=== PATIENT | female | born 1950 | race Caucasian/White ===

== ENCOUNTER → 2016-08-16 | Outpatient (CLI) | payer MEDICARE ==
--- NOTE | 2016-08-17 08:00 | MM ---
Reason for exam: screening (asymptomatic). Last mammogram was performed 1 year ago. History: Patient is postmenopausal and is nulliparous. Family history of breast cancer in grandmother. Physical Findings: A clinical breast exam by your physician is recommended on an annual basis and results should be correlated with mammographic findings. MG 3D Screening Mammo W/Cad Bilateral CC and MLO view(s) were taken. Prior study comparison: August 10, 2015, bilateral MG 3d screening mammo w/cad. August 04, 2014, bilateral MG screening mammo w CAD. The breast tissue is almost entirely fat. No significant changes when compared with prior studies. ASSESSMENT: Benign, BI-RAD 2 RECOMMENDATION: Routine screening mammogram of both breasts in 1 year.
== END | disposition home or self-care (01) ==
LOC: RADMAMWWP 09:47
PROVIDERS: ATTEND Family Medicine
DX: Z12.31 Encounter for screening mammogram for malignant neoplasm of breast (principal)
CPT/HCPCS: 77063; G0202

== ENCOUNTER 2016-10-04 16:15 | Emergency (ER) | payer MEDICARE ==
--- NOTE | 2016-10-04 17:45 | ED ---
General Adult HPI - General Chief complaint: Skin/Abscess/Foreign Body Stated complaint: Wound Recheck Time Seen by Provider: 10/04/16 17:23 Source: patient, RN notes reviewed Mode of arrival: EMS Limitations: physical limitation - History of Present Illness Initial comments: This is a 66 old female who presents with skin breakdown around the tape that she uses to secure her colostomy bag. Patient states she was diagnosed with colitis many years ago and this causes chronic diarrhea. Patient states her colostomy is constantly leaking and the frequent bag changes are causing increased skin breakdown around the tape of her colostomy bag. Patient states the stoma has been normal and without and skin breakdown or signs of infection. Patient denies any fever/chills. Patient denies any history of MRSA. Patient denies any recent shortness breath, chest pain, abdominal pain, nausea/vomiting , back pain, numbness, tingling, hematuria, headache, or visual changes, or any other complaints. - Related Data Home Medications Medication Instructions Recorded Confirmed Cyclobenzaprine [Flexeril] 5 mg PO HS 11/13/13 10/04/16 Diphenox-Atrop 2.5-0.025 mg 2 tab PO BID PRN 11/13/13 10/04/16 [Lomotil] Lisinopril [Zestril] 20 mg PO DAILY 11/13/13 10/04/16 Clotrimazole Cream [Lotrimin Cream] 1 applic TOPICAL BID 10/04/16 10/04/16 Cyclobenzaprine [Flexeril] 5 mg PO BID PRN 10/04/16 10/04/16 Melatonin 5 mg PO HS 10/04/16 10/04/16 Mirabegron [Myrbetriq] 50 mg PO DAILY 10/04/16 10/04/16 Sertraline [Zoloft] 50 mg PO DAILY 10/04/16 10/04/16 Vitamin B Complex 1 cap PO DAILY 10/04/16 10/04/16 guaiFENesin SYRUP 100MG/5ML 1 dose PO DIRECTED PRN 10/04/16 10/04/16 [Robitussin] Allergies Allergy/AdvReac Type Severity Reaction Status Date / Time Penicillins Allergy Anaphylaxis Verified 10/04/16 17:20 cephalexin monohydrate AdvReac Nausea & Verified 10/04/16 17:20 [From Keflex] Vomiting codeine AdvReac Nausea & Verified 10/04/16 17:20 Vomiting Review of Systems ROS Statement: Those systems with pertinent positive or pertinent negative responses have been documented in the HPI. ROS Other: All systems not noted in ROS Statement are negative. Past Medical History Past Medical History: Asthma, Hypertension Additional Past Medical History / Comment(s): DIVERTICULITIS History of Any Multi-Drug Resistant Organisms: None Reported Past Surgical History: Section, Hernia Repair, Hysterectomy Additional Past Surgical History / Comment(s): LEFT BELOW THE KNEE AMPUTATION, colostomy Past Psychological History: No Psychological Hx Reported Smoking Status: Never smoker Past Alcohol Use History: None Reported Past Drug Use History: None Reported General Exam - General Exam Comments Initial Comments: General: The patient is awake and alert, in no distress, and does not appear acutely ill. Eye: Pupils are equal, round and reactive to light, extra-ocular movements are intact. No nystagmus. There is normal conjunctiva bilaterally. No signs of icterus. Ears: TMs pink and pearly with intact cone of light bilaterally. Normal external ear canals Nose: Nasal turbinates pink and moist Mouth and throat: There are moist mucous membranes and no oral lesions. Neck: The neck is supple, there is no tenderness or JVD. Cardiovascular: There is a regular rate and rhythm. No murmur, rub or gallop is appreciated. Respiratory: Lungs are clear to auscultation, respirations are non-labored, breath sounds are equal. No wheezes, stridor, rales, or rhonchi. Gastrointestinal: Colostomy bag in place. There is no increased erythema, swelling or skin breakdown around the stoma. There is mild small abrasion in a couple of areas of skin around the tape that's securing the colostomy bag. There is no extensive erythema, swelling or bleeding to these areas. No sign of cellulitis. Soft, non-distended, non-tender abdomen without masses or organomegaly noted. There is no rebound or guarding present. No CVA tenderness. Bowel sounds are unremarkable. Musculoskeletal: Normal ROM, no tenderness. Strength 5/5. Sensation intact. Radial Pulses equal bilaterally 2+. Neurological: A&O x 3. CN II-XII intact, There are no obvious motor or sensory deficits. Coordination appears grossly intact. Speech is normal. Skin: There is mild small abrasions around the skin of the patient's colostomy bag where there is tape securing the colostomy bag. No sign of cellulitis. Skin is warm and dry and no rashes are noted. Psychiatric: Cooperative, appropriate mood & affect, normal judgment. Limitations: physical limitation Course Vital Signs 10/04/16 16:20 Temperature 97.8 F Pulse Rate 84 Respiratory 20 Rate Blood Pressure 133/67 O2 Sat by Pulse 98 Oximetry Medical Decision Making - Medical Decision Making This is a 62yo female who is complaining of skin breakdown in the areas that her colostomy bag is taped. On physical exam patient is well-appearing and afebrile in the EC. Colostomy bag in place. Colostomy bag in place. There is no increased erythema, swelling or skin breakdown around the stoma. There is mild small abrasion in a couple of areas of skin around the tape that's securing the colostomy bag. There is no extensive erythema, swelling or bleeding to these areas. No sign of cellulitis. Soft, non-distended, non- tender abdomen without masses or organomegaly noted. There is no rebound or guarding present. No CVA tenderness. Bowel sounds are unremarkable. I discussed that patient should keep Neosporin on the areas of irritation. I discussed wetting the tape with warm soapy water before taking it off as the tape seems to be irritating the patient's skin because the patient has to change her colostomy bag frequently. I discussed to keep the areas clean and dry. I discussed return parameters. Discussed that patient should follow up with PCP in one to 2 days or return to the EC for any worsening symptoms or for any further concerns. Patient was receptive to this plan and patient will be discharged home. Disposition Clinical Impression: Skin breakdown, Abrasion Disposition: HOME SELF-CARE Condition: Good Instructions: Abrasion (ED) Additional Instructions: Plan wet with warm water the tape around your colostomy bag before removal to prevent skin breakdown. Please apply Neosporin to the areas where skin is irritated. Please keep the areas clean and dry. Please follow-up with family doctor in the next 2 days of symptoms have not improved. Please return to emergency room if the symptoms increase or worsen or for any other concerns. Referrals: Aubrey Giles MD [Primary Care Provider] - 1-2 days Time of Disposition: 17:53
[2016-10-04 18:17] VITALS: BP 120/80; PULSE 78; RESP 16; TEMP 97.9
== END 2016-10-04 18:16 | disposition home or self-care (01) ==
LOC: EC 16:15
DX: S30.811A Abrasion of abdominal wall, initial encounter (principal); I10 Essential (primary) hypertension; Z79.899 Other long term (current) drug therapy; Z88.0 Allergy status to penicillin; Z88.2 Allergy status to sulfonamides; Z88.8 Allergy status to other drugs, medicaments and biological substances; X58.XXXA Exposure to other specified factors, initial encounter
CPT/HCPCS: 99283

== ENCOUNTER → 2017-09-06 | Outpatient (CLI) | payer MEDICARE, OTHER ==
--- NOTE | 2017-09-11 07:57 | MM ---
Reason for exam: screening (asymptomatic). Last mammogram was performed 1 year and 1 month ago. History: Patient is postmenopausal and is nulliparous. Family history of breast cancer in grandmother. Physical Findings: A clinical breast exam by your physician is recommended on an annual basis and results should be correlated with mammographic findings. MG 3D Screening Mammo W/Cad Bilateral CC and MLO view(s) were taken. CV view(s) were taken of the right breast. Prior study comparison: August 16, 2016, bilateral MG 3d screening mammo w/cad. August 10, 2015, bilateral MG 3d screening mammo w/cad. There are scattered fibroglandular densities. No significant changes when compared with prior studies. ASSESSMENT: Negative, BI-RAD 1 RECOMMENDATION: Routine screening mammogram of both breasts in 1 year.
== END | disposition home or self-care (01) ==
LOC: RADMAMWWP 11:03
PROVIDERS: ATTEND General Practice
DX: Z12.31 Encounter for screening mammogram for malignant neoplasm of breast (principal)
CPT/HCPCS: 77063; 77067

== ENCOUNTER 2018-06-24 12:51 | Observation (INO) | payer MEDICARE, OTHER ==
[2018-06-24] MEDS ORDERED: SODIUM CHLORIDE 0.9% 1,000 ML IV STA (13:02)
[2018-06-24] MEDS ORDERED: PANTOPRAZOLE 40 MG/10 ML VIAL IVP STA (13:02)
--- NOTE | 2018-06-24 13:12 | ED ---
General Adult HPI - General Chief complaint: GI Bleed Stated complaint: Blood in Stool Time Seen by Provider: 06/24/18 12:56 Source: patient, RN notes reviewed Mode of arrival: EMS Limitations: no limitations - History of Present Illness Initial comments: Patient is a pleasant 67-year-old female presenting to the emergency department with concern for blood in her colostomy bag. Patient has had mild symptoms over the past week, worse today. Patient has had some mild abdominal cramping. Patient does have colostomy bag secondary to history of colitis. No nausea vomiting. No fevers. - Related Data Home Medications Medication Instructions Recorded Confirmed Diphenox-Atrop 2.5-0.025 mg 2 tab PO BID PRN 11/13/13 06/24/18 [Lomotil] Lisinopril [Zestril] 20 mg PO DAILY 11/13/13 06/24/18 Melatonin 5 mg PO HS 10/04/16 06/24/18 Vitamin B Complex 1 cap PO DAILY 10/04/16 06/24/18 Allergies Allergy/AdvReac Type Severity Reaction Status Date / Time Penicillins Allergy Anaphylaxis Verified 06/24/18 14:17 cephalexin monohydrate AdvReac Nausea & Verified 06/24/18 14:17 [From Keflex] Vomiting codeine AdvReac Nausea & Verified 06/24/18 14:17 Vomiting Review of Systems ROS Statement: Those systems with pertinent positive or pertinent negative responses have been documented in the HPI. ROS Other: All systems not noted in ROS Statement are negative. Constitutional: Denies: fever Eyes: Denies: eye pain ENT: Denies: ear pain Respiratory: Denies: cough Cardiovascular: Denies: chest pain Endocrine: Denies: fatigue Gastrointestinal: Reports: as per HPI, abdominal pain. Denies: nausea, vomiting Genitourinary: Denies: dysuria Musculoskeletal: Denies: back pain Skin: Denies: rash Neurological: Denies: weakness Past Medical History Past Medical History: Asthma, Hypertension Additional Past Medical History / Comment(s): DIVERTICULITIS History of Any Multi-Drug Resistant Organisms: None Reported Past Surgical History: Section, Hernia Repair, Hysterectomy Additional Past Surgical History / Comment(s): LEFT BELOW THE KNEE AMPUTATION, colostomy Past Psychological History: No Psychological Hx Reported Smoking Status: Never smoker Past Alcohol Use History: None Reported Past Drug Use History: None Reported General Exam Limitations: no limitations General appearance: alert, in no apparent distress Head exam: Present: atraumatic Eye exam: Present: normal appearance, PERRL ENT exam: Present: normal oropharynx Neck exam: Present: normal inspection Respiratory exam: Present: normal lung sounds bilaterally Cardiovascular Exam: Present: regular rate, normal rhythm GI/Abdominal exam: Present: soft, normal bowel sounds. Absent: distended, tenderness, guarding, rebound, rigid, pulsatile mass Extremities exam: Present: other (Left lower leg amputation) Neurological exam: Present: alert Psychiatric exam: Present: normal affect, normal mood Skin exam: Present: normal color Course Vital Signs 06/24/18 12:53 Temperature 98.1 F Pulse Rate 77 Respiratory 18 Rate Blood Pressure 110/62 O2 Sat by Pulse 98 Oximetry Medical Decision Making - Medical Decision Making Patient reevaluated. Patient updated. Case discussed in detail Dr. Valdivia, covering for Dr. Nieto, who will admit. - Lab Data Result diagrams: 06/24/18 13:45 06/24/18 13:45 Lab Results 06/24/18 06/24/18 06/24/18 Range/Units 13:11 13:45 13:45 WBC 8.0 (3.8-10.6) k/uL RBC 4.07 (3.80-5.40) m/uL Hgb 11.2 L (11.4-16.0) gm/dL Hct 36.3 (34.0-46.0) % MCV 89.1 (80.0-100.0) fL MCH 27.5 (25.0-35.0) pg MCHC 30.9 L (31.0-37.0) g/dL RDW 14.1 (11.5-15.5) % Plt Count 325 (150-450) k/uL Neutrophils % 72 % Lymphocytes % 18 % Monocytes % 4 % Eosinophils % 2 % Basophils % 1 % Neutrophils # 5.8 (1.3-7.7) k/uL Lymphocytes # 1.5 (1.0-4.8) k/uL Monocytes # 0.3 (0-1.0) k/uL Eosinophils # 0.2 (0-0.7) k/uL Basophils # 0.1 (0-0.2) k/uL PT 10.0 (9.0-12.0) sec INR 0.9 (<1.2) APTT 22.9 (22.0-30.0) sec Sodium (137-145) mmol/L Potassium (3.5-5.1) mmol/L Chloride (98-107) mmol/L Carbon Dioxide (22-30) mmol/L Anion Gap mmol/L BUN (7-17) mg/dL Creatinine (0.52-1.04) mg/dL Est GFR (CKD-EPI)AfAm (>60 ml/min/1.73 sqM) Est GFR (CKD-EPI)NonAf (>60 ml/min/1.73 sqM) Glucose (74-99) mg/dL Calcium (8.4-10.2) mg/dL Total Bilirubin (0.2-1.3) mg/dL AST (14-36) U/L ALT (9-52) U/L Alkaline Phosphatase (38-126) U/L Total Protein (6.3-8.2) g/dL Albumin (3.5-5.0) g/dL Stool Occult Blood Positive H (Negative) 06/24/18 Range/Units 13:45 WBC (3.8-10.6) k/uL RBC (3.80-5.40) m/uL Hgb (11.4-16.0) gm/dL Hct (34.0-46.0) % MCV (80.0-100.0) fL MCH (25.0-35.0) pg MCHC (31.0-37.0) g/dL RDW (11.5-15.5) % Plt Count (150-450) k/uL Neutrophils % % Lymphocytes % % Monocytes % % Eosinophils % % Basophils % % Neutrophils # (1.3-7.7) k/uL Lymphocytes # (1.0-4.8) k/uL Monocytes # (0-1.0) k/uL Eosinophils # (0-0.7) k/uL Basophils # (0-0.2) k/uL PT (9.0-12.0) sec INR (<1.2) APTT (22.0-30.0) sec Sodium 141 (137-145) mmol/L Potassium 4.6 (3.5-5.1) mmol/L Chloride 107 (98-107) mmol/L Carbon Dioxide 28 (22-30) mmol/L Anion Gap 6 mmol/L BUN 17 (7-17) mg/dL Creatinine 0.91 (0.52-1.04) mg/dL Est GFR (CKD-EPI)AfAm 77 (>60 ml/min/1.73 sqM) Est GFR (CKD-EPI)NonAf 66 (>60 ml/min/1.73 sqM) Glucose 112 H (74-99) mg/dL Calcium 8.9 (8.4-10.2) mg/dL Total Bilirubin 0.4 (0.2-1.3) mg/dL AST 16 (14-36) U/L ALT 27 (9-52) U/L Alkaline Phosphatase 68 (38-126) U/L Total Protein 6.2 L (6.3-8.2) g/dL Albumin 3.2 L (3.5-5.0) g/dL Stool Occult Blood (Negative) - Radiology Data Radiology results: report reviewed (Computed tomography scan of the abdomen and pelvis shows ventral abdominal wall hernia. Peristomal hernia. Lymph nodes.) Disposition Clinical Impression: Gastrointestinal hemorrhage Disposition: ADMITTED IP TO THIS [facility] Referrals: Miguel Sapp MD [Primary Care Provider] - 1-2 days Decision Time: 16:20
[2018-06-24 14:06] LABS: Basophils # (A) 0.1 k/uL (0-0.2); Basophils % (A) 1 %; Eosinophils # (A) 0.2 k/uL (0-0.7); Eosinophils % (A) 2 %; HCT 36.3 % (34.0-46.0); HGB 11.2 gm/dL (11.4-16.0); Lymphocytes # (A) 1.5 k/uL (1.0-4.8); Lymphocytes % (A) 18 %; MCH 27.5 pg (25.0-35.0); MCHC 30.9 g/dL (31.0-37.0); MCV 89.1 fL (80.0-100.0); Mean Platelet Volume 7.2; Monocytes # (A) 0.3 k/uL (0-1.0); Monocytes % (A) 4 %; Neutrophils # (A) 5.8 k/uL (1.3-7.7); Neutrophils % (A) 72 %; Platelet Count 325 k/uL (150-450); RBC 4.07 m/uL (3.80-5.40); RDW 14.1 % (11.5-15.5)
[2018-06-24 14:14] LABS: INR 0.9 (<1.2); Partial Thromboplastin Time 22.9 sec (22.0-30.0)
[2018-06-24 14:22] LABS: Albumin 3.2 g/dL (3.5-5.0); Calcium 8.9 mg/dL (8.4-10.2); Potassium 4.6 mmol/L (3.5-5.1); Total Bilirubin 0.4 mg/dL (0.2-1.3); Total Protein 6.2 g/dL (6.3-8.2)
--- NOTE | 2018-06-24 14:29 | P.HPIM ---
History of Present Illness 62-year-old pleasant female came to emergency department with the blood in the colostomy bag [place] round amount of blood one-day duration her hemoglobin is 11 at this time I do not have her previous hemoglobin available patient is comparing of her significant abdominal cramping in that area patient recently completed antibiotics for has a left groin infection. 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 Patient had a colostomy years ago does take it Lomotil patient denied any significant diarrhea at this time just blood in the stools. Patient will undergo CAT scan of the abdomen to rule out any kind colitis. Review of Systems REVIEW OF SYSTEMS: CONSTITUTIONAL: No fever, no malaise, no fatigue. HEENT: No recent visual problems or hearing problems. Denied any sore throat. CARDIOVASCULAR: No chest pain, orthopnea, PND, no palpitations, no syncope. PULMONARY: No shortness of breath, no cough, no hemoptysis. GASTROINTESTINAL: No diarrhea, no nausea, no vomiting, . NEUROLOGICAL: No headaches, no weakness, no numbness. HEMATOLOGICAL: Denies any bleeding or petechiae. GENITOURINARY: Denies any burning micturition, frequency, or urgency. MUSCULOSKELETAL/RHEUMATOLOGICAL: Denies any joint pain, swelling, or any muscle pain. ENDOCRINE: Denies any polyuria or polydipsia. The rest of the 14-point review of systems is negative. Past Medical History Past Medical History: Asthma, Hypertension Additional Past Medical History / Comment(s): DIVERTICULITIS History of Any Multi-Drug Resistant Organisms: None Reported Past Surgical History: Section, Hernia Repair, Hysterectomy Additional Past Surgical History / Comment(s): LEFT BELOW THE KNEE AMPUTATION, colostomy Past Psychological History: No Psychological Hx Reported Smoking Status: Never smoker Past Alcohol Use History: None Reported Past Drug Use History: None Reported Medications and Allergies Home Medications Medication Instructions Recorded Confirmed Type Diphenox-Atrop 2.5-0.025 mg 2 tab PO BID PRN 11/13/13 06/24/18 History [Lomotil] Lisinopril [Zestril] 20 mg PO DAILY 11/13/13 06/24/18 History Melatonin 5 mg PO HS 10/04/16 06/24/18 History Vitamin B Complex 1 cap PO DAILY 10/04/16 06/24/18 History Allergies Allergy/AdvReac Type Severity Reaction Status Date / Time Penicillins Allergy Anaphylaxis Verified 06/24/18 14:17 cephalexin monohydrate AdvReac Nausea & Verified 06/24/18 14:17 [From Keflex] Vomiting codeine AdvReac Nausea & Verified 06/24/18 14:17 Vomiting Physical Exam Vitals: Vital Signs Temp Pulse Resp BP Pulse Ox 06/24/18 12:53 98.1 F 77 18 110/62 98 Intake and Output 06/23/18 06/24/18 06/24/18 22:59 06:59 14:59 Other: Weight 157.85 kg PHYSICAL EXAMINATION: GENERAL: The patient is alert and oriented x3, not in any acute distress. Obese HEENT: Pupils are round and equally reacting to light. EOMI. No scleral icterus. No conjunctival pallor. Normocephalic, atraumatic. No pharyngeal erythema. No thyromegaly. CARDIOVASCULAR: S1 and S2 present. No murmurs, rubs, or gallops. PULMONARY: Chest is clear to auscultation, no wheezing or crackles. ABDOMEN: Soft, nontender, nondistended, normoactive bowel sounds. No palpable organomegaly. Patient has a colostomy with significant amount of blood in stool in it MUSCULOSKELETAL: No joint swelling or deformity. EXTREMITIES: No cyanosis, clubbing, or pedal edema. Left leg prosthesis NEUROLOGICAL: Gross neurological examination did not reveal any focal deficits. SKIN: No rashes. Results CBC & Chem 7: 06/24/18 13:45 06/24/18 13:45 Labs: Abnormal Lab Results - Last 24 Hours (Table) 06/24/18 06/24/18 06/24/18 Range/Units 13:11 13:45 13:45 Hgb 11.2 L (11.4-16.0) gm/dL MCHC 30.9 L (31.0-37.0) g/dL Glucose 112 H (74-99) mg/dL Total Protein 6.2 L (6.3-8.2) g/dL Albumin 3.2 L (3.5-5.0) g/dL Stool Occult Blood Positive H (Negative) Assessment and Plan Plan: GI bleed probable lower GI bleed: Gastric nodule be consulted possibility of colitis without but a CAT scan of the abdomen if it shows colitis patient will be started on antibiotics. Patient doesn't have diarrhea because of which my suspicion of C. diff colitis is slow although patient takes Lomotil at home this will be held and if she has diarrhea will obtain 2 for C. diff. -Hypertension and patient will be continued on ALEKSEY inhibitor at a low dose because of her low normal blood pressure -Asthma without any acute exacerbation Patient cannot have for pathologic due to prophylaxis as patient has GI bleed and patient is already started on Protonix by ER
[2018-06-24] MEDS ORDERED: FAMOTIDINE 20 MG/2 ML VIAL IV STA (14:44)
[2018-06-24] MEDS ORDERED: diphenhydrAMINE 50 MG/ML 1 ML VIAL IVP STA (14:44)
[2018-06-24] MEDS ORDERED: methylPREDNISolone SOD SUCCI 125 MG/2 ML VIAL IV STA (14:44)
--- NOTE | 2018-06-24 15:55 | CT ---
EXAMINATION TYPE: CT abdomen pelvis w con DATE OF EXAM: 06/24/2018 COMPARISON: 11/13/2013 HISTORY: 67-year-old female with Blood in stool. TECHNIQUE: Contiguous axial scanning of the abdomen and pelvis following administration of 100 ml Iso thelma 300 IV contrast. Delayed images through the kidneys and coronal/sagittal reconstructions perform ed. CT DLP: 3124.4 mGycm Automated exposure control for dose reduction was used. FINDINGS: Motion artifact limits the exam. Heart upper limits of normal in size without pericardial effusion. Strandy atelectasis and scarring a t the left base. No pleural effusion. Liver mildly enlarged 18.5 cm. No focal lesion seen allowing for motion artifact. Portal venous syste m appears patent. No biliary duct dilatation. Cholecystectomy clips are present. Right adrenal nodule currently measures 1.7 cm, slightly larger from 1.3 cm in 2014. Indolent behavio r suggests a benign etiology with an adrenal adenoma being favored. Motion limited kidneys without gross abnormal body. Left adrenal gland, spleen, and pancreas show no gross abnormality. Large ventral abdominal wall hernia redemonstrated with a hernia neck measuring 8.0 cm wide and the h ernia sac measuring 17.4 cm wide containing transverse colon and small bowel loops. This is relativel y similar to 2014. There is a right lower quadrant ileostomy with a new parastomal hernia as compared to 2014 measuring 10.4 cm wide and 11.4 cm long containing the cecum and distal ileum. The patient's ileostomy has some new mildly enlarged mesenteric lymph nodes just adjacent measuring u p to 1 cm with some mild fat stranding in this region. No dilated small bowel, free fluid, or free air. Bladder nondistended. Pelvic phleboliths. Uterus surgically absent. Neither ovary clearly visualized. No abnormal fluid collection in the pelvis. Mildly enlarged right inguinal lymph node measures 1.9 c m and is nonspecific, possibly reactive. Bones: Degenerative changes at the hips. Degenerative changes throughout the mid and lower lumbar spi ne. IMPRESSION: 1. LARGE VENTRAL ABDOMINAL WALL HERNIA REDEMONSTRATED CONTAINING THE TRANSVERSE COLON AND SOME SMALL BOWEL LOOPS (HERNIA NECK 8 CM WIDE AND HERNIA SAC 17.4 CM WIDE). NO SIGNIFICANT CHANGE FROM 2013. 2. RIGHT LOWER QUADRANT ILEOSTOMY. THERE IS A NEW LARGE PARASTOMAL HERNIA ASSOCIATED WITH THIS OSTOMY MEASURING 11.4 X 10.4 CM CONTAINING THE DISTAL ILEUM AND CECUM. NO OBSTRUCTIVE CHANGES. 3. SOME MILDLY ENLARGED MESENTERIC LYMPH NODES CARRIED ALONG WITH THE SMALL BOWEL AT THE OSTOMY ARE N EW AND MAY BE REACTIVE TO LOCAL INFECTION OR INFLAMMATION AT OR NEAR THE OSTOMY SITE. 4. MILDLY ENLARGED RIGHT INGUINAL LYMPH NODE MEASURES 1.9 CM AND IS NONSPECIFIC. THIS CAN BE FOLLOWED CLINICALLY.
[2018-06-24] MEDS ORDERED: NALOXONE 0.4 MG/ML 1 ML VIAL IV PRN (16:20)
[2018-06-24 17:53] LABS: Glucose,Whole Blood 117 mg/dL (75-99)
[2018-06-24] MEDS: SODIUM CHLORIDE 0.9% 1,000 ML IV SCH (19:43)
[2018-06-24 21:22] LABS: Glucose,Whole Blood 153 mg/dL (75-99)
[2018-06-24] MEDS: MELATONIN 5 MG TABLET PO SCH (21:30)
--- NOTE | 2018-06-24 21:32 | P.GSCN ---
History of Present Illness Consult date: 06/24/18 Reason for Consult: Stomal bleeding History of present illness: 67-year-old female came to the ER today with the main complaints of blood from her ileostomy bag. The patient has had a end ileostomy in the right lower quadrant for the last 30 years or so. She had a colectomy for colitis she states. Denies any history of Crohn's disease. Patient describes a lot of irritation of the skin around the ostomy and states she believes the bleeding is coming from around the stoma itself. She states the stool within the bag typically is nonbloody. Patient states she has a difficult time retaining the cleanliness and appropriate management of her ostomy bag because of her morbid obesity and other limitations. Patient also complains of some drainage from the perineum. He states her rectum was previously removed and sewn shut. She has had drainage however from that area for the last several years. She also describes some mild abdominal cramps. Labs are fairly unimpressive. Patient had a CAT scan performed showing multiple hernias. The peristomal hernia is larger than previous. No signs of obstruction. Some vague adenopathy seen. 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 gallbladder Past Anesthesia/Blood Transfusion Reactions: Postoperative Nausea & Vomiting ( PONV) Additional Past Anesthesia/Blood Transfusion Reaction / Comm: "never received any blood transfusion" Smoking Status: Never smoker - Past Family History Mother Family Medical History: Dementia Father Family Medical History: Dementia Medications and Allergies Home Medications Medication Instructions Recorded Confirmed Type Diphenox-Atrop 2.5-0.025 mg 2 tab PO BID PRN 11/13/13 06/24/18 History [Lomotil] Lisinopril [Zestril] 20 mg PO DAILY 11/13/13 06/24/18 History Melatonin 5 mg PO HS 10/04/16 06/24/18 History Vitamin B Complex 1 cap PO DAILY 10/04/16 06/24/18 History Allergies Allergy/AdvReac Type Severity Reaction Status Date / Time Penicillins Allergy Anaphylaxis Verified 06/24/18 14:17 cephalexin monohydrate AdvReac Nausea & Verified 06/24/18 14:17 [From Keflex] Vomiting codeine AdvReac Nausea & Verified 06/24/18 14:17 Vomiting red food dye Allergy Rash/Hives Uncoded 06/24/18 18:29 Surgical - Exam Vital Signs Temp Pulse Resp BP Pulse Ox 98.1 F 77 18 110/62 98 06/24/18 12:53 06/24/18 12:53 06/24/18 12:53 06/24/18 12:53 06/24/18 12:53 Physical exam: General: Well-developed, well-nourished HEENT: Normocephalic, sclerae nonicteric Abdomen: Obese, large abdominal wall hernias, stoma with appliance intact, bilious fluid in the ostomy bag, Nontender, nondistended Extremities: No edema Neuro: Alert and oriented Perineal examination deferred until tomorrow morning. Results - Labs 06/24/18 13:45 06/24/18 13:45 Abnormal Lab Results - Last 24 Hours (Table) 06/24/18 06/24/18 06/24/18 Range/Units 13:11 13:45 13:45 Hgb 11.2 L (11.4-16.0) gm/dL MCHC 30.9 L (31.0-37.0) g/dL Glucose 112 H (74-99) mg/dL POC Glucose (mg/dL) (75-99) mg/dL Total Protein 6.2 L (6.3-8.2) g/dL Albumin 3.2 L (3.5-5.0) g/dL Stool Occult Blood Positive H (Negative) 06/24/18 06/24/18 Range/Units 17:51 20:54 Hgb (11.4-16.0) gm/dL MCHC (31.0-37.0) g/dL Glucose (74-99) mg/dL POC Glucose (mg/dL) 117 H 153 H (75-99) mg/dL Total Protein (6.3-8.2) g/dL Albumin (3.5-5.0) g/dL Stool Occult Blood (Negative) Diabetes panel 06/24/18 Range/Units 13:45 Sodium 141 (137-145) mmol/L Potassium 4.6 (3.5-5.1) mmol/L Chloride 107 (98-107) mmol/L Carbon Dioxide 28 (22-30) mmol/L BUN 17 (7-17) mg/dL Creatinine 0.91 (0.52-1.04) mg/dL Glucose 112 H (74-99) mg/dL Calcium 8.9 (8.4-10.2) mg/dL AST 16 (14-36) U/L ALT 27 (9-52) U/L Alkaline Phosphatase 68 (38-126) U/L Total Protein 6.2 L (6.3-8.2) g/dL Albumin 3.2 L (3.5-5.0) g/dL Calcium panel 06/24/18 Range/Units 13:45 Calcium 8.9 (8.4-10.2) mg/dL Albumin 3.2 L (3.5-5.0) g/dL Pituitary panel 06/24/18 Range/Units 13:45 Sodium 141 (137-145) mmol/L Potassium 4.6 (3.5-5.1) mmol/L Chloride 107 (98-107) mmol/L Carbon Dioxide 28 (22-30) mmol/L BUN 17 (7-17) mg/dL Creatinine 0.91 (0.52-1.04) mg/dL Glucose 112 H (74-99) mg/dL Calcium 8.9 (8.4-10.2) mg/dL Adrenal panel 06/24/18 Range/Units 13:45 Sodium 141 (137-145) mmol/L Potassium 4.6 (3.5-5.1) mmol/L Chloride 107 (98-107) mmol/L Carbon Dioxide 28 (22-30) mmol/L BUN 17 (7-17) mg/dL Creatinine 0.91 (0.52-1.04) mg/dL Glucose 112 H (74-99) mg/dL Calcium 8.9 (8.4-10.2) mg/dL Total Bilirubin 0.4 (0.2-1.3) mg/dL AST 16 (14-36) U/L ALT 27 (9-52) U/L Alkaline Phosphatase 68 (38-126) U/L Total Protein 6.2 L (6.3-8.2) g/dL Albumin 3.2 L (3.5-5.0) g/dL Assessment and Plan (1) Gastrointestinal hemorrhage Narrative/Plan: Bleeding appears to be on the basis of peristomal irritation. We'll consult ostomy nurse at this time. Will follow for active bleeding. Tomorrow will perform a more thorough examination of the perineum to see if there is any fistulous formation to the perineum or residual anal canal. Otherwise no plans for surgical intervention. The patient is not a surgical candidate as it pertains to her large hernias. Current Visit: Yes Status: Acute Code(s): K92.2 - GASTROINTESTINAL HEMORRHAGE, UNSPECIFIED SNOMED Code(s): 82397826
[2018-06-25] MEDS: ALBUTEROL NEBULIZED 2.5 MG/3 ML INHALATION PRN ×2 (01:17→07:16)
[2018-06-25] MEDS: ACETAMINOPHEN TAB 325 MG TAB PO PRN ×2 (03:17→14:54)
[2018-06-25] MEDS: SODIUM CHLORIDE 0.9% 1,000 ML IV SCH ×2 (03:18→14:53)
[2018-06-25 03:52] LABS: Hemoglobin A1C 5.7 % (4.0-6.0)
[2018-06-25 07:14] LABS: Glucose,Whole Blood 138 mg/dL (75-99)
[2018-06-25 07:50] LABS: Basophils % (A) 0 %; Eosinophils # (A) 0.1 k/uL (0-0.7); Eosinophils % (A) 1 %; HCT 33.8 % (34.0-46.0); HGB 10.9 gm/dL (11.4-16.0); Lymphocytes % (A) 11 %; MCH 28.3 pg (25.0-35.0); MCHC 32.1 g/dL (31.0-37.0); MCV 88.2 fL (80.0-100.0); Mean Platelet Volume 7.7; Monocytes # (A) 0.3 k/uL (0-1.0); Monocytes % (A) 3 %; Neutrophils # (A) 7.4 k/uL (1.3-7.7); Neutrophils % (A) 84 %; Platelet Count 313 k/uL (150-450); RBC 3.83 m/uL (3.80-5.40); RDW 14.2 % (11.5-15.5); WBC 8.8 k/uL (3.8-10.6)
[2018-06-25 08:02] LABS: ALT 19 U/L (9-52); AST 17 U/L (14-36); Albumin 3.2 g/dL (3.5-5.0); Alkaline Phosphatase 66 U/L (38-126); Anion Gap 6 mmol/L; Blood Urea Nitrogen 15 mg/dL (7-17); Calcium 8.9 mg/dL (8.4-10.2); Carbon Dioxide 24 mmol/L (22-30); Chloride 108 mmol/L (98-107); Glucose 125 mg/dL (74-99); Potassium 4.5 mmol/L (3.5-5.1); Sodium 138 mmol/L (137-145); Total Bilirubin 0.4 mg/dL (0.2-1.3); Total Protein 6.2 g/dL (6.3-8.2)
[2018-06-25] MEDS: LISINOPRIL 10 MG TAB PO SCH (08:26)
[2018-06-25] MEDS: PANTOPRAZOLE 40 MG/10 ML VIAL IV SCH (08:26)
[2018-06-25 12:08] LABS: Glucose,Whole Blood 105 mg/dL (75-99)
--- NOTE | 2018-06-25 14:20 | P.PN ---
Subjective Progress Note Date: 06/25/18 Principal diagnosis: GI bleed Patient has had no further bleeding from the ostomy. The patient changed her ostomy appliance earlier today. Nursing staff felt there was significant excoriation there. Objective - Vital Signs Vital signs: Vital Signs Temp 97.9 F 06/25/18 07:10 Pulse 62 06/25/18 07:26 Resp 18 06/25/18 07:10 BP 114/68 06/25/18 07:10 Pulse Ox 98 06/25/18 07:10 Intake & Output 06/24/18 06/25/18 06/25/18 18:59 06:59 18:59 Intake Total 1260 Balance 1260 Weight 157.85 kg Intake: Intake, IV Titration 900 Amount Sodium Chloride 0.9% 1, 900 000 ml @ 75 mls/hr IV . [id number] [facility] Rx#:[id number] Oral 360 Other: Voiding Method Diaper Bedside Commode Bedside Commode Incontinent Diaper Incontinent # Voids 2 - Exam Abdomen: Soft, obese, hernia is noted, mild tenderness, ostomy pink without bleeding Rectal: Anal opening present, no rectal masses, no rectal bleeding - Labs CBC & Chem 7: 06/25/18 07:02 06/25/18 07:02 Labs: Abnormal Lab Results - Last 24 Hours (Table) 06/24/18 06/24/18 06/24/18 Range/Units 13:45 17:51 20:54 Hgb (11.4-16.0) gm/dL Hct (34.0-46.0) % Chloride (98-107) mmol/L Glucose 112 H (74-99) mg/dL POC Glucose (mg/dL) 117 H 153 H (75-99) mg/dL Total Protein 6.2 L (6.3-8.2) g/dL Albumin 3.2 L (3.5-5.0) g/dL 06/25/18 06/25/18 06/25/18 Range/Units 07:02 07:02 07:12 Hgb 10.9 L (11.4-16.0) gm/dL Hct 33.8 L (34.0-46.0) % Chloride 108 H (98-107) mmol/L Glucose 125 H (74-99) mg/dL POC Glucose (mg/dL) 138 H (75-99) mg/dL Total Protein 6.2 L (6.3-8.2) g/dL Albumin 3.2 L (3.5-5.0) g/dL 06/25/ Range/Units 12:07 Hgb (11.4-16.0) gm/dL Hct (34.0-46.0) % Chloride (98-107) mmol/L Glucose (74-99) mg/dL POC Glucose (mg/dL) 105 H (75-99) mg/dL Total Protein (6.3-8.2) g/dL Albumin (3.5-5.0) g/dL Assessment and Plan (1) Gastrointestinal hemorrhage Narrative/Plan: Patient was convinced she had a proctectomy however CAT scan suggests a stapled sigmoid colon with residual rectum. Patient may have some residual colitis of the distal segment. CAT scan however shows no active inflammation. We'll consult ostomy nurse. Consider flexible proctoscopy sigmoid endoscopy. Current Visit: Yes Status: Acute Code(s): K92.2 - GASTROINTESTINAL HEMORRHAGE, UNSPECIFIED SNOMED Code(s): 85521461
--- NOTE | 2018-06-25 14:25 | P.PN ---
Subjective 67-year-old admitted for possibility of bleeding to the colostomy patient has minimal or no blood today his hemoglobin did not drop much. Although patient does have some redness around the colostomy site area. Patient has herniation of bowel into the colostomy. Surgical surgery evaluated the patient patient will receive counseling from wound care and wound care recommendations. We'll monitor her one more night possibility of discharge tomorrow. Constitutional: Denied any fatigue denied any fever. Cardio vascular: denied any chest pain, palpitations Gastrointestinal denied any nausea vomiting Pulmonary: Denied any shortness of breath cough Neurologic denied any new focal deficits All inpatient medications were reviewed and appropriate changes in these medications as dictated in the interval history and assessment and plan. Objective - Vital Signs Vital signs: Vital Signs Temp 97.9 F 06/25/18 07:10 Pulse 62 06/25/18 07:26 Resp 18 06/25/18 07:10 BP 114/68 06/25/18 07:10 Pulse Ox 98 06/25/18 07:10 Intake & Output 06/24/18 06/25/18 06/25/18 18:59 06:59 18:59 Intake Total 1260 Balance 1260 Weight 157.85 kg Intake: Intake, IV Titration 900 Amount Sodium Chloride 0.9% 1, 900 000 ml @ 75 mls/hr IV . [id number] [facility] Rx#:[id number] Oral 360 Other: Voiding Method Diaper Bedside Commode Bedside Commode Incontinent Diaper Incontinent # Voids 2 - Exam PHYSICAL EXAMINATION: GENERAL: The patient is alert and oriented x3, not in any acute distress. Obese HEENT: Pupils are round and equally reacting to light. EOMI. No scleral icterus. No conjunctival pallor. Normocephalic, atraumatic. No pharyngeal erythema. No thyromegaly. CARDIOVASCULAR: S1 and S2 present. No murmurs, rubs, or gallops. PULMONARY: Chest is clear to auscultation, no wheezing or crackles. ABDOMEN: Soft, nontender, nondistended, normoactive bowel sounds. No palpable organomegaly. Patient has a colostomy with significant amount of blood in stool in it MUSCULOSKELETAL: No joint swelling or deformity. EXTREMITIES: No cyanosis, clubbing, or pedal edema. Left leg prosthesis NEUROLOGICAL: Gross neurological examination did not reveal any focal deficits. SKIN: No rashes. - Labs CBC & Chem 7: 06/25/18 07:02 06/25/18 07:02 Labs: Abnormal Lab Results - Last 24 Hours (Table) 06/24/18 06/24/18 06/24/18 Range/Units 13:45 17:51 20:54 Hgb (11.4-16.0) gm/dL Hct (34.0-46.0) % Chloride (98-107) mmol/L Glucose 112 H (74-99) mg/dL POC Glucose (mg/dL) 117 H 153 H (75-99) mg/dL Total Protein 6.2 L (6.3-8.2) g/dL Albumin 3.2 L (3.5-5.0) g/dL 06/25/18 06/25/18 06/25/18 Range/Units 07:02 07:02 07:12 Hgb 10.9 L (11.4-16.0) gm/dL Hct 33.8 L (34.0-46.0) % Chloride 108 H (98-107) mmol/L Glucose 125 H (74-99) mg/dL POC Glucose (mg/dL) 138 H (75-99) mg/dL Total Protein 6.2 L (6.3-8.2) g/dL Albumin 3.2 L (3.5-5.0) g/dL 06/25/18 Range/Units 12:07 Hgb (11.4-16.0) gm/dL Hct (34.0-46.0) % Chloride (98-107) mmol/L Glucose (74-99) mg/dL POC Glucose (mg/dL) 105 H (75-99) mg/dL Total Protein (6.3-8.2) g/dL Albumin (3.5-5.0) g/dL Assessment and Plan Plan: GI bleed probable lower GI bleed: She has minimally minimal bleed today and that the bleed is believed to be secondary to the periosteal site area irritation may be mild residual colitis. General surgery evaluated the patient. Wound care counseling and care educational video provided to the patient will monitor 1 more night possibility of discharge tomorrow -Hypertension and patient is being continued on ALEKSEY inhibitor at a low dose because of her low normal blood pressure -Asthma without any acute exacerbation Patient cannot have for pathologic due to prophylaxis as patient has GI bleed and patient is already started on Protonix by ER
[2018-06-25 17:39] LABS: Glucose,Whole Blood 106 mg/dL (75-99)
[2018-06-25 20:39] LABS: Glucose,Whole Blood 105 mg/dL (75-99)
[2018-06-25] MEDS: MELATONIN 5 MG TABLET PO SCH (22:25)
[2018-06-26 07:07] LABS: Glucose,Whole Blood 95 mg/dL (75-99)
--- NOTE | 2018-06-26 08:36 | CONS ---
CONSULTATION DATE OF SERVICE: 06/25/2018. REASON FOR CONSULTATION: Bleeding from colostomy. HISTORY OF PRESENT ILLNESS: The patient is a 67-year-old pleasant white female with a longstanding history of Crohn's disease status post ileostomy done in the . She states that for the last 1 days she has been having blood in the colostomy bag and she thinks that the bleeding is happening around the stoma site. Recently, her colostomy bags were changed and she noticed that the mucosa on the colostomy has become more irritated and friable and every time she changes the bag she notices a significant amount of oozing around the site. She also complains of pain around the periostoma site. She has a history of inflammatory bowel disease, sounds like Crohn's disease with fistulas in the past, and underwent ileostomy many years ago. Normally has about 3 to 4 soft bowel movements through the ileostomy bag. He denies any nausea or vomiting. In the emergency room, she did have a CT of the abdomen and pelvis done that showed periostotomy hernia, large ventral abdominal hernia, and a small right inguinal lymph node. PAST MEDICAL HISTORY: Significant for morbid obesity, hypertension, asthma, history of diverticulosis. PAST SURGICAL HISTORY: Ileostomy in the , left below-knee amputation, , hernia repair, hysterectomy, carpal tunnel repair. MEDICATIONS: At home include Lomotil, Zestril, melatonin, vitamin B complex. ALLERGIES: KEFLEX, CODEINE, PENICILLIN. SOCIAL HISTORY: No smoking. No alcohol use. FAMILY HISTORY: Unremarkable. REVIEW OF SYSTEMS: CARDIOPULMONARY: No chest pain or shortness of breath. GENITOURINARY: No dysuria or hematuria. MUSCULOSKELETAL: Unremarkable. NEUROLOGY: Unremarkable. PSYCHIATRY: Psychiatric unremarkable. ENT: Vision unremarkable. CONSTITUTIONAL: No recent weight loss. No fevers, chills or night sweats. ENDOCRINE: Unremarkable. PSYCHIATRIC: Unremarkable. PHYSICAL EXAMINATION: She appears comfortable, in no apparent distress. Vital signs stable. Blood pressure is 114/68, pulse is 56, temperature 97.9. HEENT examination unremarkable. Conjunctive pink. Sclerae anicteric. Chest was clear to auscultation. Heart regular rate and rhythm. Abdomen is soft, obese. There was a ventral hernia noted. Colostomy bag in place. There was blood-tinged stool in the colostomy that was soft in consistency. Mild tenderness around the periostoma site. Extremities no edema. Skin no rashes. Neuro, she is alert and oriented x3. No focal deficits. LABS: From yesterday, hemoglobin 7.2, and today it is 10.9, normal WBC and platelet count. PT/INR is within normal limits and basic metabolic panel is within normal limits. Stool for occult blood was positive. IMPRESSION: This is a lady with a history of inflammatory bowel disease diagnosed in the , status post ileostomy done at that time, presented to the hospital with 1 week bleeding around the ileostomy site. Her hemoglobin is stable. There was small amount of blood- tinged stool in the ostomy bag. Currently, it appears that the bleeding is happening around the mucosa of the ileostomy. RECOMMENDATIONS: Agree with Dr. Ronquillo to consult colostomy nurse tomorrow to investigate this further. For now, we will monitor CBC on a daily basis and we will follow with her closely during the hospital stay. Thank you for this consultation. MMODL / IJN: [id number] /
[2018-06-26] MEDS: SODIUM CHLORIDE 0.9% 1,000 ML IV SCH (09:18)
[2018-06-26] MEDS: LISINOPRIL 10 MG TAB PO SCH (09:18)
[2018-06-26] MEDS: PANTOPRAZOLE 40 MG/10 ML VIAL IV SCH (09:18)
[2018-06-26] MEDS: ACETAMINOPHEN TAB 325 MG TAB PO PRN (10:58)
[2018-06-26 11:28] LABS: Glucose,Whole Blood 93 mg/dL (75-99)
[2018-06-26 12:30] VITALS: BP 128/58; PULSE 60; RESP 16; TEMP 98.4
--- NOTE | 2018-06-26 15:58 | P.DS ---
Providers Date of admission: 06/24/18 16:20 Attending physician: Adolfo Valdivia Consults: 06/24/18 16:20 Consult Physician Urgent Consulting Provider: Misbah Ronquillo Consult Reason/Comments: gi hemorrhage Do you want consulting provider notified?: Yes 06/24/18 16:21 Consult Physician Urgent Consulting Provider: Mavis Frank Consult Reason/Comments: gi hemorrhage Do you want consulting provider notified?: Yes Primary care physician: Miguel Sapp MD Hospital Course: 67-year-old admitted for possibility of bleeding to the colostomy patient has minimal or no blood today his hemoglobin did not drop much. Although patient does have some redness around the colostomy site area. Patient has herniation of bowel into the colostomy. Surgical surgery evaluated the patient patient will receive counseling from wound care and wound care recommendations. We'll monitor her one more night possibility of discharge tomorrow. 06/26/2018 Gen. surgery evaluated the patient and ostomy care nurses evaluated the patient .Patient had normal stool no GI bleed but the patient's bleeding is from the ileostomy site. Patient will go home with home care. PHYSICAL EXAMINATION: GENERAL: The patient is alert and oriented x3, not in any acute distress. Obese HEENT: Pupils are round and equally reacting to light. EOMI. No scleral icterus. No conjunctival pallor. Normocephalic, atraumatic. No pharyngeal erythema. No thyromegaly. CARDIOVASCULAR: S1 and S2 present. No murmurs, rubs, or gallops. PULMONARY: Chest is clear to auscultation, no wheezing or crackles. ABDOMEN: Soft, nontender, nondistended, normoactive bowel sounds. No palpable organomegaly. Patient had colostomy in place some redness around the ostomy site area MUSCULOSKELETAL: No joint swelling or deformity. EXTREMITIES: No cyanosis, clubbing, or pedal edema. Left leg prosthesis NEUROLOGICAL: Gross neurological examination did not reveal any focal deficits. SKIN: No rashes. Assessment and Plan Plan: GI bleed probable lower GI bleed: Patient appears to have periosteal site area of bleeding from irritation will lead good local wound care. Ostomy nurse evaluated the patient and the surgery evaluated the patient patient will be discharged home with home care -Hypertension -Asthma without any acute exacerbation Plan - Discharge Summary Discharge Rx Participant: No New Discharge Prescriptions: New Lisinopril [Zestril] 10 mg PO DAILY tab Continue Diphenox-Atrop 2.5-0.025 mg [Lomotil] 2 tab PO BID PRN PRN Reason: Diarrhea Vitamin B Complex 1 cap PO DAILY Melatonin 5 mg PO HS Discontinued Lisinopril [Zestril] 20 mg PO DAILY Discharge Medication List Diphenox-Atrop 2.5-0.025 mg [Lomotil] 2 tab PO BID PRN 11/13/13 [History] Melatonin 5 mg PO HS 10/04/16 [History] Vitamin B Complex 1 cap PO DAILY 10/04/16 [History] Lisinopril [Zestril] 10 mg PO DAILY tab 06/26/18 [Rx] Follow up Appointment(s)/Referral(s): Miguel Sapp MD [Primary Care Provider] - 3 Days [facility],Nurse [NON-STAFF] - 1 Week Discharge Disposition: HOME WITH HOME HEALTH SERVICES
== END 2018-06-26 16:55 | disposition home health service (06) ==
LOC: EC 12:51 → 3NMEDONC 16:20
PROVIDERS: ADMIT Internal Medicine; ATTEND Internal Medicine
DX: K92.2 Gastrointestinal hemorrhage, unspecified (principal); I10 Essential (primary) hypertension; J45.909 Unspecified asthma, uncomplicated; E11.9 Type 2 diabetes mellitus without complications; E66.01 Morbid (severe) obesity due to excess calories; K43.9 Ventral hernia without obstruction or gangrene; E78.5 Hyperlipidemia, unspecified; Z93.3 Colostomy status; Z90.710 Acquired absence of both cervix and uterus; Z90.49 Acquired absence of other specified parts of digestive tract; Z87.442 Personal history of urinary calculi; Z89.512 Acquired absence of left leg below knee; Z79.899 Other long term (current) drug therapy
CPT/HCPCS: 96376 ×2; 96361 ×3; 96374; 96375; 99285; 36415; 94640 ×2; 97162; 80053 ×2; 85025 ×2; 85610; 85730; 82272; 83036; 74177; G0378 ×3; J1200; J2930; C9113 ×3; Q9967

== ENCOUNTER 2018-08-12 16:03 | Emergency (ER) | payer MEDICARE ==
[2018-08-12 16:31] VITALS: RESP 18
--- NOTE | 2018-08-12 18:33 | ED ---
General Adult HPI <German Culp - Last Filed: 08/12/18 19:31> - General Source: patient, EMS, RN notes reviewed, old records reviewed Mode of arrival: EMS Limitations: no limitations <Abdon Merida - Last Filed: 08/13/18 01:17> - General Chief complaint: Skin/Abscess/Foreign Body Stated complaint: Boil on thigh Time Seen by Provider: 08/12/18 17:53 - History of Present Illness Initial comments: 69-year-old female patient past history of prediabetes, obesity presents ED with superficial abscess in right medial thigh. Patient states that she noticed it today. Patient states that is mildly tender. Patient denies any other complaints. Patient denies chest pain, shortness of breath, abdominal pain. Patient denies fevers or chills. Systemic: Pt denies fatigue, myalgia, fever/chills, rash. Pt denies weakness, night sweats, weight loss. Neuro: Pt denies headache, visual disturbances, syncope or pre-syncope. HEENT: Pt denies ocular discharge or irritation, otalgia, rhinorrhea, pharyngitis or notable lymphadenopathy. Cardiopulmonary: Pt denies chest pain, SOB, heart palpitations, dyspnea on exertion. Abdominal/GI: Pt denies abdominal pain, n/v/d. : Pt denies dysuria, burning w/ urination, frequency/urgency. Denies new onset urinary or bowel incontinence. MSK: Pt denies myalgia, loss of strength or function in extremities. Neuro: Pt denies new onset weakness, paresthesias. (Abdon Merida) - Related Data Home Medications Medication Instructions Recorded Confirmed Diphenox-Atrop 2.5-0.025 mg 2 tab PO BID PRN 11/13/13 06/24/18 [Lomotil] Melatonin 5 mg PO HS 10/04/16 06/24/18 Vitamin B Complex 1 cap PO DAILY 10/04/16 06/24/18 Previous Rx's Medication Instructions Recorded Lisinopril [Zestril] 10 mg PO DAILY tab 06/26/18 Sulfamethox-Tmp 800-160Mg [Bactrim 1 tab PO Q12HR #20 tab 08/12/18 DS 800-160 mg] Allergies Allergy/AdvReac Type Severity Reaction Status Date / Time Penicillins Allergy Anaphylaxis Verified 08/12/18 16:29 cephalexin monohydrate AdvReac Nausea & Verified 08/12/18 16:29 [From Keflex] Vomiting codeine AdvReac Nausea & Verified 08/12/18 16:29 Vomiting red food dye Allergy Rash/Hives Uncoded 06/24/18 18:29 Review of Systems ROS Other: All systems not noted in ROS Statement are negative. <Gemran Culp - Last Filed: 08/12/18 19:31> ROS Other: All systems not noted in ROS Statement are negative. <Abdon Merida - Last Filed: 08/13/18 01:17> ROS Statement: Those systems with pertinent positive or pertinent negative responses have been documented in the HPI. 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, "boarderline diabetic",gallstones, kidney stones, leakage of urine, abd hernia, wound rt butocks,carpal tunnel, "loose tooth lt upper front" History of Any Multi-Drug Resistant Organisms: None Reported Past Surgical History: Appendectomy, Section, Hernia Repair, Hysterectomy, Tonsillectomy Additional Past Surgical History / Comment(s): LEFT BELOW THE KNEE AMPUTATION, colostomy, lt thigh benign tumor removed, hemmorhoidectomy,carpal tunnel,? gallbladder Past Anesthesia/Blood Transfusion Reactions: Postoperative Nausea & Vomiting ( PONV) Additional Past Anesthesia/Blood Transfusion Reaction / Comment(s): "never received any blood transfusion" Past Psychological History: No Psychological Hx Reported Smoking Status: Never smoker Past Alcohol Use History: None Reported Past Drug Use History: None Reported - Past Family History Mother Family Medical History: Dementia Father Family Medical History: Dementia <Abdon Merida - Last Filed: 08/13/18 01:17> General Exam <German Culp - Last Filed: 08/12/18 19:31> Limitations: no limitations <Abdon Merida - Last Filed: 08/13/18 01:17> - General Exam Comments Initial Comments: Constitutional: NAD, AOX3, Pt has pleasant affect. HEENT: NC/AT, trachea midline, neck supple, no lymphadenopathy. Posterior pharynx non erythematous, without exudates. External ears appear normal, without discharge. Mucous membranes moist. Eyes PERRLA, EOM intact. There is no scleral icterus. No pallor noted. Cardiopulmonary: RRR, no murmurs, rubs or gallops, no JVD noted. Lungs CTAB in anterior and posterior saul. No peripheral edema. Abdominal exam: Abdomen soft and non-distended. Abdomen non-tender to palpation in all 4 quadrants. Bowel sounds active in LLQ. No hepatosplenomegaly. No ecchymosis Neuro: CN II-XII grossly intact. No nuchal rigidity. MSK: No posterior calf tenderness bilaterally, homans sign negative bilaterally. Posterior tibialis and radial pulse +2 bilaterally. Sensation intact in upper and lower extremities. Full active ROM in upper and lower extremities, 5/5 stregnth. Derm: Approximately 3cm superficial abscess noted on medial R thigh. (Abdon Merida) Course <German Culp - Last Filed: 08/12/18 19:31> <Abdno Merida - Last Filed: 08/13/18 01:17> Vital Signs 08/12/18 08/12/18 16:29 20:49 Temperature 98 F 98.4 F Pulse Rate 68 78 Respiratory 18 18 Rate Blood Pressure 137/72 135/87 O2 Sat by Pulse 96 99 Oximetry - Reevaluation(s) Reevaluation #1: 08/12/18 19:31 PA supervision: I proceeded [id number] evaluation the patient did discuss the findings with her. Patient does demonstrate evidence of a small abscess on the medial posterior aspect of her right thigh. She does demonstrate morgue obesity. Does have evidence of abscess approximate 3 cm diameter. It is superficial. I do agree with the assessment and plan. (German Culp) Procedures - Incision & Drainage Consent Obtained: verbal consent Site: lower extremity (R medial thigh) Size (cm): 3 Anesthetic Used: lidocaine 1% Amount (mLs): 3 I&D Cleaning Method: Alcohol Wipe, Betadine Sterile Field Used?: No Scalpel Used: #11 Needle Aspiration Performed?: No I&D Drainage Obtained: Pus, Blood Culture Obtained?: Yes Patient Tolerated Procedure: well <Abdon Merida - Last Filed: 08/13/18 01:17> Medical Decision Making <German Culp - Last Filed: 08/12/18 19:31> <Abdon Merida - Last Filed: 08/13/18 01:17> - Medical Decision Making 69-year-old female patient past history of prediabetes, obesity presents ED with superficial abscess in right medial thigh. Patient states that she noticed it today. Patient states that is mildly tender. Patient denies any other complaints. Patient denies chest pain, shortness of breath, abdominal pain. Patient denies fevers or chills. Pt VSS, afebrile. Physical exam displayed: Approximately 3cm superficial abscess noted on medial R thigh. Abscess was drained in ED. Culture was obtained. Pt was administered a dose of bactrim in ED. Pt to be rx outpt bactrim. Pt to f/u with PCP tomorrow. PT to have strict return precautions. Pt to return to ED if condition worsens in anyway or if new s/sx develop. Case discussed and pt seen by Dr. Culp. (Abdon Merida) Disposition <German Culp - Last Filed: 08/12/18 19:31> Is patient prescribed a controlled substance at d/c from ED?: No <Abdon Merida - Last Filed: 08/13/18 01:17> Clinical Impression: Abscess Disposition: HOME SELF-CARE Condition: Stable Instructions (If sedation given, give patient instructions): Abscess Incision and Drainage (ED) Additional Instructions: Patient to adhere to previously discussed treatment plan and will take medication(s) as directed. Patient to follow up with PCP in 1-2 days. Patient to return to ED if symptoms do not improve. Please call PCP tomorrow for continued evaluation Please take antibiotics as prescribed Return to ED if new signs or symptoms devellop or if condition worsens in anyway Prescriptions: Sulfamethox-Tmp 800-160Mg [Bactrim DS 800-160 mg] 1 tab PO Q12HR #20 tab Referrals: Miguel Sapp MD [Primary Care Provider] - 1-2 days
[2018-08-12] MEDS ORDERED: LIDOCAINE 1% INJ 10MG/ML (20 ML MDV) SQ ONE (19:16)
[2018-08-12] MEDS ORDERED: SULFAMETHOX-TMP 800-160MG 1 EACH TAB PO STA (20:17)
[2018-08-12 20:50] VITALS: BP 135/87; PULSE 78; TEMP 98.4
== END 2018-08-12 20:50 | disposition home or self-care (01) ==
LOC: EC 16:03
DX: L02.416 Cutaneous abscess of left lower limb (principal); E66.9 Obesity, unspecified; Z68.42 Body mass index [BMI] 45.0-49.9, adult; Z79.890 Hormone replacement therapy; Z88.0 Allergy status to penicillin; Z88.1 Allergy status to other antibiotic agents; Z88.5 Allergy status to narcotic agent; Z91.018 Allergy to other foods
CPT/HCPCS: 99283; 10060; J2001; 87070; 87205

== ENCOUNTER 2018-10-25 12:11 | Emergency (ER) | payer MEDICARE, OTHER ==
[2018-10-25 12:26] VITALS: TEMP 98
[2018-10-25] MEDS ORDERED: SODIUM CHLORIDE 0.9% 500 ML 500 ML IV STA (14:29)
[2018-10-25 14:52] LABS: Basophils # (A) 0.1 k/uL (0-0.2); Basophils % (A) 1 %; Eosinophils # (A) 0.2 k/uL (0-0.7); Eosinophils % (A) 2 %; HCT 37.2 % (34.0-46.0); HGB 11.9 gm/dL (11.4-16.0); Lymphocytes # (A) 2.2 k/uL (1.0-4.8); Lymphocytes % (A) 28 %; MCH 27.9 pg (25.0-35.0); MCHC 32.1 g/dL (31.0-37.0); MCV 86.9 fL (80.0-100.0); Mean Platelet Volume 7.4; Monocytes # (A) 0.4 k/uL (0-1.0); Monocytes % (A) 5 %; Neutrophils # (A) 4.8 k/uL (1.3-7.7); Neutrophils % (A) 61 %; Platelet Count 387 k/uL (150-450); RBC 4.28 m/uL (3.80-5.40); RDW 14.2 % (11.5-15.5); WBC 7.9 k/uL (3.8-10.6)
[2018-10-25 14:55] LABS: ALT 19 U/L (9-52); AST 20 U/L (14-36); Albumin 3.9 g/dL (3.5-5.0); Alkaline Phosphatase 64 U/L (38-126); Anion Gap 9 mmol/L; Blood Urea Nitrogen 19 mg/dL (7-17); Carbon Dioxide 26 mmol/L (22-30); Chloride 104 mmol/L (98-107); Glucose 103 mg/dL (74-99); Sodium 139 mmol/L (137-145); Total Bilirubin 0.4 mg/dL (0.2-1.3); Total Protein 6.9 g/dL (6.3-8.2)
[2018-10-25 14:57] LABS: INR 0.9 (<1.2); Partial Thromboplastin Time 23.7 sec (22.0-30.0); Prothrombin Time 10.1 sec (9.0-12.0)
--- NOTE | 2018-10-25 15:42 | ED ---
General Adult HPI - General Chief complaint: GI Bleed Stated complaint: Blood in Stool Time Seen by Provider: 10/25/18 13:57 Source: patient, RN notes reviewed, old records reviewed Mode of arrival: wheelchair Limitations: no limitations - History of Present Illness Initial comments: 68-year-old female patient past history of hypertension, hyperlipidemia, colostomy for reportedly 18 years secondary to repeated bowel obstructions presents ED when she noticed a small amount of bright red blood in her colostomy bag this morning. Patient otherwise asymptomatic. Pt denies any weakness, tachycardia. Patient denies any chest pain, shortness of breath, abdominal pain, nausea vomiting diarrhea, fevers or chills. Systemic: Pt denies fatigue, myalgia, fever/chills, rash. Pt denies weakness, night sweats, weight loss. Neuro: Pt denies headache, visual disturbances, syncope or pre-syncope. HEENT: Pt denies ocular discharge or irritation, otalgia, rhinorrhea, pharyngitis or notable lymphadenopathy. Cardiopulmonary: Pt denies chest pain, SOB, heart palpitations, dyspnea on exertion. Abdominal/GI: Pt denies abdominal pain, n/v/d. : Pt denies dysuria, burning w/ urination, frequency/urgency. Denies new onset urinary or bowel incontinence. MSK: Pt denies myalgia, loss of strength or function in extremities. Neuro: Pt denies new onset weakness, paresthesias. - Related Data Home Medications Medication Instructions Recorded Confirmed Diphenox-Atrop 2.5-0.025 mg 2 tab PO BID PRN 11/13/13 06/24/18 [Lomotil] Melatonin 5 mg PO HS 10/04/16 06/24/18 Vitamin B Complex 1 cap PO DAILY 10/04/16 06/24/18 Previous Rx's Medication Instructions Recorded Lisinopril [Zestril] 10 mg PO DAILY tab 06/26/18 Sulfamethox-Tmp 800-160Mg [Bactrim 1 tab PO Q12HR #20 tab 08/12/18 DS 800-160 mg] Pantoprazole Sodium [Protonix] 40 mg PO Q24HR 14 Days #14 10/25/18 tablet. Allergies Allergy/AdvReac Type Severity Reaction Status Date / Time Penicillins Allergy Anaphylaxis Verified 10/25/18 12:26 cephalexin monohydrate AdvReac Nausea & Verified 10/25/18 12:26 [From Keflex] Vomiting codeine AdvReac Nausea & Verified 10/25/18 12:26 Vomiting red food dye Allergy Rash/Hives Uncoded 10/25/18 12:26 Review of Systems ROS Statement: Those systems with pertinent positive or pertinent negative responses have been documented in the HPI. ROS Other: All systems not noted in ROS Statement are negative. 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, "boarderline diabetic",gallstones, kidney stones, leakage of urine, abd hernia, wound rt butocks,carpal tunnel, "loose tooth lt upper front" History of Any Multi-Drug Resistant Organisms: None Reported Past Surgical History: Appendectomy, Section, Hernia Repair, Hysterectomy, Tonsillectomy Additional Past Surgical History / Comment(s): LEFT BELOW THE KNEE AMPUTATION, colostomy, lt thigh benign tumor removed, hemmorhoidectomy,carpal tunnel,?gallbladder Past Anesthesia/Blood Transfusion Reactions: Postoperative Nausea & Vomiting (PONV) Additional Past Anesthesia/Blood Transfusion Reaction / Comment(s): "never received any blood transfusion" Past Psychological History: No Psychological Hx Reported Smoking Status: Never smoker Past Alcohol Use History: None Reported Past Drug Use History: None Reported - Past Family History Mother Family Medical History: Dementia Father Family Medical History: Dementia General Exam - General Exam Comments Initial Comments: Constitutional: NAD, AOX3, Pt has pleasant affect. HEENT: NC/AT, trachea midline, neck supple, no lymphadenopathy. Posterior pharynx non erythematous, without exudates. External ears appear normal, without discharge. Mucous membranes moist. Eyes PERRLA, EOM intact. There is no scleral icterus. No pallor noted. Cardiopulmonary: RRR, no murmurs, rubs or gallops, no JVD noted. Lungs CTAB in anterior and posterior saul. No peripheral edema. Abdominal exam: Abdomen soft and non-distended. Abdomen non-tender to palpation in all 4 quadrants. Bowel sounds active in LLQ. No hepatosplenomegaly. No e cchymosis. No blood noted in the ostomy bag. Neuro: CN II-XII grossly intact. No nuchal rigidity. MSK: No posterior calf tenderness bilaterally, homans sign negative bilaterally. Posterior tibialis and radial pulse +2 bilaterally. Sensation intact in upper and lower extremities. Full active ROM in upper and lower extremities, 5/5 stregnth. 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 Patient otherwise asymptomatic. Pt denies any weakness, tachycardia. Patient denies any chest pain, shortness of breath, abdominal pain, nausea vomiting diarrhea, fevers or chills. Pt VSS, afebrile. Laboratory investigations revealed stable hemoglobin, noncompressive CBC, CMP, coagulation studies. KUB did not display acute process. Patient will be discharged. Patient will follow up with primary care provider as well as surgical consult. Patient strict return precautions, will return to ER if pain develops, or any other new signs or symptoms. Pt will be rx protonix. Case discussed with Dr. Godfrey. - Lab Data Result diagrams: 10/25/18 14:05 10/25/18 14:05 Lab Results 10/25/18 10/25/18 10/25/18 Range/Units 14:05 14:05 14:05 WBC 7.9 (3.8-10.6) k/uL RBC 4.28 (3.80-5.40) m/uL Hgb 11.9 (11.4-16.0) gm/dL Hct 37.2 (34.0-46.0) % MCV 86.9 (80.0-100.0) fL MCH 27.9 (25.0-35.0) pg MCHC 32.1 (31.0-37.0) g/dL RDW 14.2 (11.5-15.5) % Plt Count 387 (150-450) k/uL Neutrophils % 61 % Lymphocytes % 28 % Monocytes % 5 % Eosinophils % 2 % Basophils % 1 % Neutrophils # 4.8 (1.3-7.7) k/uL Lymphocytes # 2.2 (1.0-4.8) k/uL Monocytes # 0.4 (0-1.0) k/uL Eosinophils # 0.2 (0-0.7) k/uL Basophils # 0.1 (0-0.2) k/uL PT 10.1 (9.0-12.0) sec INR 0.9 (<1.2) APTT 23.7 (22.0-30.0) sec Sodium 139 (137-145) mmol/L Potassium 5.0 (3.5-5.1) mmol/L Chloride 104 (98-107) mmol/L Carbon Dioxide 26 (22-30) mmol/L Anion Gap 9 mmol/L BUN 19 H (7-17) mg/dL Creatinine 0.71 (0.52-1.04) mg/dL Est GFR (CKD-EPI)AfAm >90 (>60 ml/min/1.73 sqM) Est GFR (CKD-EPI)NonAf 89 (>60 ml/min/1.73 sqM) Glucose 103 H (74-99) mg/dL Calcium 9.0 (8.4-10.2) mg/dL Total Bilirubin 0.4 (0.2-1.3) mg/dL AST 20 (14-36) U/L ALT 19 (9-52) U/L Alkaline Phosphatase 64 (38-126) U/L Total Protein 6.9 (6.3-8.2) g/dL Albumin 3.9 (3.5-5.0) g/dL Disposition Clinical Impression: GI bleed Disposition: HOME SELF-CARE Condition: Stable Instructions (If sedation given, give patient instructions): Gastrointestinal Bleeding (ED) Additional Instructions: Patient to adhere to previously discussed treatment plan and will take medica tion(s) as directed. Patient to follow up with PCP in 1-2 days. Patient to return to ED if symptoms do not improve. Present medications as directed. Please follow-up with PCP as surgical consult. Please return to ER if condition worsens in anyway. Prescriptions: Pantoprazole Sodium [Protonix] 40 mg PO Q24HR 14 Days #14 tablet.dr Is patient prescribed a controlled substance at d/c from ED?: No Referrals: Miguel Sapp MD [Primary Care Provider] - 1-2 days Tiffany Stauffer DO [Doctor of Osteopathic Medicine] - 1-2 days
--- NOTE | 2018-10-25 15:49 | XR ---
EXAMINATION TYPE: XR KUB DATE OF EXAM: 10/25/2018 COMPARISON: NONE HISTORY: Pain TECHNIQUE: Single supine KUB image of the abdomen is obtained FINDINGS: Small bowel demonstrates no evidence for dilatation or air fluid levels. Gas and fecal material is seen in non-distended colon. No convincing evidence for pneumoperitoneum. No unusual calcifications. The lung bases are clear. The osseous structures are intact. IMPRESSION: 1. Overall nonobstructive bowel gas pattern.
[2018-10-25 16:53] VITALS: BP 128/57; PULSE 66; RESP 20
== END 2018-10-25 16:45 | disposition home or self-care (01) ==
LOC: EC 12:11
DX: K92.1 Melena (principal); Z79.899 Other long term (current) drug therapy; Z88.1 Allergy status to other antibiotic agents; Z88.0 Allergy status to penicillin; Z91.048 Other nonmedicinal substance allergy status; Z90.49 Acquired absence of other specified parts of digestive tract; Z93.3 Colostomy status
CPT/HCPCS: 36415; 74018; 80053; 85025; 85610; 85730; 96360; 99285

== ENCOUNTER 2020-08-09 01:27 | Emergency (ER) | payer MEDICARE, OTHER ==
[2020-08-09 03:05] VITALS: BP 129/79; PULSE 58; RESP 18; TEMP 97.8
--- NOTE | 2020-08-09 03:32 | ED ---
General Adult HPI - General Chief complaint: Urogenital Stated complaint: catheter issue Time Seen by Provider: 08/09/20 01:39 Source: patient, EMS Mode of arrival: EMS Limitations: no limitations - History of Present Illness Initial comments: This patient is a 69-year-old woman who presents with complaint of a number of areas of itching rash. She states this has come on over the past few days much worse over the past night area she indicates the upper part of the gluteal cleft and then also a skin fold the right lower leg. Patient denies fever or chills. She denies pain. The patient also stated that when she last changed her ostomy bag there was an area of skin breakdown and a trace of bleeding from that. She is not having symptoms or signs of anemia. No lightheadedness, palpitations, chest pain, dyspnea or diaphoresis. -: days(s) Location: buttocks, right, lower extremity Radiation: non-radiation Quality: burning, other (Itching) Consistency: constant Improves with: none Worsens with: none Treatments Prior to Arrival: none - Related Data Home Medications Medication Instructions Recorded Confirmed Diphenox-Atrop 2.5-0.025 mg 2 tab PO BID PRN 11/13/13 10/25/18 [Lomotil] Melatonin 5 mg PO HS 10/04/16 10/25/18 Vitamin B Complex 1 cap PO DAILY 10/04/16 10/25/18 Albuterol Inhaler (Mhu) [Ventolin 1 - 2 puff INHALATION RT-Q6H PRN 10/25/18 10/25/18 Hfa Inhaler] Ergocalciferol (Vitamin D2) 50,000 unit PO Q7D 10/25/18 10/25/18 [Vitamin D2] Oxybutynin ER [Ditropan Xl] 15 mg PO DAILY 10/25/18 10/25/18 Sertraline [Zoloft] 100 mg PO DAILY 10/25/18 10/25/18 lisinopriL [Zestril] 20 mg PO DAILY 10/25/18 10/25/18 Previous Rx's Medication Instructions Recorded Pantoprazole Sodium [Protonix] 40 mg PO Q24HR 14 Days #14 10/25/18 tablet. Clotrimazole [Lotrimin AF] 1 applic TOPICAL BID #30 gm 08/09/20 Tolnaftate [LamISIL AF] 133 gm TP BID #1 aero.powd 08/09/20 Allergies Allergy/AdvReac Type Severity Reaction Status Date / Time Penicillins Allergy Anaphylaxis Verified 08/09/20 01:40 cephalexin monohydrate AdvReac Nausea & Verified 08/09/20 01:40 [From Keflex] Vomiting codeine AdvReac Nausea & Verified 08/09/20 01:40 Vomiting red food dye Allergy Rash/Hives Uncoded 08/09/20 01:40 Review of Systems ROS Statement: Those systems with pertinent positive or pertinent negative responses have been documented in the HPI. ROS Other: All systems not noted in ROS Statement are negative. 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, "boarderline diabetic",gallstones, kidney stones, leakage of urine, abd hernia, wound rt butocks,carpal tunnel, "loose tooth lt upper front" History of Any Multi-Drug Resistant Organisms: None Reported Past Surgical History: Appendectomy, Section, Hernia Repair, Hysterectomy, Tonsillectomy Additional Past Surgical History / Comment(s): LEFT BELOW THE KNEE AMPUTATION, colostomy, lt thigh benign tumor removed, hemmorhoidectomy,carpal tunnel,?gallbladder Past Anesthesia/Blood Transfusion Reactions: Postoperative Nausea & Vomiting (PONV) Additional Past Anesthesia/Blood Transfusion Reaction / Comment(s): "never received any blood transfusion" Past Psychological History: No Psychological Hx Reported Smoking Status: Never smoker Past Alcohol Use History: None Reported Past Drug Use History: None Reported - Past Family History Mother Family Medical History: Dementia Father Family Medical History: Dementia General Exam Limitations: no limitations General appearance: alert, in no apparent distress Head exam: Present: atraumatic, normocephalic Eye exam: Present: normal appearance. Absent: scleral icterus, conjunctival injection ENT exam: Present: normal oropharynx Neck exam: Present: normal inspection Respiratory exam: Present: normal lung sounds bilaterally. Absent: respiratory distress, wheezes, rales, rhonchi, stridor Cardiovascular Exam: Present: regular rate, normal rhythm, normal heart sounds. Absent: systolic murmur, diastolic murmur, rubs, gallop GI/Abdominal exam: Present: soft. Absent: distended, tenderness, guarding, rebound, rigid Extremities exam: Present: normal inspection Neurological exam: Present: alert Skin exam: Present: warm, dry, intact, rash Course Vital Signs 08/09/20 08/09/20 01:29 03:03 Temperature 97.5 F L 97.8 F Pulse Rate 67 58 L Respiratory 20 18 Rate Blood Pressure 138/77 129/79 O2 Sat by Pulse 98 96 Oximetry Medical Decision Making - Medical Decision Making Patient is 69-year-old woman complaining of itching rash. Inspection does reveal areas of tinia. Discussed appropriate further care. Prescribed antifungal powder for the areas which are continually moist, and then an ointment for the areas with drying. In relation to the patient's ostomy breakdown, discussed further care for that, she did not want to remove the ostomy bag as she did not have replacement, though we did offer to attempt to find those from the central stores, the patient did not want to remove the bag at this point. She will definitely return if there is any further breakdown or further bleeding. Disposition Clinical Impression: Tinea cruris Disposition: HOME SELF-CARE Condition: Good Instructions (If sedation given, give patient instructions): Jacques Hong (ED) Prescriptions: Tolnaftate [LamISIL AF] 133 gm TP BID #1 aero.powd Clotrimazole [Lotrimin AF] 1 applic TOPICAL BID #30 gm Is patient prescribed a controlled substance at d/c from ED?: No Referrals: Miguel Sapp MD [Primary Care Provider] - 1-2 days
== END 2020-08-09 03:40 | disposition home or self-care (01) ==
LOC: EC 01:27
DX: B35.6 Tinea cruris (principal); J45.909 Unspecified asthma, uncomplicated; I10 Essential (primary) hypertension; E78.5 Hyperlipidemia, unspecified; Z79.899 Other long term (current) drug therapy; Z88.0 Allergy status to penicillin; Z88.1 Allergy status to other antibiotic agents; Z88.5 Allergy status to narcotic agent; Z91.02 Food additives allergy status; Z89.512 Acquired absence of left leg below knee
CPT/HCPCS: 99283

== ENCOUNTER 2020-08-30 16:57 | Inpatient (IN) | payer MEDICARE ==
[2020-08-30] MEDS ORDERED: MORPHINE SULFATE 4 MG/ML SYRINGE IV STA (17:22)
[2020-08-30 18:10] LABS: Basophils # (A) 0.1 k/uL (0-0.2); Basophils % (A) 1 %; Eosinophils # (A) 0.5 k/uL (0-0.7); Eosinophils % (A) 6 %; HCT 37.9 % (34.0-46.0); HGB 12.3 gm/dL (11.4-16.0); Lymphocytes # (A) 0.8 k/uL (1.0-4.8); Lymphocytes % (A) 10 %; MCH 28.2 pg (25.0-35.0); MCHC 32.6 g/dL (31.0-37.0); MCV 86.5 fL (80.0-100.0); Mean Platelet Volume 7.6; Monocytes # (A) 0.3 k/uL (0-1.0); Monocytes % (A) 3 %; Neutrophils # (A) 5.9 k/uL (1.3-7.7); Neutrophils % (A) 78 %; Platelet Count 314 k/uL (150-450); RBC 4.38 m/uL (3.80-5.40); RDW 13.9 % (11.5-15.5); WBC 7.6 k/uL (3.8-10.6)
[2020-08-30] MEDS ORDERED: ACETAMINOPHEN TAB 325 MG TAB PO STA (18:11)
[2020-08-30 18:16] LABS: Calcium 9.5 mg/dL (8.4-10.2); Potassium 4.3 mmol/L (3.5-5.1); Total Bilirubin 0.4 mg/dL (0.2-1.3); Total Protein 6.9 g/dL (6.3-8.2)
[2020-08-30 18:17] LABS: Amorphous Sediment,Urine Rare /hpf; Appearance,Urine Turbid (Clear); Bacteria,Urine Moderate /hpf; Bilirubin,Urine 1+ (Negative); Blood,Urine Large (Negative); Color,Urine Light Brown; Glucose,Urine (UA) Negative (Negative); Ketones,Urine Negative (Negative); Leukocyte Esterase,Urine Large (Negative); Mucus,Urine Moderate /hpf; Nitrite,Urine Negative (Negative); Protein,Urine 3+ (Negative); RBC,Urine >182 /hpf (0-5); Specific Gravity,Urine 1.026 (1.001-1.035); Urobilinogen,Urine <2.0 mg/dL (<2.0); WBC,Urine >182 /hpf (0-5)
[2020-08-30] MEDS ORDERED: LEVOFLOXACIN 500MG-D5W PMX 500 MG in DEXTROSE/WATER 1 100ML.BAG IVPB STA (19:13)
[2020-08-30] MEDS ORDERED: SODIUM CHLORIDE 0.9% 1,000 ML IV STA (19:13)
[2020-08-30] MEDS ORDERED: SODIUM CHLORIDE 0.9% 500 ML IV STA (19:13)
--- NOTE | 2020-08-30 19:24 | ED ---
General Adult HPI - General Chief complaint: Urogenital Stated complaint: UTI Time Seen by Provider: 08/30/20 17:08 Source: patient, EMS Mode of arrival: EMS Limitations: altered mental status - History of Present Illness Initial comments: This 69-year-old female presents complaining of some pain in her vaginal region. She does have a chronic indwelling Ladd catheter in place as well. She complains of some mild lower abdominal pain. She also relates that she has been hallucinating at times. She denies any known fever at home but has had chills at times. She has multiple comorbidities including a left leg amputation and colostomy. No other complaints or modifying factors. She does relate that her Ladd catheter was last changed one week ago but also his not a great historian so it is difficult to say if this is true. - Related Data Home Medications Medication Instructions Recorded Confirmed Diphenox-Atrop 2.5-0.025 mg 2 tab PO BID PRN 11/13/13 10/25/18 [Lomotil] Melatonin 5 mg PO HS 10/04/16 10/25/18 Vitamin B Complex 1 cap PO DAILY 10/04/16 10/25/18 Albuterol Inhaler (Mhu) [Ventolin 1 - 2 puff INHALATION RT-Q6H PRN 10/25/18 10/25/18 Hfa Inhaler] Ergocalciferol (Vitamin D2) 50,000 unit PO Q7D 10/25/18 10/25/18 [Vitamin D2] Oxybutynin ER [Ditropan Xl] 15 mg PO DAILY 10/25/18 10/25/18 Sertraline [Zoloft] 100 mg PO DAILY 10/25/18 10/25/18 lisinopriL [Zestril] 20 mg PO DAILY 10/25/18 10/25/18 Previous Rx's Medication Instructions Recorded Pantoprazole Sodium [Protonix] 40 mg PO Q24HR 14 Days #14 10/25/18 tablet. Clotrimazole [Lotrimin AF] 1 applic TOPICAL BID #30 gm 08/09/20 Tolnaftate [LamISIL AF] 133 gm TP BID #1 aero.powd 08/09/20 Allergies Allergy/AdvReac Type Severity Reaction Status Date / Time Penicillins Allergy Anaphylaxis Verified 08/30/20 17:08 cephalexin monohydrate AdvReac Nausea & Verified 08/30/20 17:08 [From Keflex] Vomiting codeine AdvReac Nausea & Verified 08/30/20 17:08 Vomiting red food dye Allergy Rash/Hives Uncoded 08/30/20 17:08 Review of Systems ROS Statement: Those systems with pertinent positive or pertinent negative responses have been documented in the HPI. ROS Other: All systems not noted in ROS Statement are negative. 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, "boarderline diabetic",gallstones, kidney stones, leakage of urine, abd hernia, wound rt butocks,carpal tunnel, "loose tooth lt upper front" History of Any Multi-Drug Resistant Organisms: None Reported Past Surgical History: Appendectomy, Section, Hernia Repair, Hysterectomy, Tonsillectomy Additional Past Surgical History / Comment(s): LEFT BELOW THE KNEE AMPUTATION, colostomy, lt thigh benign tumor removed, hemmorhoidectomy,carpal tunnel,?gallbladder Past Anesthesia/Blood Transfusion Reactions: Postoperative Nausea & Vomiting (PONV) Additional Past Anesthesia/Blood Transfusion Reaction / Comment(s): "never received any blood transfusion" Past Psychological History: No Psychological Hx Reported Smoking Status: Never smoker Past Alcohol Use History: None Reported Past Drug Use History: None Reported - Past Family History Mother Family Medical History: Dementia Father Family Medical History: Dementia General Exam - General Exam Comments Initial Comments: GENERAL: The patient is well nourished and well hydrated. VITAL SIGNS: Heart rate, blood pressure, respiratory rate reviewed as recorded in nurse's notes. EYES: Pupils are round and reactive. Extraocular movements are intact. No conjunctival / lid redness or swelling. ENT: No external evidence of injury, swelling, or ecchymosis. Airway is patent. Throat is clear. NECK: Nontender. No swelling or evidence of injury. No subcutaneous emphysema. Trachea is midline. No thyroid mass. HEART: Regular rate and rhythm. Good peripheral pulses. LUNGS/CHEST: Breath sounds clear and equal bilaterally. No rales, rhonchi, or wheezes. No ecchymosis, subcutaneous emphysema, or tenderness. ABDOMEN: Abdomen soft without tenderness. No palpable masses or organomegaly. No peritoneal signs. No abdominal wall swelling or ecchymosis. Colostomy the present time EXTREMITIES: No extremity tenderness. Normal muscle tone and function. No thoracolumbar tenderness. Left lower extremity amputations noted. NEUROLOGIC: Sensation is grossly intact. Cranial nerve exam reveals face is symmetrical, tongue is midline, speech is clear. SKIN: No abrasions or ecchymosis is noted. No induration or masses noted. PSYCHIATRIC: Alert and oriented. Appropriate behavior and judgment. Limitations: altered mental status Course Vital Signs 08/30/20 17:03 Temperature 97.8 F Pulse Rate 77 Respiratory 22 Rate Blood Pressure 115/59 O2 Sat by Pulse 98 Oximetry Medical Decision Making - Medical Decision Making The patient was seen and examined. All diagnostics are reviewed. The Ladd catheter was changed. The nurse relates that there is a significant amount of abnormal material in the perivaginal region which appeared quite abnormal. The patient relates that all of her perivaginal pain is resolved on Ladd catheter replacement. She does receive Tylenol orally. Her urinalysis shows significant evidence of infection and Levaquin is initiated. She also had a decreased CO2 on her labs and fluid therapy is initiated. In addition, Versed appears that she has some acute kidney injury which is worse as compared to previous labs. It is felt as though she would benefit from admission to the hospital. Case will be discussed with internal medicine in the near future and patient is noted to the general medical floor. - Lab Data Result diagrams: 08/30/20 17:47 08/30/20 17:47 Lab Results 08/30/20 08/30/20 08/30/20 Range/Units 17:47 17:47 17:47 WBC 7.6 (3.8-10.6) k/uL RBC 4.38 (3.80-5.40) m/uL Hgb 12.3 (11.4-16.0) gm/dL Hct 37.9 (34.0-46.0) % MCV 86.5 (80.0-100.0) fL MCH 28.2 (25.0-35.0) pg MCHC 32.6 (31.0-37.0) g/dL RDW 13.9 (11.5-15.5) % Plt Count 314 (150-450) k/uL MPV 7.6 Neutrophils % 78 % Lymphocytes % 10 % Monocytes % 3 % Eosinophils % 6 % Basophils % 1 % Neutrophils # 5.9 (1.3-7.7) k/uL Lymphocytes # 0.8 L (1.0-4.8) k/uL Monocytes # 0.3 (0-1.0) k/uL Eosinophils # 0.5 (0-0.7) k/uL Basophils # 0.1 (0-0.2) k/uL Sodium 137 (137-145) mmol/L Potassium 4.3 (3.5-5.1) mmol/L Chloride 105 (98-107) mmol/L Carbon Dioxide 20 L (22-30) mmol/L Anion Gap 12 mmol/L BUN 20 H (7-17) mg/dL Creatinine 1.74 H (0.52-1.04) mg/dL Est GFR (CKD-EPI)AfAm 35 (>60 ml/min/1.73 sqM) Est GFR (CKD-EPI)NonAf 30 (>60 ml/min/1.73 sqM) Glucose 106 H (74-99) mg/dL Calcium 9.5 (8.4-10.2) mg/dL Total Bilirubin 0.4 (0.2-1.3) mg/dL AST 26 (14-36) U/L ALT 17 (4-34) U/L Alkaline Phosphatase 75 (38-126) U/L Total Protein 6.9 (6.3-8.2) g/dL Albumin 4.0 (3.5-5.0) g/dL Urine Color Light Brown Urine Appearance Turbid H (Clear) Urine pH 6.0 (5.0-8.0) Ur Specific Mart 1.026 (1.001-1.035) Urine Protein 3+ H (Negative) Urine Glucose (UA) Negative (Negative) Urine Ketones Negative (Negative) Urine Blood Large H (Negative) Urine Nitrite Negative (Negative) Urine Bilirubin 1+ H (Negative) Urine Urobilinogen <2.0 (<2.0) mg/dL Ur Leukocyte Esterase Large H (Negative) Urine RBC >182 H (0-5) /hpf Urine WBC >182 H (0-5) /hpf Urine WBC Clumps Few H (None) /hpf Amorphous Sediment Rare H (None) /hpf Urine Bacteria Moderate H (None) /hpf Urine Mucus Moderate H (None) /hpf Disposition Clinical Impression: Urinary tract infection, Dehydration, Chronic indwelling Ladd catheter, Acute kidney injury, Diabetes, Morbid obesity Disposition: ADMITTED IP TO THIS HOSP Condition: Fair Is patient prescribed a controlled substance at d/c from ED?: No Referrals: Miguel Sapp MD [Primary Care Provider] - 1-2 days Time of Disposition: 19:23 Decision Date: 08/30/20 Decision Time: 19:23
[2020-08-30] MEDS ORDERED: NALOXONE 0.4 MG/ML 1 ML VIAL IV PRN (19:33)
[2020-08-30] MEDS ORDERED: ONDANSETRON 4 MG/2 ML VIAL IVP PRN (19:33)
--- NOTE | 2020-08-30 20:10 | P.HPIM ---
History of Present Illness H&P Date: 08/30/20 Patient is a female with a 69 yo F with PMH of hypertension, hyperlipidemia, asthma, severe obesity, hypothyroidism, history of colitis status post colostomy, left BKA, and chronic indwelling Ladd who presented to the emergency room with complaints of abdominal pain and and hallucinations. The patient notes that she feels her Ladd tube was kinked and that it was not able to drain appropriately which was causing her to hallucinate for the past 2 days. She reports seeing spiders on the wall, which she last a few hours prior to interview. As per the medical record, the patient was started on Bactrim and Cipro by her PMD on 08/25 for a 7 day course which she last took this morning. She reports having 4 out of 10 diffuse lower abdominal pain nausea and 2 episodes of vomiting yesterday, nonbloody and nonbilious. Patient fever, chills, chest pain, shortness of breath, diarrhea. In the emergency room, the patient's UA was noted to be consistent with UTI and she was found to have JESSICA with a BUN 20 and creatinine 1.7 for up from a baseline of 0.7. The patient was started on Levaquin IV due to her penicillin and cephalosporin ALLERGIES and is being admitted to the medicine service for further management. Review of Systems Pertinent positives and negatives as discussed in HPI, a complete review of systems was performed and all other systems are negative. 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, "boarderline diabetic",gallstones, kidney stones, leakage of urine, abd hernia, wound rt butocks,carpal tunnel, "loose tooth lt upper front" History of Any Multi-Drug Resistant Organisms: None Reported Past Surgical History: Appendectomy, Section, Hernia Repair, Hyst erectomy, Tonsillectomy Additional Past Surgical History / Comment(s): LEFT BELOW THE KNEE AMPUTATION, colostomy, lt thigh benign tumor removed, hemmorhoidectomy,carpal tunnel ,?gallbladder Past Anesthesia/Blood Transfusion Reactions: Postoperative Nausea & Vomiting (PONV) Additional Past Anesthesia/Blood Transfusion Reaction / Comment(s): "never received any blood transfusion" Past Psychological History: No Psychological Hx Reported Smoking Status: Never smoker Past Alcohol Use History: None Reported Past Drug Use History: None Reported - Past Family History Mother Family Medical History: Dementia Father Family Medical History: Dementia Medications and Allergies Home Medications Medication Instructions Recorded Confirmed Type Melatonin 5 mg PO HS 10/04/16 08/30/20 History Ergocalciferol (Vitamin D2) 50,000 unit PO Q7D 10/25/18 08/30/20 History [Vitamin D2] Oxybutynin ER [Ditropan Xl] 15 mg PO DAILY 10/25/18 08/30/20 History Sertraline [Zoloft] 100 mg PO DAILY 10/25/18 08/30/20 History lisinopriL [Zestril] 20 mg PO DAILY 10/25/18 08/30/20 History Ciprofloxacin HCl [Cipro] 500 mg PO Q12HR 08/30/20 08/30/20 History Fluconazole [Diflucan] 200 mg PO DIRECTED 08/30/20 08/30/20 History Loperamide [Imodium] 2 mg PO QID PRN 08/30/20 08/30/20 History Nystatin 100,000 Unit/gm Powd 1 applic TOPICAL BID PRN 08/30/20 08/30/20 History [Mycostatin Powder] Ondansetron [Zofran] 4 mg PO Q12H PRN 08/30/20 08/30/20 History Pantoprazole Sodium [Protonix] 40 mg PO DAILY 08/30/20 08/30/20 History Sulfamethox-Tmp 800-160Mg [Bactrim 1 tab PO Q12H 08/30/20 08/30/20 History DS 800-160 mg] Allergies Allergy/AdvReac Type Severity Reaction Status Date / Time Penicillins Allergy Anaphylaxis Verified 08/30/20 17:08 cephalexin monohydrate AdvReac Nausea & Verified 08/30/20 17:08 [From Keflex] Vomiting codeine AdvReac Nausea & Verified 08/30/20 17:08 Vomiting red food dye Allergy Rash/Hives Uncoded 08/30/20 17:08 Physical Exam Vitals: Vital Signs Temp Pulse Resp BP Pulse Ox 08/30/20 17:03 97.8 F 77 22 115/59 98 Intake and Output 08/30/20 08/30/20 08/30/20 06:59 14:59 22:59 Output Total 30 Balance -30 Output: Urine 30 Uretheral (Ladd) 30 Other: Voiding Method Indwelling Catheter Weight 158.757 kg General: non toxic, no distress, appears older than stated age, severely obese Derm: no unusual rashes/lesions, skin folds with white powder, no unusual ecchymoses, warm, dry Head: atraumatic, normocephalic, symmetric Eyes: EOMI, no lid lag, anicteric sclera, pupils equal round reactive to light ENT: Nose and ears atraumatic, no thrush, no pharyngeal erythema Neck: No thyromegaly, no cervical lymphadenopathy, trachea midline, supple Mouth: no lip lesion, mucus membranes dry Cardiovascular: S1S2 reg, no murmur, positive posterior tibial pulse on the right, no edema, capillary refill less than 2 seconds Lungs: CTA bilateral, no rhonchi, no rales , no accessory muscle use Abdominal: soft, colostomy noted without surrounding erythema or induration, mild suprapubic tenderness, no guarding, no appreciable organomegaly, normal bowel sounds Ext: no gross muscle atrophy, muscle strength 5 out of 5 in all 4 extremities grossly, left BKA, no contractures, Neuro: CN II-XI grossly intact, light touch intact all 4 extremities, finger to nose within normal limits, Psych: Alert, oriented, appropriate affect Results CBC & Chem 7: 08/30/20 17:47 08/30/20 17:47 Labs: Abnormal Lab Results - Last 24 Hours (Table) 08/30/20 08/30/20 08/30/20 Range/Units 17:47 17:47 17:47 Lymphocytes # 0.8 L (1.0-4.8) k/uL Carbon Dioxide 20 L (22-30) mmol/L BUN 20 H (7-17) mg/dL Creatinine 1.74 H (0.52-1.04) mg/dL Glucose 106 H (74-99) mg/dL Urine Appearance Turbid H (Clear) Urine Protein 3+ H (Negative) Urine Blood Large H (Negative) Urine Bilirubin 1+ H (Negative) Ur Leukocyte Esterase Large H (Negative) Urine RBC >182 H (0-5) /hpf Urine WBC >182 H (0-5) /hpf Urine WBC Clumps Few H (None) /hpf Amorphous Sediment Rare H (None) /hpf Urine Bacteria Moderate H (None) /hpf Urine Mucus Moderate H (None) /hpf Assessment and Plan Plan: UTI in setting of chronic indwelling Ladd -Continue with Levaquin -Obtain EKG -Continue with normal saline IV fluids -Out of urine culture Acute kidney injury -Possibly secondary to poor oral intake in setting of episodes of vomiting -Continue IV fluids and monitor BMP for now Metabolic acidosis -Likely due to ongoing infection -Monitor for now -Check lactate level Chronic conditions: Hypertension -Continue home meds DVT prophylaxis -Heparin subq The patient is admitted with an anticipated greater than 2 midnight stay for evaluation of UTI CODE STATUS: Full Code Discussed with: Patient Anticipated discharge date: 2-[address]: Home A total of 35 minutes was spent on the care of this complex patient more than 50% of the time was spent in counseling and care coordination.
[2020-08-31] MEDS: ACETAMINOPHEN TAB 325 MG TAB PO PRN ×4 (00:21→20:08)
[2020-08-31] MEDS ORDERED: NYSTATIN 100,000UNIT/GM CREAM 30 GM TUBE TOPICAL PRN (04:48)
[2020-08-31] MEDS ORDERED: traMADol 50 MG TAB PO STA (04:57)
[2020-08-31] MEDS: PANTOPRAZOLE 40 MG TABLET PO SCH (07:31)
[2020-08-31] MEDS: OXYBUTYNIN 15 MG TAB.ER.24 PO SCH (07:31)
[2020-08-31] MEDS: ENOXAPARIN 40 MG/0.4 ML SYRINGE SQ SCH (07:31)
[2020-08-31] MEDS: SERTRALINE 100 MG TAB PO SCH (07:31)
[2020-08-31] MEDS ORDERED: NYSTATIN 100,000 UNIT/GM POWD 15 GM TOPICAL PRN (09:00)
--- NOTE | 2020-08-31 10:26 | P.PN ---
Subjective Progress Note Date: 08/31/20 Patient is awake and alert today. She does not have any complaints this morning. She said that she did not sleep well last night secondary to back pain. Objective - Vital Signs Vital signs: Vital Signs Temp 98.4 F 08/31/20 07:46 Pulse 66 08/31/20 07:46 Resp 21 08/31/20 07:46 BP 121/75 08/31/20 07:46 Pulse Ox 94 L 08/31/20 07:46 Intake & Output 08/30/20 08/31/20 08/31/20 18:59 06:59 18:59 Intake Total 200 Output Total 30 1601 Balance -30 -1401 Weight 158.757 kg 158.757 kg Intake: Oral 200 Output: Urine 30 1600 Uretheral (Ladd) 30 800 Stool 1 Other: Voiding Method Indwelling Catheter Indwelling Catheter Indwelling Catheter - Exam General: The patient is awake and alert, in no distress Eye: there is normal conjunctiva bilaterally. Neck: The neck is supple, there is no JVD. Cardiovascular: Normal S1-S2, no S3-S4, no murmurs. Respiratory: Lungs clear to auscultation bilaterally Gastrointestinal: Abdomen is soft, nontender Musculoskeletal: There is left BKA. Neurological:. Speech is normal. Skin: Skin is warm and dry - Labs CBC & Chem 7: 08/30/20 17:47 08/30/20 17:47 Labs: Abnormal Lab Results - Last 24 Hours (Table) 08/30/20 08/30/20 08/30/20 Range/Units 17:47 17:47 17:47 Lymphocytes # 0.8 L (1.0-4.8) k/uL Carbon Dioxide 20 L (22-30) mmol/L BUN 20 H (7-17) mg/dL Creatinine 1.74 H (0.52-1.04) mg/dL Glucose 106 H (74-99) mg/dL Urine Appearance Turbid H (Clear) Urine Protein 3+ H (Negative) Urine Blood Large H (Negative) Urine Bilirubin 1+ H (Negative) Ur Leukocyte Esterase Large H (Negative) Urine RBC >182 H (0-5) /hpf Urine WBC >182 H (0-5) /hpf Urine WBC Clumps Few H (None) /hpf Amorphous Sediment Rare H (None) /hpf Urine Bacteria Moderate H (None) /hpf Urine Mucus Moderate H (None) /hpf Microbiology - Last 24 Hours (Table) 08/30/20 17:47 Urine Culture - Preliminary Urine,Voided Assessment and Plan Assessment: This is a 69-year-old female with past medical history noted below significant for obstructive uropathy with chronic indwelling Ladd catheter who presented to the emergency room from a local alf with altered mental status and confusion. Patient was evaluated in the ER and admitted to the hospital for further management of her medical problems noted below. 1. Catheter associated UTI, recently finished antibiotic course with Bactrim and Cipro. Previous urine culture not available for me to review. Started on IV Levaquin secondary to multiple drug ALLERGIES. Awaiting urine culture to assure there is no resistant bacteria. Ladd catheter was exchanged according to patient reported in the emergency room 2. Acute toxic metabolic encephalopathy secondary to underlying UTI. Patient mentation is clearing this morning. 3. Acute kidney injury, secondary to obstructive uropathy as per report the Ladd catheter was kinked. Patient received IV fluid hydration. Awaiting repeat lab work from today. 4. Chronic medical problems: Essential hypertension, hyperlipidemia, underlying asthma, morbid obesity, hypothyroidism, history of colitis status post colostomy, left BKA, and chronic indwelling Ladd catheter 5. DVT prophylaxis with subcu Lovenox
[2020-08-31] MEDS ORDERED: LEVOFLOXACIN 500MG-D5W PMX 500 MG in DEXTROSE/WATER 1 100ML.BAG IVPB SCH (10:30)
[2020-08-31] MEDS: LEVOFLOXACIN 250MG-D5W PMX 250 MG in DEXTROSE/WATER 1 50ML.BAG IVPB SCH (17:12)
[2020-08-31] MEDS: MELATONIN 5 MG TABLET PO SCH (20:08)
[2020-08-31 23:43] LABS: African American GFR (CKD) 49.2 (60.0-200.0); Anion Gap 8.5 mmol/L (4.00-12.00); BUN/Creat Ratio 12.31 Ratio (12.00-20.00); Calcium 8.7 mg/dL (8.7-10.3); Carbon Dioxide 20.5 mmol/L (21.6-31.8); Non-African American GFR(CKD) 42.4 (60.0-200.0); Potassium 5.1 mmol/L (3.5-5.5)
[2020-09-01] MEDS: ALBUTEROL NEBULIZED 2.5 MG/3 ML INHALATION PRN ×3 (08:00→20:57)
[2020-09-01] MEDS: OXYBUTYNIN 15 MG TAB.ER.24 PO SCH (08:48)
[2020-09-01] MEDS: PANTOPRAZOLE 40 MG TABLET PO SCH (08:48)
[2020-09-01] MEDS: SERTRALINE 100 MG TAB PO SCH (08:48)
[2020-09-01] MEDS: ENOXAPARIN 40 MG/0.4 ML SYRINGE SQ SCH (08:48)
[2020-09-01 10:36] LABS: Basophils # (A) 0.08 X 10*3/uL (0.00-0.10); Basophils % (A) 1.4 %; Eosinophils # (A) 0.56 X 10*3/uL (0.04-0.35); Eosinophils % (A) 9.8 %; HCT 36.9 % (37.2-46.3); HGB 11.4 g/dL (12.0-15.0); Lymphocytes # (A) 2.04 X 10*3/uL (0.90-5.00); Lymphocytes % (A) 35.7 %; MCH 27.4 pg (27.0-32.0); MCHC 30.9 g/dL (32.0-37.0); MCV 88.7 fL (80.0-97.0); Mean Platelet Volume 10.7 fL (9.5-12.2); Monocytes # (A) 0.37 X 10*3/uL (0.20-1.00); Monocytes % (A) 6.5 %; Neutrophils # (A) 2.65 X 10*3/uL (1.80-7.70); Neutrophils % (A) 46.4 %; Platelet Count 303 X 10*3/uL (140-440); RBC 4.16 X 10*6/uL (4.10-5.20); RDW 14.3 % (11.5-14.5); WBC 5.71 X 10*3/uL (4.50-10.00)
[2020-09-01 10:50] LABS: African American GFR (CKD) 67.5 (60.0-200.0); Anion Gap 8.5 mmol/L (4.00-12.00); Calcium 8.7 mg/dL (8.7-10.3); Carbon Dioxide 24.5 mmol/L (21.6-31.8); Non-African American GFR(CKD) 58.2 (60.0-200.0); Potassium 4.3 mmol/L (3.5-5.5)
[2020-09-01] MEDS: LEVOFLOXACIN 250MG-D5W PMX 250 MG in DEXTROSE/WATER 1 50ML.BAG IVPB SCH (16:52)
--- NOTE | 2020-09-01 18:02 | P.PN ---
Subjective Progress Note Date: 09/01/20 Principal diagnosis: Acute kidney injury, UTI Hospital course: Patient is a 69-year-old female with a past medical history including hype rtension, depression, anxiety, left BKA, 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 Patient presented to the hospital with a chief complaint of abdominal pain and hallucinations.She was admitted under our services for acute kidney injury, UTI, and metabolic acidosis. Physical exam: Patient was seen and fully evaluated at the bedside this morning. She reports continued mild abdominal pain/discomfort along with noted bleeding from stoma. Stoma beefy red in color appearing irritated, no signs of active bleeding or surrounding erythema noted. Patient with a stable hemoglobin of 11.4. Patient denies having any decrease and/or changes and output in colostomy bag. Patient denies having any other complaints including headache, lightheadedness, dizziness, changes in vision or hearing, chest pain or palpitations, or shortn ess of breath. General: non toxic, no distress, appears at stated age Derm: warm, dry Head: atraumatic, normocephalic, symmetric Eyes: EOMI, no lid lag, anicteric sclera Mouth: no lip lesion, mucus membranes moist Cardiovascular: S1S2 reg, no murmur, positive posterior tibial pulses bilaterally, cap refill less than 2 seconds. Lungs: CTA bilateral, no rhonchi, no rales , no accessory muscle use GI//Abdominal: Obese abdomen. soft, nontender to palpation, no guarding, no appreciable organomegaly. Large vital hernia. Colostomy in place, stoma beefy red in color, brown fecal matter in colostomy bag. Ladd catheter in place with drainage of clear straw-colored urine. Ext: no gross muscle atrophy, no edema, no contractures. Left BKA. Neuro: Speech clear. GCS 15. CN II-XI grossly intact, no focal neuro deficits. Psych: Alert, oriented, appropriate affect. Patient denies having visual or auditory hallucinations. Plan of care: Acute kidney injury, resolved UTI with chronic indwelling Ladd catheter, failed outpatient treatment with Bactrim and Cipro -Urine culture positive for group D enterococcus with gram-negative bacilli. -Continue IV antibiotics: Levaquin. Bleeding from colostomy site -Hemoglobin 11.4. -Gen. surgery consulted for evaluation. -No active bleeding noted at this time. Acute toxic metabolic encephalopathy secondary to underlying UTI, improved. Hypertension -Hold lisinopril secondary to JESSICA. -Monitor vital signs. CODE STATUS: Full code DVT prophylaxis: Lovenox Discussed with: Patient and RN Anticipated discharge date: Clinical course to determine Anticipated discharge place: Home with home care A total of 45 minutes was spent on the care of this complex patient more than 50% of the time was spent in counseling and care coordination. Objective - Vital Signs Vital signs: Vital Signs Temp 97.6 F 09/01/20 08:00 Pulse 89 09/01/20 08:26 Resp 16 09/01/20 08:00 BP 123/55 09/01/20 08:00 Pulse Ox 96 09/01/20 08:00 Intake & Output 08/31/20 09/01/20 09/01/20 18:59 06:59 18:59 Intake Total 100 Output Total 775 3400 Balance -775 -3300 Intake: Oral 100 Output: Urine 775 3400 Uretheral (Ladd) 1700 Other: Voiding Method Indwelling Catheter Indwelling Catheter Indwelling Catheter - Labs CBC & Chem 7: 09/01/20 07:48 09/01/20 07:48 Labs: Abnormal Lab Results - Last 24 Hours (Table) 08/31/20 09/01/20 09/01/20 Range/Units 10:45 07:48 07:48 Hgb 11.4 L (12.0-15.0) g/dL Hct 36.9 L (37.2-46.3) % MCHC 30.9 L (32.0-37.0) g/dL Eosinophils # 0.56 H (0.04-0.35) X 10*3/uL Carbon Dioxide 20.5 L (21.6-31.8) mmol/L Est GFR (CKD-EPI)AfAm 49.2 L (60.0-200.0) Est GFR (CKD-EPI)NonAf 42.4 L 58.2 L (60.0-200.0) Microbiology - Last 24 Hours (Table) 08/30/20 17:47 Urine Culture - Preliminary Urine,Voided Group D Enterococcus Gram Neg Bacilli 08/30/20 17:54 Blood Culture - Preliminary Blood No Growth after 24 hours
--- NOTE | 2020-09-01 18:23 | P.GSCN ---
History of Present Illness Consult date: 09/01/20 History of present illness: Seen and evaluated. Has ileostomy. No active bleeding. Ostomy pink, patent and functioning. Will monitor Hgb. 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, "boarderline diabetic",gallstones, kidney stones, leakage of urine, abd hernia, wound rt butocks,carpal tunnel, "loose tooth lt upper front" History of Any Multi-Drug Resistant Organisms: None Reported Past Surgical History: Appendectomy, Section, Hernia Repair, Hysterectomy, Tonsillectomy Additional Past Surgical History / Comment(s): LEFT BELOW THE KNEE AMPUTATION, colostomy, lt thigh benign tumor removed, hemmorhoidectomy,carpal tunnel,?gallbladder Past Anesthesia/Blood Transfusion Reactions: Postoperative Nausea & Vomiting (PONV) Additional Past Anesthesia/Blood Transfusion Reaction / Comm: "never received any blood transfusion" Past Psychological History: No Psychological Hx Reported Additional Psychological History / Comment(s): pt stated went thru special educ ation classes stated has about a 4th grade level. able to read some and write. needs things explained to her. pt lives in apt able to drive but has no car,takes the bus. uses a scooter.recieveds meals on wheels, home care and colostomy supplies. Smoking Status: Never smoker Past Alcohol Use History: None Reported Past Drug Use History: None Reported - Past Family History Mother Family Medical History: Dementia Father Family Medical History: Dementia Medications and Allergies Home Medications Medication Instructions Recorded Confirmed Type Melatonin 5 mg PO HS 10/04/16 08/30/20 History Ergocalciferol (Vitamin D2) 50,000 unit PO Q7D 10/25/18 08/30/20 History [Vitamin D2] Oxybutynin ER [Ditropan Xl] 15 mg PO DAILY 10/25/18 08/30/20 History Sertraline [Zoloft] 100 mg PO DAILY 10/25/18 08/30/20 History lisinopriL [Zestril] 20 mg PO DAILY 10/25/18 08/30/20 History Ciprofloxacin HCl [Cipro] 500 mg PO Q12HR 08/30/20 08/30/20 History Fluconazole [Diflucan] 200 mg PO DIRECTED 08/30/20 08/30/20 History Loperamide [Imodium] 2 mg PO QID PRN 08/30/20 08/30/20 History Nystatin 100,000 Unit/gm Powd 1 applic TOPICAL BID PRN 08/30/20 08/30/20 History [Mycostatin Powder] Ondansetron [Zofran] 4 mg PO Q12H PRN 08/30/20 08/30/20 History Pantoprazole Sodium [Protonix] 40 mg PO DAILY 08/30/20 08/30/20 History Sulfamethox-Tmp 800-160Mg [Bactrim 1 tab PO Q12H 08/30/20 08/30/20 History DS 800-160 mg] Allergies Allergy/AdvReac Type Severity Reaction Status Date / Time Penicillins Allergy Anaphylaxis Verified 08/30/20 17:08 cephalexin monohydrate AdvReac Nausea & Verified 08/30/20 17:08 [From Keflex] Vomiting codeine AdvReac Nausea & Verified 08/30/20 17:08 Vomiting red food dye Allergy Rash/Hives Uncoded 08/30/20 17:08 Surgical - Exam Vital Signs Temp Pulse Resp BP Pulse Ox 97.8 F 77 22 115/59 98 08/30/20 17:03 08/30/20 17:03 08/30/20 17:03 08/30/20 17:03 08/30/20 17:03 Results - Labs 09/01/20 07:48 09/01/20 07:48 Abnormal Lab Results - Last 24 Hours (Table) 08/31/20 09/01/20 09/01/20 Range/Units 10:45 07:48 07:48 Hgb 11.4 L (12.0-15.0) g/dL Hct 36.9 L (37.2-46.3) % MCHC 30.9 L (32.0-37.0) g/dL Eosinophils # 0.56 H (0.04-0.35) X 10*3/uL Carbon Dioxide 20.5 L (21.6-31.8) mmol/L Est GFR (CKD-EPI)AfAm 49.2 L (60.0-200.0) Est GFR (CKD-EPI)NonAf 42.4 L 58.2 L (60.0-200.0) Microbiology - Last 24 Hours (Table) 08/30/20 17:47 Urine Culture - Preliminary Urine,Voided Group D Enterococcus Gram Neg Bacilli 08/30/20 17:54 Blood Culture - Preliminary Blood No Growth after 24 hours Diabetes panel 08/31/20 09/01/20 Range/Units 10:45 07:48 Sodium 137 138 (135-145) mmol/L Potassium 5.1 4.3 (3.5-5.5) mmol/L Chloride 108 105 (96-109) mmol/L Carbon Dioxide 20.5 L 24.5 (21.6-31.8) mmol/L BUN 16.0 14.0 (9.0-27.0) mg/dL Creatinine 1.3 1.0 (0.6-1.5) mg/dL Glucose 104 107 (70-110) mg/dL Calcium 8.7 8.7 (8.7-10.3) mg/dL Calcium panel 08/31/20 09/01/20 Range/Units 10:45 07:48 Calcium 8.7 8.7 (8.7-10.3) mg/dL Pituitary panel 08/31/20 09/01/20 Range/Units 10:45 07:48 Sodium 137 138 (135-145) mmol/L Potassium 5.1 4.3 (3.5-5.5) mmol/L Chloride 108 105 (96-109) mmol/L Carbon Dioxide 20.5 L 24.5 (21.6-31.8) mmol/L BUN 16.0 14.0 (9.0-27.0) mg/dL Creatinine 1.3 1.0 (0.6-1.5) mg/dL Glucose 104 107 (70-110) mg/dL Calcium 8.7 8.7 (8.7-10.3) mg/dL Adrenal panel 08/31/20 09/01/20 Range/Units 10:45 07:48 Sodium 137 138 (135-145) mmol/L Potassium 5.1 4.3 (3.5-5.5) mmol/L Chloride 108 105 (96-109) mmol/L Carbon Dioxide 20.5 L 24.5 (21.6-31.8) mmol/L BUN 16.0 14.0 (9.0-27.0) mg/dL Creatinine 1.3 1.0 (0.6-1.5) mg/dL Glucose 104 107 (70-110) mg/dL Calcium 8.7 8.7 (8.7-10.3) mg/dL
[2020-09-01] MEDS: MELATONIN 5 MG TABLET PO SCH (21:45)
[2020-09-01] MEDS: ACETAMINOPHEN TAB 325 MG TAB PO PRN (23:43)
[2020-09-02] MEDS: OXYBUTYNIN 15 MG TAB.ER.24 PO SCH (07:19)
[2020-09-02] MEDS: ALBUTEROL NEBULIZED 2.5 MG/3 ML INHALATION PRN ×2 (07:19→21:52)
[2020-09-02] MEDS: ENOXAPARIN 40 MG/0.4 ML SYRINGE SQ SCH (07:19)
[2020-09-02] MEDS: PANTOPRAZOLE 40 MG TABLET PO SCH (07:19)
[2020-09-02] MEDS: SERTRALINE 100 MG TAB PO SCH (07:19)
[2020-09-02 10:20] LABS: African American GFR (CKD) 76.7 (60.0-200.0); Anion Gap 4.8 mmol/L (4.00-12.00); BUN/Creat Ratio 14.44 Ratio (12.00-20.00); Carbon Dioxide 26.2 mmol/L (21.6-31.8); Non-African American GFR(CKD) 66.2 (60.0-200.0); Potassium 4.2 mmol/L (3.5-5.5)
[2020-09-02 10:58] LABS: Basophils # (A) 0.08 X 10*3/uL (0.00-0.10); Basophils % (A) 1.4 %; Eosinophils # (A) 0.43 X 10*3/uL (0.04-0.35); Eosinophils % (A) 7.5 %; HCT 36.4 % (37.2-46.3); HGB 11.2 g/dL (12.0-15.0); Lymphocytes # (A) 2.11 X 10*3/uL (0.90-5.00); MCH 27.7 pg (27.0-32.0); MCHC 30.8 g/dL (32.0-37.0); MCV 90.1 fL (80.0-97.0); Mean Platelet Volume 11.1 fL (9.5-12.2); Monocytes # (A) 0.44 X 10*3/uL (0.20-1.00); Monocytes % (A) 7.7 %; Neutrophils # (A) 2.63 X 10*3/uL (1.80-7.70); Neutrophils % (A) 46.2 %; Platelet Count 335 X 10*3/uL (140-440); RBC 4.04 X 10*6/uL (4.10-5.20); RDW 14.6 % (11.5-14.5)
--- NOTE | 2020-09-02 14:57 | P.PN ---
<Robyn Bob - Last Filed: 09/02/20 14:50> Subjective Progress Note Date: 09/02/20 CHIEF COMPLAINT: Bleeding from ileostomy site HISTORY OF PRESENT ILLNESS: Surgical service is following regards to patient's bleeding from ileostomy site. At this time there is no evidence of bleeding. Patient denies any pain. There is stool present from ostomy. Ostomy is pink. Afebrile WBC 5.7 Hgb 11.2 and stable PHYSICAL EXAM: VITAL SIGNS: Reviewed GENERAL: Well-developed in no acute distress. HEENT: No sclera icterus. Extraocular movements grossly intact. Moist buccal mucosa. Head is atraumatic, normocephalic. Hears conversational speech. No nasal drainage. NECK: Supple without lymphadenopathy. CHEST: Non-labored respirations and equal bilateral excursions. CARDIOVASCULAR: Palpable 2+ radial pulses. ABDOMEN: Soft. Obese. Nondistended. Nontender. Ostomy is pink minimal amount of brown stool present in the bag. No evidence of bleeding. MUSCULOSKELETAL: No clubbing or cyanosis. NEUROLOGIC: No focal or lateralizing signs. Cranial nerves II through XII grossly intact. PSYCH: Appropriate affect. Alert and oriented to person, place and time. SKIN: Well perfused. Good skin turgor. ASSESSMENT: 1. Bleeding at ileostomy site now resolved. Possibly due to skin irritation. 2. Catheter associated UTI 3. Hypertension 4. Acute kidney injury 5. Hypothyroidism 6. Hyperlipidemia PLAN: -No surgical intervention planned -Continue antibiotics per medicine for UTI -Continue supportive care Physician [employer] note has been reviewed by physician. Signing provider agrees with the documented findings, assessment, and plan of care. H Objective - Vital Signs Vital signs: Vital Signs Temp 98.1 F 09/02/20 08:00 Pulse 70 09/02/20 08:00 Resp 18 09/02/20 08:00 BP 134/61 09/02/20 08:00 Pulse Ox 95 09/02/20 08:00 Intake & Output 09/01/20 09/02/20 09/02/20 18:59 06:59 18:59 Output Total 1000 1700 Balance -1000 -1700 Output: Urine 1000 1700 Other: Voiding Method Indwelling Catheter Indwelling Catheter Indwelling Catheter - Labs CBC & Chem 7: 09/02/20 06:57 09/02/20 06:57 Labs: Abnormal Lab Results - Last 24 Hours (Table) 09/02/20 Range/Units 06:57 RBC 4.04 L (4.10-5.20) X 10*6/uL Hgb 11.2 L (12.0-15.0) g/dL Hct 36.4 L (37.2-46.3) % MCHC 30.8 L (32.0-37.0) g/dL RDW 14.6 H (11.5-14.5) % Eosinophils # 0.43 H (0.04-0.35) X 10*3/uL Microbiology - Last 24 Hours (Table) 08/30/20 17:47 Urine Culture - Preliminary Urine,Voided Group D Enterococcus Proteus mirabilis 08/30/20 17:54 Blood Culture - Preliminary Blood No Growth after 48 hours <Any Mary N - Last Filed: 09/02/20 16:08> Subjective Patient has soft brown stool through ostomy right lower quadrant. Flatus in bag. No further bleeding. Referral to a tertiary care center for multiple abdominal wall hernias. Objective - Vital Signs Vital signs: Vital Signs Temp 97.8 F 09/02/20 14:00 Pulse 66 09/02/20 14:00 Resp 16 09/02/20 14:00 BP 138/77 09/02/20 14:00 Pulse Ox 95 09/02/20 14:00 Intake & Output 09/01/20 09/02/20 09/02/20 18:59 06:59 18:59 Output Total 1000 1700 Balance -1000 -1700 Output: Urine 1000 1700 Other: Voiding Method Indwelling Catheter Indwelling Catheter Indwelling Catheter - Labs CBC & Chem 7: 09/02/20 06:57 09/02/20 06:57 Labs: Abnormal Lab Results - Last 24 Hours (Table) 09/02/20 Range/Units 06:57 RBC 4.04 L (4.10-5.20) X 10*6/uL Hgb 11.2 L (12.0-15.0) g/dL Hct 36.4 L (37.2-46.3) % MCHC 30.8 L (32.0-37.0) g/dL RDW 14.6 H (11.5-14.5) % Eosinophils # 0.43 H (0.04-0.35) X 10*3/uL Microbiology - Last 24 Hours (Table) 08/30/20 17:47 Urine Culture - Final Urine,Voided Enterococcus faecalis Proteus mirabilis 08/30/20 17:54 Blood Culture - Preliminary Blood No Growth after 48 hours
--- NOTE | 2020-09-02 18:01 | P.PN ---
<Ezekiel Garcia - Last Filed: 09/02/20 17:50> Subjective Progress Note Date: 09/02/20 Principal diagnosis: Acute kidney injury, UTI Hospital course: Patient is a 69-year-old female with a past medical history including hypertension, depression, anxiety, left BKA, 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 Patient presented to the hospital with a chief complaint of abdominal pain and hallucinations.She was admitted under our services for acute kidney injury, UTI, and metabolic acidosis. Physical exam: Patient was seen and fully evaluated at the bedside this morning. She reports she continues to feel weak, but improved from yesterday. She denies any further episodes of bleeding from her colostomy site. Urine cultures resulting positive for Enterococcus faecalis proteus mirabilis. Changes made to IV antibiotics and Levaquin was stopped and pt was placed on Ertapenem pt based on culture sensitivity report. Infectious disease was consulted in order placed for midline. Patient denies having any other complaints including headache, lightheadedness, dizziness, changes in vision or hearing, chest pain or palpitations, or shortness of breath. General: non toxic, no distress, appears at stated age Derm: warm, dry Head: atraumatic, normocephalic, symmetric Eyes: EOMI, no lid lag, anicteric sclera Mouth: no lip lesion, mucus membranes moist Cardiovascular: S1S2 reg, no murmur, positive posterior tibial pulses bilaterally, cap refill less than 2 seconds. Lungs: Respirations even, regular, and unlabored on room air. Lungs clear to auscultation bilaterally with no adventitious lung sounds noted. GI//Abdominal: Obese abdomen. soft, nontender to palpation, no guarding, no appreciable organomegaly. Large vital hernia. Colostomy in place, stoma pink, brown fecal matter in colostomy bag. Ladd catheter in place with drainage of clear straw-colored urine. Ext: no gross muscle atrophy, no edema, no contractures. Left BKA. Neuro: Speech clear. GCS 15. CN II-XI grossly intact, no focal neuro deficits. Psych: Alert, oriented, appropriate affect. Patient denies having visual or auditory hallucinations. Plan of care: Acute kidney injury, resolved UTI with chronic indwelling Ladd catheter, failed outpatient treatment with Bactrim and Cipro -Urine cultures resulting positive for Enterococcus faecalis proteus mirabilis. -Changes made to IV antibiotics and Levaquin was stopped and pt was placed on Ertapenem pt based on culture sensitivity report. -Infectious disease was consulted. -Order placed for midline, as pt will need IV antibiotics upon discharge. Bleeding from colostomy site, resolved Acute toxic metabolic encephalopathy secondary to underlying UTI, improved. Hypertension -Hold lisinopril secondary to JESSICA. -Monitor vital signs. CODE STATUS: Full code DVT prophylaxis: Lovenox Discussed with: Patient and RN Anticipated discharge date: Clinical course to determine, possibly tomorrow. Case management working on arrangements for [employer]. Anticipated discharge place: [facility] A total of 45 minutes was spent on the care of this complex patient more than 50% of the time was spent in counseling and care coordination. Objective - Vital Signs Vital signs: Vital Signs Temp 97.8 F 09/02/20 14:00 Pulse 66 09/02/20 14:00 Resp 16 09/02/20 14:00 BP 138/77 09/02/20 14:00 Pulse Ox 95 09/02/20 14:00 Intake & Output 09/01/20 09/02/20 09/02/20 18:59 06:59 18:59 Output Total 1000 1700 Balance -1000 -1700 Output: Urine 1000 1700 Other: Voiding Method Indwelling Catheter Indwelling Catheter Indwelling Catheter - Labs CBC & Chem 7: 09/02/20 06:57 09/02/20 06:57 Labs: Abnormal Lab Results - Last 24 Hours (Table) 09/02/20 Range/Units 06:57 RBC 4.04 L (4.10-5.20) X 10*6/uL Hgb 11.2 L (12.0-15.0) g/dL Hct 36.4 L (37.2-46.3) % MCHC 30.8 L (32.0-37.0) g/dL RDW 14.6 H (11.5-14.5) % Eosinophils # 0.43 H (0.04-0.35) X 10*3/uL Microbiology - Last 24 Hours (Table) 08/30/20 17:47 Urine Culture - Final Urine,Voided Enterococcus faecalis Proteus mirabilis 08/30/20 17:54 Blood Culture - Preliminary Blood No Growth after 48 hours <Melissa De Souza - Last Filed: 09/02/20 19:32> Objective - Vital Signs Vital signs: Vital Signs Temp 97.8 F 09/02/20 14:00 Pulse 66 09/02/20 14:00 Resp 16 09/02/20 14:00 BP 138/77 09/02/20 14:00 Pulse Ox 95 09/02/20 14:00 Intake & Output 09/02/20 09/02/20 09/03/20 06:59 18:59 06:59 Output Total 1700 1100 Balance -1700 -1100 Output: Urine 1700 1100 Other: Voiding Method Indwelling Catheter Indwelling Catheter - Labs CBC & Chem 7: 09/02/20 06:57 09/02/20 06:57 Labs: Abnormal Lab Results - Last 24 Hours (Table) 09/02/20 Range/Units 06:57 RBC 4.04 L (4.10-5.20) X 10*6/uL Hgb 11.2 L (12.0-15.0) g/dL Hct 36.4 L (37.2-46.3) % MCHC 30.8 L (32.0-37.0) g/dL RDW 14.6 H (11.5-14.5) % Eosinophils # 0.43 H (0.04-0.35) X 10*3/uL Microbiology - Last 24 Hours (Table) 08/30/20 17:47 Urine Culture - Final Urine,Voided Enterococcus faecalis Proteus mirabilis 08/30/20 17:54 Blood Culture - Preliminary Blood No Growth after 48 hours Assessment and Plan Assessment: Patient seen and examined independently. Patient was also seen by Ezekiel Garcia NP and case was discussed. I am in agreement with subjective, physical exam, assessment and plan as written above and amended below. No chest pain, SOB, nuasea. Still not feeling well. Has had PICC line and IV abx in the past. Plans on rehab., Oostomy General: non toxic, no distress, appears at stated age Derm: warm, dry Head: atraumatic, normocephalic, symmetric Eyes: EOMI, no lid lag, anicteric sclera Mouth: no lip lesion, mucus membranes moist Cardiovascular: S1S2 reg, no murmur, positive posterior tibial pulse bilateral, Lungs: CTA bilateral, no rhonchi, no rales , no accessory muscle use Abdominal: soft, nontender to palpation, no guarding, no appreciable organomegaly Proteus and enterococcus urinary tract infection related to chronic indwelling Ladd catheter -Consult ID -PICC line -Ertapenem -Vancomycin -Repeat CBC in a.m.
[2020-09-02] MEDS ORDERED: VANCOMYCIN IV PER PHARMACY 1 EACH MISC MISCELLANE PRN (19:32)
[2020-09-02] MEDS: MELATONIN 5 MG TABLET PO SCH (20:55)
[2020-09-02] MEDS: ACETAMINOPHEN TAB 325 MG TAB PO PRN (20:55)
[2020-09-02] MEDS ORDERED: VANCOMYCIN 2,250 MG in SODIUM CHLORIDE 0.9% 500 ML 500 ML IVPB SCH (22:00)
--- NOTE | 2020-09-03 00:31 | CONS ---
CONSULTATION DATE OF SERVICE: 09/02/2020 REASON FOR CONSULTATION: Urinary tract infection. HISTORY OF PRESENT ILLNESS: The patient is a 69-year-old female with past medical history significant for urinary tract infection, chronic indwelling Ladd catheter in this patient who presented to the hospital on August 30 for evaluation of pelvic pain and hallucinations at times. The patient did have an indwelling Ladd catheter but not sure when the last time this Ladd catheter was changed, however, has been changed in the ER now and the UA was obtained. It is not clear if the UA was obtained from previous or the new Ladd. That UA was positive and cultures did grow enterococcus faecalis and Proteus mirabilis in this patient who does have PENICILLIN and CEPHALEXIN ALLERGY. Patient is currently being treated with Invanz. I was asked to see the patient today for discharge antibiotic examination. Prior to that, she was on vancomycin and Levaquin. Levaquin has been discontinued. However vancomycin was continued. The patient currently denies having any headache or URI symptoms. Denies having any chest pain. No shortness of breath, cough, abdominal pain, no diarrhea. REVIEW OF SYSTEMS: Positive points have been mentioned in HPI. Rest of systems are negative. MEDICAL HISTORY: Significant for asthma, hyperlipidemia, hypertension, hypothyroidism, diverticulitis, carpal tunnel syndrome, diabetes mellitus. PAST SURGICAL HISTORY: Appendectomy, , hernia repair, hysterectomy, tonsillectomy, left below-the- knee amputation. SOCIAL HISTORY: No history of smoking, drinking or drug use. FAMILY HISTORY: Both parents with history of dementia. ALLERGIES: TO PENICILLIN, CEPHALEXIN AND CODEINE. MEDICATIONS: The patient is currently on vancomycin, Pharmacy to dose, Zoloft and Protonix, Ditropan, Zofran, Mycostatin powder, Narcan, Melatonin, Ertapenem, Lovenox and Tylenol. PHYSICAL EXAMINATION: Blood pressure is 133/79 with a pulse of 54, temperature 97.8. She is 96% on room air. General description is an elderly female lying in bed in no distress. HEENT examination shows pallor. No scleral icterus. Oral mucous membranes dry. No pharyngeal erythema or thrush. NECK: Trachea central. No thyromegaly. LUNGS: Unlabored breathing. Clear to auscultation anteriorly. HEART S1, S2. Regular rate and rhythm. ABDOMEN: Soft, no tenderness. No guarding or rigidity. EXTREMITIES: No edema of the feet. SKIN examination: No rash or mass palpable NEUROLOGICAL: Patient is awake, alert, oriented times three. Mood and affect normal. LABS: Hemoglobin 11.1, white count 5.70, BUN of 13, creatinine 0.9. Urine was positive. Danielle PCR was negative. Urine showing Klebsiella and Enterococcus faecalis. DIAGNOSTIC IMPRESSION AND PLAN: 1. Patient admitted to the hospital with pelvic pain and hallucinations in this patient who did have a significantly positive UA with concern for possible cath versus urinary tract infection. However, it is not very clear if this urine was collected from previous or new Ladd catheter. The patient currently with no fever or elevated white count concern likely for possible cystitis rather than deep infection. 2. Patient with PENICILLIN AND CEPHALOSPORIN ALLERGY that will limit the number of antibiotics safe to use. PLAN: 1. Patient to continue with Ertapenem 1 gm daily that should cover for multiple pathogen. Discontinue vancomycin. 2. We will obtain a repeat UA and culture. If the repeat UA is positive, she may benefit from a short course of IV Invanz on discharge. However if the repeat UA is negative, will recommend only 3 day course for possible cystitis and discontinuation of antibiotic therapy. Thank you for this consultation. Will follow this patient along with you. MMODL / IJN: [id number] /
[2020-09-03 04:04] LABS: Appearance,Urine Clear (Clear); Bilirubin,Urine Negative (Negative); Blood,Urine Negative (Negative); Color,Urine Light Yellow; Glucose,Urine (UA) Negative (Negative); Ketones,Urine Negative (Negative); Leukocyte Esterase,Urine Small (Negative); Nitrite,Urine Negative (Negative); PH, Urine 6.5 (5.0-8.0); Protein,Urine Negative (Negative); RBC,Urine 1 /hpf (0-5); Specific Gravity,Urine 1.008 (1.001-1.035); Squamous Epithelial Cell,Urine <1 /hpf (0-4); Urobilinogen,Urine <2.0 mg/dL (<2.0); WBC,Urine 3 /hpf (0-5)
[2020-09-03 07:03] LABS: African American GFR (CKD) 73 (>60 ml/min/1.73 sqM); Anion Gap 7 mmol/L; Blood Urea Nitrogen 17 mg/dL (7-17); Calcium 9.2 mg/dL (8.4-10.2); Carbon Dioxide 28 mmol/L (22-30); Chloride 102 mmol/L (98-107); Glucose 104 mg/dL (74-99); Non-African American GFR(CKD) 63 (>60 ml/min/1.73 sqM); Potassium 4.1 mmol/L (3.5-5.1); Sodium 137 mmol/L (137-145)
[2020-09-03] MEDS: ALBUTEROL NEBULIZED 2.5 MG/3 ML INHALATION PRN ×2 (07:13→10:48)
[2020-09-03] MEDS: OXYBUTYNIN 15 MG TAB.ER.24 PO SCH (08:05)
[2020-09-03] MEDS: PANTOPRAZOLE 40 MG TABLET PO SCH (08:05)
[2020-09-03] MEDS: SERTRALINE 100 MG TAB PO SCH (08:06)
[2020-09-03] MEDS: ENOXAPARIN 40 MG/0.4 ML SYRINGE SQ SCH (08:06)
[2020-09-03 08:15] VITALS: RESP 17
[2020-09-03 08:59] LABS: Basophils # (A) 0.07 X 10*3/uL (0.00-0.10); Basophils % (A) 1.1 %; Eosinophils # (A) 0.49 X 10*3/uL (0.04-0.35); Eosinophils % (A) 7.9 %; HCT 36.5 % (37.2-46.3); HGB 11.4 g/dL (12.0-15.0); Lymphocytes # (A) 2.16 X 10*3/uL (0.90-5.00); MCH 27.7 pg (27.0-32.0); MCHC 31.2 g/dL (32.0-37.0); MCV 88.6 fL (80.0-97.0); Mean Platelet Volume 10.8 fL (9.5-12.2); Monocytes # (A) 0.43 X 10*3/uL (0.20-1.00); Neutrophils % (A) 48.7 %; Platelet Count 323 X 10*3/uL (140-440); RBC 4.12 X 10*6/uL (4.10-5.20); RDW 14.4 % (11.5-14.5); WBC 6.17 X 10*3/uL (4.50-10.00)
[2020-09-03] MEDS ORDERED: ERTAPENEM 1 GM in SODIUM CHLORIDE 0.9% 50 ML IVPB SCH (09:00)
[2020-09-03 13:43] VITALS: BP 133/70; PULSE 65; TEMP 98.1
--- NOTE | 2020-09-03 13:52 | P.PN ---
Subjective Progress Note Date: 09/03/20 Patient has no further bleeding. Stool from ostomy Brown. No abdominal complaints. Diet as tolerated. Patient stable for discharge from a surgical standpoint. Objective - Vital Signs Vital signs: Vital Signs Temp 98.1 F 09/03/20 13:42 Pulse 65 09/03/20 13:42 Resp 17 09/03/20 13:42 BP 133/70 09/03/20 13:42 Pulse Ox 94 L 09/03/20 13:42 Intake & Output 09/02/20 09/03/20 09/03/20 18:59 06:59 18:59 Output Total 1100 1800 Balance -1100 -1800 Output: Urine 1100 1800 Other: Voiding Method Indwelling Catheter Indwelling Catheter Indwelling Catheter - Labs CBC & Chem 7: 09/03/20 06:08 09/03/20 06:08 Labs: Abnormal Lab Results - Last 24 Hours (Table) 09/03/20 09/03/20 09/03/20 Range/Units 03:05 06:08 06:08 Hgb 11.4 L (12.0-15.0) g/dL Hct 36.5 L (37.2-46.3) % MCHC 31.2 L (32.0-37.0) g/dL Eosinophils # 0.49 H (0.04-0.35) X 10*3/uL Glucose 104 H (74-99) mg/dL Ur Leukocyte Esterase Small H (Negative) Microbiology - Last 24 Hours (Table) 08/30/20 17:54 Blood Culture - Preliminary Blood No Growth after 72 hours 08/30/20 17:47 Urine Culture - Final Urine,Voided Enterococcus faecalis Proteus mirabilis
--- NOTE | 2020-09-03 14:27 | PN ---
PROGRESS NOTE DATE OF SERVICE: 09/03/2020 REASON FOR FOLLOWUP: Urinary tract infection. INTERVAL HISTORY: The patient is currently afebrile. Patient is breathing comfortably. Denies having any chest pain. No shortness of breath or cough. No nausea, no vomiting. No abdominal pain, no diarrhea. PHYSICAL EXAMINATION: Blood pressure 161/87 with pulse of 67, temperature 98. She is 97% on room air. General description is an elderly female up in the bed in no distress. RESPIRATORY SYSTEM: Unlabored breathing, clear to auscultation anteriorly. HEART: S1, S2. Regular rate and rhythm. ABDOMEN: Soft, no tenderness. LABS: Hemoglobin 11.4, white count 6.17, creatinine 0.94. Repeat urine is negative. DIAGNOSTIC IMPRESSION AND PLAN: Patient with urinary tract infection, possible cystitis with urine culture showing Enterococcus faecalis, Proteus mirabilis. Patient did have multiple antibiotic allergies. Completed treatment with Invanz with no need for antibiotic on discharge. This was discussed with the admitting physician working on discharge. MMODL / IJN: [id number] /
--- NOTE | 2020-09-04 10:18 | P.DS ---
Providers Date of admission: 09/02/20 07:51 Expected date of discharge: 09/03/20 Attending physician: Andrew Gandhi Consults: 09/01/20 14:30 Consult Physician Routine Consulting Provider: Any Mary Consult Reason/Comments: bleeding from ostomy site Do you want consulting provider notified?: Yes 09/02/20 13:14 Consult Physician Routine Consulting Provider: Bubba Abarca Consult Reason/Comments: need for Ertapenem secondary to catheter associated UTI w/ pos cultures Do you want consulting provider notified?: Yes Primary care physician: Miguel Sapp MD Hospital Course: History of presenting complaint Patient is a 69-year-old female with a past medical history including hypertension, depression, anxiety, left BKA, 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 Patient presented to the hospital with a chief complaint of abdominal pain and hallucinations.She was admitted for acute kidney injury, UTI, and metabolic acidosis. Urine cultures- positive for Enterococcus faecalis proteus mirabilis. Levaquin was stopped and placed on Ertapenemt. Infectious disease was consulted i. Patient denies having any other complaints including headache, lightheadedness, dizziness, changes in vision or hearing, chest pain or palpitations, or shortness of breath. Today-sitting up at the edge of the bed. Comfortable. No nausea vomiting. Oral intake well. Repeat US come back negative. I discussed with Dr. emery from [place]. No need for any further antibiotics. Discussed with the patient. Keen to go home. senior program planner was involved. Discussion and discharge planning more than 35 minutes Consultation: Dr. Shelly Benavides from general surgery Dr. abarca from [place] On exam: Vitals-98.1, 65, 17, 133.70, 94% room air Gen. appearance-sitting at the edge bed, comfortable Cardiovascular-4 seconds on normal, no edema Lungs-rate normal, lungs are clear Abdomen-ventral hernia, colostomy bag Psych-AO 3, mood affect normal INVESTIGATIONS, reviewed in the clinical context: White count 6.1 hemoglobin 11.4 platelets 323 potassium 4.1 creatinine 0.94 Urine culture-Enterococcus faecalis, Proteus mirabilis Repeat UA-negative Assessment and plan Acute kidney injury, possibly prerenal from decreased oral intake -Improved with fluids UTI with cystitis secondary to chronic indwelling Ladd catheter, failed outpatient treatment with Bactrim and Cipro -Urine cultures resulting positive for Enterococcus faecalis proteus mirabilis. -Changes made to IV antibiotics and Levaquin was stopped and pt was placed on Ertapenem -completed antibiotic in the hospital. Bleeding from colostomy site, resolved Acute toxic metabolic encephalopathy with delirium secondary to underlying UTI, improved. Essential Hypertension Continue antihypertensive Morbid obesity BMI 56.5. Follow-up with PCP. Weight loss measures. Chronic urinary stress incontinence. Continue with Ditropan Chronic insomnia due to medical reasons, Continue melatonin Disposition: Home Patient Condition at Discharge: Fair Plan - Discharge Summary Discharge Rx Participant: Yes New Discharge Prescriptions: Continue Melatonin 5 mg PO HS Sertraline [Zoloft] 100 mg PO DAILY Oxybutynin ER [Ditropan Xl] 15 mg PO DAILY Ergocalciferol (Vitamin D2) [Vitamin D2] 50,000 unit PO Q7D Loperamide [Imodium] 2 mg PO QID PRN PRN Reason: Diarrhea Pantoprazole Sodium [Protonix] 40 mg PO DAILY Ondansetron [Zofran] 4 mg PO Q12H PRN PRN Reason: Nausea And Vomiting Nystatin 100,000 Unit/gm Powd [Mycostatin Powder] 1 applic TOPICAL BID PRN PRN Reason: fungal infection Discontinued lisinopriL [Zestril] 20 mg PO DAILY Fluconazole [Diflucan] 200 mg PO DIRECTED Sulfamethox-Tmp 800-160Mg [Bactrim DS 800-160 mg] 1 tab PO Q12H Ciprofloxacin HCl [Cipro] 500 mg PO Q12HR Discharge Medication List Melatonin 5 mg PO HS 10/04/16 [History] Ergocalciferol (Vitamin D2) [Vitamin D2] 50,000 unit PO Q7D 10/25/18 [History] Oxybutynin ER [Ditropan Xl] 15 mg PO DAILY 10/25/18 [History] Sertraline [Zoloft] 100 mg PO DAILY 10/25/18 [History] Loperamide [Imodium] 2 mg PO QID PRN 08/30/20 [History] Nystatin 100,000 Unit/gm Powd [Mycostatin Powder] 1 applic TOPICAL BID PRN 08/30/20 [History] Ondansetron [Zofran] 4 mg PO Q12H PRN 08/30/20 [History] Pantoprazole Sodium [Protonix] 40 mg PO DAILY 08/30/20 [History] Follow up Appointment(s)/Referral(s): [facility], [NON-STAFF] - As Needed Miguel Sapp MD [Primary Care Provider] - 1-2 days (please call and make an appointment) Patient Instructions/Handouts: Urinary Tract Infection in Women (DC) Discharge Disposition: HOME WITH HOME HEALTH SERVICES
== END 2020-09-03 16:50 | disposition home health service (06) | DRG 698 ==
LOC: EC 16:57 → 4SSUR 19:33 → OBSVTOIN 09-02 07:51
PROVIDERS: ADMIT Hospitalist; ATTEND Hospitalist
PROC: 05HF33Z Insertion of Infusion Device into Left Cephalic Vein, Percutaneous Approach (ICD-10-PCS; principal; 2020-09-03 11:15)
DX: T83.511A Infection and inflammatory reaction due to indwelling urethral catheter, initial encounter (principal); G92 Toxic encephalopathy; N17.9 Acute kidney failure, unspecified; E87.2 Acidosis; Z68.43 Body mass index [BMI] 50.0-59.9, adult; Z43.3 Encounter for attention to colostomy; N30.90 Cystitis, unspecified without hematuria; E11.9 Type 2 diabetes mellitus without complications; E66.01 Morbid (severe) obesity due to excess calories; Z89.512 Acquired absence of left leg below knee; Z20.822 Contact with and (suspected) exposure to COVID-19; E86.0 Dehydration; B95.2 Enterococcus as the cause of diseases classified elsewhere; B96.4 Proteus (mirabilis) (morganii) as the cause of diseases classified elsewhere; N13.9 Obstructive and reflux uropathy, unspecified; K43.9 Ventral hernia without obstruction or gangrene; N39.3 Stress incontinence (female) (male); I10 Essential (primary) hypertension; E78.5 Hyperlipidemia, unspecified; J45.909 Unspecified asthma, uncomplicated; E03.9 Hypothyroidism, unspecified; G56.00 Carpal tunnel syndrome, unspecified upper limb; M19.042 Primary osteoarthritis, left hand; M19.041 Primary osteoarthritis, right hand; F32.9 Major depressive disorder, single episode, unspecified; F41.9 Anxiety disorder, unspecified; K80.20 Calculus of gallbladder without cholecystitis without obstruction; M54.9 Dorsalgia, unspecified; F51.04 Psychophysiologic insomnia; Z79.899 Other long term (current) drug therapy; Z87.440 Personal history of urinary (tract) infections; Z87.442 Personal history of urinary calculi; Z90.710 Acquired absence of both cervix and uterus; Z90.49 Acquired absence of other specified parts of digestive tract; Z87.19 Personal history of other diseases of the digestive system; Z87.42 Personal history of other diseases of the female genital tract; Z90.89 Acquired absence of other organs; Z98.891 History of uterine scar from previous surgery; Z98.890 Other specified postprocedural states; Y84.6 Urinary catheterization as the cause of abnormal reaction of the patient, or of later complication, without mention of misadventure at the time of the procedure; Z88.1 Allergy status to other antibiotic agents; Z88.0 Allergy status to penicillin; Z88.5 Allergy status to narcotic agent; Z91.02 Food additives allergy status; Z81.8 Family history of other mental and behavioral disorders
CPT/HCPCS: 36410; 36415; 51702; 76937; 80048; 80053; 81001; 83605; 85025; 87040; 87077; 87086; 87186; 87635; 93005; 94640; 94760; 96365; 99284; 99285

== ENCOUNTER 2020-09-07 16:12 | Emergency (ER) | payer MEDICARE ==
[2020-09-07 16:26] VITALS: BP 136/84; PULSE 79; RESP 16; TEMP 97.5
[2020-09-07] MEDS ORDERED: LORazepam 1 MG TAB PO STA (16:33)
[2020-09-07] MEDS ORDERED: ACETAMINOPHEN TAB 500 MG TAB PO STA (16:33)
--- NOTE | 2020-09-07 16:39 | ED ---
General Adult HPI - General Chief complaint: Fall Stated complaint: Fall Time Seen by Provider: 09/07/20 16:20 Source: patient, EMS, RN notes reviewed, old records reviewed Mode of arrival: EMS Limitations: no limitations - History of Present Illness Initial comments: This is a 70-year-old female who presents emergency department stating that while she was trying to transfer to the toilet she slipped off the edge of the toilet and landed on her left hip and states she did not hit her head or neck. Patient states she has no injury. Patient states she has full range of motion of her hips she has no pain in her neighbor extremities patient denies any injury at all. Patient states she states she's just a little anxious and she believes she might eventually develop a bruise on her left hip but other than that she states she is fine. Patient states she lives in an assisted living facility but states she does not get much help when I suggest custodial she does not want to be sent to any custodial. Patient denies any recent fever chills. Patient states she just got discharged from the hospital yesterday and was treated for urinary tract infection. Patient states she does not have any symptoms of urinary tract infection today. - Related Data Home Medications Medication Instructions Recorded Confirmed Melatonin 5 mg PO HS 10/04/16 08/30/20 Ergocalciferol (Vitamin D2) 50,000 unit PO Q7D 10/25/18 08/30/20 [Vitamin D2] Oxybutynin ER [Ditropan Xl] 15 mg PO DAILY 10/25/18 08/30/20 Sertraline [Zoloft] 100 mg PO DAILY 10/25/18 08/30/20 Loperamide [Imodium] 2 mg PO QID PRN 08/30/20 08/30/20 Nystatin 100,000 Unit/gm Powd 1 applic TOPICAL BID PRN 08/30/20 08/30/20 [Mycostatin Powder] Ondansetron [Zofran] 4 mg PO Q12H PRN 08/30/20 08/30/20 Pantoprazole Sodium [Protonix] 40 mg PO DAILY 08/30/20 08/30/20 Allergies Allergy/AdvReac Type Severity Reaction Status Date / Time Penicillins Allergy Anaphylaxis Verified 08/30/20 17:08 cephalexin monohydrate AdvReac Nausea & Verified 08/30/20 17:08 [From Keflex] Vomiting codeine AdvReac Nausea & Verified 08/30/20 17:08 Vomiting red food dye Allergy Rash/Hives Uncoded 08/30/20 17:08 Review of Systems ROS Statement: Those systems with pertinent positive or pertinent negative responses have been documented in the HPI. ROS Other: All systems not noted in ROS Statement are negative. 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, "boarderline diabetic",gallstones, kidney stones, leakage of urine, abd hernia, wound rt butocks,carpal tunnel, "loose tooth lt upper front" History of Any Multi-Drug Resistant Organisms: None Reported Past Surgical History: Appendectomy, Section, Hernia Repair, Hysterectomy, Tonsillectomy Additional Past Surgical History / Comment(s): LEFT BELOW THE KNEE AMPUTATION, colostomy, lt thigh benign tumor removed, hemmorhoidectomy,carpal tunnel,?gallbladder Past Anesthesia/Blood Transfusion Reactions: Postoperative Nausea & Vomiting (PONV) Additional Past Anesthesia/Blood Transfusion Reaction / Comment(s): "never rec eived any blood transfusion" Past Psychological History: No Psychological Hx Reported Smoking Status: Never smoker Past Alcohol Use History: None Reported Past Drug Use History: None Reported - Past Family History Mother Family Medical History: Dementia Father Family Medical History: Dementia General Exam - General Exam Comments Initial Comments: GENERAL: Patient is well-developed and well-nourished. Patient is nontoxic and well- hydrated and is in no acute distress ENT: Neck is soft and supple. No significant lymphadenopathy is noted. Oropharynx is clear. Moist mucous membranes. Neck has full range of motion without eliciting any pain. EYES: The sclera were anicteric and conjunctiva were pink and moist. Extraocular movements were intact and pupils were equal round and reactive to light. Eyelids were unremarkable. PULMONARY: Unlabored respirations. Good breath sounds bilaterally. No audible rales rhonchi or wheezing was noted. CARDIOVASCULAR: There is a regular rate and rhythm without any murmurs gallops or rubs. ABDOMEN: Soft and nontender with normal bowel sounds. SKIN: Skin is clear with no lesions or rashes and otherwise unremarkable. NEUROLOGIC: Patient is alert and oriented x3. Cranial nerves II through XII are grossly intact. Motor and sensory are also intact. Normal speech, volume and content. Symmetrical smile. MUSCULOSKELETAL: Left leg has an AKA. Patient has full range motion at the hip without leg patient has full range motion of all other extremity. Patient has no signs of any trauma. Patient's full range of motion of her neck.. LYMPHATICS: No significant lymphadenopathy is noted PSYCHIATRIC: Patient is mildly anxious Limitations: no limitations Course Vital Signs 09/07/20 16:22 Temperature 97.5 F L Pulse Rate 79 Respiratory 16 Rate Blood Pressure 136/84 O2 Sat by Pulse 96 Oximetry Disposition Clinical Impression: Fall, Anxiety Disposition: HOME SELF-CARE Condition: Good Instructions (If sedation given, give patient instructions): Fall Prevention for Older Adults (ED) Is patient prescribed a controlled substance at d/c from ED?: No Referrals: Miguel Sapp MD [Primary Care Provider] - 1-2 days Time of Disposition: 16:39
== END 2020-09-07 19:02 | disposition home or self-care (01) ==
LOC: EC 16:12
DX: F41.9 Anxiety disorder, unspecified (principal); J45.909 Unspecified asthma, uncomplicated; I10 Essential (primary) hypertension; E11.9 Type 2 diabetes mellitus without complications; E78.5 Hyperlipidemia, unspecified; Z87.442 Personal history of urinary calculi; Z89.512 Acquired absence of left leg below knee; W01.0XXA Fall on same level from slipping, tripping and stumbling without subsequent striking against object, initial encounter; Z90.49 Acquired absence of other specified parts of digestive tract; Z90.710 Acquired absence of both cervix and uterus; Z90.09 Acquired absence of other part of head and neck
CPT/HCPCS: 99283

== ENCOUNTER 2020-09-11 16:03 | Observation (INO) | payer MEDICARE ==
[2020-09-11 17:36] LABS: Amorphous Sediment,Urine Occasional /hpf; Appearance,Urine Turbid (Clear); Bacteria,Urine Occasional /hpf; Bilirubin,Urine Negative (Negative); Blood,Urine Small (Negative); Color,Urine Yellow; Glucose,Urine (UA) Negative (Negative); Ketones,Urine Negative (Negative); Leukocyte Esterase,Urine Large (Negative); Mucus,Urine Many /hpf; Nitrite,Urine Negative (Negative); Protein,Urine 2+ (Negative); RBC,Urine 44 /hpf (0-5); Specific Gravity,Urine 1.021 (1.001-1.035); Triple Phosphate Crystal,Urine Occasional /hpf; Urobilinogen,Urine <2.0 mg/dL (<2.0); WBC,Urine 148 /hpf (0-5)
[2020-09-11 18:08] LABS: Basophils % (A) 1 %; Eosinophils # (A) 0.3 k/uL (0-0.7); Eosinophils % (A) 7 %; HGB 12.2 gm/dL (11.4-16.0); Lymphocytes # (A) 1.5 k/uL (1.0-4.8); Lymphocytes % (A) 29 %; MCH 29.4 pg (25.0-35.0); MCHC 33.9 g/dL (31.0-37.0); MCV 86.6 fL (80.0-100.0); Monocytes # (A) 0.3 k/uL (0-1.0); Monocytes % (A) 5 %; Neutrophils # (A) 2.9 k/uL (1.3-7.7); Neutrophils % (A) 58 %; Platelet Count 306 k/uL (150-450); RBC 4.16 m/uL (3.80-5.40); RDW 13.7 % (11.5-15.5); WBC 5.1 k/uL (3.8-10.6)
[2020-09-11 18:23] LABS: ALT 14 U/L (4-34); AST 31 U/L (14-36); African American GFR (CKD) >90 (>60 ml/min/1.73 sqM); Albumin 3.5 g/dL (3.5-5.0); Alkaline Phosphatase 60 U/L (38-126); Anion Gap 5 mmol/L; Blood Urea Nitrogen 16 mg/dL (7-17); Calcium 8.7 mg/dL (8.4-10.2); Carbon Dioxide 28 mmol/L (22-30); Chloride 105 mmol/L (98-107); Glucose 92 mg/dL (74-99); Magnesium 1.9 mg/dL (1.6-2.3); Non-African American GFR(CKD) >90 (>60 ml/min/1.73 sqM); Sodium 138 mmol/L (137-145); Total Bilirubin 0.7 mg/dL (0.2-1.3); Total Protein 6.7 g/dL (6.3-8.2)
[2020-09-11 18:30] LABS: Potassium 5.6 mmol/L (3.5-5.1)
[2020-09-11] MEDS: SODIUM CHLORIDE 0.9% 1,000 ML IV SCH (19:38)
[2020-09-11] MEDS ORDERED: NALOXONE 0.4 MG/ML 1 ML VIAL IV PRN (19:43)
--- NOTE | 2020-09-11 20:16 | ED ---
General Adult HPI - General Chief complaint: Urogenital Stated complaint: Female Time Seen by Provider: 09/11/20 16:48 Source: patient, EMS Mode of arrival: EMS Limitations: no limitations - History of Present Illness Initial comments: Patient is a 70-year-old female with extensive past medical history, patient was sent to the ER today by her home health care nurse with concern that the patient cannot care for herself and needs placement in a skilled nursing. In addition patient reports she is feeling more weak and believes she has a urinary tract i nfection she's noticed some sediment in her Ladd catheter and some bladder discomfort. Patient states that ever since her colectomy years ago she has persistent diarrhea, she states that yesterday she was having diarrhea and her ostomy bag came off, she states that she made a mess of herself and had trouble cleaning up. She states she very fatigued and feeling generally weak. Patient agrees she's not safe to care for herself at this time. - Related Data Home Medications Medication Instructions Recorded Confirmed Melatonin 5 mg PO HS 10/04/16 09/11/20 Ergocalciferol (Vitamin D2) 50,000 unit PO Q7D 10/25/18 09/11/20 [Vitamin D2] Oxybutynin ER [Ditropan Xl] 15 mg PO DAILY 10/25/18 09/11/20 Sertraline [Zoloft] 100 mg PO DAILY 10/25/18 09/11/20 Nystatin 100,000 Unit/gm Powd 1 applic TOPICAL BID PRN 08/30/20 09/11/20 [Mycostatin Powder] Ondansetron [Zofran] 4 mg PO Q12H PRN 08/30/20 09/11/20 Pantoprazole Sodium [Protonix] 40 mg PO DAILY 08/30/20 09/11/20 Diphenox-Atrop 2.5-0.025 mg 1 tab PO BID PRN 09/11/20 09/11/20 [Lomotil] Allergies Allergy/AdvReac Type Severity Reaction Status Date / Time Penicillins Allergy Anaphylaxis Verified 09/11/20 20:43 cephalexin monohydrate AdvReac Nausea & Verified 09/11/20 20:43 [From Keflex] Vomiting codeine AdvReac Nausea & Verified 09/11/20 20:43 Vomiting red food dye Allergy Rash/Hives Uncoded 09/11/20 16:18 Review of Systems ROS Statement: Those systems with pertinent positive or pertinent negative responses have been documented in the HPI. ROS Other: All systems not noted in ROS Statement are negative. 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, "boarderline diabetic",gallstones, kidney stones, leakage of urine, abd hernia, wound rt butocks,carpal tunnel, "loose tooth lt upper front" History of Any Multi-Drug Resistant Organisms: None Reported Past Surgical History: Appendectomy, Section, Hernia Repair, Hysterectomy, Tonsillectomy Additional Past Surgical History / Comment(s): LEFT BELOW THE KNEE AMPUTATION, colostomy, lt thigh benign tumor removed, hemmorhoidectomy,carpal tunnel,?gallbladder Past Anesthesia/Blood Transfusion Reactions: Postoperative Nausea & Vomiting (PONV) Additional Past Anesthesia/Blood Transfusion Reaction / Comment(s): "never received any blood transfusion" Past Psychological History: No Psychological Hx Reported Smoking Status: Never smoker Past Alcohol Use History: None Reported Past Drug Use History: None Reported - Past Family History Mother Family Medical History: Dementia Father Family Medical History: Dementia General Exam - General Exam Comments Initial Comments: Physical Exam GENERAL: Tonically ill-appearing and debilitated HENT: Normocephalic, Atraumatic. EYES: PERRL, EOMI PULMONARY: Unlabored respirations. No audible rales rhonchi or wheezing was noted. CARDIOVASCULAR: There is a regular rate and rhythm without any murmurs gallops or rubs. ABDOMEN: Right lower quadrant ostomy in place, pink patent and productive of liquidy stool SKIN: Skin is clear with no lesions or rashes and otherwise unremarkable. : catheter in place ringing dark urine with significant sediment NEUROLOGIC: Patient is alert and oriented x3. Moving all extremities spontaneously MUSCULOSKELETAL: Left BKA PSYCHIATRIC: Normal psychiatric evaluation. Limitations: no limitations Course Vital Signs 09/11/20 09/11/20 09/11/20 16:15 19:21 20:17 Temperature 98.1 F 98.1 F Pulse Rate 63 66 66 Respiratory 16 18 18 Rate Blood Pressure 120/68 123/56 123/56 O2 Sat by Pulse 99 100 100 Oximetry Medical Decision Making - Medical Decision Making The patient was seen and evaluated history is obtained from the patient and home health care nurse Labs are obtained patient does have a urinary tract infection, review of previous microbiology reveals susceptibility to the gentamicin which patient does not have a reported ALLERGY to therefore gentamicin was ordered Patient care was discussed with Dr. Gandhi accepts the admission - Lab Data Result diagrams: 09/11/20 17:52 09/11/20 17:52 Lab Results 09/11/20 09/11/20 09/11/20 Range/Units 10:31 16:48 17:52 WBC 5.1 (3.8-10.6) k/uL RBC 4.16 (3.80-5.40) m/uL Hgb 12.2 (11.4-16.0) gm/dL Hct 36.0 (34.0-46.0) % MCV 86.6 (80.0-100.0) fL MCH 29.4 (25.0-35.0) pg MCHC 33.9 (31.0-37.0) g/dL RDW 13.7 (11.5-15.5) % Plt Count 306 (150-450) k/uL MPV 7.0 Neutrophils % 58 % Lymphocytes % 29 % Monocytes % 5 % Eosinophils % 7 % Basophils % 1 % Neutrophils # 2.9 (1.3-7.7) k/uL Lymphocytes # 1.5 (1.0-4.8) k/uL Monocytes # 0.3 (0-1.0) k/uL Eosinophils # 0.3 (0-0.7) k/uL Basophils # 0.0 (0-0.2) k/uL Sodium (137-145) mmol/L Potassium (3.5-5.1) mmol/L Chloride (98-107) mmol/L Carbon Dioxide (22-30) mmol/L Anion Gap mmol/L BUN (7-17) mg/dL Creatinine (0.52-1.04) mg/dL Est GFR (CKD-EPI)AfAm (>60 ml/min/1.73 sqM) Est GFR (CKD-EPI)NonAf (>60 ml/min/1.73 sqM) Glucose (74-99) mg/dL Calcium (8.4-10.2) mg/dL Magnesium (1.6-2.3) mg/dL Total Bilirubin (0.2-1.3) mg/dL AST (14-36) U/L ALT (4-34) U/L Alkaline Phosphatase (38-126) U/L Total Protein (6.3-8.2) g/dL Albumin (3.5-5.0) g/dL Urine Color Yellow Urine Appearance Turbid H (Clear) Urine pH 8.0 (5.0-8.0) Ur Specific Mead 1.021 (1.001-1.035) Urine Protein 2+ H (Negative) Urine Glucose (UA) Negative (Negative) Urine Ketones Negative (Negative) Urine Blood Small H (Negative) Urine Nitrite Negative (Negative) Urine Bilirubin Negative (Negative) Urine Urobilinogen <2.0 (<2.0) mg/dL Ur Leukocyte Esterase Large H (Negative) Urine RBC 44 H (0-5) /hpf Urine WBC 148 H (0-5) /hpf Triple Phos Crystals Occasional H (None) /hpf Amorphous Sediment Occasional H (None) /hpf Urine Bacteria Occasional H (None) /hpf Urine Mucus Many H (None) /hpf Coronavirus (PCR) Not Detected (Not Detectd) 09/11/20 Range/Units 17:52 WBC (3.8-10.6) k/uL RBC (3.80-5.40) m/uL Hgb (11.4-16.0) gm/dL Hct (34.0-46.0) % MCV (80.0-100.0) fL MCH (25.0-35.0) pg MCHC (31.0-37.0) g/dL RDW (11.5-15.5) % Plt Count (150-450) k/uL MPV Neutrophils % % Lymphocytes % % Monocytes % % Eosinophils % % Basophils % % Neutrophils # (1.3-7.7) k/uL Lymphocytes # (1.0-4.8) k/uL Monocytes # (0-1.0) k/uL Eosinophils # (0-0.7) k/uL Basophils # (0-0.2) k/uL Sodium 138 (137-145) mmol/L Potassium 5.6 H (3.5-5.1) mmol/L Chloride 105 (98-107) mmol/L Carbon Dioxide 28 (22-30) mmol/L Anion Gap 5 mmol/L BUN 16 (7-17) mg/dL Creatinine 0.65 (0.52-1.04) mg/dL Est GFR (CKD-EPI)AfAm >90 (>60 ml/min/1.73 sqM) Est GFR (CKD-EPI)NonAf >90 (>60 ml/min/1.73 sqM) Glucose 92 (74-99) mg/dL Calcium 8.7 (8.4-10.2) mg/dL Magnesium 1.9 (1.6-2.3) mg/dL Total Bilirubin 0.7 (0.2-1.3) mg/dL AST 31 (14-36) U/L ALT 14 (4-34) U/L Alkaline Phosphatase 60 (38-126) U/L Total Protein 6.7 (6.3-8.2) g/dL Albumin 3.5 (3.5-5.0) g/dL Urine Color Urine Appearance (Clear) Urine pH (5.0-8.0) Ur Specific Mead (1.001-1.035) Urine Protein (Negative) Urine Glucose (UA) (Negative) Urine Ketones (Negative) Urine Blood (Negative) Urine Nitrite (Negative) Urine Bilirubin (Negative) Urine Urobilinogen (<2.0) mg/dL Ur Leukocyte Esterase (Negative) Urine RBC (0-5) /hpf Urine WBC (0-5) /hpf Triple Phos Crystals (None) /hpf Amorphous Sediment (None) /hpf Urine Bacteria (None) /hpf Urine Mucus (None) /hpf Coronavirus (PCR) (Not Detectd) Disposition Clinical Impression: UTI (urinary tract infection), History of left below knee amputation, Chronic indwelling Ladd catheter, Morbid obesity, Acute kidney injury Disposition: ADMITTED IP TO THIS HOSP
[2020-09-11] MEDS ORDERED: ONDANSETRON 4 MG TAB PO PRN (22:57)
[2020-09-11] MEDS ORDERED: DIPHENOX-ATROP 2.5-0.025 MG 1 EACH TAB PO PRN (22:57)
[2020-09-11] MEDS ORDERED: NYSTATIN 100,000 UNIT/GM POWD 15 GM TOPICAL PRN (22:57)
[2020-09-12] MEDS: MELATONIN 5 MG TABLET PO SCH ×2 (00:09→20:31)
[2020-09-12] MEDS: IBUPROFEN 200 MG TAB PO PRN ×4 (00:09→20:31)
[2020-09-12] MEDS: SODIUM CHLORIDE 0.45% 1,000 ML IV SCH ×3 (00:11→20:31)
[2020-09-12] MEDS: SODIUM CHLORIDE 0.9% 1,000 ML IV SCH ×2 (03:31→08:36)
[2020-09-12] MEDS: OXYBUTYNIN 15 MG TAB.ER.24 PO SCH (08:36)
[2020-09-12] MEDS: SERTRALINE 100 MG TAB PO SCH (08:36)
[2020-09-12] MEDS: PANTOPRAZOLE 40 MG TABLET PO SCH (08:36)
[2020-09-12] MEDS: ENOXAPARIN 40 MG/0.4 ML SYRINGE SQ SCH (13:59)
[2020-09-12] MEDS: ALBUTEROL NEBULIZED 2.5 MG/3 ML INHALATION PRN ×2 (16:48→19:56)
--- NOTE | 2020-09-12 19:24 | P.HPIM ---
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 Patient had a Ladd catheter placed on this admission. She was here earlier in the month for acute kidney injury, UTI metabolic acidosis. Urine culture done was positive for Enterococcus faecalis and Proteus mirabilis. Seen by infectious disease. Patient normally lives alone does have a wheelchair. She has a visiting nurse that comes in 3 times a week. Does shopping. Patient presents with nausea abdominal pain. No obvious fever and chills. Also the nostrils the ER that patient is not able to manage by herself. 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 Doesn't recheck. Nurse comes in 3 times a week to help the grocery. Physical examination: VITAL SIGNS: 98.1, 63, 16, 120/68, 99% on room air GENERAL: BMI 64.6, reclining in bed, awake affordable]. EYES: Pupils equal. Conjunctiva normal. HEENT: External appearance of nose and ears normal, oral cavity grossly normal. NECK: JVD unable to assess; masses not palpable. HEART: Distal heart sounds; no edema. LUNGS: Respiratory rate normal; distant breath sounds. ABDOMEN: Soft, nontender, liver spleen not palpable, no masses palpable. PSYCH: Alert and oriented x3; mood and affect normal. NEUROLOGICAL: Cranial nerves grossly intact; no facial asymmetry, power and sensation grossly intact. LYMPHATICS: No lymph nodes palpable in the axilla and neck INVESTIGATIONS, reviewed in the clinical context: WBC 5.1 hemoglobin 12.2 platelets 306 potassium 5.6 creatinine 0.65 UA positive for protein, leukoesterase, WBC, Coronavirus [PCR]-not detected Assessment and plan: -Acute UTI with cystitis, patient started on ceftriaxone -Chronic colostomy -Essential hypertension -Morbid obesity BMI 64.6. For weight loss measures -Chronic urinary stress incontinence continue with Ditropan-Chronic insomnia, continue melatonin -GERD continue with Protonix -Depression not otherwise specified, continue with Zoloft -Chronic medical debility. Patient does use a wheelchair at baseline. -Consult social insurance administrator. Patient looking into placement. Care was discussed with the patient. Questions answered. Consult social insurance administrator 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, "boarderline diabetic",gallstones, kidney stones, leakage of urine, abd hernia, wound rt butocks,carpal tunnel, "loose tooth lt upper front" History of Any Multi-Drug Resistant Organisms: None Reported Past Surgical History: Appendectomy, Section, Hernia Repair, Hysterectomy, Tonsillectomy Additional Past Surgical History / Comment(s): LEFT BELOW THE KNEE AMPUTATION, colostomy, lt thigh benign tumor removed, hemmorhoidectomy,carpal tunnel,?gallbladder Past Anesthesia/Blood Transfusion Reactions: Postoperative Nausea & Vomiting (PONV) Additional Past Anesthesia/Blood Transfusion Reaction / Comment(s): "never received any blood transfusion" Past Psychological History: No Psychological Hx Reported Additional Psychological History / Comment(s): pt stated went thru special education classes stated has about a 4th grade level. able to read some and write. needs things explained to her. pt lives in apt able to drive but has no car,takes the bus. uses a scooter.recieves meals on wheels, home care and colostomy supplies. Pt states she is here to go to a [facility]. Smoking Status: Never smoker Past Alcohol Use History: None Reported Past Drug Use History: None Reported - Past Family History Mother Family Medical History: Dementia Father Family Medical History: Dementia Medications and Allergies Home Medications Medication Instructions Recorded Confirmed Type Melatonin 5 mg PO HS 10/04/16 09/11/20 History Ergocalciferol (Vitamin D2) 50,000 unit PO Q7D 10/25/18 09/11/20 History [Vitamin D2] Oxybutynin ER [Ditropan Xl] 15 mg PO DAILY 10/25/18 09/11/20 History Sertraline [Zoloft] 100 mg PO DAILY 10/25/18 09/11/20 History Nystatin 100,000 Unit/gm Powd 1 applic TOPICAL BID PRN 08/30/20 09/11/20 History [Mycostatin Powder] Ondansetron [Zofran] 4 mg PO Q12H PRN 08/30/20 09/11/20 History Pantoprazole Sodium [Protonix] 40 mg PO DAILY 08/30/20 09/11/20 History Diphenox-Atrop 2.5-0.025 mg 1 tab PO BID PRN 09/11/20 09/11/20 History [Lomotil] Allergies Allergy/AdvReac Type Severity Reaction Status Date / Time Penicillins Allergy Anaphylaxis Verified 09/11/20 20:43 cephalexin monohydrate AdvReac Nausea & Verified 09/11/20 20:43 [From Keflex] Vomiting codeine AdvReac Nausea & Verified 09/11/20 20:43 Vomiting red food dye Allergy Rash/Hives Uncoded 09/11/20 16:18 Physical Exam Vitals: Vital Signs Temp Pulse Pulse Resp BP BP Pulse Ox 09/12/20 07:46 98.1 F 56 L 16 121/64 96 09/12/20 00:23 98.8 F 62 16 116/64 97 09/11/20 22:07 16 09/11/20 21:46 98.1 F 72 16 181/70 96 09/11/20 20:17 98.1 F 66 18 123/56 100 09/11/20 19:21 66 18 123/56 100 09/11/20 16:15 98.1 F 63 16 120/68 99 Intake and Output 09/11/20 09/12/20 09/12/20 21:59 06:59 14:59 Intake Total 200 Output Total Balance 200 Intake: Oral 200 Output: Urine Other: Voiding Method Indwelling Catheter Weight Results CBC & Chem 7: 09/11/20 17:52 09/11/20 17:52 Labs: Abnormal Lab Results - Last 24 Hours (Table) 09/11/20 09/11/20 Range/Units 16:48 17:52 Potassium 5.6 H (3.5-5.1) mmol/L Urine Appearance Turbid H (Clear) Urine Protein 2+ H (Negative) Urine Blood Small H (Negative) Ur Leukocyte Esterase Large H (Negative) Urine RBC 44 H (0-5) /hpf Urine WBC 148 H (0-5) /hpf Triple Phos Crystals Occasional H (None) /hpf Amorphous Sediment Occasional H (None) /hpf Urine Bacteria Occasional H (None) /hpf Urine Mucus Many H (None) /hpf Thrombosis Risk Factor Assmnt - Choose All That Apply Each Factor Represents 1 point: Obesity (BMI >25) Each Risk Factor Represents 2 Points: Age 61-74 years Thrombosis Risk Factor Assessment Total Risk Factor Score: 3 Thrombosis Risk Factor Assessment Level: Moderate Risk
[2020-09-13] MEDS: IBUPROFEN 200 MG TAB PO PRN ×4 (05:16→21:44)
[2020-09-13] MEDS: ALBUTEROL NEBULIZED 2.5 MG/3 ML INHALATION PRN ×3 (07:20→15:11)
[2020-09-13] MEDS: SERTRALINE 100 MG TAB PO SCH (07:23)
[2020-09-13] MEDS: PANTOPRAZOLE 40 MG TABLET PO SCH (07:23)
[2020-09-13] MEDS: OXYBUTYNIN 15 MG TAB.ER.24 PO SCH (07:23)
[2020-09-13] MEDS: ENOXAPARIN 40 MG/0.4 ML SYRINGE SQ SCH (07:24)
[2020-09-13] MEDS: SODIUM CHLORIDE 0.45% 1,000 ML IV SCH (10:53)
--- NOTE | 2020-09-13 13:09 | XR ---
EXAMINATION TYPE: XR shoulder complete LT, 3 views DATE OF EXAM: 09/13/2020 Comparison: None Clinical History: 70-year-old female left shoulder pain Findings: On the AP view, there is loss of the subacromial space. Moderate degenerative change of the joint. On the Grashey view, there is prominent degenerative spurring and mild joint space narrowing. No acute fracture or dislocation. Impression: Moderate glenohumeral joint OA may be secondary to underlying chronic full-thickness rotator cuff tea r. Additional moderate AC joint OA.
[2020-09-13 13:39] LABS: African American GFR (CKD) >90 (>60 ml/min/1.73 sqM); Anion Gap 8 mmol/L; Blood Urea Nitrogen 15 mg/dL (7-17); Carbon Dioxide 26 mmol/L (22-30); Chloride 104 mmol/L (98-107); Glucose 109 mg/dL (74-99); Non-African American GFR(CKD) 80 (>60 ml/min/1.73 sqM); Potassium 3.8 mmol/L (3.5-5.1); Sodium 138 mmol/L (137-145)
[2020-09-13 20:02] VITALS: RESP 18
[2020-09-13] MEDS: MELATONIN 5 MG TABLET PO SCH (21:42)
--- NOTE | 2020-09-13 23:46 | P.PN ---
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 Patient had a Ladd catheter placed on this admission. She was here earlier in the month for acute kidney injury, UTI metabolic acidosis. Urine culture done was positive for Enterococcus faecalis and Proteus mirabilis. Seen by infectious disease. Patient normally lives alone does have a wheelchair. She has a visiting nurse that comes in 3 times a week. Does shopping. Patient presents with nausea abdominal pain. No obvious fever and chills. Also told the ER that patient is not able to manage by herself. admitted with acute UTI with cystitis. Started on IV ceftriaxone. Today-laying in bed. Feeling better. Oral intake fair. Ladd catheter discontinued Review of systems: Was done for constitutional, cardiovascular, GI, pulmonary. relevant finding as above Active Medications Albuterol Sulfate (Albuterol Nebulized 2.5 Mg/3 Ml) 2.5 mg INHALATION Q4HR PRN PRN Reason: Shortness Of Breath Or Wheezing Last Admin: 09/13/20 15:11 Dose: 2.5 mg Documented by: Diphenoxylate HCl/Atropine (Diphenox-Atrop 2.5-0.025 Mg 1 Each Tab) 1 each PO BID PRN PRN Reason: Diarrhea Last Admin: 09/13/20 10:51 Dose: 1 each Documented by: Enoxaparin Sodium (Enoxaparin 40 Mg/0.4 Ml Syringe) 40 mg SQ DAILY [facility] Last Admin: 09/13/20 07:24 Dose: 40 mg Documented by: Sodium Chloride (Saline 0.45%) 1,000 mls @ 75 mls/hr IV .[id number] [facility] Last Admin: 09/13/20 10:53 Dose: 75 mls/hr Documented by: Ceftriaxone Sodium 1 gm/ (Sodium Chloride) 50 mls @ 100 mls/hr IVPB Q24H [facility] Last Admin: 09/13/20 14:42 Dose: 100 mls/hr Documented by: Ibuprofen (Ibuprofen 200 Mg Tab) 200 mg PO Q4HR PRN PRN Reason: Pain Last Admin: 09/13/20 21:44 Dose: 200 mg Documented by: Melatonin (Melatonin 5 Mg Tablet) 5 mg PO HS [facility] Last Admin: 09/13/20 21:42 Dose: 5 mg Documented by: Naloxone HCl (Naloxone 0.4 Mg/Ml 1 Ml Vial) 0.2 mg IV Q2M PRN PRN Reason: Opioid Reversal Nystatin (Nystatin 100,000 Unit/Gm Powd 15 Gm) 1 applic TOPICAL BID PRN PRN Reason: fungal infection Ondansetron HCl (Ondansetron 4 Mg Tab) 4 mg PO Q12H PRN PRN Reason: Nausea And Vomiting Oxybutynin Chloride (Oxybutynin 15 Mg Tab.Er.24) 15 mg PO DAILY [facility] Last Admin: 09/13/20 07:23 Dose: 15 mg Documented by: Pantoprazole Sodium (Pantoprazole 40 Mg Tablet) 40 mg PO DAILY [facility] Last Admin: 09/13/20 07:23 Dose: 40 mg Documented by: Sertraline HCl (Sertraline 100 Mg Tab) 100 mg PO DAILY [facility] Last Admin: 09/13/20 07:23 Dose: 100 mg Documented by: Past medical history to include: Hypertension, depression, anxiety, left below-knee amputation, 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 Doesn't recheck. Nurse comes in 3 times a week to help the grocery. Physical examination: VITAL SIGNS: 98, 59, 16, 119/74, 95% room air GENERAL: BMI 64.6, reclining in bed, awake affordable]. EYES: Pupils equal. Conjunctiva normal. HEENT: External appearance of nose and ears normal, oral cavity grossly normal. NECK: JVD unable to assess; masses not palpable. HEART: Distal heart sounds; no edema. LUNGS: Respiratory rate normal; distant breath sounds. ABDOMEN: Soft, nontender, liver spleen not palpable, no masses palpable. PSYCH: Alert and oriented x3; mood and affect normal. INVESTIGATIONS, reviewed in the clinical context: Potassium 3.8 WBC 5.1 hemoglobin 12.2 platelets 306 potassium 5.6 creatinine 0.65 UA positive for protein, leukoesterase, WBC, Coronavirus [PCR]-not detected Assessment and plan: -Acute UTI with cystitis, patient started on ceftriaxone. Changed to oral antibiotic -Chronic colostomy -Essential hypertension -Morbid obesity BMI 64.6. For weight loss measures -Chronic urinary stress incontinence continue with Ditropan-Chronic insomnia, continue melatonin -GERD continue with Protonix -Depression not otherwise specified, continue with Zoloft -Chronic medical debility. Patient does use a wheelchair at baseline. -Consult social services specialist. Patient looking into placement. Care was discussed with the patient. JOYCE Ladd. Changed to Keflex
[2020-09-14] MEDS: SODIUM CHLORIDE 0.45% 1,000 ML IV SCH (01:32)
[2020-09-14] MEDS: PANTOPRAZOLE 40 MG TABLET PO SCH (07:19)
[2020-09-14] MEDS: ENOXAPARIN 40 MG/0.4 ML SYRINGE SQ SCH (07:20)
[2020-09-14] MEDS: SERTRALINE 100 MG TAB PO SCH (07:20)
[2020-09-14] MEDS: IBUPROFEN 200 MG TAB PO PRN ×2 (07:20→14:42)
[2020-09-14] MEDS: CEPHALEXIN 500 MG CAP PO SCH ×2 (07:20→14:43)
[2020-09-14] MEDS: OXYBUTYNIN 15 MG TAB.ER.24 PO SCH (07:20)
[2020-09-14] MEDS: ALBUTEROL NEBULIZED 2.5 MG/3 ML INHALATION PRN ×2 (07:58→11:42)
[2020-09-14 08:21] VITALS: BP 142/58; TEMP 97.7
[2020-09-14 12:03] VITALS: PULSE 72
--- NOTE | 2020-09-14 13:09 | P.DS ---
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 Patient had a Ladd catheter placed on this admission. She was here earlier in the month for acute kidney injury, UTI metabolic acidosis. Urine culture done was positive for Enterococcus faecalis and Proteus mirabilis. Seen by infectious disease. Patient normally lives alone does have a wheelchair. She has a visiting nurse that comes in 3 times a week. Does shopping. Patient presents with nausea abdominal pain. No obvious fever and chills. Also told the ER that patient is not able to manage by herself. admitted with acute UTI with cystitis. Started on IV ceftriaxone. Today-feeling well. Oral intake between 7500%. Dr. Olvera from orthopedics consulted. Left shoulder x-ray showing moderate DJD of the joint. Possible rotator cuff tear. We'll have the patient follow with Dr. Olvera. Care was discussed with the patient. Complete a short course of oral antibiotic for the UTI. Discussed with the patient. Discussed with rn social work. Discussion and discharge planning more than 35 minutes Consultation: Dr. 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 Doesn't recheck. Nurse comes in 3 times a week to help the grocery. Physical examination: VITAL SIGNS: 97.7, 51, 20, 1 42 x 58, 94% on room air GENERAL: BMI 64.6, reclining in bed, awake comfortable EYES: Pupils equal. Conjunctiva normal. HEENT: External appearance of nose and ears normal, oral cavity grossly normal. NECK: JVD unable to assess; masses not palpable. HEART: Distal heart sounds; no edema. LUNGS: Respiratory rate normal; distant breath sounds. ABDOMEN: Soft, nontender, liver spleen not palpable, no masses palpable. Chronic colostomy. PSYCH: Alert and oriented x3; mood and affect normal. INVESTIGATIONS, reviewed in the clinical context: Left shoulder x-ray: Evidence of DJD. Could be underlying rotator cuff tear Potassium 3.8 WBC 5.1 hemoglobin 12.2 platelets 306 potassium 5.6 creatinine 0.65 UA positive for protein, leukoesterase, WBC, Coronavirus [PCR]-not detected Assessment and plan: -Acute UTI with cystitis, patient started on ceftriaxone. Complete course of Keflex -Chronic colostomy -Essential hypertension -Morbid obesity BMI 64.6. For weight loss measures -Chronic urinary stress incontinence continue with Ditropan-Chronic insomnia, continue melatonin -GERD continue with Protonix -Depression not otherwise specified, continue with Zoloft -Chronic medical debility. Patient does use a wheelchair at baseline. -Left shoulder DJD with possible underlying rotator cuff tear. Follow-up with Dr. Olvera [facility] - Discharge Summary Discharge Rx Participant: No New Discharge Prescriptions: New Cephalexin [Keflex] 500 mg PO TID #6 cap Naproxen [Naprosyn] 250 mg PO TID PRN #1 tab PRN Reason: Pain Acetaminophen Tab [Tylenol] 650 mg PO Q6H PRN #1 tab PRN Reason: Pain Albuterol Nebulized [Ventolin Nebulized] 2.5 mg INHALATION Q6H PRN ml PRN Reason: Shortness Of Breath Or Wheezing Continue Melatonin 5 mg PO HS Sertraline [Zoloft] 100 mg PO DAILY Oxybutynin ER [Ditropan Xl] 15 mg PO DAILY Ergocalciferol (Vitamin D2) [Vitamin D2] 50,000 unit PO Q7D Pantoprazole Sodium [Protonix] 40 mg PO DAILY Ondansetron [Zofran] 4 mg PO Q12H PRN PRN Reason: Nausea And Vomiting Nystatin 100,000 Unit/gm Powd [Mycostatin Powder] 1 applic TOPICAL BID PRN PRN Reason: fungal infection Diphenox-Atrop 2.5-0.025 mg [Lomotil] 1 tab PO BID PRN #6 tab PRN Reason: Diarrhea Discharge Medication List Melatonin 5 mg PO HS 10/04/16 [History] Ergocalciferol (Vitamin D2) [Vitamin D2] 50,000 unit PO Q7D 10/25/18 [History] Oxybutynin ER [Ditropan Xl] 15 mg PO DAILY 10/25/18 [History] Sertraline [Zoloft] 100 mg PO DAILY 10/25/18 [History] Nystatin 100,000 Unit/gm Powd [Mycostatin Powder] 1 applic TOPICAL BID PRN 08/30/20 [History] Ondansetron [Zofran] 4 mg PO Q12H PRN 08/30/20 [History] Pantoprazole Sodium [Protonix] 40 mg PO DAILY 08/30/20 [History] Acetaminophen Tab [Tylenol] 650 mg PO Q6H PRN #1 tab 09/14/20 [Rx] Albuterol Nebulized [Ventolin Nebulized] 2.5 mg INHALATION Q6H PRN ml 09/14/20 [Rx] Cephalexin [Keflex] 500 mg PO TID #6 cap 09/14/20 [Rx] Diphenox-Atrop 2.5-0.025 mg [Lomotil] 1 tab PO BID PRN #6 tab 09/14/20 [Rx] Naproxen [Naprosyn] 250 mg PO TID PRN #1 tab 09/14/20 [Rx] Follow up Appointment(s)/Referral(s): Miguel Sapp MD [Primary Care Provider] - As Needed Po Correa MD [STAFF PHYSICIAN] - 1-2 Days Jarrell Olvera DO [Doctor of Osteopathic Medicine] - 1 Week
--- NOTE | 2020-09-14 13:14 | P.CNOR ---
History of Present Illness - HPI Consult date: 09/14/20 History of present illness: This is a 70-year-old female who is admitted for UTI. Orthopedics is consulted due to left shoulder pain. Patient states that this pain is chronic for her and she denies any new injury or acute changes. Patient reports pain with motion of the left shoulder. Patient admits to numbness and tingling in the left hand, but attributes this to history of carpal tunnel. Patient denies any fever /chills, weakness, abdominal pain, shortness of breath or chest pain. Review of Systems See HPI. 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, "boarderline diabetic",gallstones, kidney stones, leakage of urine, abd hernia, wound rt butocks,carpal tunnel, "loose tooth lt upper front" History of Any Multi-Drug Resistant Organisms: None Reported Past Surgical History: Appendectomy, Section, Hernia Repair, Hysterectomy, Tonsillectomy Additional Past Surgical History / Comment(s): LEFT BELOW THE KNEE AMPUTATION, colostomy, lt thigh benign tumor removed, hemmorhoidectomy,carpal tunnel,?gallbladder Past Anesthesia/Blood Transfusion Reactions: Postoperative Nausea & Vomiting (PONV) Additional Past Anesthesia/Blood Transfusion Reaction / Comm: "never received any blood transfusion" Past Psychological History: No Psychological Hx Reported Additional Psychological History / Comment(s): pt stated went thru special education classes stated has about a 4th grade level. able to read some and write. needs things explained to her. pt lives in apt able to drive but has no car,takes the bus. uses a scooter.recieves meals on wheels, home care and [employer] supplies. Pt states she is here to go to a longterm. Smoking Status: Never smoker Past Alcohol Use History: None Reported Past Drug Use History: None Reported - Past Family History Mother Family Medical History: Dementia Father Family Medical History: Dementia Medications and Allergies Home Medications Medication Instructions Recorded Confirmed Type Melatonin 5 mg PO HS 10/04/16 09/11/20 History Ergocalciferol (Vitamin D2) 50,000 unit PO Q7D 10/25/18 09/11/20 History [Vitamin D2] Oxybutynin ER [Ditropan Xl] 15 mg PO DAILY 10/25/18 09/11/20 History Sertraline [Zoloft] 100 mg PO DAILY 10/25/18 09/11/20 History Nystatin 100,000 Unit/gm Powd 1 applic TOPICAL BID PRN 08/30/20 09/11/20 History [Mycostatin Powder] Ondansetron [Zofran] 4 mg PO Q12H PRN 08/30/20 09/11/20 History Pantoprazole Sodium [Protonix] 40 mg PO DAILY 08/30/20 09/11/20 History Acetaminophen Tab [Tylenol] 650 mg PO Q6H PRN #1 tab 09/14/20 Rx Albuterol Nebulized [Ventolin 2.5 mg INHALATION Q6H PRN ml 09/14/20 Rx Nebulized] Cephalexin [Keflex] 500 mg PO TID #6 cap 09/14/20 Rx Diphenox-Atrop 2.5-0.025 mg 1 tab PO BID PRN #6 tab 09/14/20 Rx [Lomotil] Naproxen [Naprosyn] 250 mg PO TID PRN #1 tab 09/14/20 Rx Allergies Allergy/AdvReac Type Severity Reaction Status Date / Time Penicillins Allergy Anaphylaxis Verified 09/11/20 20:43 cephalexin monohydrate AdvReac Nausea & Verified 09/11/20 20:43 [From Keflex] Vomiting codeine AdvReac Nausea & Verified 09/11/20 20:43 Vomiting red food dye Allergy Rash/Hives Uncoded 09/11/20 16:18 Physical Examination On exam patient is resting comfortably in bed in no acute distress. Patient is alert and oriented 3. Patient has full active range of motion of the left upper extremity with some discomfort. Patient has full range of motion of the left wrist and hand without pain or difficulty. There is no tenderness to palpation. There is no swelling, erythema or ecchymosis. Sensation intact. Neurovascular status and circulatory status are intact. Results X-rays of the left shoulder reveal moderate arthritic changes. No fracture or dislocation. - Labs Labs: Abnormal Lab Results - Last 24 Hours (Table) 09/13/20 Range/Units 13:00 Glucose 109 H (74-99) mg/dL Microbiology - Last 24 Hours (Table) 09/11/20 17:52 Blood Culture - Preliminary Blood No Growth after 48 hours H & H 09/11/20 Range/Units 17:52 Hgb 12.2 (11.4-16.0) gm/dL Hct 36.0 (34.0-46.0) % Result Diagrams: 09/11/20 17:52 09/13/20 13:00 Assessment and Plan (1) Osteoarthritis of left shoulder Current Visit: Yes Status: Acute Code(s): M19.012 - PRIMARY OSTEOARTHRITIS, LEFT SHOULDER SNOMED Code(s): 288427153983566 (2) Pain in left shoulder Current Visit: Yes Status: Acute Code(s): M25.512 - PAIN IN LEFT SHOULDER SNOMED Code(s): 08581406 Plan: 1. X-rays are reviewed revealing arthritic changes of the left shoulder. It is discussed with the patient that her pain is secondary to osteoarthritis in the shoulder. 2. No surgical intervention planned. Patient may follow up as an outpatient on an as-needed basis.
== END 2020-09-14 15:01 ==
LOC: EC 16:03 → 4SSUR 19:44
PROVIDERS: ADMIT Hospitalist; ATTEND Hospitalist
DX: N30.90 Cystitis, unspecified without hematuria (principal); B95.2 Enterococcus as the cause of diseases classified elsewhere; B96.4 Proteus (mirabilis) (morganii) as the cause of diseases classified elsewhere; I10 Essential (primary) hypertension; N39.3 Stress incontinence (female) (male); N17.9 Acute kidney failure, unspecified; K21.9 Gastro-esophageal reflux disease without esophagitis; J45.909 Unspecified asthma, uncomplicated; M19.012 Primary osteoarthritis, left shoulder; E11.9 Type 2 diabetes mellitus without complications; K46.9 Unspecified abdominal hernia without obstruction or gangrene; F41.9 Anxiety disorder, unspecified; F32.9 Major depressive disorder, single episode, unspecified; E78.5 Hyperlipidemia, unspecified; E66.01 Morbid (severe) obesity due to excess calories; F51.04 Psychophysiologic insomnia; E87.2 Acidosis; Z93.3 Colostomy status; Z87.442 Personal history of urinary calculi; Z89.512 Acquired absence of left leg below knee; Z90.710 Acquired absence of both cervix and uterus; Z79.899 Other long term (current) drug therapy; Z20.822 Contact with and (suspected) exposure to COVID-19; Z68.44 Body mass index [BMI] 60.0-69.9, adult; Z79.4 Long term (current) use of insulin
CPT/HCPCS: 96361 ×5; 96365; 96366; 96372 ×3; 99285; 36415; 94640 ×6; 97162; 97166; 80053; 80048; 83735; 85025; 81001; 87040; 87635; 73030; G0378 ×4; J1650 ×3; J0696 ×2

== ENCOUNTER 2020-10-06 11:41 | Emergency (ER) | payer MEDICARE, OTHER ==
[2020-10-06 12:05] VITALS: TEMP 98.8
[2020-10-06] MEDS ORDERED: MAGNESIUM SULFATE-D5W PMX 1 GM in DEXTROSE/WATER 1 100ML.BAG IVPB STA (12:34)
[2020-10-06] MEDS ORDERED: methylPREDNISolone SOD SUCCI 125 MG/2 ML VIAL IV STA (12:34)
[2020-10-06] MEDS ORDERED: IPRATROPIUM-ALBUTEROL 3 ML NEB INHALATION STA (12:34)
--- NOTE | 2020-10-06 12:56 | ED ---
SOB HPI - General Chief Complaint: Shortness of Breath Stated Complaint: Possible Covid Source: patient, EMS Mode of arrival: EMS Limitations: physical limitation - History of Present Illness Initial Comments: 62-year-old female past medical history of asthma who presents to emergency room with reported shortness of breath and nonproductive cough. Reports that her symptoms have been present for the past week. States that she has been attempting to use her nebulizer however has been too short of breath. Denies any fevers or chills. No nausea, vomiting or diarrhea. Patient did receive her second Covid vaccination last week. Admits that she has been previously hospitalized for her asthma. 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 Patient not on home oxygen. She was recently hospitalized last month for debility and was sent to rehab. Patient is currently coming in today from home. No other alleviating, precipitating or modifying factors - Related Data Home Medications Medication Instructions Recorded Confirmed Melatonin 5 mg PO HS 10/04/16 09/11/20 Ergocalciferol (Vitamin D2) 50,000 unit PO Q7D 10/25/18 09/11/20 [Vitamin D2] Oxybutynin ER [Ditropan Xl] 15 mg PO DAILY 10/25/18 09/11/20 Sertraline [Zoloft] 100 mg PO DAILY 10/25/18 09/11/20 Nystatin 100,000 Unit/gm Powd 1 applic TOPICAL BID PRN 08/30/20 09/11/20 [Mycostatin Powder] Ondansetron [Zofran] 4 mg PO Q12H PRN 08/30/20 09/11/20 Pantoprazole Sodium [Protonix] 40 mg PO DAILY 08/30/20 09/11/20 Previous Rx's Medication Instructions Recorded Acetaminophen Tab [Tylenol] 650 mg PO Q6H PRN #1 tab 09/14/20 Albuterol Nebulized [Ventolin 2.5 mg INHALATION Q6H PRN ml 09/14/20 Nebulized] Cephalexin [Keflex] 500 mg PO TID #6 cap 09/14/20 Diphenox-Atrop 2.5-0.025 mg 1 tab PO BID PRN #6 tab 09/14/20 [Lomotil] Naproxen [Naprosyn] 250 mg PO TID PRN #1 tab 09/14/20 Allergies Allergy/AdvReac Type Severity Reaction Status Date / Time Penicillins Allergy Anaphylaxis Verified 09/11/20 20:43 cephalexin monohydrate AdvReac Nausea & Verified 09/11/20 20:43 [From Keflex] Vomiting codeine AdvReac Nausea & Verified 09/11/20 20:43 Vomiting red food dye Allergy Rash/Hives Uncoded 09/11/20 16:18 Review of Systems ROS Statement: Those systems with pertinent positive or pertinent negative responses have been documented in the HPI. ROS Other: All systems not noted in ROS Statement are negative. 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, "boarderline diabetic",gallstones, kidney stones, leakage of urine, abd hernia, wound rt butocks,carpal tunnel, "loose tooth lt upper front" History of Any Multi-Drug Resistant Organisms: None Reported Past Surgical History: Appendectomy, Section, Hernia Repair, Hy sterectomy, Tonsillectomy Additional Past Surgical History / Comment(s): LEFT BELOW THE KNEE AMPUTATION, colostomy, lt thigh benign tumor removed, hemmorhoidectomy,carpal tunnel Past Anesthesia/Blood Transfusion Reactions: Postoperative Nausea & Vomiting (PONV) Additional Past Anesthesia/Blood Transfusion Reaction / Comment(s): "never received any blood transfusion" Past Psychological History: No Psychological Hx Reported Smoking Status: Never smoker Past Alcohol Use History: None Reported Past Drug Use History: None Reported - Past Family History Mother Family Medical History: Dementia Father Family Medical History: Dementia General Exam Limitations: physical limitation Course Vital Signs 10/06/20 10/06/20 10/06/20 12:00 13:04 15:11 Temperature 98.8 F Pulse Rate 68 63 66 Respiratory 20 18 18 Rate Blood Pressure 129/67 127/56 117/52 O2 Sat by Pulse 96 99 95 Oximetry Medical Decision Making - Medical Decision Making Upon arrival patient is placed in room 4. Thorough history and physical exam was performed. Laboratory studies and a chest x-ray performed. Laboratory studies returned and Covid is detected. Chest x-ray demonstrates nonspecific increased markings at the lung bases. Results are discussed the patient. I did recommend treatment with BAM for which the patient refused. Also recommended treatment with steroids as the patient does have a history of asthma however she refuses steroid treatment as well. Patient is aware of the risks. She does maintain saturations of 95-99 without supplemental oxygen. At this time the patient will be discharged home. Instructed to quarantine the symptoms improve. Follow up with her doctor. Return to the emergency room for any new or worsening symptoms. patient discharged home stable condition - Lab Data Result diagrams: 10/06/20 12:46 10/06/20 12:46 Lab Results 10/06/20 10/06/20 10/06/20 Range/Units 12:46 12:46 12:46 WBC 3.8 (3.8-10.6) k/uL RBC 4.17 (3.80-5.40) m/uL Hgb 12.0 (11.4-16.0) gm/dL Hct 35.5 (34.0-46.0) % MCV 85.2 (80.0-100.0) fL MCH 28.9 (25.0-35.0) pg MCHC 34.0 (31.0-37.0) g/dL RDW 13.9 (11.5-15.5) % Plt Count 283 (150-450) k/uL MPV 7.3 Neutrophils % 60 % Lymphocytes % 22 % Monocytes % 5 % Eosinophils % 13 % Basophils % 1 % Neutrophils # 2.3 (1.3-7.7) k/uL Lymphocytes # 0.8 L (1.0-4.8) k/uL Monocytes # 0.2 (0-1.0) k/uL Eosinophils # 0.5 (0-0.7) k/uL Basophils # 0.0 (0-0.2) k/uL PT (9.0-12.0) sec INR (<1.2) APTT (22.0-30.0) sec Sodium 133 L (137-145) mmol/L Potassium 4.6 (3.5-5.1) mmol/L Chloride 102 (98-107) mmol/L Carbon Dioxide 25 (22-30) mmol/L Anion Gap 6 mmol/L BUN 13 (7-17) mg/dL Creatinine 0.83 (0.52-1.04) mg/dL Est GFR (CKD-EPI)AfAm 84 (>60 ml/min/1.73 sqM) Est GFR (CKD-EPI)NonAf 73 (>60 ml/min/1.73 sqM) Glucose 95 (74-99) mg/dL Plasma Lactic Acid Florencio (0.7-2.0) mmol/L Calcium 8.3 L (8.4-10.2) mg/dL Total Bilirubin 0.3 (0.2-1.3) mg/dL AST 22 (14-36) U/L ALT 11 (4-34) U/L Alkaline Phosphatase 70 (38-126) U/L Troponin I (0.000-0.034) ng/mL Total Protein 6.1 L (6.3-8.2) g/dL Albumin 3.2 L (3.5-5.0) g/dL Coronavirus (PCR) Detected A (Not Detectd) 10/06/20 10/06/20 10/06/20 Range/Units 12:46 12:55 13:00 WBC (3.8-10.6) k/uL RBC (3.80-5.40) m/uL Hgb (11.4-16.0) gm/dL Hct (34.0-46.0) % MCV (80.0-100.0) fL MCH (25.0-35.0) pg MCHC (31.0-37.0) g/dL RDW (11.5-15.5) % Plt Count (150-450) k/uL MPV Neutrophils % % Lymphocytes % % Monocytes % % Eosinophils % % Basophils % % Neutrophils # (1.3-7.7) k/uL Lymphocytes # (1.0-4.8) k/uL Monocytes # (0-1.0) k/uL Eosinophils # (0-0.7) k/uL Basophils # (0-0.2) k/uL PT 10.1 (9.0-12.0) sec INR 0.9 (<1.2) APTT 19.6 L (22.0-30.0) sec Sodium (137-145) mmol/L Potassium (3.5-5.1) mmol/L Chloride (98-107) mmol/L Carbon Dioxide (22-30) mmol/L Anion Gap mmol/L BUN (7-17) mg/dL Creatinine (0.52-1.04) mg/dL Est GFR (CKD-EPI)AfAm (>60 ml/min/1.73 sqM) Est GFR (CKD-EPI)NonAf (>60 ml/min/1.73 sqM) Glucose (74-99) mg/dL Plasma Lactic Acid Florencio 0.7 (0.7-2.0) mmol/L Calcium (8.4-10.2) mg/dL Total Bilirubin (0.2-1.3) mg/dL AST (14-36) U/L ALT (4-34) U/L Alkaline Phosphatase (38-126) U/L Troponin I <0.012 (0.000-0.034) ng/mL Total Protein (6.3-8.2) g/dL Albumin (3.5-5.0) g/dL Coronavirus (PCR) (Not Detectd) - EKG Data EKG Comments: EKG demonstrates sinus rhythm with first-degree block. Rate of 69. MO interval 210. QRS 80. QTC of 409. Some baseline artifact. No acute ST segment elevations or depressions Disposition Clinical Impression: COVID-19 Disposition: HOME SELF-CARE Condition: Stable Instructions (If sedation given, give patient instructions): Coronavirus Dis ease 2019 (COVID-19) Additional Instructions: Please follow up with your PCP in 2-4 days. Return to the ED if your pulse ox reads lower than 90%. Is patient prescribed a controlled substance at d/c from ED?: No Referrals: Miguel Sapp MD [Primary Care Provider] - 1-2 days Time of Disposition: 14:49
[2020-10-06 13:06] LABS: Basophils % (A) 1 %; Eosinophils # (A) 0.5 k/uL (0-0.7); Eosinophils % (A) 13 %; HCT 35.5 % (34.0-46.0); Lymphocytes # (A) 0.8 k/uL (1.0-4.8); Lymphocytes % (A) 22 %; MCH 28.9 pg (25.0-35.0); MCV 85.2 fL (80.0-100.0); Mean Platelet Volume 7.3; Monocytes # (A) 0.2 k/uL (0-1.0); Monocytes % (A) 5 %; Neutrophils # (A) 2.3 k/uL (1.3-7.7); Neutrophils % (A) 60 %; Platelet Count 283 k/uL (150-450); RBC 4.17 m/uL (3.80-5.40); RDW 13.9 % (11.5-15.5); WBC 3.8 k/uL (3.8-10.6)
[2020-10-06 13:08] VITALS: RESP 18
[2020-10-06 13:27] LABS: Albumin 3.2 g/dL (3.5-5.0); Calcium 8.3 mg/dL (8.4-10.2); Potassium 4.6 mmol/L (3.5-5.1); Total Bilirubin 0.3 mg/dL (0.2-1.3); Total Protein 6.1 g/dL (6.3-8.2)
[2020-10-06] MEDS ORDERED: ALBUTEROL HFA INHALER INHALATION STA (13:33)
--- NOTE | 2020-10-06 13:45 | XR ---
EXAMINATION TYPE: XR chest 2V DATE OF EXAM: 10/06/2020 COMPARISON: 11/13/2013 HISTORY: Shortness of breath TECHNIQUE: Frontal and lateral views of the chest are obtained. FINDINGS: Scattered senescent parenchymal changes noted. Hyperinflation compatible with COPD. Nonspecific increased markings at the lung bases. Heart size is stable. Mediastinal structures are stable and grossly unremarkable. No evidence for hilar prominence. Degenerative changes dorsal spine. IMPRESSION: 1. Nonspecific increased markings at the lung bases.
[2020-10-06 13:54] LABS: INR 0.9 (<1.2); Prothrombin Time 10.1 sec (9.0-12.0)
[2020-10-06 14:19] LABS: Partial Thromboplastin Time 19.6 sec (22.0-30.0)
[2020-10-06 15:13] VITALS: BP 117/52; PULSE 66
== END 2020-10-06 15:30 | disposition home or self-care (01) ==
LOC: EC 11:41
DX: U07.1 COVID-19 (principal); J45.909 Unspecified asthma, uncomplicated; I10 Essential (primary) hypertension
CPT/HCPCS: 36415; 94640; 93005; 80053; 83605; 84484; 85025; 85610; 85730; 87635; 71046; 99285; 96365; 96375; J2930; J3475

== ENCOUNTER 2020-10-07 16:37 | Emergency (ER) | payer MEDICARE ==
[2020-10-07 16:53] VITALS: TEMP 99.1
[2020-10-07] MEDS ORDERED: ACETAMINOPHEN TAB 500 MG TAB PO STA (17:54)
--- NOTE | 2020-10-07 17:56 | ED ---
Recheck HPI - General Chief Complaint: Recheck/Abnormal Lab/Rx Stated Complaint: DHRUV Source: patient, EMS Mode of arrival: EMS Limitations: no limitations - History of Present Illness Initial Comments: Patient is a 70-year-old female with past medical history of asthma, chronic debility who presents to the emergency department with Covid symptoms. She was seen yesterday in the emergency room for similar complaint. She was diagnosed with Covid. She was offered antibody treatment and steroids. Patient refused any treatment. She returns today stating that she is not getting any better. Patient is informed that symptoms may last up to 2 weeks however she may feel better she receives treatment. His any chest pain or shortness of breath. States that she's had body aches and chills. She has not taken any medications at home for her symptoms. No other alleviating, Perceptin or modifying factors - Related Data Home Medications Medication Instructions Recorded Confirmed Melatonin 5 mg PO HS 10/04/16 09/11/20 Ergocalciferol (Vitamin D2) 50,000 unit PO Q7D 10/25/18 09/11/20 [Vitamin D2] Oxybutynin ER [Ditropan Xl] 15 mg PO DAILY 10/25/18 09/11/20 Sertraline [Zoloft] 100 mg PO DAILY 10/25/18 09/11/20 Nystatin 100,000 Unit/gm Powd 1 applic TOPICAL BID PRN 08/30/20 09/11/20 [Mycostatin Powder] Ondansetron [Zofran] 4 mg PO Q12H PRN 08/30/20 09/11/20 Pantoprazole Sodium [Protonix] 40 mg PO DAILY 08/30/20 09/11/20 Previous Rx's Medication Instructions Recorded Acetaminophen Tab [Tylenol] 650 mg PO Q6H PRN #1 tab 09/14/20 Albuterol Nebulized [Ventolin 2.5 mg INHALATION Q6H PRN ml 09/14/20 Nebulized] Cephalexin [Keflex] 500 mg PO TID #6 cap 09/14/20 Diphenox-Atrop 2.5-0.025 mg 1 tab PO BID PRN #6 tab 09/14/20 [Lomotil] Naproxen [Naprosyn] 250 mg PO TID PRN #1 tab 09/14/20 Allergies Allergy/AdvReac Type Severity Reaction Status Date / Time Penicillins Allergy Anaphylaxis Verified 10/07/20 16:53 cephalexin monohydrate AdvReac Nausea & Verified 10/07/20 16:53 [From Keflex] Vomiting codeine AdvReac Nausea & Verified 10/07/20 16:53 Vomiting red food dye Allergy Rash/Hives Uncoded 10/07/20 16:53 Review of Systems ROS Statement: Those systems with pertinent positive or pertinent negative responses have been documented in the HPI. ROS Other: All systems not noted in ROS Statement are negative. 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, "boarderline diabetic",gallstones, kidney stones, leakage of urine, abd hernia, wound rt butocks,carpal tunnel, "loose tooth lt upper front" History of Any Multi-Drug Resistant Organisms: None Reported Past Surgical History: Appendectomy, Section, Hernia Repair, Hysterectomy, Tonsillectomy Additional Past Surgical History / Comment(s): LEFT BELOW THE KNEE AMPUTATION, colostomy, lt thigh benign tumor removed, hemmorhoidectomy,carpal tunnel Past Anesthesia/Blood Transfusion Reactions: Postoperative Nausea & Vomiting (PONV) Additional Past Anesthesia/Blood Transfusion Reaction / Comment(s): "never received any blood transfusion" Past Psychological History: No Psychological Hx Reported Smoking Status: Never smoker Past Alcohol Use History: None Reported Past Drug Use History: None Reported - Past Family History Mother Family Medical History: Dementia Father Family Medical History: Dementia General Exam Limitations: no limitations General appearance: alert, in no apparent distress Head exam: Present: atraumatic, normocephalic, normal inspection Eye exam: Present: normal appearance, PERRL, EOMI. Absent: scleral icterus, conjunctival injection, periorbital swelling ENT exam: Present: normal exam, mucous membranes moist Neck exam: Present: normal inspection. Absent: tenderness, meningismus, lymphadenopathy Respiratory exam: Present: normal lung sounds bilaterally. Absent: respiratory distress, wheezes, rales, rhonchi, stridor Cardiovascular Exam: Present: regular rate, normal rhythm, normal heart sounds. Absent: systolic murmur, diastolic murmur, rubs, gallop, clicks GI/Abdominal exam: Present: soft, normal bowel sounds. Absent: distended, tenderness, guarding, rebound, rigid Extremities exam: Present: normal inspection, full ROM, normal capillary refill. Absent: tenderness, pedal edema, joint swelling, calf tenderness Back exam: Present: normal inspection Neurological exam: Present: alert, oriented X3, CN II-XII intact Psychiatric exam: Present: normal affect, normal mood Skin exam: Present: warm, dry, intact, normal color. Absent: rash Course Vital Signs 10/07/20 10/07/20 10/07/20 16:40 16:47 18:25 Temperature 99.1 F 99.1 F Pulse Rate 72 74 Respiratory 20 20 16 Rate Blood Pressure 118/57 120/77 O2 Sat by Pulse 96 98 Oximetry Medical Decision Making - Medical Decision Making Upon arrival patient is placed in room 29. Thorough history and physical was performed. Patient does maintain saturations of 96% without any supplemental oxygen. She does have low-grade fever. I once again offered antibody treatment and steroids. Patient does refuse treatment. I offered her Zofran for nausea for which the patient additionally refuses. Patient does agree to take 2 Tylenol. States she would not like any further treatment. Patient be discharged home at this time and needs to see her primary care doctor in 2-4 days. Return if her symptoms worsen. Patient is discharged home in stable condition Disposition Clinical Impression: COVID-19 Disposition: HOME SELF-CARE Condition: Stable Instructions (If sedation given, give patient instructions): Coronavirus Disease 2019 (COVID-19) Additional Instructions: You were diagnosed with Covid and were offered antibody treatment which you refused. you will have symptoms for 14 days. Follow up with your PCP in 2-4 days. Return to the Ed for any new or worsening symptoms. Is patient prescribed a controlled substance at d/c from ED?: No Referrals: Miguel Sapp MD [Primary Care Provider] - 1-2 days Time of Disposition: 17:56
[2020-10-07 18:25] VITALS: BP 120/77; PULSE 74; RESP 16
== END 2020-10-07 19:29 | disposition home or self-care (01) ==
LOC: EC 16:37
DX: U07.1 COVID-19 (principal); Z79.890 Hormone replacement therapy; Z79.899 Other long term (current) drug therapy; Z88.0 Allergy status to penicillin; Z88.5 Allergy status to narcotic agent; Z91.02 Food additives allergy status; Z88.1 Allergy status to other antibiotic agents
CPT/HCPCS: 99284

== ENCOUNTER 2020-10-28 18:29 | Emergency (ER) | payer MEDICARE, OTHER ==
[2020-10-28 18:40] VITALS: BP 119/69; PULSE 71; RESP 18; TEMP 98.1
[2020-10-28] MEDS ORDERED: NYSTATIN 100,000 UNIT/GM POWD 15 GM TOPICAL STA (19:13)
--- NOTE | 2020-10-28 19:15 | ED ---
General Adult HPI - General Chief complaint: Vaginal Bleeding Stated complaint: Female Time Seen by Provider: 10/28/20 19:00 Source: patient, EMS Mode of arrival: EMS - History of Present Illness Initial comments: 70 year-old female patient presents to the emergency department for evaluation of bleeding wounds in her groin and lower abdomen. States that she has rash and itching. States that the wounds are bleeding. Denies bleeding from her vagina. She does have complete hysterectomy including cervix. Denies any abdominal pain, nausea, or vomiting. Denies fever or chills. Denies any bloody stools. Patient denies any recent rash, cough, shortness of breath, chest pain, diarrhea, constipation, back pain, numbness, tingling, dizziness, weakness, hematuria, dysuria, urinary urgency, urinary frequency, headache, visual changes, or any other complaints. - Related Data Home Medications Medication Instructions Recorded Confirmed Melatonin 5 mg PO HS 10/04/16 09/11/20 Ergocalciferol (Vitamin D2) 50,000 unit PO Q7D 10/25/18 09/11/20 [Vitamin D2] Oxybutynin ER [Ditropan Xl] 15 mg PO DAILY 10/25/18 09/11/20 Sertraline [Zoloft] 100 mg PO DAILY 10/25/18 09/11/20 Nystatin 100,000 Unit/gm Powd 1 applic TOPICAL BID PRN 08/30/20 09/11/20 [Mycostatin Powder] Ondansetron [Zofran] 4 mg PO Q12H PRN 08/30/20 09/11/20 Pantoprazole Sodium [Protonix] 40 mg PO DAILY 08/30/20 09/11/20 Previous Rx's Medication Instructions Recorded Acetaminophen Tab [Tylenol] 650 mg PO Q6H PRN #1 tab 09/14/20 Albuterol Nebulized [Ventolin 2.5 mg INHALATION Q6H PRN ml 09/14/20 Nebulized] Cephalexin [Keflex] 500 mg PO TID #6 cap 09/14/20 Diphenox-Atrop 2.5-0.025 mg 1 tab PO BID PRN #6 tab 09/14/20 [Lomotil] Naproxen [Naprosyn] 250 mg PO TID PRN #1 tab 09/14/20 Nystatin 100,000 Unit/gm Powd 1 applic TOPICAL BID #1 bottle 10/28/20 [Mycostatin Powder] Allergies Allergy/AdvReac Type Severity Reaction Status Date / Time Penicillins Allergy Anaphylaxis Verified 10/07/20 16:53 cephalexin monohydrate AdvReac Nausea & Verified 10/07/20 16:53 [From Keflex] Vomiting codeine AdvReac Nausea & Verified 10/07/20 16:53 Vomiting red food dye Allergy Rash/Hives Uncoded 10/07/20 16:53 Review of Systems ROS Statement: Those systems with pertinent positive or pertinent negative responses have been documented in the HPI. ROS Other: All systems not noted in ROS Statement are negative. 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, "boarderline diabetic",gallstones, kidney stones, leakage of urine, abd hernia, wound rt butocks,carpal tunnel, "loose tooth lt upper front" History of Any Multi-Drug Resistant Organisms: None Reported Past Surgical History: Appendectomy, Section, Hernia Repair, Hysterectomy, Tonsillectomy Additional Past Surgical History / Comment(s): LEFT BELOW THE KNEE AMPUTATION, colostomy, lt thigh benign tumor removed, hemmorhoidectomy,carpal tunnel Past Anesthesia/Blood Transfusion Reactions: Postoperative Nausea & Vomiting (PONV) Additional Past Anesthesia/Blood Transfusion Reaction / Comment(s): "never received any blood transfusion" Past Psychological History: No Psychological Hx Reported Smoking Status: Never smoker Past Alcohol Use History: None Reported Past Drug Use History: None Reported - Past Family History Mother Family Medical History: Dementia Father Family Medical History: Dementia General Exam General appearance: alert, in no apparent distress, other (This is a well- developed, well-nourished adult female patient in no acute distress. Vital signs upon presentation temperature 98.1F, pulse 71, respirations 18, blood pressure 119/69, pulse ox 92% on room air.) Eye exam: Present: normal appearance, PERRL, EOMI. Absent: scleral icterus, conjunctival injection, periorbital swelling ENT exam: Present: normal exam, normal oropharynx, mucous membranes moist Respiratory exam: Present: normal lung sounds bilaterally. Absent: respiratory distress, wheezes, rales, rhonchi, stridor Cardiovascular Exam: Present: regular rate, normal rhythm, normal heart sounds. Absent: systolic murmur, diastolic murmur, rubs, gallop, clicks GI/Abdominal exam: Present: soft, normal bowel sounds. Absent: distended, tenderness, guarding, rebound, rigid External exam: Present: other (There is erythema, raw wounds with mild bleeding noted to the bilateral groin and lower abdominal skin fold. Skin is moist. ) Neurological exam: Present: alert, oriented X3, CN II-XII intact Psychiatric exam: Present: normal affect, normal mood Skin exam: Present: warm, dry, intact, normal color. Absent: rash Course Vital Signs 10/28/20 18:35 Temperature 98.1 F Pulse Rate 71 Respiratory 18 Rate Blood Pressure 119/69 O2 Sat by Pulse 92 L Oximetry Medical Decision Making - Medical Decision Making 70-year-old female patient presents to the emergency department today for evaluation of bleeding wounds to her groin and lower abdominal skin fold. Physical examination did reveal erythema with moist scan with some raw areas that are exhibiting mild bleeding. She is afebrile. She'll be given nystatin powder for yeast infection. States the bleeding is not coming from her vagina. She does not have to wear a pad. No rectal bleeding. She will need discharge to follow-up with her primary care physician for recheck in 1-2 days. Return parameters were discussed in detail. She verbalizes understanding and agrees with this plan. Case discussed my attending Dr. Galvez Disposition Clinical Impression: Yeast infection of the skin Disposition: HOME SELF-CARE Condition: Good Instructions (If sedation given, give patient instructions): Skin Yeast Infection (ED) Additional Instructions: Cleanse area twice daily, dry completely, apply nystatin powder. Follow up with the primary care physician for recheck in 1-2 days. Return for any new, worsening, or concerning symptoms. Prescriptions: Nystatin 100,000 Unit/gm Powd [Mycostatin Powder] 1 applic TOPICAL BID #1 bottle Is patient prescribed a controlled substance at d/c from ED?: No Referrals: Miguel Sapp MD [Primary Care Provider] - 1-2 days Time of Disposition: 19:15
== END 2020-10-28 19:23 | disposition home or self-care (01) ==
LOC: EC 18:29
DX: B37.2 Candidiasis of skin and nail (principal); J45.909 Unspecified asthma, uncomplicated; E78.5 Hyperlipidemia, unspecified; I10 Essential (primary) hypertension; E07.9 Disorder of thyroid, unspecified; Z90.49 Acquired absence of other specified parts of digestive tract; Z90.710 Acquired absence of both cervix and uterus; Z90.09 Acquired absence of other part of head and neck
CPT/HCPCS: 99283

== ENCOUNTER 2022-04-23 18:11 | Emergency (ER) | payer MEDICARE, OTHER ==
[2022-04-23 18:27] VITALS: TEMP 97.9
--- NOTE | 2022-04-23 18:42 | ED ---
General Adult HPI - General Chief complaint: Abdominal Pain Stated complaint: headache Time Seen by Provider: 04/23/22 18:28 Source: patient Mode of arrival: EMS Limitations: no limitations - History of Present Illness Initial comments: Dictation was produced using [employer] dictation software. please excuse any grammatical, word or spelling errors. Chief Complaint: 71-year-old feel past nuchal history of asthma, dyslipidemia and thyroid disease presents to emergency department for nausea History of Present Illness: 71-year-old female presents to the emergency department from home. Patient brought to the emergency department by EMS. Patient states that since waking this morning she felt a little nauseated. Patient denies any fever. No chills or night sweats. No abdominal pain. She does not know why she felt nauseated. Patient was given some ODT Zofran. Since the ODT Zofran she is feeling back to normal. Patient has no complaints at the bedside at this time. The ROS documented in this emergency department record has been reviewed and confirmed by me. Those systems with pertinent positive or negative responses have been documented in the HPI. All other systems are other negative and/or noncontributory. PHYSICAL EXAM: General Impression: Alert and oriented x3, not in acute distress HEENT: Normocephalic atraumatic, extra-ocular movements intact, pupils equal and reactive to light bilaterally, mucous membranes moist. Cardiovascular: Heart regular rate and rhythm Chest: Able to complete full sentences, no retractions, no tachypnea Abdomen: abdomen soft, non-tender, non-distended, no organomegaly Musculoskeletal: Pulses present and equal in all extremities, no peripheral edema Motor: no focal deficits noted Neurological: CN II-XII grossly intact, no focal motor or sensory deficits noted Skin: Intact with no visualized rashes Psych: Normal affect and mood ED course: 71-year-old female presents emergency department for episode of nausea. She was given Zofran ODT by EMS and now feels back to normal. Vital signs upon arrival are within acceptable limits. Respiratory rate in triage vitals was placed in air. She has a normal respiratory rate at the bedside upon my physical examination. ABC and metabolic panel is unremarkable. Patient observed in emergency department for one hour and 40 minutes. Reevaluate at bedside at 7:50 PM found to be stable medical condition. Still continues to feel asymptomatic. Patient will be discharged. - Related Data Home Medications Medication Instructions Recorded Confirmed Melatonin 5 mg PO HS 10/04/16 09/11/20 Ergocalciferol (Vitamin D2) 50,000 unit PO Q7D 10/25/18 09/11/20 [Vitamin D2] Oxybutynin ER [Ditropan Xl] 15 mg PO DAILY 10/25/18 09/11/20 Sertraline [Zoloft] 100 mg PO DAILY 10/25/18 09/11/20 Nystatin 100,000 Unit/gm Powd 1 applic TOPICAL BID PRN 08/30/20 09/11/20 [Mycostatin Powder] Ondansetron [Zofran] 4 mg PO Q12H PRN 08/30/20 09/11/20 Pantoprazole Sodium [Protonix] 40 mg PO DAILY 08/30/20 09/11/20 Previous Rx's Medication Instructions Recorded Acetaminophen Tab [Tylenol] 650 mg PO Q6H PRN #1 tab 09/14/20 Albuterol Nebulized [Ventolin 2.5 mg INHALATION Q6H PRN ml 09/14/20 Nebulized] Cephalexin [Keflex] 500 mg PO TID #6 cap 09/14/20 Diphenox-Atrop 2.5-0.025 mg 1 tab PO BID PRN #6 tab 09/14/20 [Lomotil] Naproxen [Naprosyn] 250 mg PO TID PRN #1 tab 09/14/20 Nystatin 100,000 Unit/gm Powd 1 applic TOPICAL BID #1 bottle 10/28/20 [Mycostatin Powder] Allergies Allergy/AdvReac Type Severity Reaction Status Date / Time Penicillins Allergy Anaphylaxis Verified 04/23/22 18:23 cephalexin monohydrate AdvReac Nausea & Verified 04/23/22 18:23 [From Keflex] Vomiting codeine AdvReac Nausea & Verified 04/23/22 18:23 Vomiting red food dye Allergy Rash/Hives Uncoded 04/23/22 18:23 Review of Systems ROS Statement: Those systems with pertinent positive or pertinent negative responses have been documented in the HPI. ROS Other: All systems not noted in ROS Statement are negative. 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, "boarderline diabetic",gallstones, kidney stones, leakage of urine, abd hernia, wound rt butocks,carpal tunnel, "loose tooth lt upper front" History of Any Multi-Drug Resistant Organisms: None Reported Past Surgical History: Appendectomy, Section, Hernia Repair, Hysterectomy, Tonsillectomy Additional Past Surgical History / Comment(s): LEFT BELOW THE KNEE AMPUTATION, colostomy, lt thigh benign tumor removed, hemmorhoidectomy,carpal tunnel Past Anesthesia/Blood Transfusion Reactions: Postoperative Nausea & Vomiting (PONV) Additional Past Anesthesia/Blood Transfusion Reaction / Comment(s): "never received any blood transfusion" Past Psychological History: No Psychological Hx Reported Smoking Status: Never smoker Past Alcohol Use History: None Reported Past Drug Use History: None Reported - Past Family History Mother Family Medical History: Dementia Father Family Medical History: Dementia General Exam Limitations: no limitations Course Vital Signs 04/23/22 18:23 Temperature 97.9 F Pulse Rate 71 Respiratory 6 L Rate Blood Pressure 129/63 O2 Sat by Pulse 96 Oximetry Medical Decision Making - Lab Data Result diagrams: 04/23/22 19:12 04/23/22 19:12 Lab Results 04/23/22 04/23/22 Range/Units 19:12 19:12 WBC 6.6 (3.8-10.6) k/uL RBC 4.08 (3.80-5.40) m/uL Hgb 11.3 L (11.4-16.0) gm/dL Hct 35.0 (34.0-46.0) % MCV 85.7 (80.0-100.0) fL MCH 27.8 (25.0-35.0) pg MCHC 32.4 (31.0-37.0) g/dL RDW 15.1 (11.5-15.5) % Plt Count 356 (150-450) k/uL MPV 7.6 Neutrophils % 74 % Lymphocytes % 16 % Monocytes % 3 % Eosinophils % 6 % Basophils % 1 % Neutrophils # 4.9 (1.3-7.7) k/uL Lymphocytes # 1.0 (1.0-4.8) k/uL Monocytes # 0.2 (0-1.0) k/uL Eosinophils # 0.4 (0-0.7) k/uL Basophils # 0.1 (0-0.2) k/uL Sodium 137 (137-145) mmol/L Potassium 4.6 (3.5-5.1) mmol/L Chloride 105 (98-107) mmol/L Carbon Dioxide 22 (22-30) mmol/L Anion Gap 10 mmol/L BUN 22 H (7-17) mg/dL Creatinine 0.90 (0.52-1.04) mg/dL Est GFR (CKD-EPI)AfAm 76 (>60 ml/min/1.73 sqM) Est GFR (CKD-EPI)NonAf 66 (>60 ml/min/1.73 sqM) Glucose 97 (74-99) mg/dL Calcium 8.5 (8.4-10.2) mg/dL Disposition Clinical Impression: Nausea Disposition: HOME SELF-CARE Condition: Good Instructions (If sedation given, give patient instructions): Acute Nausea and Vomiting (ED) Is patient prescribed a controlled substance at d/c from ED?: No Referrals: Miguel Sapp MD [Primary Care Provider] - 1-2 days Time of Disposition: 19:51
[2022-04-23 19:22] LABS: Basophils # (A) 0.1 k/uL (0-0.2); Basophils % (A) 1 %; Eosinophils # (A) 0.4 k/uL (0-0.7); Eosinophils % (A) 6 %; HGB 11.3 gm/dL (11.4-16.0); Lymphocytes % (A) 16 %; MCH 27.8 pg (25.0-35.0); MCHC 32.4 g/dL (31.0-37.0); MCV 85.7 fL (80.0-100.0); Mean Platelet Volume 7.6; Monocytes # (A) 0.2 k/uL (0-1.0); Monocytes % (A) 3 %; Neutrophils # (A) 4.9 k/uL (1.3-7.7); Neutrophils % (A) 74 %; Platelet Count 356 k/uL (150-450); RBC 4.08 m/uL (3.80-5.40); RDW 15.1 % (11.5-15.5); WBC 6.6 k/uL (3.8-10.6)
[2022-04-23 19:36] LABS: Calcium 8.5 mg/dL (8.4-10.2); Potassium 4.6 mmol/L (3.5-5.1)
[2022-04-23] MEDS ORDERED: ONDANSETRON 4 MG ODT STARTER PACK 2 TAB BTL PO STA (19:51)
[2022-04-23 20:50] VITALS: RESP 16
[2022-04-23 21:24] VITALS: BP 130/68; PULSE 68
== END 2022-04-23 23:01 | disposition home or self-care (01) ==
LOC: EC 18:11
DX: R11.0 Nausea (principal); I10 Essential (primary) hypertension; J45.909 Unspecified asthma, uncomplicated; E78.5 Hyperlipidemia, unspecified; E03.9 Hypothyroidism, unspecified; Z79.899 Other long term (current) drug therapy; Z79.51 Long term (current) use of inhaled steroids; Z88.0 Allergy status to penicillin; Z88.1 Allergy status to other antibiotic agents; Z91.02 Food additives allergy status
CPT/HCPCS: 36415; 80048; 85025; 99284; S0119

== ENCOUNTER 2022-08-01 16:06 | Emergency (ER) | payer MEDICARE, OTHER ==
[2022-08-01] MEDS ORDERED: SODIUM CHLORIDE 0.9% 500 ML 500 ML IV STA (17:04)
[2022-08-01 17:38] LABS: Basophils % (A) 1 %; Eosinophils # (A) 0.3 k/uL (0-0.7); Eosinophils % (A) 6 %; HGB 11.1 gm/dL (11.4-16.0); Lymphocytes # (A) 1.5 k/uL (1.0-4.8); Lymphocytes % (A) 28 %; MCHC 32.8 g/dL (31.0-37.0); MCV 82.4 fL (80.0-100.0); Mean Platelet Volume 7.2; Monocytes # (A) 0.4 k/uL (0-1.0); Monocytes % (A) 7 %; Neutrophils # (A) 2.9 k/uL (1.3-7.7); Neutrophils % (A) 56 %; Platelet Count 348 k/uL (150-450); RBC 4.12 m/uL (3.80-5.40); RDW 13.5 % (11.5-15.5); WBC 5.2 k/uL (3.8-10.6)
[2022-08-01 17:51] LABS: Albumin 3.6 g/dL (3.5-5.0); Calcium 8.7 mg/dL (8.4-10.2); Potassium 4.9 mmol/L (3.5-5.1); Total Bilirubin 0.3 mg/dL (0.2-1.3); Total Protein 6.7 g/dL (6.3-8.2)
[2022-08-01 18:29] LABS: Prothrombin Time 10.2 sec (9.0-12.0)
--- NOTE | 2022-08-01 18:43 | CT ---
EXAMINATION TYPE: CT abdomen pelvis w con DATE OF EXAM: 08/01/2022 COMPARISON: 2023 2 HISTORY: blood in colostomy CT DLP: 3229 mGycm CONTRAST: CT scan of the abdomen and pelvis is performed without Oral Contrast and with IV Contrast, patient in jected with 100 mL of Isovue 300. FINDINGS: LUNG BASES-: No visible nodule. No infiltrate. LIVER/GB: The gallbladder is surgically absent. No space occupying hepatic lesion. Biliary tree is of normal caliber. PANCREAS: No inflammation. No distinct mass. SPLEEN: No splenic enlargement. No lesion seen. ADRENALS: No nodule. No thickening. KIDNEYS/BLADDER: No hydronephrosis. No nephrolithiasis. No distinct renal mass. Urinary bladder g rossly unremarkable. BOWEL: Normal appendix. Normal bowel caliber. No inflammation. GENITAL ORGANS: No gross abnormality. LYMPH NODES: No greater than 1cm abdominal or pelvic lymph nodes are appreciated. AORTA: No significant abnormality. OSSEOUS STRUCTURES: No significant abnormality is seen. OTHER: [place] anterior abdominal wall hernia to the left of midline unchanged from prior study whi ch contains numerous loops of small and large bowel. There is an additional parastomal hernia right l ower quadrant containing several segments of large and small bowel. This is also unchanged. IMPRESSION: 1. Essentially stable left-sided anterior abdominal wall hernia. 2. Stable parastomal hernia right lower quadrant.
[2022-08-01 18:51] VITALS: RESP 16; TEMP 97.8
--- NOTE | 2022-08-01 19:27 | ED ---
Skin/Abscess/FB HPI - General Chief complaint: Skin/Abscess/Foreign Body Stated complaint: Abscess Time Seen by Provider: 08/01/22 16:42 Source: patient Mode of arrival: EMS Limitations: no limitations - History of Present Illness Initial comments: Patient is a 71-year-old female presenting with chief complaint of sore to the labia. Patient states that she has noted a painful spot on the right labia that at times bleeds and leaks. She has noticed it for the last 4 days. Patient wears a brief and states that she leaks urine. Patient also notes that this morning she noticed a small amount of blood in her ostomy bag. She denies any nausea, vomiting, abdominal pain, fever, chills, recent injury or trauma, chest pain, difficulty breathing, dysuria, hematuria, urgency, frequency, flank pain, dark stool. - Related Data Home Medications Medication Instructions Recorded Confirmed Melatonin 5 mg PO HS 10/04/16 09/11/20 Ergocalciferol (Vitamin D2) 50,000 unit PO Q7D 10/25/18 09/11/20 [Vitamin D2] Oxybutynin ER [Ditropan Xl] 15 mg PO DAILY 10/25/18 09/11/20 Sertraline [Zoloft] 100 mg PO DAILY 10/25/18 09/11/20 Nystatin 100,000 Unit/gm Powd 1 applic TOPICAL BID PRN 08/30/20 09/11/20 [Mycostatin Powder] Ondansetron [Zofran] 4 mg PO Q12H PRN 08/30/20 09/11/20 Pantoprazole Sodium [Protonix] 40 mg PO DAILY 08/30/20 09/11/20 Previous Rx's Medication Instructions Recorded Acetaminophen Tab [Tylenol] 650 mg PO Q6H PRN #1 tab 09/14/20 Albuterol Nebulized [Ventolin 2.5 mg INHALATION Q6H PRN ml 09/14/20 Nebulized] Cephalexin [Keflex] 500 mg PO TID #6 cap 09/14/20 Diphenox-Atrop 2.5-0.025 mg 1 tab PO BID PRN #6 tab 09/14/20 [Lomotil] Naproxen [Naprosyn] 250 mg PO TID PRN #1 tab 09/14/20 Nystatin 100,000 Unit/gm Powd 1 applic TOPICAL BID #1 bottle 10/28/20 [Mycostatin Powder] Cephalexin [Keflex] 500 mg PO Q6HR 10 Days #40 cap 08/01/22 Allergies Allergy/AdvReac Type Severity Reaction Status Date / Time Penicillins Allergy Anaphylaxis Verified 04/23/22 18:23 cephalexin monohydrate AdvReac Nausea & Verified 04/23/22 18:23 [From Keflex] Vomiting codeine AdvReac Nausea & Verified 04/23/22 18:23 Vomiting red food dye Allergy Rash/Hives Uncoded 04/23/22 18:23 Review of Systems ROS Statement: Those systems with pertinent positive or pertinent negative responses have been documented in the HPI. ROS Other: All systems not noted in ROS Statement are negative. 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, "boarderline diabetic",gallstones, kidney stones, leakage of urine, abd hernia, wound rt butocks,carpal tunnel, "loose tooth lt upper front" History of Any Multi-Drug Resistant Organisms: None Reported Past Surgical History: Appendectomy, Section, Hernia Repair, Hysterectomy, Tonsillectomy Additional Past Surgical History / Comment(s): LEFT BELOW THE KNEE AMPUTATION, colostomy, lt thigh benign tumor removed, hemmorhoidectomy,carpal tunnel Past Anesthesia/Blood Transfusion Reactions: Postoperative Nausea & Vomiting (PONV) Additional Past Anesthesia/Blood Transfusion Reaction / Comment(s): "never received any blood transfusion" Past Psychological History: No Psychological Hx Reported Smoking Status: Never smoker Past Alcohol Use History: None Reported Past Drug Use History: None Reported - Past Family History Mother Family Medical History: Dementia Father Family Medical History: Dementia General Exam Limitations: no limitations General appearance: alert, in no apparent distress Head exam: Present: atraumatic, normocephalic, normal inspection Eye exam: Present: normal appearance Neck exam: Present: normal inspection, full ROM Respiratory exam: Present: normal lung sounds bilaterally. Absent: respiratory distress, wheezes, rales, rhonchi, stridor Cardiovascular Exam: Present: regular rate, normal rhythm, normal heart sounds. Absent: systolic murmur, diastolic murmur, rubs, gallop, clicks GI/Abdominal exam: Present: soft. Absent: distended, tenderness, guarding, rebound, rigid External exam: Present: erythema, other (small abrasion, no abscess) Neurological exam: Present: alert, oriented X3, CN II-XII intact Psychiatric exam: Present: normal affect, normal mood Course Vital Signs 08/01/22 08/01/22 08/01/22 16:10 18:49 21:00 Temperature 97.7 F 97.8 F Pulse Rate 68 62 68 Respiratory 18 16 16 Rate Blood Pressure 121/59 129/56 114/68 O2 Sat by Pulse 95 98 97 Oximetry Medical Decision Making - Medical Decision Making Was pt. sent in by a medical professional or institution (, PA, TRANSPORTATION MAINTENANCE SPECIALIST, urgent care, hospital, or [facility]...) When possible be specific @ -No Did you speak to anyone other than the patient for history (EMS, parent, family, police, friend...)? What history was obtained from this source @ -No Did you review nursing and triage notes (agree or disagree)? Why? @ -I reviewed and agree with nursing and triage notes Were old charts reviewed (outside hosp., previous admission, EMS record, old EKG, old radiological studies, urgent care reports/EKG's, [facility] records)? Report findings @ -No old charts were reviewed Differential Diagnosis (chest pain, altered mental status, abdominal pain women, abdominal pain men, vaginal bleeding, weakness, fever, dyspnea, syncope, headache, dizziness, GI bleed, back pain, seizure, CVA, palpatations, mental health)? @ -Differential includes Bartholin's cyst, abscess, cellulitis Differential for bleeding includes colitis, inflammatory bowel disease, diverticulitis, diverticulosis, abrasion to stoma EKG interpreted by me (3pts min.). @ -As above X-rays interpreted by me (1pt min.). @ -None done CT interpreted by me (1pt min.). @ -No, radiologist report is reviewed. Essentially stable left-sided anterior abdominal wall hernia and stable parastomal hernia right lower quadrant U/S interpreted by me (1pt. min.). @ -None done What testing was considered but not performed or refused? (CT, X-rays, U/S, labs)? Why? @ -None What meds were considered but not given or refused? Why? @ -None Did you discuss the management of the patient with other professionals (professionals i.e. , PA, TRANSPORTATION MAINTENANCE SPECIALIST, lab, RT, psych nurse, socially responsible investment adviser, lacrosse player, teacher, naval gunfire liaison officer, rn case management)? Give summary @ -No Was smoking cessation discussed for >3mins.? @ -No Was critical care preformed (if so, how long)? @ -No Were there social determinants of health that impacted care today? How? (Homelessness, low income, unemployed, alcoholism, drug addiction, transportation, low edu. Level, literacy, decrease access to med. care, retirement, rehab)? @ -No Was there de-escalation of care discussed even if they declined (Discuss DNR or withdrawal of care, Hospice)? DNR status @ -No What co-morbidities impacted this encounter? (DM, HTN, Smoking, COPD, CAD, Cancer, CVA, ARF, Chemo, Hep., AIDS, mental health diagnosis, sleep apnea, morb id obesity)? @ -Hyperlipidemia, hypertension, colostomy Was patient admitted / discharged? Hospital course, mention meds given and route, prescriptions, significant lab abnormalities, going to OR and other pertinent info. @ -Patient is a 71-year-old female presenting with chief complaint of painful lesion to the labia as well as bleeding from her colostomy bag. Blood was seen in the bag at 7am when she emptied it, no blood since. On physical examination there is a sore to the R labia, no abscess or fluid collection noted, appears consistent with skin breakdown due to incontinence. No abdominal tenderness. Hgb 11.1 consistent with baseline. Lab work is essentially unremarkable. CT shows no acute findings. Patient continues to have no bleeding throughout her course.She is given a prescription for keflex for her sore and educated on supprtove tmt. Educated on need for close follow up for stomal bleeding. Follow-up with PCP. Report back to ER with any new or worsening symptoms. Discussed return parameters and answered all questions. Patient conveyed verbal understanding and agreed to the plan. I discussed this case in detail with my attending Dr. Culp Undiagnosed new problem with uncertain prognosis? @ -No Drug Therapy requiring intensive monitoring for toxicity (Heparin, Nitro, Insulin, Cardizem)? @ -No Were any procedures done? @ -No Diagnosis/symptom? @ -labial sore due to skin breakdown Acute, or Chronic, or Acute on Chronic? @ -acute Uncomplicated (without systemic symptoms) or Complicated (systemic symptoms)? @ -uncomplicated Side effects of treatment? @ -No Exacerbation, Progression, or Severe Exacerbation? @ -No - Lab Data Result diagrams: 08/01/22 17:15 08/01/22 17:15 Lab Results 08/01/22 08/01/22 08/01/22 Range/Units 17:15 17:15 17:15 WBC 5.2 (3.8-10.6) k/uL RBC 4.12 (3.80-5.40) m/uL Hgb 11.1 L (11.4-16.0) gm/dL Hct 34.0 (34.0-46.0) % MCV 82.4 (80.0-100.0) fL MCH 27.0 (25.0-35.0) pg MCHC 32.8 (31.0-37.0) g/dL RDW 13.5 (11.5-15.5) % Plt Count 348 (150-450) k/uL MPV 7.2 Neutrophils % 56 % Lymphocytes % 28 % Monocytes % 7 % Eosinophils % 6 % Basophils % 1 % Neutrophils # 2.9 (1.3-7.7) k/uL Lymphocytes # 1.5 (1.0-4.8) k/uL Monocytes # 0.4 (0-1.0) k/uL Eosinophils # 0.3 (0-0.7) k/uL Basophils # 0.0 (0-0.2) k/uL PT 10.2 (9.0-12.0) sec INR 1.0 (<1.2) APTT 23.0 (22.0-30.0) sec Sodium 140 (137-145) mmol/L Potassium 4.9 (3.5-5.1) mmol/L Chloride 104 (98-107) mmol/L Carbon Dioxide 28 (22-30) mmol/L Anion Gap 8 mmol/L BUN 23 H (7-17) mg/dL Creatinine 0.94 (0.52-1.04) mg/dL Est GFR (CKD-EPI)AfAm 72 (>60 ml/min/1.73 sqM) Est GFR (CKD-EPI)NonAf 62 (>60 ml/min/1.73 sqM) Glucose 100 H (74-99) mg/dL Plasma Lactic Acid Florencio (0.7-2.0) mmol/L Calcium 8.7 (8.4-10.2) mg/dL Total Bilirubin 0.3 (0.2-1.3) mg/dL AST 20 (14-36) U/L ALT 14 (4-34) U/L Alkaline Phosphatase 80 (38-126) U/L Total Protein 6.7 (6.3-8.2) g/dL Albumin 3.6 (3.5-5.0) g/dL 08/01/22 Range/Units 17:15 WBC (3.8-10.6) k/uL RBC (3.80-5.40) m/uL Hgb (11.4-16.0) gm/dL Hct (34.0-46.0) % MCV (80.0-100.0) fL MCH (25.0-35.0) pg MCHC (31.0-37.0) g/dL RDW (11.5-15.5) % Plt Count (150-450) k/uL MPV Neutrophils % % Lymphocytes % % Monocytes % % Eosinophils % % Basophils % % Neutrophils # (1.3-7.7) k/uL Lymphocytes # (1.0-4.8) k/uL Monocytes # (0-1.0) k/uL Eosinophils # (0-0.7) k/uL Basophils # (0-0.2) k/uL PT (9.0-12.0) sec INR (<1.2) APTT (22.0-30.0) sec Sodium (137-145) mmol/L Potassium (3.5-5.1) mmol/L Chloride (98-107) mmol/L Carbon Dioxide (22-30) mmol/L Anion Gap mmol/L BUN (7-17) mg/dL Creatinine (0.52-1.04) mg/dL Est GFR (CKD-EPI)AfAm (>60 ml/min/1.73 sqM) Est GFR (CKD-EPI)NonAf (>60 ml/min/1.73 sqM) Glucose (74-99) mg/dL Plasma Lactic Acid Florencio 0.9 (0.7-2.0) mmol/L Calcium (8.4-10.2) mg/dL Total Bilirubin (0.2-1.3) mg/dL AST (14-36) U/L ALT (4-34) U/L Alkaline Phosphatase (38-126) U/L Total Protein (6.3-8.2) g/dL Albumin (3.5-5.0) g/dL Disposition Clinical Impression: Skin breakdown Disposition: HOME SELF-CARE Condition: Good Instructions (If sedation given, give patient instructions): Gastrointestinal Bleeding (ED), Cellulitis (ED) Additional Instructions: Follow-up with PCP in one to 2 days. Report back to ER with any new or worsening symptoms. Take medication as prescribed. Prescriptions: Cephalexin [Keflex] 500 mg PO Q6HR 10 Days #40 cap Is patient prescribed a controlled substance at d/c from ED?: No Referrals: Miguel Sapp MD [Primary Care Provider] - 1-2 days Time of Disposition: 19:26
[2022-08-01 21:16] VITALS: BP 114/68; PULSE 68
== END 2022-08-01 21:17 | disposition home or self-care (01) ==
LOC: EC 16:06
DX: L98.491 Non-pressure chronic ulcer of skin of other sites limited to breakdown of skin (principal); I10 Essential (primary) hypertension; J45.909 Unspecified asthma, uncomplicated; Z79.899 Other long term (current) drug therapy; Z88.0 Allergy status to penicillin; Z91.018 Allergy to other foods; Z88.1 Allergy status to other antibiotic agents
CPT/HCPCS: 36415; 80053; 83605; 85025; 85610; 85730; 74177; 99284; 96360; Q9967

== ENCOUNTER 2023-05-06 09:37 | Emergency (ER) | payer MEDICARE ==
--- NOTE | 2023-05-06 09:49 | ED ---
General Adult HPI - General Stated complaint: leg pain Time Seen by Provider: 05/06/23 09:38 Source: patient, EMS, RN notes reviewed Mode of arrival: EMS Limitations: no limitations - History of Present Illness Initial comments: 72-year-old female presents emergency Department with chief complaint of right leg pain. She states that she had her scooter fall on her 3 weeks ago. She states she is having worsening pain. She is concerned about possible clot. 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 - Related Data Home Medications Medication Instructions Recorded Confirmed Melatonin 5 mg PO HS 10/04/16 09/11/20 Ergocalciferol (Vitamin D2) 50,000 unit PO Q7D 10/25/18 09/11/20 [Vitamin D2] Oxybutynin ER [Ditropan XL] 15 mg PO DAILY 10/25/18 09/11/20 Sertraline [Zoloft] 100 mg PO DAILY 10/25/18 09/11/20 Nystatin 100,000 Unit/gm Powd 1 applic TOPICAL BID PRN 08/30/20 09/11/20 [Mycostatin Powder] Ondansetron [Zofran] 4 mg PO Q12H PRN 08/30/20 09/11/20 Pantoprazole Sodium [Protonix] 40 mg PO DAILY 08/30/20 09/11/20 Previous Rx's Medication Instructions Recorded Acetaminophen Tab [Tylenol] 650 mg PO Q6H PRN #1 tab 09/14/20 Albuterol Nebulized [Ventolin 2.5 mg INHALATION Q6H PRN ml 09/14/20 Nebulized] Cephalexin [Keflex] 500 mg PO TID #6 cap 09/14/20 Diphenox-Atrop 2.5-0.025 mg 1 tab PO BID PRN #6 tab 09/14/20 [Lomotil] Naproxen [Naprosyn] 250 mg PO TID PRN #1 tab 09/14/20 Nystatin 100,000 Unit/gm Powd 1 applic TOPICAL BID #1 bottle 10/28/20 [Mycostatin Powder] Cephalexin [Keflex] 500 mg PO Q6HR 10 Days #40 cap 08/01/22 Mupirocin 2% Oint [Bactroban 2% 1 applic TOPICAL TID #22 gm 05/06/23 Oint] Allergies Allergy/AdvReac Type Severity Reaction Status Date / Time Penicillins Allergy Anaphylaxis Verified 05/06/23 09:45 cephalexin monohydrate AdvReac Nausea & Verified 05/06/23 09:45 [From Keflex] Vomiting codeine AdvReac Nausea & Verified 05/06/23 09:45 Vomiting red food dye Allergy Rash/Hives Uncoded 05/06/23 09:45 Review of Systems ROS Statement: Those systems with pertinent positive or pertinent negative responses have been documented in the HPI. ROS Other: All systems not noted in ROS Statement are negative. 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, "boarderline diabetic",gallstones, kidney stones, leakage of urine, abd hernia, wound rt butocks,carpal tunnel, "loose tooth lt upper front" History of Any Multi-Drug Resistant Organisms: None Reported Past Surgical History: Appendectomy, Section, Hernia Repair, Hysterectomy, Tonsillectomy Additional Past Surgical History / Comment(s): LEFT BELOW THE KNEE AMPUTATION, colostomy, lt thigh benign tumor removed, hemmorhoidectomy,carpal tunnel Past Anesthesia/Blood Transfusion Reactions: Postoperative Nausea & Vomiting (PONV) Additional Past Anesthesia/Blood Transfusion Reaction / Comment(s): "never received any blood transfusion" Past Psychological History: No Psychological Hx Reported Smoking Status: Never smoker Past Alcohol Use History: None Reported Past Drug Use History: None Reported - Past Family History Mother Family Medical History: Dementia Father Family Medical History: Dementia General Exam Limitations: no limitations General appearance: alert, in no apparent distress Head exam: Present: atraumatic, normocephalic, normal inspection Respiratory exam: Present: normal lung sounds bilaterally. Absent: respiratory distress, wheezes, rales, rhonchi, stridor Cardiovascular Exam: Present: regular rate, normal rhythm, normal heart sounds. Absent: systolic murmur, diastolic murmur, rubs, gallop, clicks Extremities exam: Present: other (Mild right calf tenderness, no swelling or erythema neurovascular intact) Course Vital Signs 05/06/23 05/06/23 05/06/23 09:40 09:45 11:10 Temperature 97.9 F Pulse Rate 58 L 58 L Respiratory 18 18 Rate Blood Pressure 110/54 110/51 O2 Sat by Pulse 97 98 Oximetry Medical Decision Making - Medical Decision Making Was pt. sent in by a medical professional or institution (MONI Saldaña, HYDRO STATION OPERATOR, urgent care, hospital, or shelter...) When possible be specific @ -No Did you speak to anyone other than the patient for history (EMS, parent, family, police, friend...)? What history was obtained from this source @ -No Did you review nursing and triage notes (agree or disagree)? Why? @ -I reviewed and agree with nursing and triage notes Were old charts reviewed (outside hosp., previous admission, EMS record, old EKG, old radiological studies, urgent care reports/EKG's, shelter records)? Report findings @ -No old charts were reviewed Differential Diagnosis (chest pain, altered mental status, abdominal pain women, abdominal pain men, vaginal bleeding, weakness, fever, dyspnea, syncope, headache, dizziness, GI bleed, back pain, seizure, CVA, palpatations, mental health, musculoskeletal)? @ -Leg fracture, DVT EKG interpreted by me (3pts min.). @ -Non- X-rays interpreted by me (1pt min.). @ -X-ray shows no acute fracture CT interpreted by me (1pt min.). @ -None done U/S interpreted by me (1pt. min.). @ -WAS NEGATIVE FOR ACUTE DVT What testing was considered but not performed or refused? (CT, X-rays, U/S, labs)? Why? @ -None What meds were considered but not given or refused? Why? @ -None Did you discuss the management of the patient with other professionals (professionals i.e. MONI Saldaña, HYDRO STATION OPERATOR, lab, RT, psych nurse, social work administrator, poultice machine operator, teacher, chief talent officer, rn case management)? Give summary @ -No Was smoking cessation discussed for >3mins.? @ -No Was critical care preformed (if so, how long)? @ -No Were there social determinants of health that impacted care today? How? (Homelessness, low income, unemployed, alcoholism, drug addiction, transportation, low edu. Level, literacy, decrease access to med. care, [facility], rehab)? @ -No Was there de-escalation of care discussed even if they declined (Discuss DNR or withdrawal of care, Hospice)? DNR status @ -No What co-morbidities impacted this encounter? (DM, HTN, Smoking, COPD, CAD, Cancer, CVA, ARF, Chemo, Hep., AIDS, mental health diagnosis, sleep apnea, morbid obesity)? @ -None Was patient admitted / discharged? Hospital course, mention meds given and route, prescriptions, significant lab abnormalities, going to OR and other pertinent info. @ -Discharge patient is leg contusion there are no evidence of DVT or acute fracture Undiagnosed new problem with uncertain prognosis? @ -No Drug Therapy requiring intensive monitoring for toxicity (Heparin, Nitro, Insulin, Cardizem)? @ -No Were any procedures done? @ -No Diagnosis/symptom? @ -[Leg pain, contusion Acute, or Chronic, or Acute on Chronic? @ -Acute Uncomplicated (without systemic symptoms) or Complicated (systemic symptoms)? @ -Uncomplicated Side effects of treatment? @ -No Exacerbation, Progression, or Severe Exacerbation? @ -No Poses a threat to life or bodily function? How? (Chest pain, [place], [place], pneumonia, PE, COPD, DKA, ARF, appy, cholecystitis, CVA, Diverticulitis, Homicidal, Suicidal, threat to staff... and all critical care pts) @ -No Disposition Clinical Impression: Fall, Right leg pain, Leg sore Disposition: HOME SELF-CARE Condition: Stable Additional Instructions: Please return to the Emergency Department if symptoms worsen or any other concerns. Prescriptions: Mupirocin 2% Oint [Bactroban 2% Oint] 1 applic TOPICAL TID #22 gm Is patient prescribed a controlled substance at d/c from ED?: No Referrals: Miguel Sapp MD [Primary Care Provider] - 1-2 days Time of Disposition: 11:17
[2023-05-06 09:57] VITALS: PULSE 58; RESP 18; TEMP 97.9
--- NOTE | 2023-05-06 10:14 | XR ---
EXAMINATION TYPE: XR tibia fibula RT DATE OF EXAM: 05/06/2023 9:59 AM CLINICAL INDICATION:Female, 72 years old with history of pain; COMPARISON: None TECHNIQUE: XR tibia fibula RT; tibia/fibula was examined in AP and lateral projections. FINDINGS: Severe degeneration changes of the knee with [id number] articulation and osteophyte forma tion. No evidence of fracture. Calcaneal plantar spurring. Degeneration changes at the ankle also pre sent. Few scattered calcified saphenous granulomas/phleboliths. IMPRESSION: 1. No evidence of acute fracture. 2. End-stage right knee osteoarthrosis.
--- NOTE | 2023-05-06 11:02 | US ---
EXAMINATION TYPE: US venous doppler duplex LE RT DATE OF EXAM: 05/06/2023 9:45 AM COMPARISON: NONE CLINICAL INDICATION: Female, 72 years old with history of pain; Rt. Lateral calf pain x 1 month. Pt s ays chair fell on her leg SIDE PERFORMED: Right TECHNIQUE: The lower extremity deep venous system is examined utilizing real time linear array sonog chanda with graded compression, doppler sonography and color-flow sonography. VESSELS IMAGED: Common Femoral Vein Deep Femoral Vein Greater Saphenous Vein * Femoral Vein Popliteal Vein Small Saphenous Vein * Proximal Calf Veins (* superficial vessels) Right Leg: Negative for DVT exam slightly limited by body habitus IMPRESSION: Grayscale, color doppler, spectral doppler imaging performed of the deep veins of the lo wer extremities. There is normal flow, compressibility, vascular waveforms.
[2023-05-06] MEDS ORDERED: traMADol 50 MG STARTER PACK 3 TAB BTL PO STA (11:16)
[2023-05-06 11:49] VITALS: BP 110/51
== END 2023-05-06 11:39 | disposition home or self-care (01) ==
LOC: EC 09:37
DX: S80.12XA Contusion of left lower leg, initial encounter (principal); J45.909 Unspecified asthma, uncomplicated; I10 Essential (primary) hypertension; E78.5 Hyperlipidemia, unspecified; E11.9 Type 2 diabetes mellitus without complications; M17.11 Unilateral primary osteoarthritis, right knee; Z88.0 Allergy status to penicillin; Z88.5 Allergy status to narcotic agent; Z88.1 Allergy status to other antibiotic agents; Z88.8 Allergy status to other drugs, medicaments and biological substances; Z79.899 Other long term (current) drug therapy; W20.8XXA Other cause of strike by thrown, projected or falling object, initial encounter
CPT/HCPCS: 99284

== ENCOUNTER 2023-07-14 22:54 | Emergency (ER) | payer MEDICARE, OTHER ==
[2023-07-14 23:20] VITALS: TEMP 98.5
--- NOTE | 2023-07-15 01:17 | ED ---
Abdominal Pain HPI - General Chief Complaint: Abdominal Pain Stated Complaint: Abd pain Time Seen by Provider: 07/15/23 00:45 Source: EMS Mode of arrival: EMS Limitations: no limitations - History of Present Illness Initial Comments: 72-year-old female with past medical history significant for s/p colostomy into the ED with chief complaint of ostomy problem. Patient states that her ostomy bag is leaking. States that she normally does not change this herself and notes that she has a home visiting nurse that helps her. States she tried to apply one herself but was unable to get it to seal. States that she tried to call her home visiting nurse however states that she is currently at her other job and was unable to help her probably presentation to the ED for further evaluation. Denies abdominal pain. No other symptoms at this time. No fever or chills. - Related Data Home Medications Medication Instructions Recorded Confirmed Melatonin 5 mg PO HS 10/04/16 09/11/20 Ergocalciferol (Vitamin D2) 50,000 unit PO Q7D 10/25/18 09/11/20 [Vitamin D2] Oxybutynin ER [Ditropan XL] 15 mg PO DAILY 10/25/18 09/11/20 Sertraline [Zoloft] 100 mg PO DAILY 10/25/18 09/11/20 Nystatin 100,000 Unit/gm Powd 1 applic TOPICAL BID PRN 08/30/20 09/11/20 [Mycostatin Powder] Ondansetron [Zofran] 4 mg PO Q12H PRN 08/30/20 09/11/20 Pantoprazole Sodium [Protonix] 40 mg PO DAILY 08/30/20 09/11/20 Previous Rx's Medication Instructions Recorded Acetaminophen Tab [Tylenol] 650 mg PO Q6H PRN #1 tab 09/14/20 Albuterol Nebulized [Ventolin 2.5 mg INHALATION Q6H PRN ml 09/14/20 Nebulized] Cephalexin [Keflex] 500 mg PO TID #6 cap 09/14/20 Diphenox-Atrop 2.5-0.025 mg 1 tab PO BID PRN #6 tab 09/14/20 [Lomotil] Naproxen [Naprosyn] 250 mg PO TID PRN #1 tab 09/14/20 Nystatin 100,000 Unit/gm Powd 1 applic TOPICAL BID #1 bottle 10/28/20 [Mycostatin Powder] Cephalexin [Keflex] 500 mg PO Q6HR 10 Days #40 cap 08/01/22 Mupirocin 2% Oint [Bactroban 2% 1 applic TOPICAL TID #22 gm 05/06/23 Oint] Allergies Allergy/AdvReac Type Severity Reaction Status Date / Time Penicillins Allergy Anaphylaxis Verified 07/14/23 23:00 cephalexin monohydrate AdvReac Nausea & Verified 07/14/23 23:00 [From Keflex] Vomiting codeine AdvReac Nausea & Verified 07/14/23 23:00 Vomiting red food dye Allergy Rash/Hives Uncoded 07/14/23 23:00 Review of Systems ROS Statement: Those systems with pertinent positive or pertinent negative responses have been documented in the HPI. ROS Other: All systems not noted in ROS Statement are negative. 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, "boarderline diabetic",gallstones, kidney stones, leakage of urine, abd hernia, wound rt butocks,carpal tunnel, "loose tooth lt upper front" History of Any Multi-Drug Resistant Organisms: None Reported Past Surgical History: Appendectomy, Section, Hernia Repair, Hysterectomy, Tonsillectomy Additional Past Surgical History / Comment(s): LEFT BELOW THE KNEE AMPUTATION, colostomy, lt thigh benign tumor removed, hemmorhoidectomy,carpal tunnel Past Anesthesia/Blood Transfusion Reactions: Postoperative Nausea & Vomiting (PONV) Additional Past Anesthesia/Blood Transfusion Reaction / Comment(s): "never received any blood transfusion" Past Psychological History: No Psychological Hx Reported Smoking Status: Never smoker Past Alcohol Use History: None Reported Past Drug Use History: None Reported - Past Family History Mother Family Medical History: Dementia Father Family Medical History: Dementia General Exam Limitations: no limitations General appearance: alert, in no apparent distress Neck exam: Present: normal inspection Respiratory exam: Present: normal lung sounds bilaterally Cardiovascular Exam: Present: regular rate, normal rhythm GI/Abdominal exam: Present: soft (Ostomy bag present covered with tape.) Neurological exam: Present: alert, oriented X3 Skin exam: Present: warm, dry Course Vital Signs 07/14/23 22:58 Temperature 98.5 F Pulse Rate 77 Respiratory 18 Rate Blood Pressure 103/49 O2 Sat by Pulse 100 Oximetry Medical Decision Making - Medical Decision Making Was pt. sent in by a medical professional or institution (MONI Saldaña, MANAGER ASSEMBLY, urgent care, hospital, or longterm...) When possible be specific @ -No Did you speak to anyone other than the patient for history (EMS, parent, family, police, friend...)? What history was obtained from this source @ -No Did you review nursing and triage notes (agree or disagree)? Why? @ -I reviewed and agree with nursing and triage notes Were old charts reviewed (outside hosp., previous admission, EMS record, old EKG, old radiological studies, urgent care reports/EKG's, longterm records)? Report findings @ -No old charts were reviewed Differential Diagnosis (chest pain, altered mental status, abdominal pain women, abdominal pain men, vaginal bleeding, weakness, fever, dyspnea, syncope, headache, dizziness, GI bleed, back pain, seizure, CVA, palpatations, mental health, musculoskeletal)? @ -Differential Abdominal Pain Women: Appendicitis, Cholecystitis, diverticulosis, ischemic bowel, pancreatitis, hepatitis, UTI, gastroenteritis, AAA, incarcerated hernia, bowel obstruction, constipation, inflammatory bowel, hepatitis, peptic ulcer disease, splenic infarction, perforated viscus, vulvitis, ovarian torsion, PID, kidney stone, placenta abruption, this is not meant to be an all-inclusive list EKG interpreted by me (3pts min.). @ -None X-rays interpreted by me (1pt min.). @ -None done CT interpreted by me (1pt min.). @ -None done U/S interpreted by me (1pt. min.). @ -None done What testing was considered but not performed or refused? (CT, X-rays, U/S, labs)? Why? @ -None What meds were considered but not given or refused? Why? @ -None Did you discuss the management of the patient with other professionals (professionals i.e. MONI Saldaña, MANAGER ASSEMBLY, lab, RT, psych nurse, professor of social work, pulping machine operator, teacher, weapons officer naval activity, piano case maker)? Give summary @ -No Was smoking cessation discussed for >3mins.? @ -No Was critical care preformed (if so, how long)? @ -No Were there social determinants of health that impacted care today? How? (Homelessness, low income, unemployed, alcoholism, drug addiction, transportation, low edu. Level, literacy, decrease access to med. care, [facility], rehab)? @ -No Was there de-escalation of care discussed even if they declined (Discuss DNR or withdrawal of care, Hospice)? DNR status @ -No What co-morbidities impacted this encounter? (DM, HTN, Smoking, COPD, CAD, [place], CVA, ARF, Chemo, Hep., AIDS, mental health diagnosis, sleep apnea, morbid obesity)? @ -None Was patient admitted / discharged? Hospital course, mention meds given and route, prescriptions, significant lab abnormalities, going to OR and other pertinent info. @ -Discharge 72-year-old female presenting to the ED with chief complaints of ostomy problem. Patient states that she normally has a home nurse to help her change her ostomy bag. States that she tried to change her ostomy bag herself but was unable to get this to seal properly. States that she tried calling her home nurse to change this however she was already working her other job therefore presented to the ED for further evaluation. At this time has no other complaints. On evaluation of the bag found no leaks. Patient then stated that it was leaking and all she was changing it and wanted to be evaluated to make sure that it will not leak in the future. This is not leaking on exam. Patient provided extra bag supplies. Discharged home in stable condition. Discussed return precautions patient verbalizes agreement. States that her home visiting nurse will be visiting her tomorrow. Undiagnosed new problem with uncertain prognosis? @ -No Drug Therapy requiring intensive monitoring for toxicity (Heparin, Nitro, Insulin, Cardizem)? @ -No Were any procedures done? @ -No Diagnosis/symptom? @ -Ostomy bag problem Acute, or Chronic, or Acute on Chronic? @ -Acute Uncomplicated (without systemic symptoms) or Complicated (systemic symptoms)? @ -Uncomplicated Side effects of treatment? @ -No Exacerbation, Progression, or Severe Exacerbation? @ -No Poses a threat to life or bodily function? How? (Chest pain, [place], [place], pneumonia, PE, COPD, DKA, ARF, appy, cholecystitis, CVA, Diverticulitis, Homicidal, Suicidal, threat to staff... and all critical care pts) @ -No Disposition Clinical Impression: Complication of ostomy Disposition: HOME SELF-CARE Condition: Good Additional Instructions: Please return to the Emergency Department if symptoms worsen or any other concerns. Follow up with your primary care provider. Is patient prescribed a controlled substance at d/c from ED?: No Referrals: Miguel Sapp MD [Primary Care Provider] - 1-2 days Time of Disposition: 01:38
[2023-07-15 04:32] VITALS: BP 100/74; PULSE 70; RESP 16
== END 2023-07-15 04:23 | disposition home or self-care (01) ==
LOC: EC 22:54
DX: K94.00 Colostomy complication, unspecified (principal); I10 Essential (primary) hypertension; J45.909 Unspecified asthma, uncomplicated; Z79.899 Other long term (current) drug therapy; Z88.0 Allergy status to penicillin; Z88.1 Allergy status to other antibiotic agents; Z88.5 Allergy status to narcotic agent; Z91.02 Food additives allergy status
CPT/HCPCS: 99284

== ENCOUNTER 2023-08-13 16:04 | Emergency (ER) | payer MEDICARE, OTHER ==
[2023-08-13 16:32] VITALS: RESP 18
--- NOTE | 2023-08-13 16:37 | ED ---
General Adult HPI - General Chief complaint: Skin/Abscess/Foreign Body Stated complaint: Cellulitis Time Seen by Provider: 08/13/23 16:19 Source: patient, RN notes reviewed, old records reviewed Mode of arrival: ambulatory Limitations: no limitations - History of Present Illness Initial comments: Patient is a 72-year-old female who presents emergency department complaining of ostomy issues. Patient has been without ostomy supplies for the last multiple months. States it was ordered but they were never delivered. She has been covering it up just with a depend. Patient presents because over the last few weeks she has noticed worsening redness around the ostomy site. Appears to be more contact dermatitis-like. Her doctor called her today and told her to come to the ER for further evaluation. Denies any fevers, cough, chest pain. Denies any nausea, vomiting. Is having good ostomy output. Is concerned regarding possible skin infection around the ostomy site and seeking ostomy supplies. - Related Data Home Medications Medication Instructions Recorded Confirmed Melatonin 5 mg PO HS 10/04/16 09/11/20 Ergocalciferol (Vitamin D2) 50,000 unit PO Q7D 10/25/18 09/11/20 [Vitamin D2] Oxybutynin ER [Ditropan XL] 15 mg PO DAILY 10/25/18 09/11/20 Sertraline [Zoloft] 100 mg PO DAILY 10/25/18 09/11/20 Nystatin 100,000 Unit/gm Powd 1 applic TOPICAL BID PRN 08/30/20 09/11/20 [Mycostatin Powder] Ondansetron [Zofran] 4 mg PO Q12H PRN 08/30/20 09/11/20 Pantoprazole Sodium [Protonix] 40 mg PO DAILY 08/30/20 09/11/20 Previous Rx's Medication Instructions Recorded Acetaminophen Tab [Tylenol] 650 mg PO Q6H PRN #1 tab 09/14/20 Albuterol Nebulized [Ventolin 2.5 mg INHALATION Q6H PRN ml 09/14/20 Nebulized] Cephalexin [Keflex] 500 mg PO TID #6 cap 09/14/20 Diphenox-Atrop 2.5-0.025 mg 1 tab PO BID PRN #6 tab 09/14/20 [Lomotil] Naproxen [Naprosyn] 250 mg PO TID PRN #1 tab 09/14/20 Nystatin 100,000 Unit/gm Powd 1 applic TOPICAL BID #1 bottle 10/28/20 [Mycostatin Powder] Cephalexin [Keflex] 500 mg PO Q6HR 10 Days #40 cap 08/01/22 Mupirocin 2% Oint [Bactroban 2% 1 applic TOPICAL TID #22 gm 05/06/23 Oint] Sulfamethox-Tmp 800-160Mg [Bactrim 1 tab PO Q12HR 7 Days #14 tab 08/13/23 DS 800-160 mg] Allergies Allergy/AdvReac Type Severity Reaction Status Date / Time Penicillins Allergy Anaphylaxis Verified 08/13/23 16:14 cephalexin monohydrate AdvReac Nausea & Verified 08/13/23 16:14 [From Keflex] Vomiting codeine AdvReac Nausea & Verified 08/13/23 16:14 Vomiting red food dye Allergy Rash/Hives Uncoded 08/13/23 16:14 Review of Systems ROS Statement: Those systems with pertinent positive or pertinent negative responses have been documented in the HPI. Review of Systems: CONST: Denies fever EYES: Denies blurry vision ENT: Denies nasal congestion C/V: Denies Chest pain RESP: Denies shortness of breath GI: Denies abdominal pain : Denies dysuria SKIN: Endorses redness around ostomy site. MSK: Denies joint pain. NEURO: Denies headache ROS Other: All systems not noted in ROS Statement are negative. 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, "boarderline diabetic",gallstones, kidney stones, leakage of urine, abd hernia, wound rt butocks,carpal tunnel, "loose tooth lt upper front" History of Any Multi-Drug Resistant Organisms: None Reported Past Surgical History: Appendectomy, Section, Hernia Repair, H ysterectomy, Tonsillectomy Additional Past Surgical History / Comment(s): LEFT BELOW THE KNEE AMPUTATION, colostomy, lt thigh benign tumor removed, hemmorhoidectomy,carpal tunnel Past Anesthesia/Blood Transfusion Reactions: Postoperative Nausea & Vomiting (PONV) Additional Past Anesthesia/Blood Transfusion Reaction / Comment(s): "never received any blood transfusion" Past Psychological History: No Psychological Hx Reported Smoking Status: Never smoker Past Alcohol Use History: None Reported Past Drug Use History: None Reported - Past Family History Mother Family Medical History: Dementia Father Family Medical History: Dementia General Exam - General Exam Comments Initial Comments: General: Appears in no acute distress. HEAD: Normal with no signs of head trauma. EYES: EOMI ENT: Hearing grossly intact, normal oropharynx. RESPIRATORY: Clear breath sounds bilaterally. No wheezes, rales, or rhonchi. C/V: Regular rate and rhythm. S1 and S2 auscultated. ABD: Abd is soft, nontender, nondistended EXT: Left lower extremity amputation. SKIN: Patient has erythema around the ostomy site with very mild induration. No obvious fluctuance to suggest abscess. Patient is also erythemic under skin folds, likely chronic. States she has not always compliant with her nystatin powder. NEURO: Alert and oriented x 4. Limitations: no limitations Course Vital Signs 08/13/23 08/13/23 16:10 18:38 Temperature 97.8 F 98.6 F Pulse Rate 69 65 Respiratory 18 18 Rate Blood Pressure 111/72 139/59 O2 Sat by Pulse 98 97 Oximetry Medical Decision Making - Medical Decision Making Was pt. sent in by a medical professional or institution (MONI Saldaña, MIDDLE SCHOOL PRINCIPAL, urgent care, hospital, or retirement...) When possible be specific @ -States she was sent in by her doctor for evaluation of her ostomy site. Did you speak to anyone other than the patient for history (EMS, parent, family, police, friend...)? What history was obtained from this source @ -No Did you review nursing and triage notes (agree or disagree)? Why? @ -I reviewed and agree with nursing and triage notes Were old charts reviewed (outside hosp., previous admission, EMS record, old EKG, old radiological studies, urgent care reports/EKG's, retirement records)? Report findings @ -Old charts reviewed Differential Diagnosis (chest pain, altered mental status, abdominal pain women, abdominal pain men, vaginal bleeding, weakness, fever, dyspnea, syncope, headach e, dizziness, GI bleed, back pain, seizure, CVA, palpatations, mental health, musculoskeletal)? @ -Cellulitis, uncontrolled diabetes, medical supplies refill. This list is not all inclusive. EKG interpreted by me (3pts min.). @ -None done X-rays interpreted by me (1pt min.). @ -None done CT interpreted by me (1pt min.). @ -None done U/S interpreted by me (1pt. min.). @ -None done What testing was considered but not performed or refused? (CT, X-rays, U/S, labs)? Why? @ -None What meds were considered but not given or refused? Why? @ -None Did you discuss the management of the patient with other professionals (professionals i.e. DrWarren, PA, MIDDLE SCHOOL PRINCIPAL, lab, RT, psych nurse, social services director, machine cage maker, teacher, peace officer, bilingual case manager)? Give summary @ -No Was smoking cessation discussed for >3mins.? @ -No Was critical care preformed (if so, how long)? @ -No Were there social determinants of health that impacted care today? How? (Homelessness, low income, unemployed, alcoholism, drug addiction, transportation, low edu. Level, literacy, decrease access to med. care, retirement, rehab)? @ -No Was there de-escalation of care discussed even if they declined (Discuss DNR or withdrawal of care, Hospice)? DNR status @ -No What co-morbidities impacted this encounter? (DM, HTN, Smoking, COPD, CAD, Cancer, CVA, ARF, Chemo, Hep., AIDS, mental health diagnosis, sleep apnea, morbid obesity)? @ -History of ostomy. Was patient admitted / discharged? Hospital course, mention meds given and route, prescriptions, significant lab abnormalities, going to OR and other pertinent info. @ -Patient presents for ostomy site evaluation. Has been without ostomy supplies for the last few months and has been just using a bedpan to collect the ostomy output. Has surrounding erythema concerning for cellulitic changes. Possible contact dermatitis as well. Patient does have a history of diabetes. She was sent by her PCP for basic labs and evaluation of her ostomy site. We will obtain ostomy supplies and obtain basic labs for her. She will be given Tylenol as well as nystatin powder. Patient was in agreement with this plan. Vital signs are within acceptable limits. Patient's laboratory studies unremarkable. We successfully replaced the patient's ostomy bag in which she was given extra supplies. I discussed results with patient. We discussed the erythema around her ostomy site likely secondary to contact dermatitis versus mild cellulitis. She will be empirically started on antibiotics. She was in agreement this plan. She will follow-up with her PCP for additional ostomy supplies. Patient given a dose of Bactrim prior to discharge. I will provide the patient with a prescription for Bactrim. I instructed the patient to follow up with their PCP in the next 1-3 days. I explained that the patient should return to the emergency department if they experience any worsening symptoms. Strict return precautions were discussed with the patient. The patient expressed understanding of these instructions. I answered all questions that the patient had. The patient was discharged home in good condition with their prescriptions and follow up information. Undiagnosed new problem with uncertain prognosis? @ -No Drug Therapy requiring intensive monitoring for toxicity (Heparin, Nitro, Insulin, Cardizem)? @ -No Were any procedures done? @ -No Diagnosis/symptom? @ -Cellulitis, complication of ostomy Acute, or Chronic, or Acute on Chronic? @ -Acute Uncomplicated (without systemic symptoms) or Complicated (systemic symptoms)? @ -Uncomplicated Side effects of treatment? @ -None Exacerbation, Progression, or Severe Exacerbation] @ -No Poses a threat to life or bodily function? @ -Unlikely - Lab Data Result diagrams: 08/13/23 16:27 08/13/23 16:27 Lab Results 08/13/23 08/13/23 Range/Units 16:27 16:27 WBC 7.8 (3.8-10.6) k/uL RBC 4.03 (3.80-5.40) m/uL Hgb 11.3 L (11.4-16.0) gm/dL Hct 35.2 (34.0-46.0) % MCV 87.2 (80.0-100.0) fL MCH 28.1 (25.0-35.0) pg MCHC 32.2 (31.0-37.0) g/dL RDW 15.6 H (11.5-15.5) % Plt Count 370 (150-450) k/uL MPV 8.1 Neutrophils % 63 % Lymphocytes % 22 % Monocytes % 5 % Eosinophils % 7 % Basophils % 1 % Neutrophils # 4.9 (1.3-7.7) k/uL Lymphocytes # 1.7 (1.0-4.8) k/uL Monocytes # 0.4 (0-1.0) k/uL Eosinophils # 0.6 (0-0.7) k/uL Basophils # 0.1 (0-0.2) k/uL Sodium 138 (137-145) mmol/L Potassium 4.6 (3.5-5.1) mmol/L Chloride 105 (98-107) mmol/L Carbon Dioxide 29 (22-30) mmol/L Anion Gap 4 mmol/L BUN 15 (7-17) mg/dL Creatinine 0.78 (0.52-1.04) mg/dL Est GFR (CKD-EPI)AfAm 89 (>60 ml/min/1.73 sqM) Est GFR (CKD-EPI)NonAf 78 (>60 ml/min/1.73 sqM) Glucose 99 (74-99) mg/dL Calcium 8.8 (8.4-10.2) mg/dL Disposition Clinical Impression: Cellulitis, Complication of ostomy Disposition: HOME SELF-CARE Condition: Good Instructions (If sedation given, give patient instructions): Cellulitis (ED) Prescriptions: Sulfamethox-Tmp 800-160Mg [Bactrim DS 800-160 mg] 1 tab PO Q12HR 7 Days #14 tab Is patient prescribed a controlled substance at d/c from ED?: No Referrals: Miguel Sapp MD [Primary Care Provider] - 1-2 days Time of Disposition: 17:36
[2023-08-13 17:14] LABS: Basophils # (A) 0.1 k/uL (0-0.2); Basophils % (A) 1 %; Eosinophils # (A) 0.6 k/uL (0-0.7); Eosinophils % (A) 7 %; HCT 35.2 % (34.0-46.0); HGB 11.3 gm/dL (11.4-16.0); Lymphocytes # (A) 1.7 k/uL (1.0-4.8); Lymphocytes % (A) 22 %; MCH 28.1 pg (25.0-35.0); MCHC 32.2 g/dL (31.0-37.0); MCV 87.2 fL (80.0-100.0); Mean Platelet Volume 8.1; Monocytes # (A) 0.4 k/uL (0-1.0); Monocytes % (A) 5 %; Neutrophils # (A) 4.9 k/uL (1.3-7.7); Neutrophils % (A) 63 %; Platelet Count 370 k/uL (150-450); RBC 4.03 m/uL (3.80-5.40); RDW 15.6 % (11.5-15.5); WBC 7.8 k/uL (3.8-10.6)
[2023-08-13] MEDS: NYSTATIN 100,000 UNIT/GM POWD 15 GM TOPICAL SCH (17:19)
[2023-08-13] MEDS: ACETAMINOPHEN TAB 500 MG TAB PO STA (17:19)
[2023-08-13 17:21] LABS: African American GFR (CKD) 89 (>60 ml/min/1.73 sqM); Anion Gap 4 mmol/L; Blood Urea Nitrogen 15 mg/dL (7-17); Calcium 8.8 mg/dL (8.4-10.2); Carbon Dioxide 29 mmol/L (22-30); Chloride 105 mmol/L (98-107); Glucose 99 mg/dL (74-99); Non-African American GFR(CKD) 78 (>60 ml/min/1.73 sqM); Potassium 4.6 mmol/L (3.5-5.1); Sodium 138 mmol/L (137-145)
[2023-08-13] MEDS: SULFAMETHOX-TMP 800-160MG 1 EACH TAB PO STA (18:25)
[2023-08-13 18:48] VITALS: BP 139/59; PULSE 65; TEMP 98.6
== END 2023-08-13 18:40 | disposition home or self-care (01) ==
LOC: EC 16:04
DX: K94.02 Colostomy infection (principal); I10 Essential (primary) hypertension; E11.9 Type 2 diabetes mellitus without complications; J45.909 Unspecified asthma, uncomplicated; Z79.899 Other long term (current) drug therapy; Z91.018 Allergy to other foods; Z88.0 Allergy status to penicillin; Z88.1 Allergy status to other antibiotic agents; Z88.5 Allergy status to narcotic agent; Z88.8 Allergy status to other drugs, medicaments and biological substances
CPT/HCPCS: 36415; 80048; 85025; 99284

== ENCOUNTER 2023-10-19 16:36 | Observation (INO) | payer MEDICARE, OTHER ==
--- NOTE | 2023-10-19 17:16 | ED ---
Female Urogenital HPI - General Chief complaint: Urogenital Stated complaint: AMS Time Seen by Provider: 10/19/23 17:15 Source: patient, EMS, RN notes reviewed Mode of arrival: EMS Limitations: altered mental status - History of Present Illness Initial comments: 73-year-old female presented to the ER via EMS with a chief complaint of dysuria. Patient was at home and cares for herself and caregiver visited her today and is concerned of UTI. Patient is reporting dysuria and abdominal pain for the past 3 weeks. She does have an ostomy which she cares for herself. Denies any fevers, chills, cough, congestion, chest pain, shortness of breath. EMS states upon arrival to residence they found an empty Zyprexa bottle labeled 2/ 3. It is unsure if patient took too many or did not take any of her medication. Patient manages her own medication. - Related Data Home Medications Medication Instructions Recorded Confirmed Melatonin 5 mg PO HS 10/04/16 09/11/20 Ergocalciferol (Vitamin D2) 50,000 unit PO Q7D 10/25/18 09/11/20 [Vitamin D2] Oxybutynin ER [Ditropan XL] 15 mg PO DAILY 10/25/18 09/11/20 Sertraline [Zoloft] 100 mg PO DAILY 10/25/18 09/11/20 Nystatin 100,000 Unit/gm Powd 1 applic TOPICAL BID PRN 08/30/20 09/11/20 [Mycostatin Powder] Ondansetron [Zofran] 4 mg PO Q12H PRN 08/30/20 09/11/20 Pantoprazole Sodium [Protonix] 40 mg PO DAILY 08/30/20 09/11/20 Previous Rx's Medication Instructions Recorded Acetaminophen Tab [Tylenol] 650 mg PO Q6H PRN #1 tab 09/14/20 Albuterol Nebulized [Ventolin 2.5 mg INHALATION Q6H PRN ml 09/14/20 Nebulized] Cephalexin [Keflex] 500 mg PO TID #6 cap 09/14/20 Diphenox-Atrop 2.5-0.025 mg 1 tab PO BID PRN #6 tab 09/14/20 [Lomotil] Naproxen [Naprosyn] 250 mg PO TID PRN #1 tab 09/14/20 Nystatin 100,000 Unit/gm Powd 1 applic TOPICAL BID #1 bottle 10/28/20 [Mycostatin Powder] Cephalexin [Keflex] 500 mg PO Q6HR 10 Days #40 cap 08/01/22 Mupirocin 2% Oint [Bactroban 2% 1 applic TOPICAL TID #22 gm 05/06/23 Oint] Sulfamethox-Tmp 800-160Mg [Bactrim 1 tab PO Q12HR 7 Days #14 tab 08/13/23 DS 800-160 mg] Allergies Allergy/AdvReac Type Severity Reaction Status Date / Time Penicillins Allergy Anaphylaxis Verified 08/13/23 16:14 cephalexin monohydrate AdvReac Nausea & Verified 08/13/23 16:14 [From Keflex] Vomiting codeine AdvReac Nausea & Verified 08/13/23 16:14 Vomiting red food dye Allergy Rash/Hives Uncoded 08/13/23 16:14 Review of Systems ROS Statement: Those systems with pertinent positive or pertinent negative responses have been documented in the HPI. ROS Other: All systems not noted in ROS Statement are negative. 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, "boarderline diabetic",gallstones, kidney stones, leakage of urine, abd hernia, wound rt butocks,carpal tunnel, "loose tooth lt upper front" History of Any Multi-Drug Resistant Organisms: None Reported Past Surgical History: Appendectomy, Section, Hernia Repair, Hysterectomy, Tonsillectomy Additional Past Surgical History / Comment(s): LEFT BELOW THE KNEE AMPUTATION, colostomy, lt thigh benign tumor removed, hemmorhoidectomy,carpal tunnel Past Anesthesia/Blood Transfusion Reactions: Postoperative Nausea & Vomiting (PONV) Additional Past Anesthesia/Blood Transfusion Reaction / Comment(s): "never received any blood transfusion" Past Psychological History: No Psychological Hx Reported Smoking Status: Never smoker Past Alcohol Use History: None Reported Past Drug Use History: None Reported - Past Family History Mother Family Medical History: Dementia Father Family Medical History: Dementia General Exam Limitations: physical limitation General appearance: alert, in no apparent distress, other (Urine odor) Head exam: Present: atraumatic, normocephalic, normal inspection Eye exam: Present: normal appearance, PERRL, EOMI. Absent: scleral icterus, conjunctival injection, periorbital swelling Respiratory exam: Present: normal lung sounds bilaterally. Absent: respiratory distress, wheezes, rales, rhonchi, stridor Cardiovascular Exam: Present: regular rate, normal rhythm, normal heart sounds. Absent: systolic murmur, diastolic murmur, rubs, gallop, clicks GI/Abdominal exam: Present: soft, normal bowel sounds, hernia (Large left ventral hernia), other (Ostomy in right lower quadrant.). Absent: distended, tenderness, guarding, rebound, rigid Neurological exam: Present: alert, CN II-XII intact Skin exam: Present: warm, dry, intact, normal color. Absent: rash Course Vital Signs 10/19/23 10/19/23 10/19/23 16:41 16:46 18:15 Temperature 98 F Pulse Rate 75 68 Respiratory 18 18 Rate Blood Pressure 127/65 114/56 O2 Sat by Pulse 98 98 Oximetry - Reevaluation(s) Reevaluation #1: 10/19/23 19:[address] Garibay who accepts observation admission. Medical Decision Making - Medical Decision Making Was pt. sent in by a medical professional or institution (, PA, SET UP PERSON, urgent care, hospital, or detention...) When possible be specific @ -No Did you speak to anyone other than the patient for history (EMS, parent, family, police, friend...)? What history was obtained from this source @ -No Did you review nursing and triage notes (agree or disagree)? Why? @ -I reviewed and agree with nursing and triage notes Were old charts reviewed (outside hosp., previous admission, EMS record, old EKG, old radiological studies, urgent care reports/EKG's, detention records)? Report findings @ -No old charts were reviewed Differential Diagnosis (chest pain, altered mental status, abdominal pain women, abdominal pain men, vaginal bleeding, weakness, fever, dyspnea, syncope, headache, dizziness, GI bleed, back pain, seizure, CVA, palpatations, mental health, musculoskeletal)? @ -Differential Altered Mental Status: Hypoglycemia, DKA, hypercapnia, ETOH, overdose, CO poisoning, trauma, myxedema coma, HTN encephalopathy, infection, encephalitis, psychosis, intercranial hemorrhage, hepatic encephalopathy, meningitis, CVA, this is not meant to be an all-inclusive list EKG interpreted by me (3pts min.). @ -None X-rays interpreted by me (1pt min.). @ -None done CT interpreted by me (1pt min.). @ -None done U/S interpreted by me (1pt. min.). @ -None done What testing was considered but not performed or refused? (CT, X-rays, U/S, labs)? Why? @ -None What meds were considered but not given or refused? Why? @ -None Did you discuss the management of the patient with other professionals (professionals i.e. , PA, SET UP PERSON, lab, RT, psych nurse, protective services social worker, chyron operator, teacher, custodial officer, registered nurse hh case manager)? Give summary @ -Yes, Case discussed with Dr. Garibay who accepts medical admission. Was smoking cessation discussed for >3mins.? @ -No Was critical care preformed (if so, how long)? @ -No Were there social determinants of health that impacted care today? How? (Homelessness, low income, unemployed, alcoholism, drug addiction, transportation, low edu. Level, literacy, decrease access to med. care, senior care, rehab)? @ -Patient lives at home alone and is normally AxO x 2 per caregiver. Was there de-escalation of care discussed even if they declined (Discuss DNR or withdrawal of care, Hospice)? DNR status @ -No What co-morbidities impacted this encounter? (DM, HTN, Smoking, COPD, CAD, Cancer, CVA, ARF, Chemo, Hep., AIDS, mental health diagnosis, sleep apnea, morbid obesity)? @ -Obese, below the knee amputation Was patient admitted / discharged? Hospital course, mention meds given and route, prescriptions, significant lab abnormalities, going to OR and other pertinent info. @ -Admitted. 73-year-old female presented to the ER via EMS with a chief complaint of dysuria. History and physical exam completed. Vitals stable. Patient in no signs acute distress and nontoxic-appearing. Patient had a strong urine order on exam. Ostomy in place. Labs obtained significant for a hemoglobin of 10 0.8. JESSICA (BUN 27, creatinine 1.15). Urine without signs of i nfection. Speaking with EMS they found an empty Zyprexa bottle at residence. They found it labeled 2/3. They stated patient controls her own medications. Zyprexa level pending. Due to concern of patient's ability to care for herself admission was considered. Case discussed with Dr. June hopkins admission. Patient started on IV fluids for JESSICA. Patient admitted to observation. Patient agreeable for admission. Case discussed with ED attending, Dr. Workman. Undiagnosed new problem with uncertain prognosis? @ -No Drug Therapy requiring intensive monitoring for toxicity (Heparin, Nitro, Insulin, Cardizem)? @ -No Were any procedures done? @ -No Diagnosis/symptom? @ -JESSICA Acute, or Chronic, or Acute on Chronic? @ -Acute Uncomplicated (without systemic symptoms) or Complicated (systemic symptoms)? @ -Uncomplicated Side effects of treatment? @ -No Exacerbation, Progression, or Severe Exacerbation? @ -No Poses a threat to life or bodily function? How? (Chest pain, [place], [place], pneumonia, PE, COPD, DKA, ARF, appy, cholecystitis, CVA, Diverticulitis, Homicidal, Suicidal, threat to staff... and all critical care pts) @ -No - Lab Data Result diagrams: 10/19/23 17:44 10/19/23 17:44 Lab Results 10/19/23 10/19/23 10/19/23 Range/Units 17:44 17:44 17:44 WBC 6.3 (3.8-10.6) k/uL RBC 3.78 L (3.80-5.40) m/uL Hgb 10.8 L (11.4-16.0) gm/dL Hct 33.6 L (34.0-46.0) % MCV 89.0 (80.0-100.0) fL MCH 28.6 (25.0-35.0) pg MCHC 32.1 (31.0-37.0) g/dL RDW 14.0 (11.5-15.5) % Plt Count 313 (150-450) k/uL MPV 7.9 Neutrophils % 61 % Lymphocytes % 24 % Monocytes % 6 % Eosinophils % 6 % Basophils % 1 % Neutrophils # 3.8 (1.3-7.7) k/uL Lymphocytes # 1.5 (1.0-4.8) k/uL Monocytes # 0.3 (0-1.0) k/uL Eosinophils # 0.4 (0-0.7) k/uL Basophils # 0.1 (0-0.2) k/uL Sodium 142 (137-145) mmol/L Potassium 4.0 (3.5-5.1) mmol/L Chloride 108 H (98-107) mmol/L Carbon Dioxide 26 (22-30) mmol/L Anion Gap 8 mmol/L BUN 27 H (7-17) mg/dL Creatinine 1.15 H (0.52-1.04) mg/dL Est GFR (CKD-EPI)AfAm 55 (>60 ml/min/1.73 sqM) Est GFR (CKD-EPI)NonAf 48 (>60 ml/min/1.73 sqM) Glucose 98 (74-99) mg/dL Plasma Lactic Acid Florencio (0.7-2.0) mmol/L Calcium 9.3 (8.4-10.2) mg/dL Total Bilirubin 0.3 (0.2-1.3) mg/dL AST 19 (14-36) U/L ALT 12 (4-34) U/L Alkaline Phosphatase 71 (38-126) U/L Total Protein 6.7 (6.3-8.2) g/dL Albumin 3.7 (3.5-5.0) g/dL Amylase 53 (30-110) U/L Lipase 48 (23-300) U/L Urine Color Light Yellow Urine Appearance Clear (Clear) Urine pH 6.5 (5.0-8.0) Ur Specific [place] 1.008 (1.001-1.035) Urine Protein Negative (Negative) Urine Glucose (UA) Negative (Negative) Urine Ketones Negative (Negative) Urine Blood Negative (Negative) Urine Nitrite Negative (Negative) Urine Bilirubin Negative (Negative) Urine Urobilinogen <2.0 (<2.0) mg/dL Ur Leukocyte Esterase Negative (Negative) 10/19/23 Range/Units 17:44 WBC (3.8-10.6) k/uL RBC (3.80-5.40) m/uL Hgb (11.4-16.0) gm/dL Hct (34.0-46.0) % MCV (80.0-100.0) fL MCH (25.0-35.0) pg MCHC (31.0-37.0) g/dL RDW (11.5-15.5) % Plt Count (150-450) k/uL MPV Neutrophils % % Lymphocytes % % Monocytes % % Eosinophils % % Basophils % % Neutrophils # (1.3-7.7) k/uL Lymphocytes # (1.0-4.8) k/uL Monocytes # (0-1.0) k/uL Eosinophils # (0-0.7) k/uL Basophils # (0-0.2) k/uL Sodium (137-145) mmol/L Potassium (3.5-5.1) mmol/L Chloride (98-107) mmol/L Carbon Dioxide (22-30) mmol/L Anion Gap mmol/L BUN (7-17) mg/dL Creatinine (0.52-1.04) mg/dL Est GFR (CKD-EPI)AfAm (>60 ml/min/1.73 sqM) Est GFR (CKD-EPI)NonAf (>60 ml/min/1.73 sqM) Glucose (74-99) mg/dL Plasma Lactic Acid Florencio 1.2 (0.7-2.0) mmol/L Calcium (8.4-10.2) mg/dL Total Bilirubin (0.2-1.3) mg/dL AST (14-36) U/L ALT (4-34) U/L Alkaline Phosphatase (38-126) U/L Total Protein (6.3-8.2) g/dL Albumin (3.5-5.0) g/dL Amylase (30-110) U/L Lipase (23-300) U/L Urine Color Urine Appearance (Clear) Urine pH (5.0-8.0) Ur Specific [place] (1.001-1.035) Urine Protein (Negative) Urine Glucose (UA) (Negative) Urine Ketones (Negative) Urine Blood (Negative) Urine Nitrite (Negative) Urine Bilirubin (Negative) Urine Urobilinogen (<2.0) mg/dL Ur Leukocyte Esterase (Negative) Disposition Clinical Impression: Acute kidney injury Disposition: ADMITTED IP TO THIS [facility] Condition: Fair Referrals: Miguel Sapp MD [Primary Care Provider] - 1-2 days Time of Disposition: 19:29
[2023-10-19 17:56] LABS: Basophils # (A) 0.1 k/uL (0-0.2); Basophils % (A) 1 %; Eosinophils # (A) 0.4 k/uL (0-0.7); Eosinophils % (A) 6 %; HCT 33.6 % (34.0-46.0); HGB 10.8 gm/dL (11.4-16.0); Lymphocytes # (A) 1.5 k/uL (1.0-4.8); Lymphocytes % (A) 24 %; MCH 28.6 pg (25.0-35.0); MCHC 32.1 g/dL (31.0-37.0); Mean Platelet Volume 7.9; Monocytes # (A) 0.3 k/uL (0-1.0); Monocytes % (A) 6 %; Neutrophils # (A) 3.8 k/uL (1.3-7.7); Neutrophils % (A) 61 %; Platelet Count 313 k/uL (150-450); RBC 3.78 m/uL (3.80-5.40); WBC 6.3 k/uL (3.8-10.6)
[2023-10-19 18:12] LABS: ALT 12 U/L (4-34); AST 19 U/L (14-36); African American GFR (CKD) 55 (>60 ml/min/1.73 sqM); Albumin 3.7 g/dL (3.5-5.0); Alkaline Phosphatase 71 U/L (38-126); Amylase 53 U/L (30-110); Anion Gap 8 mmol/L; Appearance,Urine Clear (Clear); Bilirubin,Urine Negative (Negative); Blood Urea Nitrogen 27 mg/dL (7-17); Blood,Urine Negative (Negative); Calcium 9.3 mg/dL (8.4-10.2); Carbon Dioxide 26 mmol/L (22-30); Chloride 108 mmol/L (98-107); Color,Urine Light Yellow; Glucose 98 mg/dL (74-99); Glucose,Urine (UA) Negative (Negative); Ketones,Urine Negative (Negative); Leukocyte Esterase,Urine Negative (Negative); Lipase 48 U/L (23-300); Nitrite,Urine Negative (Negative); Non-African American GFR(CKD) 48 (>60 ml/min/1.73 sqM); PH, Urine 6.5 (5.0-8.0); Protein,Urine Negative (Negative); Sodium 142 mmol/L (137-145); Specific Gravity,Urine 1.008 (1.001-1.035); Total Bilirubin 0.3 mg/dL (0.2-1.3); Total Protein 6.7 g/dL (6.3-8.2); Urobilinogen,Urine <2.0 mg/dL (<2.0)
[2023-10-19] MEDS: SODIUM CHLORIDE 0.9% 500 ML 500 ML IV STA (18:15)
[2023-10-19] MEDS ORDERED: NALOXONE 0.4 MG/ML 1 ML VIAL IV PRN (18:54)
[2023-10-19] MEDS: SODIUM CHLORIDE 0.9% 1,000 ML IV SCH (19:07)
--- NOTE | 2023-10-20 00:38 | P.HPIM ---
History of Present Illness H&P Date: 10/19/23 Chief Complaint: Abdominal pain 73-year-old female with hyperlipidemia, hypertension Patient has very poor insight of her medical conditions and provides a very poor history Patient reports that she is here for erythema and itching that is mainly over her right arm abdomen and intertriginous region. Patient also have a superficial wound over the right forearm which is tender to touch she denies any fevers chills nausea vomiting chest pain or trouble breathing She does report some vague abdominal pain, she has history of colostomy however does not recall exactly why she has it for. She also reports dysuria and difficulty with urination Otherwise history is limited from the patient she does have a guardian she lives at home she uses a wheelchair to get around and she pushes herself. EMS noted that upon arrival patient lives alone she has a bottle of Zyprexa that is empty review of systems Pertinent positives as noted in HPI. All other systems were reviewed and are negative on exam Constitutional: No acute distress, Eyes: Anicteric sclerae, moist conjunctiva, Pupils equal round reactive to light ENMT: NC/AT Oropharynx clear, no erythema, or exudates Neck: Supple, no masses, or JVD No carotid bruits No thyromegaly Lungs: Clear to auscultation Clear to percussion Normal respiratory effort, no accessory muscle use Cardiovascular: Heart regular in rate and rhythm, No murmurs, gallops, or rubs No peripheral edema Abdominal: Soft Nontender, no guarding, rebound or rigidity Abdomen moving with respiration Normoactive bowel sounds No erythema over intertriginous region Skin: There is superficial wound over the right forearm tender to the touch no active drainage no surrounding erythema or induration Extremities: No digital cyanosis No clubbing Pedal pulses intact left lower extremity Radial pulses intact and symmetrical No calf tenderness Right BKA Psychiatric: Alert and oriented to person, place Neuro Muscles Strength 3/5 in bilateral lower extremity 4 out of 5 in bilateral upper extremity Sensation to light touch grossly present throughout Cranial nerves II-XII grossly intact 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, "boarderline diabetic",gallstones, kidney stones, leakage of urine, abd hernia, wound rt butocks,carpal tunnel, "loose tooth lt upper front" History of Any Multi-Drug Resistant Organisms: None Reported Past Surgical History: Appendectomy, Section, Hernia Repair, Hysterectomy, Tonsillectomy Additional Past Surgical History / Comment(s): LEFT BELOW THE KNEE AMPUTATION, colostomy, lt thigh benign tumor removed, hemmorhoidectomy,carpal tunnel Past Anesthesia/Blood Transfusion Reactions: Postoperative Nausea & Vomiting (PONV) Additional Past Anesthesia/Blood Transfusion Reaction / Comment(s): "never received any blood transfusion" Past Psychological History: No Psychological Hx Reported Additional Psychological History / Comment(s): pt stated went thru special education classes stated has about a 4th grade level. able to read some and write. needs things explained to her. pt lives in apt able to drive but has no car,takes the bus. uses a scooter.recieves meals on wheels, home care and colostomy supplies. Pt states she is here to go to a [facility]. Smoking Status: Never smoker Past Alcohol Use History: None Reported Past Drug Use History: None Reported - Past Family History Mother Family Medical History: Dementia Father Family Medical History: Dementia Medications and Allergies Home Medications Medication Instructions Recorded Confirmed Type Oxybutynin ER [Ditropan XL] 15 mg PO DAILY 10/25/18 10/19/23 History Sertraline [Zoloft] 100 mg PO DAILY 10/25/18 10/19/23 History Mupirocin 2% Oint [Bactroban 2% 1 applic TOPICAL TID #22 gm 05/06/23 10/19/23 Rx Oint] Atorvastatin [Lipitor] 10 mg PO DAILY 10/19/23 10/19/23 History Levocetirizine Dihydrochloride 5 mg PO DAILY 10/19/23 10/19/23 History [Xyzal] Nitrofurantoin Monohyd/M-Cryst 100 mg PO DIRECTED 10/19/23 10/19/23 History [Macrobid] OLANZapine [ZyPREXA] 10 mg PO HS 10/19/23 10/19/23 History Omeprazole [PriLOSEC] 20 mg PO DAILY 10/19/23 10/19/23 History Sulfamethox-Tmp 800-160Mg [Bactrim 1 tab PO DIRECTED 10/19/23 10/19/23 History DS 800-160 mg] lisinopriL [Zestril] 20 mg PO DAILY 10/19/23 10/19/23 History Allergies Allergy/AdvReac Type Severity Reaction Status Date / Time Penicillins Allergy Anaphylaxis Verified 10/19/23 20:24 cephalexin monohydrate AdvReac Nausea & Verified 10/19/23 20:24 [From Keflex] Vomiting codeine AdvReac Nausea & Verified 10/19/23 20:24 Vomiting red food dye Allergy Rash/Hives Uncoded 08/13/23 16:14 Physical Exam Vitals: Vital Signs Temp Pulse Pulse Resp BP BP Pulse Ox 10/19/23 21:46 98.1 F 59 L 16 136/76 98 10/19/23 19:34 58 L 18 108/52 98 10/19/23 18:15 68 18 114/56 98 10/19/23 16:46 127/65 10/19/23 16:41 98 F 75 18 98 Intake and Output 10/19/23 10/19/23 10/20/23 14:59 22:59 06:59 Output Total 300 Balance -300 Output: Urine 300 Other: Weight 136.078 kg Results CBC & Chem 7: 10/19/23 17:44 10/19/23 17:44 Labs: Abnormal Lab Results - Last 24 Hours (Table) 10/19/23 10/19/23 Range/Units 17:44 17:44 RBC 3.78 L (3.80-5.40) m/uL Hgb 10.8 L (11.4-16.0) gm/dL Hct 33.6 L (34.0-46.0) % Chloride 108 H (98-107) mmol/L BUN 27 H (7-17) mg/dL Creatinine 1.15 H (0.52-1.04) mg/dL Thrombosis Risk Factor Assmnt - Choose All That Apply Any of the Below Risk Factors Present?: Yes Each Factor Represents 1 point: Obesity (BMI >25) Other Risk Factors: Yes Each Risk Factor Represents 2 Points: Age 61-74 years Other congenital or acquired thrombophilia - If yes, enter type in comment: No Thrombosis Risk Factor Assessment Total Risk Factor Score: 3 Thrombosis Risk Factor Assessment Level: Moderate Risk Assessment and Plan Assessment: 73-year-old female coming in due to abdominal pain and dysuria I discussed case with ED doctor and accepted the admission for abdominal pain to rule out infectious process with anticipated length of stay less than 2 midnights Diffuse abdominal pain Urine analysis unremarkable Check C. difficile Patient has colostomy however she does not recall why she had it Abdominal pain with history of colostomy patient does not want she has a colostomy Pain control symptomatic control Check C. difficile Patient reports using antibiotics over the past 3 months does not recall the type Colostomy care Right forearm wounds Topical mupirocin Local wound care daily Hypertension Continue with lisinopril Hyperlipidemia Continue statin Chronic anemia hemoglobin 10.8 Stable Full code DVT flexes heparin subcu 3 times daily Patient has a guardian
[2023-10-20] MEDS: MUPIROCIN 2% OINT 22 GM TUBE TOPICAL SCH (00:59)
[2023-10-20] MEDS: PANTOPRAZOLE 40 MG TABLET PO SCH (06:13)
[2023-10-20 09:08] LABS: Basophils # (A) 0.1 k/uL (0-0.2); Basophils % (A) 1 %; Eosinophils # (A) 0.4 k/uL (0-0.7); Eosinophils % (A) 7 %; HCT 35.7 % (34.0-46.0); HGB 11.1 gm/dL (11.4-16.0); Hypochromasia Moderate; Lymphocytes # (A) 1.2 k/uL (1.0-4.8); Lymphocytes % (A) 19 %; MCH 28.8 pg (25.0-35.0); MCV 92.9 fL (80.0-100.0); Mean Platelet Volume 7.9; Monocytes # (A) 0.3 k/uL (0-1.0); Monocytes % (A) 5 %; Neutrophils # (A) 4.2 k/uL (1.3-7.7); Neutrophils % (A) 67 %; Platelet Count 338 k/uL (150-450); RBC 3.85 m/uL (3.80-5.40); RDW 13.8 % (11.5-15.5); WBC 6.2 k/uL (3.8-10.6)
[2023-10-20 09:14] LABS: African American GFR (CKD) 81 (>60 ml/min/1.73 sqM); Anion Gap 7 mmol/L; Blood Urea Nitrogen 23 mg/dL (7-17); Calcium 8.9 mg/dL (8.4-10.2); Carbon Dioxide 23 mmol/L (22-30); Chloride 109 mmol/L (98-107); Glucose 101 mg/dL (74-99); Non-African American GFR(CKD) 70 (>60 ml/min/1.73 sqM); Potassium 4.6 mmol/L (3.5-5.1); Sodium 139 mmol/L (137-145)
[2023-10-20] MEDS: ATORVASTATIN 10 MG TAB PO SCH (09:26)
[2023-10-20] MEDS: HEPARIN SODIUM,PORCINE 5,000 UNIT/ML 1 ML VIAL SQ SCH (09:26)
[2023-10-20] MEDS: lisinopriL 20 MG TAB PO SCH (09:26)
[2023-10-20] MEDS: SERTRALINE 100 MG TAB PO SCH (09:26)
[2023-10-20] MEDS: OXYBUTYNIN 15 MG TAB.ER.24 PO SCH (09:26)
--- NOTE | 2023-10-20 10:23 | P.PN ---
Subjective Progress Note Date: 10/20/23 No new complaints. Zyprexa level pending. JESSICA resolved with IVF. PT/OT ordered for placement consideration. ST consulted for cognitive eval> Gen: In NAD, non-toxic HEENT: normocephalic, atraumatic, hearing acuity is intant, mucous membranes moist CVS: perfusing all extremities well, no pitting edema, Respiratory: symmetric chest expansion, no accessory muscle use, GI: soft, NTTP, ND, : no suprapubic tenderness, no CVA tenderness MSK/Derm: no rashes, cyanosis Neuro: CN II-XII intact, no motor weakness, Psych: cooperative, euthymic mood, judgment and insight is intact Hospital Course: 73-year-old female coming in due to abdominal pain and dysuria I discussed case with ED doctor and accepted the admission for abdominal pain to rule out infectious process with anticipated length of stay less than 2 midnights -Urine analysis unremarkable Assessment/Plan: Diffuse abdominal pain -Check C. difficile -Patient has colostomy however she does not recall why she had it Dementia Generalized weakness -ST for cognition -PT/OT JESSICA -IVF 1000cc bolus, 75cc/hr NS -resolved after IVF Abdominal pain with history of colostomy -Pain control symptomatic control -Check C. difficile -Colostomy care Right forearm wounds -Topical mupirocin -Local wound care daily Hypertension -Continue with lisinopril Hyperlipidemia -Continue statin Chronic anemia hemoglobin 10.8 -Stable Full code DVT flexes heparin subcu 3 times daily Patient has a guardian Objective - Vital Signs Vital signs: Vital Signs Temp 97.5 F L 10/20/23 07:00 Pulse 62 10/20/23 07:00 Resp 16 10/20/23 07:00 BP 129/55 10/20/23 07:00 Pulse Ox 96 10/20/23 07:00 FiO2 Intake & Output 10/19/23 10/20/23 10/20/23 18:59 06:59 18:59 Intake Total 118 Output Total 1550 Balance -1550 118 Weight 136.078 kg 136.078 kg Intake: Oral 118 Output: Urine 1550 Other: Voiding Method Indwelling Catheter - Labs CBC & Chem 7: 10/20/23 08:20 10/20/23 08:20 Labs: Abnormal Lab Results - Last 24 Hours (Table) 0410/19/23 10/20/23 Range/Units 17:44 17:44 08:20 RBC 3.78 L (3.80-5.40) m/uL Hgb 10.8 L 11.1 L (11.4-16.0) gm/dL Hct 33.6 L (34.0-46.0) % Chloride 108 H (98-107) mmol/L BUN 27 H (7-17) mg/dL Creatinine 1.15 H (0.52-1.04) mg/dL Glucose (74-99) mg/dL 10/20/23 Range/Units 08:20 RBC (3.80-5.40) m/uL Hgb (11.4-16.0) gm/dL Hct (34.0-46.0) % Chloride 109 H (98-107) mmol/L BUN 23 H (7-17) mg/dL Creatinine (0.52-1.04) mg/dL Glucose 101 H (74-99) mg/dL
[2023-10-20] MEDS: ACETAMINOPHEN TAB 325 MG TAB PO PRN (14:18)
[2023-10-20] MEDS: OLANZapine 10 MG TAB PO SCH (21:17)
--- NOTE | 2023-10-21 08:15 | P.PN ---
Subjective Progress Note Date: 10/21/23 No new complaints. Zyprexa level pending. JESSICA resolved with IVF. PT/OT ordered for placement consideration. ST consulted for cognitive eval> Gen: In NAD, non-toxic HEENT: normocephalic, atraumatic, hearing acuity is intant, mucous membranes moist CVS: perfusing all extremities well, no pitting edema, Respiratory: symmetric chest expansion, no accessory muscle use, GI: soft, NTTP, ND, : no suprapubic tenderness, no CVA tenderness MSK/Derm: no rashes, cyanosis Neuro: CN II-XII intact, no motor weakness, Psych: cooperative, euthymic mood, judgment and insight is intact Hospital Course: 73-year-old female coming in due to abdominal pain and dysuria I discussed case with ED doctor and accepted the admission for abdominal pain to rule out infectious process with anticipated length of stay less than 2 midnights -Urine analysis unremarkable Assessment/Plan: Diffuse abdominal pain -Check C. difficile -Patient has colostomy however she does not recall why she had it Dementia Generalized weakness -ST for cognition -PT/OT JESSICA -IVF 1000cc bolus, 75cc/hr NS -resolved after IVF Abdominal pain with history of colostomy -Pain control symptomatic control -Check C. difficile -Colostomy care Right forearm wounds -Topical mupirocin -Local wound care daily Hypertension -Continue with lisinopril Hyperlipidemia -Continue statin Chronic anemia hemoglobin 10.8 -Stable Full code DVT flexes heparin subcu 3 times daily Patient has a guardian Objective - Vital Signs Vital signs: Vital Signs Temp 98.4 F 10/21/23 07:00 Pulse 63 10/21/23 07:00 Resp 18 10/21/23 07:00 BP 154/74 10/21/23 07:00 Pulse Ox 97 10/21/23 07:00 FiO2 Intake & Output 10/20/23 10/21/23 10/21/23 18:59 06:59 18:59 Intake Total 118 Output Total 950 1999 Balance -832 -1999 Intake: Oral 118 Output: Urine 950 1999 Other: Voiding Method Indwelling Catheter Indwelling Catheter # Voids 2 # Bowel Movements 0 - Labs CBC & Chem 7: 10/20/23 08:20 10/20/23 08:20 Labs: Abnormal Lab Results - Last 24 Hours (Table) 10/20/23 10/20/23 Range/Units 08:20 08:20 Hgb 11.1 L (11.4-16.0) gm/dL Chloride 109 H (98-107) mmol/L BUN 23 H (7-17) mg/dL Glucose 101 H (74-99) mg/dL
[2023-10-21 08:33] LABS: Basophils # (A) 0.1 k/uL (0-0.2); Basophils % (A) 1 %; Eosinophils # (A) 0.4 k/uL (0-0.7); Eosinophils % (A) 8 %; HCT 34.9 % (34.0-46.0); HGB 10.8 gm/dL (11.4-16.0); Hypochromasia Slight; Lymphocytes # (A) 2.4 k/uL (1.0-4.8); Lymphocytes % (A) 41 %; MCH 28.3 pg (25.0-35.0); MCV 91.4 fL (80.0-100.0); Mean Platelet Volume 8.4; Monocytes # (A) 0.3 k/uL (0-1.0); Monocytes % (A) 5 %; Neutrophils # (A) 2.5 k/uL (1.3-7.7); Neutrophils % (A) 43 %; Platelet Count 306 k/uL (150-450); RBC 3.82 m/uL (3.80-5.40); WBC 5.7 k/uL (3.8-10.6)
[2023-10-21 08:47] LABS: African American GFR (CKD) 89 (>60 ml/min/1.73 sqM); Anion Gap 5 mmol/L; Blood Urea Nitrogen 18 mg/dL (7-17); Calcium 8.5 mg/dL (8.4-10.2); Carbon Dioxide 26 mmol/L (22-30); Chloride 110 mmol/L (98-107); Glucose 90 mg/dL (74-99); Non-African American GFR(CKD) 77 (>60 ml/min/1.73 sqM); Potassium 4.2 mmol/L (3.5-5.1); Sodium 141 mmol/L (137-145)
[2023-10-22 02:51] VITALS: TEMP 98.2
[2023-10-22 08:21] VITALS: RESP 14
[2023-10-22 14:27] VITALS: BP 103/64; PULSE 57
--- NOTE | 2023-10-24 22:27 | P.DS ---
Providers Date of admission: 10/19/23 20:15 Expected date of discharge: 10/22/23 Attending physician: Andrew Gandhi Primary care physician: Miguel Sapp MD Hospital Course: 73-year-old female coming in due to abdominal pain and dysuria I discussed case with ED doctor and accepted the admission for abdominal pain to rule out infectious process with anticipated length of stay less than 2 midnights -Urine analysis unremarkable October 21: Sitting on bed. Tolerating diet. She has scratched her forearm. Some local bleeding. Patient is a legal guardian. Maikel Valdez. Eating well. After talking to immigration case manager and nurse patient appears to be at her baseline. Will be discharged today On examination: VITAL SIGNS: [98.2, 62, 14, 125/67, 95% room air] GENERAL APPEARANCE: BMI 48.4, sitting on the bed. Scratching of forearm HEENT: Normal external appearance of nose and ear. Oral cavity normal EYES: Pupils equal. Conjunctiva normal. NECK: JVD not raised. Mass not palpable. RESPIRATORY: Respiratory effort normal. Lungs clear to auscultation. CARDIOVASCULAR: First and second sounds normal. No edema. ABDOMEN: Soft. Liver and spleen not palpable. No tenderness. No mass palpable. PSYCHIATRY: Able to answer simple questions. INVESTIGATIONS, reviewed in the clinical context: October 20: White count 5.7 hemoglobin 10.8 platelets 306 potassium 4.2 BUN 18 creatinine 0.78 UA: Negative Admission labs: Creatinine 1.15. BUN 27 Assessment/Plan: -Diffuse abdominal pain: Resolved Patient eating well. No abdominal pain. -Severe cognitive impairment from underlying dementia -GERD Prilosec -Essential hypertension Zestril. -Chronic urinary stress incontinence Ditropan XL 50 mg a day -Depression anxiety Zyprexa 10 mg nightly. 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 Levocetirizine -Acute kidney injury likely prerenal from decreased oral intake IV fluids -Right forearm wounds from recurrent scratching Dressing -Normocytic anemia -Full code -Patient has a legal guardian Maikel Valdez Plan - Discharge Summary Discharge Rx Participant: No New Discharge Prescriptions: Continue Sertraline [Zoloft] 100 mg PO DAILY Oxybutynin ER [Ditropan XL] 15 mg PO DAILY Mupirocin 2% Oint [Bactroban 2% Oint] 1 applic TOPICAL TID #22 gm lisinopriL [Zestril] 20 mg PO DAILY Atorvastatin [Lipitor] 10 mg PO DAILY OLANZapine [ZyPREXA] 10 mg PO HS Levocetirizine Dihydrochloride [Xyzal] 5 mg PO DAILY Omeprazole [PriLOSEC] 20 mg PO DAILY Discontinued Nitrofurantoin Monohyd/M-Cryst [Macrobid] 100 mg PO DIRECTED Sulfamethox-Tmp 800-160Mg [Bactrim DS 800-160 mg] 1 tab PO DIRECTED Discharge Medication List Oxybutynin ER [Ditropan XL] 15 mg PO DAILY 10/25/18 [History] Sertraline [Zoloft] 100 mg PO DAILY 10/25/18 [History] Mupirocin 2% Oint [Bactroban 2% Oint] 1 applic TOPICAL TID #22 gm 05/06/23 [Rx] Atorvastatin [Lipitor] 10 mg PO DAILY 10/19/23 [History] Levocetirizine Dihydrochloride [Xyzal] 5 mg PO DAILY 10/19/23 [History] OLANZapine [ZyPREXA] 10 mg PO HS 10/19/23 [History] Omeprazole [PriLOSEC] 20 mg PO DAILY 10/19/23 [History] lisinopriL [Zestril] 20 mg PO DAILY 10/19/23 [History] Follow up Appointment(s)/Referral(s): Miguel Sapp MD [Primary Care Provider] - 1-2 days (please call for an appointment ) Patient Instructions/Handouts: Acute Kidney Injury (GEN), Urinary Tract Infection in Women (DC)
== END 2023-10-22 15:19 ==
LOC: EC 16:36 → 6NMEDSUR 20:15
PROVIDERS: ADMIT Hospitalist; ATTEND Hospitalist
DX: R10.9 Unspecified abdominal pain (principal); N17.9 Acute kidney failure, unspecified; F03.90 Unspecified dementia, unspecified severity, without behavioral disturbance, psychotic disturbance, mood disturbance, and anxiety; K21.9 Gastro-esophageal reflux disease without esophagitis; N39.3 Stress incontinence (female) (male); F41.9 Anxiety disorder, unspecified; F32.A Depression, unspecified; L29.9 Pruritus, unspecified; J45.909 Unspecified asthma, uncomplicated; E78.5 Hyperlipidemia, unspecified; I10 Essential (primary) hypertension; R73.03 Prediabetes; D64.9 Anemia, unspecified; Z93.3 Colostomy status; Z79.899 Other long term (current) drug therapy; Z88.0 Allergy status to penicillin; Z88.1 Allergy status to other antibiotic agents; Z88.5 Allergy status to narcotic agent
CPT/HCPCS: 96361; 96372 ×3; 96360; 99285; 36415; 97162; 97166; 92523; 80053; 80048 ×2; 80299; 82150; 83605; 83690; 83735 ×2; 85025 ×3; 81003; G0378 ×4; J1644 ×3

== ENCOUNTER 2023-10-25 17:18 | Observation (INO) | payer MEDICARE, OTHER ==
--- NOTE | 2023-10-25 18:44 | ED ---
Psych HPI - General Source: EMS Mode of arrival: EMS <Josefina Castrejon - Last Filed: 10/25/23 18:42> - General Source: EMS, RN notes reviewed, old records reviewed Mode of arrival: EMS Limitations: altered mental status, physical limitation - History of Present Illness MD Complaint: suicidal ideation, feels depressed -: days(s) Associated Psychiatric Symptoms: depression, suicidal ideation History of same: Yes Quality: constant Improves With: none Context: not taking psychiatric medications Associated Symptoms: denies other symptoms Treatments Prior to Arrival: placed on mental health hold If Self Harm: admits thoughts of self harm <Chase Curtis - Last Filed: 10/25/23 20:35> <Zeke Workman - Last Filed: 10/26/23 01:29> - General Chief Complaint: Psychiatric Symptoms Stated Complaint: mental health Time Seen by Provider: 10/25/23 17:40 - History of Present Illness Initial Comments: Quick noteis a 73-year-old female presents emergency department the chief complaint of mental health evaluation. Patient is court petition. (Josefina Castrejon) This is a 73-year-old female presenting for mental health evaluation by court p etition. Patient is a significantly altered human being who does not appear to be currently capable of taking care of herself (Chase Curtis) - Related Data Home Medications Medication Instructions Recorded Confirmed Oxybutynin ER [Ditropan XL] 15 mg PO DAILY 10/25/18 10/25/23 Sertraline [Zoloft] 100 mg PO DAILY 10/25/18 10/25/23 Atorvastatin [Lipitor] 10 mg PO DAILY 10/19/23 10/25/23 Levocetirizine Dihydrochloride 5 mg PO DAILY 10/19/23 10/25/23 [Xyzal] OLANZapine [ZyPREXA] 10 mg PO HS 10/19/23 10/25/23 Omeprazole [PriLOSEC] 20 mg PO DAILY 10/19/23 10/25/23 lisinopriL [Zestril] 20 mg PO DAILY 10/19/23 10/25/23 Fluconazole [Diflucan] 200 mg PO DAILY 10/25/23 10/25/23 Previous Rx's Medication Instructions Recorded Mupirocin 2% Oint [Bactroban 2% 1 applic TOPICAL TID #22 gm 05/06/23 Oint] Allergies Allergy/AdvReac Type Severity Reaction Status Date / Time Penicillins Allergy Anaphylaxis Verified 10/25/23 17:35 cephalexin monohydrate AdvReac Nausea & Verified 10/25/23 17:35 [From Keflex] Vomiting codeine AdvReac Nausea & Verified 10/25/23 17:35 Vomiting red food dye Allergy Rash/Hives Uncoded 10/25/23 17:35 Review of Systems ROS Other: All systems not noted in ROS Statement are negative. <Josefina Castrejon - Last Filed: 10/25/23 18:42> ROS Other: All systems not noted in ROS Statement are negative. <Chase Curtis - Last Filed: 10/25/23 20:35> ROS Other: All systems not noted in ROS Statement are negative. <Zeke Workman - Last Filed: 10/26/23 01:29> ROS Statement: Those systems with pertinent positive or pertinent negative responses have been documented in the HPI. 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, "boarderline diabetic",gallstones, kidney stones, leakage of urine, abd hernia, wound rt butocks,carpal tunnel, "loose tooth lt upper front" History of Any Multi-Drug Resistant Organisms: None Reported Past Surgical History: Appendectomy, Section, Hernia Repair, Hysterectomy, Tonsillectomy Additional Past Surgical History / Comment(s): LEFT BELOW THE KNEE AMPUTATION, colostomy, lt thigh benign tumor removed, hemmorhoidectomy,carpal tunnel Past Anesthesia/Blood Transfusion Reactions: Postoperative Nausea & Vomiting (PONV) Additional Past Anesthesia/Blood Transfusion Reaction / Comment(s): "never received any blood transfusion" Past Psychological History: No Psychological Hx Reported Smoking Status: Never smoker Past Alcohol Use History: None Reported Past Drug Use History: None Reported - Past Family History Mother Family Medical History: Dementia Father Family Medical History: Dementia <Josefina Castrejon - Last Filed: 10/25/23 18:42> General Exam Limitations: no limitations <Josefina Castrejon - Last Filed: 10/25/23 18:42> General appearance: alert, in no apparent distress Head exam: Present: atraumatic, normocephalic, normal inspection Eye exam: Present: normal appearance, PERRL, EOMI. Absent: scleral icterus, conjunctival injection, periorbital swelling ENT exam: Present: normal exam, mucous membranes moist Neck exam: Present: normal inspection. Absent: tenderness, meningismus, lymphadenopathy Respiratory exam: Present: normal lung sounds bilaterally. Absent: respiratory distress, wheezes, rales, rhonchi, stridor Cardiovascular Exam: Present: regular rate, normal rhythm, normal heart sounds. Absent: systolic murmur, diastolic murmur, rubs, gallop, clicks GI/Abdominal exam: Present: soft, normal bowel sounds. Absent: distended, tenderness, guarding, rebound, rigid Extremities exam: Present: normal inspection, full ROM, normal capillary refill. Absent: tenderness, pedal edema, joint swelling, calf tenderness Back exam: Present: normal inspection Neurological exam: Present: alert, oriented X3, CN II-XII intact Psychiatric exam: Present: normal affect, normal mood Skin exam: Present: warm, dry, intact, normal color. Absent: rash <Chase Curtis - Last Filed: 10/25/23 20:35> - General Exam Comments Initial Comments: Visual Physical Exam Vital signs reviewed General: Well-appearing, nontoxic, no acute distress. Head: Normocephalic, atraumatic Eyes: PERRLA, EOMI ENT: Airway patent Chest: Nonlabored breathing Skin: No visual rash, normal skin tone Neuro: Alert and oriented 3 Musculoskeletal: No gross abnormalities (Stieler,Josefina) Course <Chase Curtis - Last Filed: 10/25/23 20:35> Vital Signs 10/25/23 10/25/23 17:33 23:00 Temperature 97.7 F Pulse Rate 64 57 L Respiratory 16 16 Rate Blood Pressure 112/57 O2 Sat by Pulse 98 97 Oximetry - Reevaluation(s) Reevaluation #1: 10/25/23 20:36 Medical record was reviewed (Chase Curtis) Reevaluation #2: 10/25/23 20:36 Patient symptoms are unchanged (Chase Curtis) Reevaluation #3: 04/25/24 20:36 Patient is medically clear for psychiatric evaluation (Chase Curtis) Reevaluation #4: Was pt. sent in by a medical professional or institution (MONI Saldaña, REMARKETING REP, urgent care, hospital, or retirement...) When possible be specific @ -no Did you speak to anyone other than the patient for history (EMS, parent, family, police, friend...)? What history was obtained from this source @ -no Did you review nursing and triage notes (agree or disagree)? Why? @ -agree Are old charts reviewed (outside hosp., previous admission, EMS record, old EKG, old radiological studies, urgent care reports/EKG's, retirement records)? Report findings @ -yes Differential Diagnosis (chest pain, altered mental status, abdominal pain women, abdominal pain men, vaginal bleeding, weakness, fever, dyspnea, syncope, hea dache, dizziness, GI bleed, back pain, seizure, CVA, palpatations, mental health, musculoskeletal)? @ -prior EKG interpreted by me (3pts min.). @ -yes X-rays interpreted by me (1pt min.). @ -yes negative for acute disease CT interpreted by me (1pt min.). @ -no U/S interpreted by me (1pt. min.). @ -no What testing was considered but not performed or refused? (CT, X-rays, U/S, labs)? Why? @ -none What meds were considered but not given or refused? Why? @ -none Did you discuss the management of the patient with other professionals (professionals i.e. MONI Saldaña, REMARKETING REP, lab, RT, psych nurse, social media coordinator, geothermal plant manager, teacher, drug abuse resistance education officer, complex case manager)? Give summary @ -no Was smoking cessation discussed for >3mins.? @ -no Was critical care preformed (if so, how long)? @ -no Were there social determinants of health that impacted care today? How? (Homelessness, low income, unemployed, alcoholism, drug addiction, transportation, low edu. Level, literacy, decrease access to med. care, fdc, rehab)? @ -none Was there de-escalation of care discussed even if they declined (Discuss DNR or withdrawal of care, Hospice)? DNR status @ -no What co-morbidities impacted this encounter? (DM, HTN, Smoking, COPD, CAD, Cancer, CVA, ARF, Chemo, Hep., AIDS, mental health diagnosis, sleep apnea, mo rbid obesity)? @ -none Was patient admitted / discharged? Hospital course, mention meds given and r oute, prescriptions, significant lab abnormalities, going to OR and other pertinent info. @ - Undiagnosed new problem with uncertain prognosis? @ -no Drug Therapy requiring intensive monitoring for toxicity (Heparin, Nitro, Insulin, Cardizem)? @ -no Were any procedures done? @ -no Diagnosis/symptom? @ - Acute, or Chronic, or Acute on Chronic? @ -Acute Uncomplicated (without systemic symptoms) or Complicated (systemic symptoms)? @ -Complicated Side effects of treatment? @ -no Exacerbation, Progression, or Severe Exacerbation? @ -exacerbation Poses a threat to life or bodily function? How? (Chest pain, USA, LA, pneumonia, PE, COPD, DKA, ARF, appy, cholecystitis, CVA, Diverticulitis, Homicidal, Suicidal, threat to staff... and all critical care pts) @ -yes (Chase Curtis) Medical Decision Making <Josefina Castrejon - Last Filed: 10/25/23 18:42> - Lab Data Result diagrams: 10/25/23 20:21 10/25/23 20:21 <Zeke Workman - Last Filed: 10/26/23 01:29> - Medical Decision Making I completed the quick note portion of this chart signed Josefina Castrejon PA-C (Josefina Castrejon) - Lab Data Lab Results 10/25/23 10/25/23 10/25/23 Range/Units 20:21 20:21 20:41 WBC 7.7 (3.8-10.6) k/uL RBC 3.99 (3.80-5.40) m/uL Hgb 10.8 L (11.4-16.0) gm/dL Hct 35.6 (34.0-46.0) % MCV 89.3 (80.0-100.0) fL MCH 27.0 (25.0-35.0) pg MCHC 30.2 L (31.0-37.0) g/dL RDW 13.9 (11.5-15.5) % Plt Count 352 (150-450) k/uL MPV 8.4 Neutrophils % 58 % Lymphocytes % 30 % Monocytes % 4 % Eosinophils % 6 % Basophils % 1 % Neutrophils # 4.4 (1.3-7.7) k/uL Lymphocytes # 2.3 (1.0-4.8) k/uL Monocytes # 0.3 (0-1.0) k/uL Eosinophils # 0.5 (0-0.7) k/uL Basophils # 0.1 (0-0.2) k/uL Sodium 138 (137-145) mmol/L Potassium 4.4 (3.5-5.1) mmol/L Chloride 108 H (98-107) mmol/L Carbon Dioxide 23 (22-30) mmol/L Anion Gap 7 mmol/L BUN 21 H (7-17) mg/dL Creatinine 0.87 (0.52-1.04) mg/dL Est GFR (CKD-EPI)AfAm 78 (>60 ml/min/1.73 sqM) Est GFR (CKD-EPI)NonAf 67 (>60 ml/min/1.73 sqM) Glucose 82 (74-99) mg/dL Calcium 9.0 (8.4-10.2) mg/dL Phosphorus 3.9 (2.5-4.5) mg/dL Magnesium 1.9 (1.6-2.3) mg/dL Total Bilirubin 0.5 (0.2-1.3) mg/dL AST 25 (14-36) U/L ALT 13 (4-34) U/L Alkaline Phosphatase 89 (38-126) U/L Total Protein 6.3 (6.3-8.2) g/dL Albumin 3.4 L (3.5-5.0) g/dL TSH 1.610 (0.465-4.680) mIU/L Urine Color Light Yellow Urine Appearance Cloudy H (Clear) Urine pH 5.5 (5.0-8.0) Ur Specific [place] 1.015 (1.001-1.035) Urine Protein Negative (Negative) Urine Glucose (UA) Negative (Negative) Urine Ketones Negative (Negative) Urine Blood Negative (Negative) Urine Nitrite Positive H (Negative) Urine Bilirubin Negative (Negative) Urine Urobilinogen <2.0 (<2.0) mg/dL Ur Leukocyte Esterase Large H (Negative) Urine RBC 15 H (0-5) /hpf Urine WBC 17 H (0-5) /hpf Ur Squamous Epith Cells <1 (0-4) /hpf Urine Bacteria Few H (None) /hpf Urine Mucus Occasional H (None) /hpf Urine Opiates Screen Not Detected (NotDetected) Ur Oxycodone Screen Not Detected (NotDetected) Urine Methadone Screen Not Detected (NotDetected) Ur Barbiturates Screen Not Detected (NotDetected) U Tricyclic Antidepress Not Detected (NotDetected) Ur Phencyclidine Scrn Not Detected (NotDetected) Ur Amphetamines Screen Not Detected (NotDetected) U Methamphetamines Scrn Not Detected (NotDetected) U Benzodiazepines Scrn Not Detected (NotDetected) Urine Cocaine Screen Not Detected (NotDetected) U Marijuana (THC) Screen Not Detected (NotDetected) Disposition <Josefina Castrejon - Last Filed: 10/25/23 18:42> <Chase Curtis - Last Filed: 10/25/23 20:35> Is patient prescribed a controlled substance at d/c from ED?: No <Zeke Workman - Last Filed: 10/26/23 01:29> Clinical Impression: UTI (urinary tract infection), Acute delirium Disposition: ADMITTED IP TO THIS HOSP Condition: Fair Referrals: Miguel Sapp MD [Primary Care Provider] - 1-2 days
[2023-10-25 20:47] LABS: Basophils # (A) 0.1 k/uL (0-0.2); Basophils % (A) 1 %; Eosinophils # (A) 0.5 k/uL (0-0.7); Eosinophils % (A) 6 %; HCT 35.6 % (34.0-46.0); HGB 10.8 gm/dL (11.4-16.0); Lymphocytes # (A) 2.3 k/uL (1.0-4.8); Lymphocytes % (A) 30 %; MCHC 30.2 g/dL (31.0-37.0); MCV 89.3 fL (80.0-100.0); Mean Platelet Volume 8.4; Monocytes # (A) 0.3 k/uL (0-1.0); Monocytes % (A) 4 %; Neutrophils # (A) 4.4 k/uL (1.3-7.7); Neutrophils % (A) 58 %; Platelet Count 352 k/uL (150-450); RBC 3.99 m/uL (3.80-5.40); RDW 13.9 % (11.5-15.5); WBC 7.7 k/uL (3.8-10.6)
[2023-10-25 20:59] LABS: Amphetamine Screen,Urine Not Detected (NotDetected); Barbiturate Screen,Urine Not Detected (NotDetected); Benzodiazepines Screen,Urine Not Detected (NotDetected); Cocaine Screen,Urine Not Detected (NotDetected); Methadone Screen, Urine Not Detected (NotDetected); Opiate Screen,Urine Not Detected (NotDetected); Oxycodone Screen, Urine Not Detected (NotDetected); Phencyclidine Screen,Urine Not Detected (NotDetected); Tricyclic Antidepressant,Urine Not Detected (NotDetected); Urn Cannabinoid Scrn Not Detected (NotDetected)
[2023-10-25 21:02] LABS: ALT 13 U/L (4-34); AST 25 U/L (14-36); African American GFR (CKD) 78 (>60 ml/min/1.73 sqM); Albumin 3.4 g/dL (3.5-5.0); Alkaline Phosphatase 89 U/L (38-126); Anion Gap 7 mmol/L; Blood Urea Nitrogen 21 mg/dL (7-17); Carbon Dioxide 23 mmol/L (22-30); Chloride 108 mmol/L (98-107); Glucose 82 mg/dL (74-99); Magnesium 1.9 mg/dL (1.6-2.3); Non-African American GFR(CKD) 67 (>60 ml/min/1.73 sqM); Phosphorus 3.9 mg/dL (2.5-4.5); Potassium 4.4 mmol/L (3.5-5.1); Sodium 138 mmol/L (137-145); Total Bilirubin 0.5 mg/dL (0.2-1.3); Total Protein 6.3 g/dL (6.3-8.2)
[2023-10-25 21:05] LABS: Appearance,Urine Cloudy (Clear); Bacteria,Urine Few /hpf; Bilirubin,Urine Negative (Negative); Blood,Urine Negative (Negative); Color,Urine Light Yellow; Glucose,Urine (UA) Negative (Negative); Ketones,Urine Negative (Negative); Leukocyte Esterase,Urine Large (Negative); Mucus,Urine Occasional /hpf; Nitrite,Urine Positive (Negative); PH, Urine 5.5 (5.0-8.0); Protein,Urine Negative (Negative); RBC,Urine 15 /hpf (0-5); Specific Gravity,Urine 1.015 (1.001-1.035); Squamous Epithelial Cell,Urine <1 /hpf (0-4); Urobilinogen,Urine <2.0 mg/dL (<2.0); WBC,Urine 17 /hpf (0-5)
[2023-10-25] MEDS: SODIUM CHLORIDE 0.9% 1,000 ML IV STA (21:53)
--- NOTE | 2023-10-25 22:28 | CT ---
EXAM: CT Head Without Intravenous Contrast CLINICAL HISTORY: ITS.REASON CT Reason: weakness TECHNIQUE: Axial computed tomography images of the head/brain without intravenous contrast. CTDI is 49.2 mGy and DLP is 1171.4 mGy-cm. This CT exam was performed using one or more of the following dose reduction techniques: automated exposure control, adjustment of the mA and/or kV according to patient size, and/or use of iterative reconstruction technique. COMPARISON: No relevant prior studies available. FINDINGS: No acute intracranial hemorrhage. No midline shift or mass effect. The territorial orosco-white matter differentiation is maintained throughout. Age-related cerebral volume loss. Periventricular and subcortical white matter hypoattenuation, consistent with chronic microangiopathy. The visualized orbits appear grossly unremarkable. The calvarium is intact. The visualized paranasal sinuses and mastoid air cells are grossly clear. IMPRESSION: No acute intracranial hemorrhage, midline shift, or mass effect.
[2023-10-26] MEDS ORDERED: NALOXONE 0.4 MG/ML 1 ML VIAL IV PRN (01:23)
--- NOTE | 2023-10-26 02:19 | XR ---
EXAM: XR chest 1V portable CLINICAL INDICATION:Female, 73 years old with history of ams; [facility] COMPARISON: 10/06/2020 TECHNIQUE: Chest single view. FINDINGS: Lines/tubes/devices: None. Cardiomediastinum: Cardiac silhouette appears mildly enlarged. Mildly tortuous aorta. Vasculature: No significantly increased pulmonary vasculature. Lungs/pleura: Bilateral chronic interstitial changes without focal consolidation, sizable effusion, or pneumothorax . Bones/soft tissues: Bony thorax appears grossly intact as seen, with mild to moderate degenerative changes. Regional soft tissues appear unremarkable. IMPRESSION: No acute cardiopulmonary findings.
[2023-10-26] MEDS: SODIUM CHLORIDE 0.9% 1,000 ML IV SCH (02:45)
[2023-10-26] MEDS: SULFAMETHOX-TMP 800-160MG 1 EACH TAB PO STA (02:53)
[2023-10-26] MEDS: ACETAMINOPHEN TAB 325 MG TAB PO PRN (02:53)
[2023-10-26] MEDS: PANTOPRAZOLE 40 MG TABLET PO SCH (11:43)
[2023-10-26] MEDS: lisinopriL 20 MG TAB PO SCH (11:43)
[2023-10-26] MEDS: ATORVASTATIN 10 MG TAB PO SCH (11:43)
[2023-10-26] MEDS: LORATADINE 10 MG TAB PO SCH (11:43)
[2023-10-26] MEDS: OXYBUTYNIN 15 MG TAB.ER.24 PO SCH (11:43)
[2023-10-26] MEDS: SERTRALINE 100 MG TAB PO SCH (11:43)
[2023-10-26] MEDS: ENOXAPARIN 40 MG/0.4 ML SYRINGE SQ SCH (11:44)
[2023-10-26] MEDS: MUPIROCIN 2% OINT 22 GM TUBE TOPICAL SCH (11:44)
--- NOTE | 2023-10-26 13:28 | P.CN ---
Psychiatric Consult - . Consult date: 10/26/23 Consult:: 10/26/23 12:17 IDENTIFYING DATA: This patient is a 73-year-old female, currently lives alone in an apartment, she has no kids she is unmarried, she collects SSI. REASON FOR REFERRAL: Psychiatry was consulted for "acute delirium" HISTORY OF PRESENT ILLNESS: The patient presented to the hospital initially on 10/24 for altered mental status. Patient was petitioned and had a court pickup order for apparently seeing things in her house and not caring for self and also having a odor of strong smell from her urine. Patient was positive for a UTI, currently being treated by antibiotics, UDS was negative. Patient was seen to day at the bedside, she was fairly cooperative for the most part, she knew the correct date, knew her location and also her full name and date of . She was fairly directable, claims that she was "cleaning the house and a "scooter fell on me". She states that she was seeing bugs crawling however has not seen much of them since being in the hospital. States that he is not having any paranoia, denying any hallucinations including auditory or visual. Denies any problems with her mood or anxiety. States that her sleep and appetite are fair. When asked about her psychiatric medications she states that "I only take those if I need them". At this time patient denies any suicidal or homical ideations, intent or plan. Patient denies any auditory, visual hallucinations and denies any paranoia or delusions. Patients admits to using no recreational drugs or cigarettes PAST PSYCHIATRIC HISTORY: Patient has a a history of possible schizophrenia versus other mental illness?. The patient is currently on Zyprexa 10 mg nightly and Zoloft 100 mg daily however has been fairly inconsistent with taking it. Patient denies any previous psychiatric hospitalizations. Patient denies any psychiatric outpatient follow-up. Patient denies any history of suicide attempts in the past. Past Medical History: Asthma, Hyperlipidemia, Hypertension, Thyroid Disorder Additional Past Medical History / Comment(s): DIVERTICULITIS, colitis, carpal tunnel, arthirits in hands, "boarderline diabetic",gallstones, kidney stones, leakage of urine, abd hernia, wound rt butocks,carpal tunnel, "loose tooth lt upper front" History of Any Multi-Drug Resistant Organisms: None Reported Past Surgical History: Appendectomy, Section, Hernia Repair, Hysterectomy, Tonsillectomy Additional Past Surgical History / Comment(s): LEFT BELOW THE KNEE AMPUTATION, colostomy, lt thigh benign tumor removed, hemmorhoidectomy,carpal tunnel Past Anesthesia/Blood Transfusion Reactions: Postoperative Nausea & Vomiting (PONV) Additional Past Anesthesia/Blood Transfusion Reaction / Comment(s): "never received any blood transfusion" Past Psychological History: No Psychological Hx Reported Smoking Status: Never smoker Past Alcohol Use History: None Reported Past Drug Use History: None Reported ALLERGIES: as per EMR. CHEMICAL DEPENDENCY HISTORY: as per HPI. 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 Currently collects SSI, she has no kids she is unemployed. She lives alone in an apartment. MENTAL STATUS EXAM: General Appearance: Patient appears to be overweight, has facial hair, some male pattern balding, stated age is alert, attempts to cooperate e. Patient appears to have fair hygiene and grooming wearing hospital gown with fair eye contact. Behavior: Patient is calmly lying in bed without any agitated behavior. Attempts to cooperate Speech: Patient's speech is fluent and nonpressured. [place] Mood/Affect: Patient reports their mood is "okay", affect is congruent and constricted Suicidality/Homicidality: Patient denies having any suicidal or homicidal ideation intent or plan. Perceptions: Patient denies any visual hallucinations and denies any auditory hallucinations Though content/process: There is no evidence of any delusional thought content and thought process is linear and goal-directed. Memory and concentration: AOX3, grossly intact for the purposes of this session. Can spell "WORLD" backwards Judgment and insight: Chronically limited IMPRESSIONS: Likely delirium secondary to urinary tract infection Possible underlying schizophrenia? vs psychosis secondary to general medical problem PLAN: -At this time patient DOES NOT meet criteria for inpatient psychiatric admissi on. -Delirium precautions recommended with patient including - avoiding use of narcotics and RINKMAN sedatives, limit anticholinergic medications when possible, frequent re-orientation, minimize use of restraints, open window shades during the day and close them at night -Would recommend the following medication changes/additions: Patient can continue on her home doses of Zyprexa and Zoloft. Recommended that patient stay consistent with taking her medications for effectiveness. Continue with treatment of UTI with antibiotics. -floor service worker spring to provide patient with outpatient mental health/psychiatry resources for appropriate follow up upon discharge. Suggest that patient have the information for outpatient contact and follow-up with [facility] -Communicated plan to patient's nurse -Psychiatry will sign off at this time -Please contact with any questions. 10/26/23 13:22
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
[2023-10-26] MEDS: OLANZapine 10 MG TAB PO SCH (22:28)
[2023-10-27 08:23] VITALS: BP 132/80; RESP 16; TEMP 98.4
[2023-10-27] MEDS: FOLIC ACID 1 MG TAB PO SCH (09:54)
[2023-10-27 10:27] VITALS: PULSE 66
--- NOTE | 2023-10-27 14:17 | P.PN ---
Progress Note - Text Progress Note Date: 10/27/23 Patient Name: Modesta Norris Date of : 1950 Patient Status: Observation Attending Provider: Andrew Gandhi Date: 10/27/23 Initialization Date: 10/26/23 12:17 Psychiatric Consultfollow-up - . IDENTIFYING DATA: This patient is a 73-year-old female, currently lives alone in an apartment, she has no kids she is unmarried, she collects SSI. REASON FOR REFERRAL: Psychiatry was consulted for "acute delirium" HISTORY OF PRESENT ILLNESS: The patient presented to the hospital initially on 10/24 for altered mental status. Patient was petitioned and had a court pickup order for apparently seeing things in her house and not caring for self and also having a odor of strong smell from her urine. Patient was positive for a UTI, currently being treated by antibiotics, UDS was negative. Patient was seen today at the bedside, patient in fact was packing her suitcase and stated that she is being discharged She said that she lives by herself and that she does not see a psychiatrist She said that she has 9 brothers and sisters and that she had adequate support system She denies that she is experiencing any auditory or visual hallucinations She denies any suicidal or homicidal ideations She denies any thoughts of wanting to hurt herself or others She said that she is feeling much better and is being discharged PAST PSYCHIATRIC HISTORY: Patient has a a history of possible schizophrenia versus other mental illness?. The patient is currently on Zyprexa 10 mg nightly and Zoloft 100 mg daily however has been fairly inconsistent with taking it. Patient denies any previous psychiatric hospitalizations. Patient denies any psychiatric outpatient follow-up. Patient denies any history of suicide attempts in the past. Past Medical History: Asthma, Hyperlipidemia, Hypertension, Thyroid Disorder Additional Past Medical History / Comment(s): DIVERTICULITIS, colitis, carpal tunnel, arthirits in hands, "boarderline diabetic",gallstones, kidney stones, leakage of urine, abd hernia, wound rt butocks,carpal tunnel, "loose tooth lt upper front" History of Any Multi-Drug Resistant Organisms: None Reported Past Surgical History: Appendectomy, Section, Hernia Repair, Hysterectomy, Tonsillectomy Additional Past Surgical History / Comment(s): LEFT BELOW THE KNEE AMPUTATION, colostomy, lt thigh benign tumor removed, hemmorhoidectomy,carpal tunnel Past Anesthesia/Blood Transfusion Reactions: Postoperative Nausea & Vomiting (PONV) Additional Past Anesthesia/Blood Transfusion Reaction / Comment(s): "never received any blood transfusion" Past Psychological History: No Psychological Hx Reported Smoking Status: Never smoker Past Alcohol Use History: None Reported Past Drug Use History: None Reported ALLERGIES: as per EMR. CHEMICAL DEPENDENCY HISTORY: as per HPI. 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 Currently collects [employer], she has no kids she is unemployed. She lives alone in an apartment. MENTAL STATUS EXAM: General Appearance: Patient appears to be overweight, has facial hair, some male pattern balding, stated age is alert, attempts to cooperate e.patient's hygiene remains however poor with the strong urine smell Behavior: Patient is calmly lying in bed without any agitated behavior. Attempts to cooperate Speech: Patient's speech is fluent and nonpressured. [place] Mood/Affect: Patient reports their mood is "okay", affect is congruent and constricted Suicidality/Homicidality: Patient denies having any suicidal or homicidal ideation intent or plan. Perceptions: Patient denies any visual hallucinations and denies any auditory hallucinations Though content/process: There is no evidence of any delusional thought content and thought process is linear and goal-directed. Memory and concentration: AOX3, grossly intact for the purposes of this session. 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 PLAN: patient is currently being discharged and appears to have improved mentally as compared to the previous progress note from the psychiatry Patient does not see a psychiatrist but intends to follow-up on her psychotropic medications with her PCP Patient denies any auditory or visual hallucinations and does not appear to be in any danger to herself or others at this time Patient also has adequate social support system from her 9 brothers brothers and sisters Patient currently lives independently and isn't a Social Security disability Thank you for referring referral and please refer to contact me for further questions Psychiatry will sign off Yaron Mcghee M.D.
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
[2023-10-27] MEDS ORDERED: LORATADINE 10 MG TAB PO SCH (21:00)
== END 2023-10-27 14:31 | disposition home health service (06) ==
LOC: EC 17:18 → 4SSUR 10-26 01:23
PROVIDERS: ADMIT Hospitalist; ATTEND Hospitalist
DX: F03.C0 Unspecified dementia, severe, without behavioral disturbance, psychotic disturbance, mood disturbance, and anxiety (principal); K21.9 Gastro-esophageal reflux disease without esophagitis; I10 Essential (primary) hypertension; R39.81 Functional urinary incontinence; F41.8 Other specified anxiety disorders; L29.9 Pruritus, unspecified; N17.9 Acute kidney failure, unspecified; D64.9 Anemia, unspecified; R82.71 Bacteriuria
CPT/HCPCS: 96361 ×2; 96372 ×2; 82075; 99285; 36415; 80053; 82607; 82140; 82746; 83735; 84100; 84443; 85025; 81001; 80306; 71045; 70450; G0378 ×2; J1650 ×2

== ENCOUNTER 2023-10-28 20:05 | Emergency (ER) | payer MEDICARE, OTHER ==
[2023-10-28 20:38] VITALS: TEMP 98
--- NOTE | 2023-10-28 21:14 | ED ---
General Adult HPI - General Chief complaint: Fall Stated complaint: knee pain rt Time Seen by Provider: 10/28/23 20:37 Source: patient, EMS Mode of arrival: EMS Limitations: physical limitation - History of Present Illness Initial comments: 73-year-old female presents to the emergency department for evaluation of right knee pain following a fall. Patient states that she fell out of her wheelchair and landed on her right knee. She states that she was attempting to fix the bandage on her arm and she fell forward landing on her knee. She denies any ot her injury, denies hitting her head, loss of consciousness, blood thinners. Denies any other complaints at this time. She is currently on antibiotics for a UTI. Discharged from here yesterday. - Related Data Home Medications Medication Instructions Recorded Confirmed Oxybutynin ER [Ditropan XL] 15 mg PO DAILY 10/25/18 10/26/23 Sertraline [Zoloft] 100 mg PO DAILY 10/25/18 10/26/23 Atorvastatin [Lipitor] 10 mg PO DAILY 10/19/23 10/25/23 Levocetirizine Dihydrochloride 5 mg PO DAILY 10/19/23 10/26/23 [Xyzal] OLANZapine [ZyPREXA] 10 mg PO HS 10/19/23 10/26/23 Omeprazole [PriLOSEC] 20 mg PO DAILY 10/19/23 10/26/23 lisinopriL [Zestril] 20 mg PO DAILY 10/19/23 10/26/23 Fluconazole [Diflucan] 200 mg PO DAILY 10/25/23 10/26/23 Previous Rx's Medication Instructions Recorded Mupirocin 2% Oint [Bactroban 2% 1 applic TOPICAL TID #22 gm 05/06/23 Oint] Folic Acid 1 mg PO DAILY #30 tab 10/27/23 Allergies Allergy/AdvReac Type Severity Reaction Status Date / Time Penicillins Allergy Anaphylaxis Verified 10/25/23 17:35 cephalexin monohydrate AdvReac Nausea & Verified 10/25/23 17:35 [From Keflex] Vomiting codeine AdvReac Nausea & Verified 10/25/23 17:35 Vomiting red food dye Allergy Rash/Hives Uncoded 10/25/23 17:35 Review of Systems ROS Statement: Those systems with pertinent positive or pertinent negative responses have been documented in the HPI. ROS Other: All systems not noted in ROS Statement are negative. 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, "boarderline diabetic",gallstones, kidney stones, leakage of urine, abd hernia, wound rt butocks,carpal tunnel, "loose tooth lt upper front" History of Any Multi-Drug Resistant Organisms: None Reported Past Surgical History: Appendectomy, Section, Hernia Repair, Hysterectomy, Tonsillectomy Additional Past Surgical History / Comment(s): LEFT BELOW THE KNEE AMPUTATION, colostomy, lt thigh benign tumor removed, hemmorhoidectomy,carpal tunnel Past Anesthesia/Blood Transfusion Reactions: Postoperative Nausea & Vomiting (PONV) Additional Past Anesthesia/Blood Transfusion Reaction / Comment(s): "never received any blood transfusion" Past Psychological History: No Psychological Hx Reported Smoking Status: Never smoker - Past Family History Mother Family Medical History: Dementia Father Family Medical History: Dementia General Exam Limitations: no limitations General appearance: alert, in no apparent distress Head exam: Present: atraumatic, normocephalic, normal inspection Eye exam: Present: normal appearance, PERRL, EOMI. Absent: scleral icterus, conjunctival injection, periorbital swelling ENT exam: Present: normal exam, mucous membranes moist Neck exam: Present: normal inspection. Absent: tenderness, meningismus, lymphadenopathy Respiratory exam: Present: normal lung sounds bilaterally. Absent: respiratory distress, wheezes, rales, rhonchi, stridor Cardiovascular Exam: Present: regular rate, normal rhythm, normal heart sounds. Absent: systolic murmur, diastolic murmur, rubs, gallop, clicks Extremities exam: Present: normal inspection, full ROM, tenderness (right knee), normal capillary refill. Absent: pedal edema, joint swelling, calf tenderness Back exam: Present: normal inspection Neurological exam: Present: alert, oriented X3, CN II-XII intact Psychiatric exam: Present: normal affect, normal mood Skin exam: Present: warm, dry, intact, normal color. Absent: rash Course Vital Signs 10/28/23 10/28/23 20:09 23:02 Temperature 98.0 F Pulse Rate 80 69 Respiratory 20 18 Rate Blood Pressure 133/62 142/61 O2 Sat by Pulse 100 100 Oximetry Medical Decision Making - Medical Decision Making Was pt. sent in by a medical professional or institution (, [facility], [facility], urgent care, hospital, or group home...) When possible be specific @ -No Did you speak to anyone other than the patient for history (EMS, parent, family, police, friend...)? What history was obtained from this source @ -No Did you review nursing and triage notes (agree or disagree)? Why? @ -I reviewed and agree with nursing and triage notes Were old charts reviewed (outside hosp., previous admission, EMS record, old EKG, old radiological studies, urgent care reports/EKG's, group home records)? Report findings @ -No old charts were reviewed Differential Diagnosis (chest pain, altered mental status, abdominal pain women, abdominal pain men, vaginal bleeding, weakness, fever, dyspnea, syncope, headache, dizziness, GI bleed, back pain, seizure, CVA, palpatations, mental health, musculoskeletal)? @ -Differential Musculoskeletal Muscular strain, contusion, ligament sprain, fracture, arthritis, septic arthritis, bursitis, cellulitis, muscle spasm, nerve compression, DVT, arterial occlusion, herpes zoster, electrolyte abnormality, tumor.... This is not meant to be in all inclusive list EKG interpreted by me (3pts min.). @ -None X-rays interpreted by me (1pt min.). @ -X-ray of the right knee shows no acute fracture, severe osteoarthritis CT interpreted by me (1pt min.). @ -None done U/S interpreted by me (1pt. min.). @ -None done What testing was considered but not performed or refused? (CT, X-rays, U/S, labs)? Why? @ -None What meds were considered but not given or refused? Why? @ -None Did you discuss the management of the patient with other professionals (professionals i.e. MONI Saldaña, [facility], lab, RT, psych nurse, social studies department chair, adhesive bonding machine operator, teacher, safety security officer, manager of case management)? Give summary @ -No Was smoking cessation discussed for >3mins.? @ -No Was critical care preformed (if so, how long)? @ -No Were there social determinants of health that impacted care today? How? (Homelessness, low income, unemployed, alcoholism, drug addiction, transportation, low edu. Level, literacy, decrease access to med. care, alf, rehab)? @ -No Was there de-escalation of care discussed even if they declined (Discuss DNR or withdrawal of care, Hospice)? DNR status @ -No What co-morbidities impacted this encounter? (DM, HTN, Smoking, COPD, CAD, Cancer, CVA, ARF, Chemo, Hep., AIDS, mental health diagnosis, sleep apnea, morbid obesity)? @ -None Was patient admitted / discharged? Hospital course, mention meds given and route, prescriptions, significant lab abnormalities, going to OR and other pertinent info. @ -Discharge. Patient presented to the emergency department for evaluation of fall with right knee injury. She states that she fell out of her wheelchair onto her right knee. She denies any other injuries. 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 X-rays of the right knee were obtained which show no acute fracture, patient does have severe osteoarthritis of the right knee. Patient will be discharged home with follow-up to her PCP. Patient understanding agreeable plan. Patient stable at time of discharge. Case discussed with Dr. Cruz Undiagnosed new problem with uncertain prognosis? @ -No Drug Therapy requiring intensive monitoring for toxicity (Heparin, Nitro, Insulin, Cardizem)? @ -No Were any procedures done? @ -No Diagnosis/symptom? @ -Right knee pain Acute, or Chronic, or Acute on Chronic? @ -Acute Uncomplicated (without systemic symptoms) or Complicated (systemic symptoms)? @ -Uncomplicated Side effects of treatment? @ -No Exacerbation, Progression, or Severe Exacerbation? @ -No Poses a threat to life or bodily function? How? (Chest pain, [place], [place], pneumonia, PE, COPD, DKA, ARF, appy, cholecystitis, CVA, Diverticulitis, Homicidal, Suicidal, threat to staff... and all critical care pts) @ -No Disposition Clinical Impression: Fall, Osteoarthritis Disposition: HOME SELF-CARE Condition: Stable Instructions (If sedation given, give patient instructions): Fall Prevention (ED) Additional Instructions: Please follow up with your primary care provider. Return to the emergency department for new or worsening symptoms. Is patient prescribed a controlled substance at d/c from ED?: No Referrals: Miguel Sapp MD [Primary Care Provider] - 1-2 days
--- NOTE | 2023-10-28 21:53 | XR ---
EXAMINATION TYPE: XR knee complete RT DATE OF EXAM: 10/28/2023 9:04 PM CLINICAL INDICATION:Female, 73 years old with history of fall; [facility] COMPARISON: 01/03/2023. TECHNIQUE: XR knee complete RT; examined in Frontal, lateral and oblique projections. FINDINGS: No evidence of any acute osseous pathology, soft tissue swelling, or joint effusion is no chalino. Tricompartmental osteophyte formation involving the femoral condyles, tibial plateau and patella . Severe joint space narrowing. IMPRESSION: 1. No acute osseous pathology. 2. Severe tricompartmental osteoarthritic changes.
[2023-10-28 23:38] VITALS: BP 142/61; PULSE 69; RESP 18
== END 2023-10-29 01:02 | disposition home or self-care (01) ==
LOC: EC 20:05
DX: M17.11 Unilateral primary osteoarthritis, right knee (principal); Z88.0 Allergy status to penicillin; Z88.1 Allergy status to other antibiotic agents; Z88.5 Allergy status to narcotic agent; Z91.041 Radiographic dye allergy status; W05.0XXA Fall from non-moving wheelchair, initial encounter
CPT/HCPCS: 99283

== ENCOUNTER 2023-11-03 21:44 | Emergency (ER) | payer MEDICARE, OTHER ==
--- NOTE | 2023-11-03 22:07 | ED ---
General Adult HPI - General Chief complaint: Wound/Laceration Stated complaint: weeping wound Time Seen by Provider: 11/03/23 21:51 Source: patient Mode of arrival: EMS Limitations: physical limitation - History of Present Illness Initial comments: 73-year-old female presents to the ED with multiple complaints. Patient notes that she is currently being treated for UTI. Despite taking antibiotics as prescribed reports that she is still having some ongoing dysuria. Also notes a wound to her right upper extremity and notes that she was supposed to get started on antibiotics for this due to concern for cellulitis. Reports that she normally gets her prescriptions mailed to her however she has not started her antibiotics as these were not mailed to her and have been at the pharmacy. Also notes earlier today noticed some redness around her ostomy and is concerned that she may be starting to have an infection there. Patient reported that she had a fever however when asked, she said her temperature was 98. No abdominal pain. No other complaints at this time. - Related Data Home Medications Medication Instructions Recorded Confirmed Oxybutynin ER [Ditropan XL] 15 mg PO DAILY 10/25/18 10/26/23 Sertraline [Zoloft] 100 mg PO DAILY 10/25/18 10/26/23 Atorvastatin [Lipitor] 10 mg PO DAILY 10/19/23 10/25/23 Levocetirizine Dihydrochloride 5 mg PO DAILY 10/19/23 10/26/23 [Xyzal] OLANZapine [ZyPREXA] 10 mg PO HS 10/19/23 10/26/23 Omeprazole [PriLOSEC] 20 mg PO DAILY 10/19/23 10/26/23 lisinopriL [Zestril] 20 mg PO DAILY 10/19/23 10/26/23 Fluconazole [Diflucan] 200 mg PO DAILY 10/25/23 10/26/23 Previous Rx's Medication Instructions Recorded Mupirocin 2% Oint [Bactroban 2% 1 applic TOPICAL TID #22 gm 05/06/23 Oint] Folic Acid 1 mg PO DAILY #30 tab 10/27/23 Sulfamethox-Tmp 800-160Mg [Bactrim 1 each PO Q12HR #20 tab 11/04/23 Ds] Allergies Allergy/AdvReac Type Severity Reaction Status Date / Time Penicillins Allergy Anaphylaxis Verified 10/25/23 17:35 cephalexin monohydrate AdvReac Nausea & Verified 10/25/23 17:35 [From Keflex] Vomiting codeine AdvReac Nausea & Verified 10/25/23 17:35 Vomiting red food dye Allergy Rash/Hives Uncoded 10/25/23 17:35 Review of Systems ROS Statement: Those systems with pertinent positive or pertinent negative responses have been documented in the HPI. ROS Other: All systems not noted in ROS Statement are negative. 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, "boarderline diabetic",gallstones, kidney stones, leakage of urine, abd hernia, wound rt butocks,carpal tunnel, "loose tooth lt upper front" History of Any Multi-Drug Resistant Organisms: None Reported Past Surgical History: Appendectomy, Section, Hernia Repair, Hysterectomy, Tonsillectomy Additional Past Surgical History / Comment(s): LEFT BELOW THE KNEE AMPUTATION, colostomy, lt thigh benign tumor removed, hemmorhoidectomy,carpal tunnel Past Anesthesia/Blood Transfusion Reactions: Postoperative Nausea & Vomiting (PONV) Additional Past Anesthesia/Blood Transfusion Reaction / Comment(s): "never received any blood transfusion" Past Psychological History: No Psychological Hx Reported Smoking Status: Never smoker - Past Family History Mother Family Medical History: Dementia Father Family Medical History: Dementia General Exam Limitations: physical limitation General appearance: alert, in no apparent distress Neck exam: Present: normal inspection Respiratory exam: Present: normal lung sounds bilaterally Cardiovascular Exam: Present: regular rate GI/Abdominal exam: Present: soft, other (Ostomy in right lower abdomen. Area surrounding the ostomy shows no warmth, erythema, tenderness to palpation. ). Absent: distended, tenderness Extremities exam: Present: other (Patient does have an open wound to her right upper extremity with some purulent drainage. No significant surrounding erythema or warmth.) Course Vital Signs 11/03/23 11/03/23 11/04/23 21:46 21:56 01:11 Temperature 98.2 F Pulse Rate 80 60 Respiratory 18 16 Rate Blood Pressure 114/68 145/70 O2 Sat by Pulse 95 100 Oximetry Medical Decision Making - Medical Decision Making Was pt. sent in by a medical professional or institution (, PA, [employer], urgent care, hospital, or long-term...) When possible be specific @ -No Did you speak to anyone other than the patient for history (EMS, parent, family, police, friend...)? What history was obtained from this source @ -No Did you review nursing and triage notes (agree or disagree)? Why? @ -I reviewed and agree with nursing and triage notes Were old charts reviewed (outside hosp., previous admission, EMS record, old EKG, old radiological studies, urgent care reports/EKG's, long-term records)? Report findings @ -No old charts were reviewed Differential Diagnosis (chest pain, altered mental status, abdominal pain women, abdominal pain men, vaginal bleeding, weakness, fever, dyspnea, syncope, headache, dizziness, GI bleed, back pain, seizure, CVA, palpatations, mental health, musculoskeletal)? @ -Differential Musculoskeletal Muscular strain, contusion, ligament sprain, fracture, arthritis, septic arthritis, bursitis, cellulitis, muscle spasm, nerve compression, DVT, arterial occlusion, herpes zoster, electrolyte abnormality, tumor.... This is not meant to be in all inclusive list Differential Abdominal Pain Women: Appendicitis, Cholecystitis, diverticulosis, ischemic bowel, pancreatitis, hepatitis, UTI, gastroenteritis, AAA, incarcerated hernia, bowel obstruction, constipation, inflammatory bowel, hepatitis, peptic ulcer disease, splenic infarction, perforated viscus, vulvitis, ovarian torsion, PID, kidney stone, placenta abruption, this is not meant to be an all-inclusive list EKG interpreted by me (3pts min.). @ -None X-rays interpreted by me (1pt min.). @ -None done CT interpreted by me (1pt min.). @ -None done U/S interpreted by me (1pt. min.). @ -None done What testing was considered but not performed or refused? (CT, X-rays, U/S, labs)? Why? @ -None What meds were considered but not given or refused? Why? @ -None Did you discuss the management of the patient with other professionals (professionals i.e. , PA, [employer] LABORER, lab, RT, psych nurse, high school social studies tutor, national insurance officer, teacher, psychological operations officer, manager rn case)? Give summary @ -No Was smoking cessation discussed for >3mins.? @ -No Was critical care preformed (if so, how long)? @ -No Were there social determinants of health that impacted care today? How? (Homelessness, low income, unemployed, alcoholism, drug addiction, transportation, low edu. Level, literacy, decrease access to med. care, senior living, rehab)? @ -No Was there de-escalation of care discussed even if they declined (Discuss DNR or withdrawal of care, Hospice)? DNR status @ -No What co-morbidities impacted this encounter? (DM, HTN, Smoking, COPD, CAD, Cancer, CVA, ARF, Chemo, Hep., AIDS, mental health diagnosis, sleep apnea, morbid obesity)? @ -None Was patient admitted / discharged? Hospital course, mention meds given and route, prescriptions, significant lab abnormalities, going to OR and other pertinent info. @ -Discharge 73-year-old female presenting to the ED with concerns of wound to her right arm and continued urinary tract infection symptoms. On examination approximately 3 x 3 area of open wound with some purulent drainage without significant surroundi ng warmth erythema or tenderness to palpation. Laboratory studies reviewed. CBC shows no elevation white blood cell count, chemistry panel largely unremarkable. Urine does show evidence of ongoing UTI. Urine culture was obtained. Wound culture was also obtained of the wound of her right upper arm. At this time vital signs stable afebrile. Patient provided starter pack of Bactrim and discharged home with prescription for Bactrim. Discussed return precautions with patient who verbalized agreement. Undiagnosed new problem with uncertain prognosis? @ -No Drug Therapy requiring intensive monitoring for toxicity (Heparin, Nitro, Insulin, Cardizem)? @ -No Were any procedures done? @ -No Diagnosis/symptom? @ -Wound to the right upper extremity, urinary tract infection Acute, or Chronic, or Acute on Chronic? @ -Acute Uncomplicated (without systemic symptoms) or Complicated (systemic symptoms)? @ -Uncomplicated Side effects of treatment? @ -No Exacerbation, Progression, or Severe Exacerbation? @ -No Poses a threat to life or bodily function? How? (Chest pain, [place], [place], pneumonia, PE, COPD, DKA, ARF, appy, cholecystitis, CVA, Diverticulitis, Homicidal, Suicidal, threat to staff... and all critical care pts) @ -No - Lab Data Result diagrams: 11/03/23 22:17 05/04/24 22:17 Lab Results 11/03/23 11/03/23 11/03/23 Range/Units 22:17 22:17 23:15 WBC 6.5 (3.8-10.6) k/uL RBC 3.91 (3.80-5.40) m/uL Hgb 10.9 L (11.4-16.0) gm/dL Hct 34.5 (34.0-46.0) % MCV 88.0 (80.0-100.0) fL MCH 27.9 (25.0-35.0) pg MCHC 31.7 (31.0-37.0) g/dL RDW 13.9 (11.5-15.5) % Plt Count 347 (150-450) k/uL MPV 7.8 Neutrophils % 57 % Lymphocytes % 29 % Monocytes % 6 % Eosinophils % 6 % Basophils % 1 % Neutrophils # 3.7 (1.3-7.7) k/uL Lymphocytes # 1.9 (1.0-4.8) k/uL Monocytes # 0.4 (0-1.0) k/uL Eosinophils # 0.4 (0-0.7) k/uL Basophils # 0.1 (0-0.2) k/uL Sodium 143 (137-145) mmol/L Potassium 3.9 (3.5-5.1) mmol/L Chloride 110 H (98-107) mmol/L Carbon Dioxide 27 (22-30) mmol/L Anion Gap 6 mmol/L BUN 20 H (7-17) mg/dL Creatinine 0.70 (0.52-1.04) mg/dL Est GFR (CKD-EPI)AfAm >90 (>60 ml/min/1.73 sqM) Est GFR (CKD-EPI)NonAf 87 (>60 ml/min/1.73 sqM) Glucose 92 (74-99) mg/dL Calcium 8.6 (8.4-10.2) mg/dL Total Bilirubin 0.2 (0.2-1.3) mg/dL AST 18 (14-36) U/L ALT 13 (4-34) U/L Alkaline Phosphatase 72 (38-126) U/L Total Protein 6.3 (6.3-8.2) g/dL Albumin 3.4 L (3.5-5.0) g/dL Urine Color Light Yellow Urine Appearance Clear (Clear) Urine pH 5.5 (5.0-8.0) Ur Specific [place] 1.023 (1.001-1.035) Urine Protein Negative (Negative) Urine Glucose (UA) Negative (Negative) Urine Ketones Negative (Negative) Urine Blood Negative (Negative) Urine Nitrite Positive H (Negative) Urine Bilirubin Negative (Negative) Urine Urobilinogen <2.0 (<2.0) mg/dL Ur Leukocyte Esterase Moderate H (Negative) Urine WBC 9 H (0-5) /hpf Ur Squamous Epith Cells 2 (0-4) /hpf Amorphous Sediment Rare H (None) /hpf Urine Bacteria Many H (None) /hpf Urine Mucus Rare H (None) /hpf Disposition Clinical Impression: Wound of right upper extremity, UTI (urinary tract infection) Disposition: HOME SELF-CARE Condition: Good Additional Instructions: Please return to the Emergency Department if symptoms worsen or any other concerns. Please follow-up with your primary care provider. Prescriptions: Sulfamethox-Tmp 800-160Mg [Bactrim Ds] 1 each PO Q12HR #20 tab Is patient prescribed a controlled substance at d/c from ED?: No Referrals: Miguel Sapp MD [Primary Care Provider] - 1-2 days Time of Disposition: 01:39
[2023-11-03 22:12] VITALS: TEMP 98.2
[2023-11-03 22:35] LABS: Basophils # (A) 0.1 k/uL (0-0.2); Basophils % (A) 1 %; Eosinophils # (A) 0.4 k/uL (0-0.7); Eosinophils % (A) 6 %; HCT 34.5 % (34.0-46.0); HGB 10.9 gm/dL (11.4-16.0); Lymphocytes # (A) 1.9 k/uL (1.0-4.8); Lymphocytes % (A) 29 %; MCH 27.9 pg (25.0-35.0); MCHC 31.7 g/dL (31.0-37.0); Mean Platelet Volume 7.8; Monocytes # (A) 0.4 k/uL (0-1.0); Monocytes % (A) 6 %; Neutrophils # (A) 3.7 k/uL (1.3-7.7); Neutrophils % (A) 57 %; Platelet Count 347 k/uL (150-450); RBC 3.91 m/uL (3.80-5.40); RDW 13.9 % (11.5-15.5); WBC 6.5 k/uL (3.8-10.6)
[2023-11-03 22:39] LABS: ALT 13 U/L (4-34); AST 18 U/L (14-36); African American GFR (CKD) >90 (>60 ml/min/1.73 sqM); Albumin 3.4 g/dL (3.5-5.0); Alkaline Phosphatase 72 U/L (38-126); Anion Gap 6 mmol/L; Blood Urea Nitrogen 20 mg/dL (7-17); Calcium 8.6 mg/dL (8.4-10.2); Carbon Dioxide 27 mmol/L (22-30); Chloride 110 mmol/L (98-107); Glucose 92 mg/dL (74-99); Non-African American GFR(CKD) 87 (>60 ml/min/1.73 sqM); Potassium 3.9 mmol/L (3.5-5.1); Sodium 143 mmol/L (137-145); Total Bilirubin 0.2 mg/dL (0.2-1.3); Total Protein 6.3 g/dL (6.3-8.2)
[2023-11-04] LABS: Amorphous Sediment,Urine Rare /hpf; Appearance,Urine Clear (Clear); Bacteria,Urine Many /hpf; Bilirubin,Urine Negative (Negative); Blood,Urine Negative (Negative); Color,Urine Light Yellow; Glucose,Urine (UA) Negative (Negative); Ketones,Urine Negative (Negative); Leukocyte Esterase,Urine Moderate (Negative); Mucus,Urine Rare /hpf; Nitrite,Urine Positive (Negative); PH, Urine 5.5 (5.0-8.0); Protein,Urine Negative (Negative); Specific Gravity,Urine 1.023 (1.001-1.035); Squamous Epithelial Cell,Urine 2 /hpf (0-4); Urobilinogen,Urine <2.0 mg/dL (<2.0); WBC,Urine 9 /hpf (0-5)
[2023-11-04] MEDS: SULFAMETH-TMP DS STARTER PACK 2 TAB BTL PO STA (01:48)
[2023-11-04 01:58] VITALS: BP 145/70; PULSE 60; RESP 16
== END 2023-11-04 02:25 | disposition home or self-care (01) ==
LOC: EC 21:44
DX: S41.101A Unspecified open wound of right upper arm, initial encounter (principal); N39.0 Urinary tract infection, site not specified; Z88.0 Allergy status to penicillin; Z88.5 Allergy status to narcotic agent; Z88.8 Allergy status to other drugs, medicaments and biological substances; X58.XXXA Exposure to other specified factors, initial encounter
CPT/HCPCS: 36415; 80053; 81001; 85025; 87070; 87086; 87205; 99284

== ENCOUNTER 2023-11-07 14:23 | Emergency (ER) | payer MEDICARE, OTHER ==
[2023-11-07 15:15] VITALS: TEMP 98
[2023-11-07 15:57] LABS: Glucose,Whole Blood 92 mg/dL (70-110)
--- NOTE | 2023-11-07 18:25 | ED ---
General Adult HPI - General Chief complaint: Psychiatric Symptoms Stated complaint: MENTAL HEALTH Time Seen by Provider: 11/07/23 14:40 Source: EMS Mode of arrival: EMS - History of Present Illness Initial comments: 73-year-old female who was brought into the emergency department for mental health evaluation. Patient is accompanied by a petition by a [facility] worker. They are concerned about the patient because she is getting rid of all the furniture in her apartment. Patient is convinced that there are bugs in her apartment and she has been trying to clean it up because of these bugs. There is no evidence that the bugs actually exist. Case workers are worried about the patient and unsure if she can live alone. She does have a guardian. Patient has been hospitalized recently for UTI as well as the patient's living situation. She had been discharged home as there was no evidence that the patient was at risk of harming yourself or someone else. Today the patient's physician does call up to the emergency department and request that the patient get admitted. He feels that the patient needs to be placed however has not pursued this himself. He states that if the patient is admitted to the hospital it is "easier for the patient to get placed somewhere". The patient does admit to the bugs and getting rid of the furniture in order to keep the place clean. She denies any suicidal or homicidal ideations. - Related Data Home Medications Medication Instructions Recorded Confirmed Oxybutynin ER [Ditropan XL] 15 mg PO DAILY 10/25/18 11/07/23 Sertraline [Zoloft] 100 mg PO DAILY 10/25/18 11/07/23 Atorvastatin [Lipitor] 10 mg PO DAILY 10/19/23 11/07/23 Levocetirizine Dihydrochloride 5 mg PO DAILY 10/19/23 11/07/23 [Xyzal] OLANZapine [ZyPREXA] 10 mg PO HS 10/19/23 11/07/23 Omeprazole [PriLOSEC] 20 mg PO DAILY 10/19/23 11/07/23 lisinopriL [Zestril] 20 mg PO DAILY 10/19/23 11/07/23 Ciprofloxacin HCl [Cipro] 500 mg PO DIRECTED 11/07/23 11/07/23 Sulfamethox-Tmp 800-160Mg [Bactrim 1 tab PO DIRECTED 11/07/23 11/07/23 Ds] Previous Rx's Medication Instructions Recorded Mupirocin 2% Oint [Bactroban 2% 1 applic TOPICAL TID #22 gm 05/06/23 Oint] Folic Acid 1 mg PO DAILY #30 tab 10/27/23 Allergies Allergy/AdvReac Type Severity Reaction Status Date / Time Penicillins Allergy Anaphylaxis Verified 11/07/23 15:33 cephalexin monohydrate AdvReac Nausea & Verified 11/07/23 15:33 [From Keflex] Vomiting codeine AdvReac Nausea & Verified 11/07/23 15:33 Vomiting red food dye Allergy Rash/Hives Uncoded 11/07/23 14:40 Review of Systems ROS Statement: Those systems with pertinent positive or pertinent negative responses have been documented in the HPI. ROS Other: All systems not noted in ROS Statement are negative. 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, "boarderline diabetic",gallstones, kidney stones, leakage of urine, abd hernia, wound rt butocks,carpal tunnel, "loose tooth lt upper front" History of Any Multi-Drug Resistant Organisms: None Reported Past Surgical History: Appendectomy, Section, Hernia Repair, Hysterectomy, Tonsillectomy Additional Past Surgical History / Comment(s): LEFT BELOW THE KNEE AMPUTATION, colostomy, lt thigh benign tumor removed, hemmorhoidectomy,carpal tunnel Past Anesthesia/Blood Transfusion Reactions: Postoperative Nausea & Vomiting (PONV) Additional Past Anesthesia/Blood Transfusion Reaction / Comment(s): "never received any blood transfusion" Past Psychological History: No Psychological Hx Reported Smoking Status: Never smoker - Past Family History Mother Family Medical History: Dementia Father Family Medical History: Dementia General Exam General appearance: alert, in no apparent distress Head exam: Present: atraumatic, normocephalic, normal inspection Eye exam: Present: normal appearance, PERRL, EOMI. Absent: scleral icterus, conjunctival injection, periorbital swelling ENT exam: Present: normal exam, mucous membranes moist Neck exam: Present: normal inspection. Absent: tenderness, meningismus, lymphadenopathy Respiratory exam: Present: normal lung sounds bilaterally. Absent: respiratory distress, wheezes, rales, rhonchi, stridor Cardiovascular Exam: Present: regular rate, normal rhythm, normal heart sounds. Absent: systolic murmur, diastolic murmur, rubs, gallop, clicks GI/Abdominal exam: Present: soft, normal bowel sounds. Absent: distended, ten derness, guarding, rebound, rigid Extremities exam: Present: normal inspection, full ROM, normal capillary refill. Absent: tenderness, pedal edema, joint swelling, calf tenderness Back exam: Present: normal inspection Neurological exam: Present: alert, oriented X3, CN II-XII intact Psychiatric exam: Present: normal affect, normal mood Skin exam: Present: warm, dry, intact, normal color. Absent: rash Course Vital Signs 11/07/23 11/07/23 11/07/23 14:32 18:59 21:26 Temperature 98 F Pulse Rate 62 60 56 L Respiratory 18 18 20 Rate Blood Pressure 104/68 99/64 129/77 O2 Sat by Pulse 96 99 96 Oximetry Medical Decision Making - Medical Decision Making Was pt. sent in by a medical professional or institution (, PA, STRATEGIES ANALYST, urgent care, hospital, or prison...) When possible be specific @ [facility] Did you speak to anyone other than the patient for history (EMS, parent, family, police, friend...)? What history was obtained from this source @ [facility] and patient's physician Did you review nursing and triage notes (agree or disagree)? Why? @ -I reviewed and agree with nursing and triage notes Were old charts reviewed (outside hosp., previous admission, EMS record, old EKG, old radiological studies, urgent care reports/EKG's, prison records)? Report findings @ -I reviewed patient's hospitalization from end of August Differential Diagnosis (chest pain, altered mental status, abdominal pain women, abdominal pain men, vaginal bleeding, weakness, fever, dyspnea, syncope, headache, dizziness, GI bleed, back pain, seizure, CVA, palpatations, mental health, musculoskeletal)? @ -Differential Mental Health Depression, anxiety, bipolar, psychosis, schizophrenia, borderline personality, situational depression, adjustment disorder, behavioral disorder, brain tumor, malingering, substance abuse, encephalopathy, medication reaction, dementia, hypothyroidism, degenerative neurologic disorder, lupus.... This is not meant to be all-inclusive list EKG interpreted by me (3pts min.). @ -Yes and demonstrates sinus bradycardia with a rate of 55. CA interval 232. QRS 90. QTc of 415. No acute ST segment elevations or depressions X-rays interpreted by me (1pt min.). @ -None done CT interpreted by me (1pt min.). @ -None done U/S interpreted by me (1pt. min.). @ -None done What testing was considered but not performed or refused? (CT, X-rays, U/S, labs)? Why? @ -None What meds were considered but not given or refused? Why? @ -None Did you discuss the management of the patient with other professionals (professionals i.e. , PA, STRATEGIES ANALYST, lab, RT, psych nurse, nephrology social worker, mice raiser, teacher, medical laboratory technical officer, rn field case manager)? Give summary @ -Spoke with the EPS nurse Was smoking cessation discussed for >3mins.? @ -No Was critical care preformed (if so, how long)? @ -No Were there social determinants of health that impacted care today? How? (Homelessness, low income, unemployed, alcoholism, drug addiction, transportation, low edu. Level, literacy, decrease access to med. care, intermediate, rehab)? @ -No Was there de-escalation of care discussed even if they declined (Discuss DNR or withdrawal of care, Hospice)? DNR status @ -No What co-morbidities impacted this encounter? (DM, HTN, Smoking, COPD, CAD, Cancer, CVA, ARF, Chemo, Hep., AIDS, mental health diagnosis, sleep apnea, morbid obesity)? @ -None Was patient admitted / discharged? Hospital course, mention meds given and route, prescriptions, significant lab abnormalities, going to OR and other pertinent info. @ -Upon arrival patient is seen and evaluated in room 15. Thorough history and physical exam was performed. Laboratory studies are conducted. Laboratory studies and urinalysis are within normal limits. I did consult EPS. They do evaluate the patient. They do not feel that the patient requires mental health placement. Patient also has no medical need to be admitted to the hospital. Patient may require higher level of care however this is up to the patient's guardian to obtain this placement. There are no safety concerns with the patient going home as she is not suicidal or homicidal. She is able to take care of herself in the interim. We did highly stressed to the guardian that it is their responsibility to find placement should they feel that the patient is not doing well in her current living condition. Patient was eager for discharge and was discharged in stable condition Undiagnosed new problem with uncertain prognosis? @ -No Drug Therapy requiring intensive monitoring for toxicity (Heparin, Nitro, Insulin, Cardizem)? @ -No Were any procedures done? @ -No Diagnosis/symptom? @ -Visual hallucinations, evaluation for mental health Acute, or Chronic, or Acute on Chronic? @ -Chronic Uncomplicated (without systemic symptoms) or Complicated (systemic symptoms)? @ -Complicated Side effects of treatment? @ -No Exacerbation, Progression, or Severe Exacerbation? @ -No Poses a threat to life or bodily function? How? (Chest pain, [place], [place], pneumonia, PE, COPD, DKA, ARF, appy, cholecystitis, CVA, Diverticulitis, Homicidal, Suicidal, threat to staff... and all critical care pts) @ -No - Lab Data Result diagrams: 11/07/23 18:14 11/07/23 18:14 Lab Results 11/07/23 11/07/23 11/07/23 Range/Units 15:56 18:14 18:14 WBC 7.0 (3.8-10.6) k/uL RBC 4.06 (3.80-5.40) m/uL Hgb 11.3 L (11.4-16.0) gm/dL Hct 36.1 (34.0-46.0) % MCV 88.9 (80.0-100.0) fL MCH 27.8 (25.0-35.0) pg MCHC 31.3 (31.0-37.0) g/dL RDW 13.8 (11.5-15.5) % Plt Count 333 (150-450) k/uL MPV 7.8 Neutrophils % 54 % Lymphocytes % 36 % Monocytes % 3 % Eosinophils % 5 % Basophils % 1 % Neutrophils # 3.8 (1.3-7.7) k/uL Lymphocytes # 2.5 (1.0-4.8) k/uL Monocytes # 0.2 (0-1.0) k/uL Eosinophils # 0.4 (0-0.7) k/uL Basophils # 0.1 (0-0.2) k/uL Sodium 137 (137-145) mmol/L Potassium 4.5 (3.5-5.1) mmol/L Chloride 103 (98-107) mmol/L Carbon Dioxide 28 (22-30) mmol/L Anion Gap 6 mmol/L BUN 25 H (7-17) mg/dL Creatinine 0.77 (0.52-1.04) mg/dL Est GFR (CKD-EPI)AfAm 90 (>60 ml/min/1.73 sqM) Est GFR (CKD-EPI)NonAf 78 (>60 ml/min/1.73 sqM) Glucose 91 (74-99) mg/dL POC Glucose (mg/dL) 92 (70-110) mg/dL POC Glu C [employer] Developer ID Anastacia Hansen Calcium 9.2 (8.4-10.2) mg/dL Total Bilirubin 0.3 (0.2-1.3) mg/dL AST 18 (14-36) U/L ALT 12 (4-34) U/L Alkaline Phosphatase 84 (38-126) U/L Total Protein 6.5 (6.3-8.2) g/dL Albumin 3.5 (3.5-5.0) g/dL TSH 2.140 (0.465-4.680) mIU/L Urine Color Urine Appearance (Clear) Urine pH (5.0-8.0) Ur Specific [place] (1.001-1.035) Urine Protein (Negative) Urine Glucose (UA) (Negative) Urine Ketones (Negative) Urine Blood (Negative) Urine Nitrite (Negative) Urine Bilirubin (Negative) Urine Urobilinogen (<2.0) mg/dL Ur Leukocyte Esterase (Negative) Urine RBC (0-5) /hpf Urine WBC (0-5) /hpf Urine Bacteria (None) /hpf Salicylates <1.0 mg/dL Urine Opiates Screen (NotDetected) Ur Oxycodone Screen (NotDetected) Urine Methadone Screen (NotDetected) Acetaminophen <10.0 ug/mL Ur Barbiturates Screen (NotDetected) U Tricyclic Antidepress (NotDetected) Ur Phencyclidine Scrn (NotDetected) Ur Amphetamines Screen (NotDetected) U Methamphetamines Scrn (NotDetected) U Benzodiazepines Scrn (NotDetected) Urine Cocaine Screen (NotDetected) U Marijuana (THC) Screen (NotDetected) Serum Alcohol <10 mg/dL 11/07/23 Range/Units 18:35 WBC (3.8-10.6) k/uL RBC (3.80-5.40) m/uL Hgb (11.4-16.0) gm/dL Hct (34.0-46.0) % MCV (80.0-100.0) fL MCH (25.0-35.0) pg MCHC (31.0-37.0) g/dL RDW (11.5-15.5) % Plt Count (150-450) k/uL MPV Neutrophils % % Lymphocytes % % Monocytes % % Eosinophils % % Basophils % % Neutrophils # (1.3-7.7) k/uL Lymphocytes # (1.0-4.8) k/uL Monocytes # (0-1.0) k/uL Eosinophils # (0-0.7) k/uL Basophils # (0-0.2) k/uL Sodium (137-145) mmol/L Potassium (3.5-5.1) mmol/L Chloride (98-107) mmol/L Carbon Dioxide (22-30) mmol/L Anion Gap mmol/L BUN (7-17) mg/dL Creatinine (0.52-1.04) mg/dL Est GFR (CKD-EPI)AfAm (>60 ml/min/1.73 sqM) Est GFR (CKD-EPI)NonAf (>60 ml/min/1.73 sqM) Glucose (74-99) mg/dL POC Glucose (mg/dL) (70-110) mg/dL POC Glu C Win[employer] Developer ID Calcium (8.4-10.2) mg/dL Total Bilirubin (0.2-1.3) mg/dL AST (14-36) U/L ALT (4-34) U/L Alkaline Phosphatase (38-126) U/L Total Protein (6.3-8.2) g/dL Albumin (3.5-5.0) g/dL TSH (0.465-4.680) mIU/L Urine Color Colorless Urine Appearance Clear (Clear) Urine pH 7.0 (5.0-8.0) Ur Specific [place] 1.006 (1.001-1.035) Urine Protein Negative (Negative) Urine Glucose (UA) Negative (Negative) Urine Ketones Negative (Negative) Urine Blood Negative (Negative) Urine Nitrite Negative (Negative) Urine Bilirubin Negative (Negative) Urine Urobilinogen <2.0 (<2.0) mg/dL Ur Leukocyte Esterase Moderate H (Negative) Urine RBC <1 (0-5) /hpf Urine WBC 1 (0-5) /hpf Urine Bacteria Rare H (None) /hpf Salicylates mg/dL Urine Opiates Screen Not Detected (NotDetected) Ur Oxycodone Screen Not Detected (NotDetected) Urine Methadone Screen Not Detected (NotDetected) Acetaminophen ug/mL Ur Barbiturates Screen Not Detected (NotDetected) U Tricyclic Antidepress Not Detected (NotDetected) Ur Phencyclidine Scrn Not Detected (NotDetected) Ur Amphetamines Screen Not Detected (NotDetected) U Methamphetamines Scrn Not Detected (NotDetected) U Benzodiazepines Scrn Not Detected (NotDetected) Urine Cocaine Screen Not Detected (NotDetected) U Marijuana (THC) Screen Not Detected (NotDetected) Serum Alcohol mg/dL Disposition Clinical Impression: Psychosis Disposition: HOME SELF-CARE Condition: Stable Instructions (If sedation given, give patient instructions): Hallucinations (ED) Additional Instructions: Please follow-up with your primary care doctor in 2-4 days. If you need a different living situation, this is up to your guardian to find for you. Is patient prescribed a controlled substance at d/c from ED?: No Referrals: Miguel Sapp MD [REFERRING] - 1-2 days Time of Disposition: 21:24
[2023-11-07 18:27] LABS: Basophils # (A) 0.1 k/uL (0-0.2); Basophils % (A) 1 %; Eosinophils # (A) 0.4 k/uL (0-0.7); Eosinophils % (A) 5 %; HCT 36.1 % (34.0-46.0); HGB 11.3 gm/dL (11.4-16.0); Lymphocytes # (A) 2.5 k/uL (1.0-4.8); Lymphocytes % (A) 36 %; MCH 27.8 pg (25.0-35.0); MCHC 31.3 g/dL (31.0-37.0); MCV 88.9 fL (80.0-100.0); Mean Platelet Volume 7.8; Monocytes # (A) 0.2 k/uL (0-1.0); Monocytes % (A) 3 %; Neutrophils # (A) 3.8 k/uL (1.3-7.7); Neutrophils % (A) 54 %; Platelet Count 333 k/uL (150-450); RBC 4.06 m/uL (3.80-5.40); RDW 13.8 % (11.5-15.5)
[2023-11-07 18:45] LABS: ALT 12 U/L (4-34); AST 18 U/L (14-36); Acetaminophen <10.0 ug/mL; African American GFR (CKD) 90 (>60 ml/min/1.73 sqM); Albumin 3.5 g/dL (3.5-5.0); Alcohol <10 mg/dL; Alkaline Phosphatase 84 U/L (38-126); Anion Gap 6 mmol/L; Blood Urea Nitrogen 25 mg/dL (7-17); Calcium 9.2 mg/dL (8.4-10.2); Carbon Dioxide 28 mmol/L (22-30); Chloride 103 mmol/L (98-107); Glucose 91 mg/dL (74-99); Non-African American GFR(CKD) 78 (>60 ml/min/1.73 sqM); Potassium 4.5 mmol/L (3.5-5.1); Salicylate <1.0 mg/dL; Sodium 137 mmol/L (137-145); Total Bilirubin 0.3 mg/dL (0.2-1.3); Total Protein 6.5 g/dL (6.3-8.2)
[2023-11-07 18:45] LABS: Appearance,Urine Clear (Clear); Bacteria,Urine Rare /hpf; Bilirubin,Urine Negative (Negative); Blood,Urine Negative (Negative); Color,Urine Colorless; Glucose,Urine (UA) Negative (Negative); Ketones,Urine Negative (Negative); Leukocyte Esterase,Urine Moderate (Negative); Nitrite,Urine Negative (Negative); Protein,Urine Negative (Negative); RBC,Urine <1 /hpf (0-5); Specific Gravity,Urine 1.006 (1.001-1.035); Urobilinogen,Urine <2.0 mg/dL (<2.0); WBC,Urine 1 /hpf (0-5)
[2023-11-07 18:54] LABS: Amphetamine Screen,Urine Not Detected (NotDetected); Barbiturate Screen,Urine Not Detected (NotDetected); Benzodiazepines Screen,Urine Not Detected (NotDetected); Cocaine Screen,Urine Not Detected (NotDetected); Methadone Screen, Urine Not Detected (NotDetected); Opiate Screen,Urine Not Detected (NotDetected); Oxycodone Screen, Urine Not Detected (NotDetected); Phencyclidine Screen,Urine Not Detected (NotDetected); Tricyclic Antidepressant,Urine Not Detected (NotDetected); Urn Cannabinoid Scrn Not Detected (NotDetected)
[2023-11-07 21:57] VITALS: BP 129/77; PULSE 56; RESP 20
== END 2023-11-07 22:41 | disposition home or self-care (01) ==
LOC: EC 14:23
DX: F29 Unspecified psychosis not due to a substance or known physiological condition (principal); R00.1 Bradycardia, unspecified; Z88.0 Allergy status to penicillin; Z91.041 Radiographic dye allergy status; Z88.5 Allergy status to narcotic agent; Z88.8 Allergy status to other drugs, medicaments and biological substances
CPT/HCPCS: 82075; 36415; 93005; 80053; 84443; 85025; 81001; 80306; 80143; 80179; 99285; G0480; 80320

== ENCOUNTER 2023-11-13 16:25 | Emergency (ER) | payer MEDICARE, OTHER ==
--- NOTE | 2023-11-13 18:11 | ED ---
Extremity Problem HPI - General Chief complaint: Extremity Problem,Nontraumatic Stated complaint: R leg pain Time Seen by Provider: 11/13/23 16:40 Source: patient, RN notes reviewed Mode of arrival: EMS Limitations: no limitations - History of Present Illness Initial comments: This is a 73-year-old with a history of left leg below the knee amputation who presents emergency department via EMS for chief complaint of right calf pain. Patient states that when she woke up from a nap this afternoon around 1500 she experienced a cramping sensation of her calf described as a charley horse. She states that the pain lasted for about 45 minutes. On current evaluation patient states that the pain has subsided after use of a heating pack. She denies histo ry of DVT or PE. She denies chest pain, chest pressure, shortness of breath, dizziness, lightheadedness, fatigue. Denies current use of blood thinners. She also denies recent trauma, fall, or injury to the affected leg. - Related Data Home Medications Medication Instructions Recorded Confirmed Oxybutynin ER [Ditropan XL] 15 mg PO DAILY 10/25/18 11/07/23 Sertraline [Zoloft] 100 mg PO DAILY 10/25/18 11/07/23 Atorvastatin [Lipitor] 10 mg PO DAILY 10/19/23 11/07/23 Levocetirizine Dihydrochloride 5 mg PO DAILY 10/19/23 11/07/23 [Xyzal] OLANZapine [ZyPREXA] 10 mg PO HS 10/19/23 11/07/23 Omeprazole [PriLOSEC] 20 mg PO DAILY 10/19/23 11/07/23 lisinopriL [Zestril] 20 mg PO DAILY 10/19/23 11/07/23 Ciprofloxacin HCl [Cipro] 500 mg PO DIRECTED 11/07/23 11/07/23 Sulfamethox-Tmp 800-160Mg [Bactrim 1 tab PO DIRECTED 11/07/23 11/07/23 Ds] Previous Rx's Medication Instructions Recorded Mupirocin 2% Oint [Bactroban 2% 1 applic TOPICAL TID #22 gm 05/06/23 Oint] Folic Acid 1 mg PO DAILY #30 tab 10/27/23 Allergies Allergy/AdvReac Type Severity Reaction Status Date / Time Penicillins Allergy Anaphylaxis Verified 11/07/23 15:33 cephalexin monohydrate AdvReac Nausea & Verified 11/07/23 15:33 [From Keflex] Vomiting codeine AdvReac Nausea & Verified 11/07/23 15:33 Vomiting red food dye Allergy Rash/Hives Uncoded 11/07/23 14:40 Review of Systems ROS Statement: Those systems with pertinent positive or pertinent negative responses have been documented in the HPI. ROS Other: All systems not noted in ROS Statement are negative. 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, "boarderline diabetic",gallstones, kidney stones, leakage of urine, abd hernia, wound rt butocks,carpal tunnel, "loose tooth lt upper front" History of Any Multi-Drug Resistant Organisms: None Reported Past Surgical History: Appendectomy, Section, Hernia Repair, Hysterectomy, Tonsillectomy Additional Past Surgical History / Comment(s): LEFT BELOW THE KNEE AMPUTATION, colostomy, lt thigh benign tumor removed, hemmorhoidectomy,carpal tunnel Past Anesthesia/Blood Transfusion Reactions: Postoperative Nausea & Vomiting (PONV) Additional Past Anesthesia/Blood Transfusion Reaction / Comment(s): "never received any blood transfusion" Past Psychological History: No Psychological Hx Reported Smoking Status: Never smoker - Past Family History Mother Family Medical History: Dementia Father Family Medical History: Dementia General Exam Limitations: no limitations General appearance: alert, in no apparent distress Head exam: Present: atraumatic, normocephalic, normal inspection Eye exam: Present: normal appearance, PERRL, EOMI. Absent: scleral icterus, conjunctival injection, periorbital swelling ENT exam: Present: normal exam, mucous membranes moist Neck exam: Present: normal inspection. Absent: tenderness, meningismus, lymphadenopathy Respiratory exam: Present: normal lung sounds bilaterally. Absent: respiratory distress, wheezes, rales, rhonchi, stridor Cardiovascular Exam: Present: regular rate, normal rhythm, normal heart sounds. Absent: systolic murmur, diastolic murmur, rubs, gallop, clicks GI/Abdominal exam: Present: soft, normal bowel sounds. Absent: distended, tenderness, guarding, rebound, rigid Left Knee exam: Present: deformity (below the knee amputation). Absent: normal inspection Right Lower Leg exam: Present: normal inspection, full ROM. Absent: tenderness, sw elling, abrasion, laceration, ecchymosis, deformity, erythema, palpable cord, Homans' sign Back exam: Present: normal inspection Neurological exam: Present: alert, oriented X3, CN II-XII intact Psychiatric exam: Present: normal affect, normal mood Skin exam: Present: warm, dry, intact, normal color. Absent: rash Course Vital Signs 11/13/23 11/13/23 16:43 19:20 Temperature 98 F 98.1 F Pulse Rate 74 75 Respiratory 16 16 Rate Blood Pressure 107/65 110/81 O2 Sat by Pulse 99 99 Oximetry Medical Decision Making - Medical Decision Making Was pt. sent in by a medical professional or institution (, PA, DATE NIGHT SITTER, urgent care, hospital, or residential...) When possible be specific @ -No Did you speak to anyone other than the patient for history (EMS, parent, family, police, friend...)? What history was obtained from this source @ -No Did you review nursing and triage notes (agree or disagree)? Why? @ -I reviewed and agree with nursing and triage notes Were old charts reviewed (outside hosp., previous admission, EMS record, old EKG, old radiological studies, urgent care reports/EKG's, residential records)? Report findings @ -No old charts were reviewed Differential Diagnosis (chest pain, altered mental status, abdominal pain women, abdominal pain men, vaginal bleeding, weakness, fever, dyspnea, syncope, headache, dizziness, GI bleed, back pain, seizure, CVA, palpatations, mental health, musculoskeletal)? @ -Differential Musculoskeletal Muscular strain, contusion, ligament sprain, fracture, arthritis, septic arthritis, bursitis, cellulitis, muscle spasm, nerve compression, DVT, arterial occlusion, herpes zoster, electrolyte abnormality, tumor.... This is not meant to be in all inclusive list EKG interpreted by me (3pts min.). @ -None X-rays interpreted by me (1pt min.). @ -None done CT interpreted by me (1pt min.). @ -None done U/S interpreted by me (1pt. min.). @ -None done What testing was considered but not performed or refused? (CT, X-rays, U/S, labs )? Why? @ -None What meds were considered but not given or refused? Why? @ -None Did you discuss the management of the patient with other professionals (professionals i.e. , MONI, DATE NIGHT SITTER, lab, RT, psych nurse, social work coordinator, cheese processor, teacher, aeronautical engineering officer, correctional case records supervisor)? Give summary @ -No Was smoking cessation discussed for >3mins.? @ -No Was critical care preformed (if so, how long)? @ -No Were there social determinants of health that impacted care today? How? (Homelessness, low income, unemployed, alcoholism, drug addiction, transportation, low edu. Level, literacy, decrease access to med. care, long term, rehab)? @ -No Was there de-escalation of care discussed even if they declined (Discuss DNR or withdrawal of care, Hospice)? DNR status @ -No What co-morbidities impacted this encounter? (DM, HTN, Smoking, COPD, CAD, Cancer, CVA, ARF, Chemo, Hep., AIDS, mental health diagnosis, sleep apnea, morbid obesity)? @ -None Was patient admitted / discharged? Hospital course, mention meds given and route, prescriptions, significant lab abnormalities, going to OR and other pertinent info. @ -73-year-old female with complaint of left calf and leg pain. On discussion with the patient she states that her pain has resolved. She states that the pain lasted for roughly 30 minutes and described as a squeezing sensation. On examination there are no concerning signs alluding to potential DVT. Add itionally patient denies travel or history of DVT or clotting disorders. Shared decision making with the patient further imaging is not required at this time due to low clinical concern for broken bones or blood clot. Patient is here with plan. Patient given Tylenol for symptomatic treatment and a heating pack. On reevaluation, patient states that her symptoms are no longer present. Patient is stable for discharge. All questions answered at bedside. Case discussed with Dr. Pederson Undiagnosed new problem with uncertain prognosis? @ -No Drug Therapy requiring intensive monitoring for toxicity (Heparin, Nitro, Insulin, Cardizem)? @ -No Were any procedures done? @ -No Diagnosis/symptom? @ -Muscle cramp Acute, or Chronic, or Acute on Chronic? @ -Acute Uncomplicated (without systemic symptoms) or Complicated (systemic symptoms)? @ -Uncomplicated Side effects of treatment? @ -No Exacerbation, Progression, or Severe Exacerbation? @ -No Poses a threat to life or bodily function? How? (Chest pain, [place], [place], pneumonia, PE, COPD, DKA, ARF, appy, cholecystitis, CVA, Diverticulitis, Homicidal, Suicidal, threat to staff... and all critical care pts) @ -No Disposition Clinical Impression: Muscle cramp Narrative: Please return to the Emergency Department if symptoms worsen or any other concerns. Disposition: HOME SELF-CARE Condition: Good Is patient prescribed a controlled substance at d/c from ED?: No Referrals: None,Stated [Primary Care Provider] - 1-2 days Time of Disposition: 18:40
[2023-11-13 18:14] VITALS: RESP 16
[2023-11-13] MEDS: ACETAMINOPHEN TAB 500 MG TAB PO STA (18:34)
[2023-11-13 19:42] VITALS: BP 110/81; PULSE 75; TEMP 98.1
== END 2023-11-13 19:22 | disposition home or self-care (01) ==
LOC: EC 16:25
DX: R25.2 Cramp and spasm (principal); Z88.0 Allergy status to penicillin; Z88.1 Allergy status to other antibiotic agents; Z88.5 Allergy status to narcotic agent; Z91.02 Food additives allergy status
CPT/HCPCS: 99283

== ENCOUNTER 2023-11-17 18:46 | Emergency (ER) | payer MEDICARE, OTHER ==
[2023-11-17] MEDS: ACETAMINOPHEN TAB 325 MG TAB PO STA (19:52)
--- NOTE | 2023-11-17 19:54 | ED ---
General Adult HPI - General Chief complaint: Skin/Abscess/Foreign Body Stated complaint: Wound Time Seen by Provider: 11/17/23 18:56 Source: patient Mode of arrival: ambulatory Limitations: no limitations - History of Present Illness Initial comments: 73-year-old female with history of left BKA presents with chief complaint of soreness to the buttocks. Patient lives alone and states that she has no assistance in her care. She wears a briefs and will place a washcloth between her labia. She often sits in this moisture for long periods of time. Today she is complaining of a possible sore to the buttocks. She denies any fevers or chills. No discharge. - Related Data Home Medications Medication Instructions Recorded Confirmed Oxybutynin ER [Ditropan XL] 15 mg PO DAILY 10/25/18 11/07/23 Sertraline [Zoloft] 100 mg PO DAILY 10/25/18 11/07/23 Atorvastatin [Lipitor] 10 mg PO DAILY 10/19/23 11/07/23 Levocetirizine Dihydrochloride 5 mg PO DAILY 10/19/23 11/07/23 [Xyzal] OLANZapine [ZyPREXA] 10 mg PO HS 10/19/23 11/07/23 Omeprazole [PriLOSEC] 20 mg PO DAILY 10/19/23 11/07/23 lisinopriL [Zestril] 20 mg PO DAILY 10/19/23 11/07/23 Ciprofloxacin HCl [Cipro] 500 mg PO DIRECTED 11/07/23 11/07/23 Sulfamethox-Tmp 800-160Mg [Bactrim 1 tab PO DIRECTED 11/07/23 11/07/23 Ds] Previous Rx's Medication Instructions Recorded Mupirocin 2% Oint [Bactroban 2% 1 applic TOPICAL TID #22 gm 05/06/23 Oint] Folic Acid 1 mg PO DAILY #30 tab 10/27/23 Allergies Allergy/AdvReac Type Severity Reaction Status Date / Time Penicillins Allergy Anaphylaxis Verified 11/17/23 18:51 cephalexin monohydrate AdvReac Nausea & Verified 11/17/23 18:51 [From Keflex] Vomiting codeine AdvReac Nausea & Verified 11/17/23 18:51 Vomiting red food dye Allergy Rash/Hives Uncoded 11/17/23 18:51 Review of Systems ROS Statement: Those systems with pertinent positive or pertinent negative responses have been documented in the HPI. ROS Other: All systems not noted in ROS Statement are negative. 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, "boarderline diabetic",gallstones, kidney stones, leakage of urine, abd hernia, wound rt butocks,carpal tunnel, "loose tooth lt upper front" History of Any Multi-Drug Resistant Organisms: None Reported Past Surgical History: Appendectomy, Section, Hernia Repair, Hysterectomy, Tonsillectomy Additional Past Surgical History / Comment(s): LEFT BELOW THE KNEE AMPUTATION, colostomy, lt thigh benign tumor removed, hemmorhoidectomy,carpal tunnel Past Anesthesia/Blood Transfusion Reactions: Postoperative Nausea & Vomiting (PONV) Additional Past Anesthesia/Blood Transfusion Reaction / Comment(s): "never received any blood transfusion" Past Psychological History: No Psychological Hx Reported Smoking Status: Never smoker - Past Family History Mother Family Medical History: Dementia Father Family Medical History: Dementia General Exam Limitations: no limitations General appearance: alert, in no apparent distress Head exam: Present: atraumatic, normocephalic Eye exam: Present: normal appearance, EOMI Neck exam: Present: normal inspection. Absent: meningismus Respiratory exam: Absent: respiratory distress Cardiovascular Exam: Present: regular rate Neurological exam: Present: alert, oriented X3 Psychiatric exam: Present: normal affect, normal mood Skin exam: Present: other (There is obvious irritation to the skin of the buttocks, no obvious sore or open wound) Course Vital Signs 11/17/23 11/17/23 18:50 20:31 Temperature 98 F 98.6 F Pulse Rate 82 79 Respiratory 18 19 Rate Blood Pressure 101/68 103/58 O2 Sat by Pulse 100 100 Oximetry Medical Decision Making - Medical Decision Making Was pt. sent in by a medical professional or institution (, PA, AERONAUTICAL ENGINEERING PROFESSOR, urgent care, hospital, or [place] health care facility...) When possible be specific @ -No Did you speak to anyone other than the patient for history (EMS, parent, family, police, friend...)? What history was obtained from this source @ -No Did you review nursing and triage notes (agree or disagree)? Why? @ -I reviewed and agree with nursing and triage notes Were old charts reviewed (outside hosp., previous admission, EMS record, old EKG, old radiological studies, urgent care reports/EKG's, [place] health care facility records)? Report findings @ -No old charts were reviewed Differential Diagnosis (chest pain, altered mental status, abdominal pain women, abdominal pain men, vaginal bleeding, weakness, fever, dyspnea, syncope, headache, dizziness, GI bleed, back pain, seizure, CVA, palpatations, mental health, musculoskeletal)? @ -Differential includes bedsore, cellulitis, abscess, this is not an all- inclusive list EKG interpreted by me (3pts min.). @ -As above X-rays interpreted by me (1pt min.). @ -None done CT interpreted by me (1pt min.). @ -None done U/S interpreted by me (1pt. min.). @ -None done What testing was considered but not performed or refused? (CT, X-rays, U/S, labs)? Why? @ -None What meds were considered but not given or refused? Why? @ -None Did you discuss the management of the patient with other professionals (professionals i.e. , PA, AERONAUTICAL ENGINEERING PROFESSOR, lab, RT, psych nurse, medical social consultant, beaming machine operator, teacher, police officer, caseworker)? Give summary @ -No Was smoking cessation discussed for >3mins.? @ -No Was critical care preformed (if so, how long)? @ -No Were there social determinants of health that impacted care today? How? (Homelessness, low income, unemployed, alcoholism, drug addiction, transportation, low edu. Level, literacy, decrease access to med. care, halfway, rehab)? @ -No Was there de-escalation of care discussed even if they declined (Discuss DNR or withdrawal of care, Hospice)? DNR status @ -No What co-morbidities impacted this encounter? (DM, HTN, Smoking, COPD, CAD, Cancer, CVA, ARF, Chemo, Hep., AIDS, mental health diagnosis, sleep apnea, morbid obesity)? @ -None Was patient admitted / discharged? Hospital course, mention meds given and route, prescriptions, significant lab abnormalities, going to OR and other pertinent info. @ -73-year-old female presenting with chief complaint of soreness to the buttocks. She is concerned that she may have a sore to this area. On exam the patient has a saturated brief as well as a washcloth that is saturated between the labia and gluteal cleft. There is no obvious bedsore or open wound. There is clear irritation to this area. Patient is educated on maintaining the area clean and dry. Also recommended barrier cream. Provided with Tylenol for pain. Discharged home. Follow-up with PCP. Report back to ER with any new or worsening symptoms. Discussed return parameters and answered all questions. Patient conveyed verbal understanding and agreed to the plan. I discussed this case in detail with my attending Dr. Curtis Undiagnosed new problem with uncertain prognosis? @ -No Drug Therapy requiring intensive monitoring for toxicity (Heparin, Nitro, Insulin, Cardizem)? @ -No Were any procedures done? @ -No Diagnosis/symptom? @ -Skin irritation Acute, or Chronic, or Acute on Chronic? @ -Acute Uncomplicated (without systemic symptoms) or Complicated (systemic symptoms)? @ -Uncomplicated Side effects of treatment? @ -No Exacerbation, Progression, or Severe Exacerbation? @ -No Poses a threat to life or bodily function? How? (Chest pain, [place], [place], pneumonia, PE, COPD, DKA, ARF, appy, cholecystitis, CVA, Diverticulitis, Homicidal, Suicidal, threat to staff... and all critical care pts) @ -No Disposition Clinical Impression: Skin irritation Disposition: HOME SELF-CARE Condition: Good Instructions (If sedation given, give patient instructions): Acute Wound Care (ED) Additional Instructions: In order to prevent skin breakdown you must keep the area clean and dry and avoid sitting in moisture for long periods of time. Leaving a moist brief on for hours at a time will gradually lead to skin breakdown and worsening discomfort. Barrier cream may help as well Is patient prescribed a controlled substance at d/c from ED?: No Referrals: Miguel Sapp MD [Primary Care Provider] - 1-2 days Time of Disposition: 19:53
[2023-11-17 20:39] VITALS: BP 103/58; PULSE 79; RESP 19; TEMP 98.6
== END 2023-11-17 20:31 | disposition home or self-care (01) ==
LOC: SUPCPDRO 18:46 → EC 18:46
DX: R21 Rash and other nonspecific skin eruption (principal); Z88.0 Allergy status to penicillin; Z88.1 Allergy status to other antibiotic agents; Z88.5 Allergy status to narcotic agent
CPT/HCPCS: 99284

== ENCOUNTER 2023-11-20 18:53 | Emergency (ER) | payer MEDICARE, OTHER ==
--- NOTE | 2023-11-20 19:33 | ED ---
General Adult HPI - General Source: patient, RN notes reviewed Mode of arrival: ambulatory Limitations: no limitations <Ha Tai - Last Filed: 11/20/23 19:33> - General Source: RN notes reviewed, old records reviewed Mode of arrival: ambulatory Limitations: no limitations - History of Present Illness -: days(s) Quality: sharp Consistency: constant Improves with: none Worsens with: none, immobilization Associated Symptoms: denies other symptoms <Chase Curtis - Last Filed: 11/24/23 22:59> - General Chief complaint: Nausea/Vomiting/Diarrhea Stated complaint: R leg pain Time Seen by Provider: 11/20/23 19:29 - History of Present Illness Initial comments: 73-year-old female presenting to the ED with a chief complaint of right leg pain. States earlier her electric chair fell on her right lower leg and now notes pain of this area. Also notes onset of nausea and chills today. (Ha Tai) This is a 73-year-old female to ER for evaluation. Patient presents today for evaluation of leg pain weakness debility nausea vomiting not feeling well (Chase Curtis) - Related Data Home Medications Medication Instructions Recorded Confirmed Oxybutynin ER [Ditropan XL] 15 mg PO DAILY 10/25/18 11/07/23 Sertraline [Zoloft] 100 mg PO DAILY 10/25/18 11/07/23 Atorvastatin [Lipitor] 10 mg PO DAILY 10/19/23 11/07/23 Levocetirizine Dihydrochloride 5 mg PO DAILY 10/19/23 11/07/23 [Xyzal] OLANZapine [ZyPREXA] 10 mg PO HS 10/19/23 11/07/23 Omeprazole [PriLOSEC] 20 mg PO DAILY 10/19/23 11/07/23 lisinopriL [Zestril] 20 mg PO DAILY 10/19/23 11/07/23 Ciprofloxacin HCl [Cipro] 500 mg PO DIRECTED 11/07/23 11/07/23 Sulfamethox-Tmp 800-160Mg [Bactrim 1 tab PO DIRECTED 11/07/23 11/07/23 Ds] Previous Rx's Medication Instructions Recorded Mupirocin 2% Oint [Bactroban 2% 1 applic TOPICAL TID #22 gm 05/06/23 Oint] Folic Acid 1 mg PO DAILY #30 tab 10/27/23 Allergies Allergy/AdvReac Type Severity Reaction Status Date / Time Penicillins Allergy Anaphylaxis Verified 11/20/23 19:31 cephalexin monohydrate AdvReac Nausea & Verified 11/20/23 19:31 [From Keflex] Vomiting codeine AdvReac Nausea & Verified 11/20/23 19:31 Vomiting red food dye Allergy Rash/Hives Uncoded 11/20/23 19:31 Review of Systems ROS Other: All systems not noted in ROS Statement are negative. <Ha Tai - Last Filed: 11/20/23 19:33> ROS Other: All systems not noted in ROS Statement are negative. <Chase Curtis - Last Filed: 11/24/23 22:59> ROS Statement: Those systems with pertinent positive or pertinent negative responses have been documented in the HPI. 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, "boarderline diabetic",gallstones, kidney stones, leakage of urine, abd hernia, wound rt butocks,carpal tunnel, "loose tooth lt upper front" History of Any Multi-Drug Resistant Organisms: None Reported Past Surgical History: Appendectomy, Section, Hernia Repair, Hysterectomy, Tonsillectomy Additional Past Surgical History / Comment(s): LEFT BELOW THE KNEE AMPUTATION, colostomy, lt thigh benign tumor removed, hemmorhoidectomy,carpal tunnel Past Anesthesia/Blood Transfusion Reactions: Postoperative Nausea & Vomiting (PONV) Additional Past Anesthesia/Blood Transfusion Reaction / Comment(s): "never received any blood transfusion" Past Psychological History: No Psychological Hx Reported Smoking Status: Never smoker Past Alcohol Use History: None Reported Past Drug Use History: None Reported - Past Family History Mother Family Medical History: Dementia Father Family Medical History: Dementia <Ha Tai - Last Filed: 11/20/23 19:33> General Exam Limitations: no limitations <Ha Tai - Last Filed: 11/20/23 19:33> General appearance: alert, in no apparent distress Head exam: Present: atraumatic, normocephalic, normal inspection Eye exam: Present: normal appearance, PERRL, EOMI. Absent: scleral icterus, conjunctival injection, periorbital swelling ENT exam: Present: normal exam, mucous membranes moist Neck exam: Present: normal inspection. Absent: tenderness, meningismus, lymphadenopathy Respiratory exam: Present: normal lung sounds bilaterally. Absent: respiratory distress, wheezes, rales, rhonchi, stridor Cardiovascular Exam: Present: regular rate, normal rhythm, normal heart sounds. Absent: systolic murmur, diastolic murmur, rubs, gallop, clicks GI/Abdominal exam: Present: soft, normal bowel sounds. Absent: distended, tenderness, guarding, rebound, rigid Extremities exam: Present: normal inspection, full ROM, normal capillary refill. Absent: tenderness, pedal edema, joint swelling, calf tenderness Back exam: Present: normal inspection Neurological exam: Present: alert, oriented X3, CN II-XII intact Psychiatric exam: Present: normal affect, normal mood Skin exam: Present: warm, dry, intact, normal color. Absent: rash <Chase Curtis - Last Filed: 11/24/23 22:59> - General Exam Comments Initial Comments: Visual Physical Exam Vital signs reviewed General: Well-appearing, nontoxic, no acute distress. Head: Normocephalic, atraumatic Eyes: PERRLA, EOMI ENT: Airway patent Chest: Nonlabored breathing Skin: No visual rash, normal skin tone Neuro: Alert and oriented 3 Musculoskeletal: Left leg BKA ([id number]) Course <Chase Curtis - Last Filed: 11/24/23 22:59> Vital Signs 11/20/23 11/20/23 11/20/23 19:27 21:40 23:03 Temperature 98.3 F Pulse Rate 72 70 69 Respiratory 22 18 18 Rate Blood Pressure 111/70 114/74 133/63 O2 Sat by Pulse 100 97 100 Oximetry 11/21/23 00:33 Temperature Pulse Rate 60 Respiratory 18 Rate Blood Pressure 118/97 O2 Sat by Pulse 96 Oximetry - Reevaluation(s) Reevaluation #1: 11/20/23 21:57 Records reviewed (Chase Curtis) Reevaluation #2: Symptoms improved here in the ER (Chase Curtis) Reevaluation #3: Patient informed of results and questions answered (Chase Curtis) Reevaluation #4: Was pt. sent in by a medical professional or institution (MONI Saldaña, CERTIFIED MEDICAL CODING SPECIALIST, urgent care, hospital, or care home...) When possible be specific @ -no Did you speak to anyone other than the patient for history (EMS, parent, family, police, friend...)? What history was obtained from this source @ -no Did you review nursing and triage notes (agree or disagree)? Why? @ -agree Are old charts reviewed (outside hosp., previous admission, EMS record, old EKG, old radiological studies, urgent care reports/EKG's, care home records)? Report findings @ -yes Differential Diagnosis (chest pain, altered mental status, abdominal pain women, abdominal pain men, vaginal bleeding, weakness, fever, dyspnea, syncope, headache, dizziness, GI bleed, back pain, seizure, CVA, palpatations, mental health, musculoskeletal)? @ -prior EKG interpreted by me (3pts min.). @ -yes X-rays interpreted by me (1pt min.). @ -yes negative for acute disease CT interpreted by me (1pt min.). @ -no U/S interpreted by me (1pt. min.). @ -no What testing was considered but not performed or refused? (CT, X-rays, U/S, labs)? Why? @ -none What meds were considered but not given or refused? Why? @ -none Did you discuss the management of the patient with other professionals (professionals i.e. MONI Saldaña, CERTIFIED MEDICAL CODING SPECIALIST, lab, RT, psych nurse, home health care social worker, telephone station repairer, teacher, international first officer, case folder)? Give summary @ -no Was smoking cessation discussed for >3mins.? @ -no Was critical care preformed (if so, how long)? @ -no Were there social determinants of health that impacted care today? How? (Homelessness, low income, unemployed, alcoholism, drug addiction, transportation, low edu. Level, literacy, decrease access to med. care, snf, rehab)? @ -none Was there de-escalation of care discussed even if they declined (Discuss DNR or withdrawal of care, Hospice)? DNR status @ -no What co-morbidities impacted this encounter? (DM, HTN, Smoking, COPD, CAD, Cancer, CVA, ARF, Chemo, Hep., AIDS, mental health diagnosis, sleep apnea, morbid obesity)? @ -none Was patient admitted / discharged? Hospital course, mention meds given and route, prescriptions, significant lab abnormalities, going to OR and other pert nent info. @ - 73 year-old female to ER with nonspecific with severe leg pain, symptoms are resolved here in the ER patient feels well can be discharged home Discharge Undiagnosed new problem with uncertain prognosis? @ -no Drug Therapy requiring intensive monitoring for toxicity (Heparin, Nitro, Insulin, Cardizem)? @ -no Were any procedures done? @ -no Diagnosis/symptom? @ -Leg pain Acute, or Chronic, or Acute on Chronic? @ -Acute Uncomplicated (without systemic symptoms) or Complicated (systemic symptoms)? @ -Complicated Side effects of treatment? @ -no Exacerbation, Progression, or Severe Exacerbation? @ -exacerbation Poses a threat to life or bodily function? How? (Chest pain, [place], [place], pneumonia, PE, COPD, DKA, ARF, appy, cholecystitis, CVA, Diverticulitis, Homicidal, Suicidal, threat to staff... and all critical care pts) @ -no (Chase Curtis) EKG Findings - EKG Comments: EKG Findings:: EKG is rate of 68 PA 189 QRS 84 QTc 400 - EKG Results: EKG: interpreted by ERMD <Chase Curtis - Last Filed: 11/24/23 22:59> Medical Decision Making <Ha Tai - Last Filed: 11/20/23 19:33> - Lab Data Result diagrams: 11/20/23 21:37 11/20/23 21:37 - EKG Data -: EKG Interpreted by [place] - Radiology Data Radiology results: report reviewed (X-ray tib-fib is negative for acute disease), image reviewed <Chase Curtis - Last Filed: 11/24/23 22:59> - Medical Decision Making Quicknote portion performed. Signed Ha Tai PA-C (Ha Tai) 73 year-old female to ER with nonspecific with severe leg pain, symptoms are resolved here in the ER patient feels well can be discharged home (Chase Curtis) - Lab Data Lab Results 11/20/23 11/20/23 11/20/23 Range/Units 21:37 21:37 21:37 WBC 8.4 (3.8-10.6) k/uL RBC 3.81 (3.80-5.40) m/uL Hgb 10.5 L (11.4-16.0) gm/dL Hct 33.0 L (34.0-46.0) % MCV 86.7 (80.0-100.0) fL MCH 27.7 (25.0-35.0) pg MCHC 31.9 (31.0-37.0) g/dL RDW 13.8 (11.5-15.5) % Plt Count 357 (150-450) k/uL MPV 7.7 Neutrophils % 61 % Lymphocytes % 28 % Monocytes % 4 % Eosinophils % 5 % Basophils % 1 % Neutrophils # 5.1 (1.3-7.7) k/uL Lymphocytes # 2.4 (1.0-4.8) k/uL Monocytes # 0.3 (0-1.0) k/uL Eosinophils # 0.4 (0-0.7) k/uL Basophils # 0.1 (0-0.2) k/uL PT (10.0-12.5) sec INR (<1.2) APTT (22.0-30.0) sec Sodium 135 L (137-145) mmol/L Potassium 4.5 (3.5-5.1) mmol/L Chloride 103 (98-107) mmol/L Carbon Dioxide 27 (22-30) mmol/L Anion Gap 5 mmol/L BUN 23 H (7-17) mg/dL Creatinine 0.81 (0.52-1.04) mg/dL Est GFR (CKD-EPI)AfAm 85 (>60 ml/min/1.73 sqM) Est GFR (CKD-EPI)NonAf 74 (>60 ml/min/1.73 sqM) Glucose 95 (74-99) mg/dL Plasma Lactic Acid Florencio (0.7-2.0) mmol/L Calcium 9.0 (8.4-10.2) mg/dL Phosphorus (2.5-4.5) mg/dL Magnesium (1.6-2.3) mg/dL Total Bilirubin 0.4 (0.2-1.3) mg/dL AST 25 (14-36) U/L ALT 13 (4-34) U/L Alkaline Phosphatase 87 (38-126) U/L Troponin I (0.000-0.034) ng/mL NT-Pro-B Natriuret Pep pg/mL Total Protein 6.5 (6.3-8.2) g/dL Albumin 3.4 L (3.5-5.0) g/dL Amylase 60 (30-110) U/L Lipase 85 (23-300) U/L Influenza Type A (PCR) Not Detected (Not Detectd) Influenza Type B (PCR) Not Detected (Not Detectd) RSV (PCR) Not Detected (Not Detectd) SARS-CoV-2 (PCR) Not Detected (Not Detectd) 11/20/23 11/20/23 11/20/23 Range/Units 22:29 22:29 22:29 WBC (3.8-10.6) k/uL RBC (3.80-5.40) m/uL Hgb (11.4-16.0) gm/dL Hct (34.0-46.0) % MCV (80.0-100.0) fL MCH (25.0-35.0) pg MCHC (31.0-37.0) g/dL RDW (11.5-15.5) % Plt Count (150-450) k/uL MPV Neutrophils % % Lymphocytes % % Monocytes % % Eosinophils % % Basophils % % Neutrophils # (1.3-7.7) k/uL Lymphocytes # (1.0-4.8) k/uL Monocytes # (0-1.0) k/uL Eosinophils # (0-0.7) k/uL Basophils # (0-0.2) k/uL PT 10.5 (10.0-12.5) sec INR 1.0 (<1.2) APTT 25.5 (22.0-30.0) sec Sodium (137-145) mmol/L Potassium (3.5-5.1) mmol/L Chloride (98-107) mmol/L Carbon Dioxide (22-30) mmol/L Anion Gap mmol/L BUN (7-17) mg/dL Creatinine (0.52-1.04) mg/dL Est GFR (CKD-EPI)AfAm (>60 ml/min/1.73 sqM) Est GFR (CKD-EPI)NonAf (>60 ml/min/1.73 sqM) Glucose (74-99) mg/dL Plasma Lactic Acid Florencio 0.7 (0.7-2.0) mmol/L Calcium (8.4-10.2) mg/dL Phosphorus (2.5-4.5) mg/dL Magnesium (1.6-2.3) mg/dL Total Bilirubin (0.2-1.3) mg/dL AST (14-36) U/L ALT (4-34) U/L Alkaline Phosphatase (38-126) U/L Troponin I <0.012 (0.000-0.034) ng/mL NT-Pro-B Natriuret Pep pg/mL Total Protein (6.3-8.2) g/dL Albumin (3.5-5.0) g/dL Amylase (30-110) U/L Lipase (23-300) U/L Influenza Type A (PCR) (Not Detectd) Influenza Type B (PCR) (Not Detectd) RSV (PCR) (Not Detectd) SARS-CoV-2 (PCR) (Not Detectd) 11/20/23 Range/Units 22:29 WBC (3.8-10.6) k/uL RBC (3.80-5.40) m/uL Hgb (11.4-16.0) gm/dL Hct (34.0-46.0) % MCV (80.0-100.0) fL MCH (25.0-35.0) pg MCHC (31.0-37.0) g/dL RDW (11.5-15.5) % Plt Count (150-450) k/uL MPV Neutrophils % % Lymphocytes % % Monocytes % % Eosinophils % % Basophils % % Neutrophils # (1.3-7.7) k/uL Lymphocytes # (1.0-4.8) k/uL Monocytes # (0-1.0) k/uL Eosinophils # (0-0.7) k/uL Basophils # (0-0.2) k/uL PT (10.0-12.5) sec INR (<1.2) APTT (22.0-30.0) sec Sodium (137-145) mmol/L Potassium (3.5-5.1) mmol/L Chloride (98-107) mmol/L Carbon Dioxide (22-30) mmol/L Anion Gap mmol/L BUN (7-17) mg/dL Creatinine (0.52-1.04) mg/dL Est GFR (CKD-EPI)AfAm (>60 ml/min/1.73 sqM) Est GFR (CKD-EPI)NonAf (>60 ml/min/1.73 sqM) Glucose (74-99) mg/dL Plasma Lactic Acid Florencio (0.7-2.0) mmol/L Calcium (8.4-10.2) mg/dL Phosphorus 3.8 (2.5-4.5) mg/dL Magnesium 2.0 (1.6-2.3) mg/dL Total Bilirubin (0.2-1.3) mg/dL AST (14-36) U/L ALT (4-34) U/L Alkaline Phosphatase (38-126) U/L Troponin I (0.000-0.034) ng/mL NT-Pro-B Natriuret Pep 235 pg/mL Total Protein (6.3-8.2) g/dL Albumin (3.5-5.0) g/dL Amylase (30-110) U/L Lipase (23-300) U/L Influenza Type A (PCR) (Not Detectd) Influenza Type B (PCR) (Not Detectd) RSV (PCR) (Not Detectd) SARS-CoV-2 (PCR) (Not Detectd) Disposition <Ha Tai - Last Filed: 11/20/23 19:33> Is patient prescribed a controlled substance at d/c from ED?: No <Chase Curtis - Last Filed: 11/24/23 22:59> Clinical Impression: Leg pain, Myalgia, Restless leg Disposition: HOME SELF-CARE Condition: Good Instructions (If sedation given, give patient instructions): Leg Pain (ED) Referrals: Miguel Sapp MD [Primary Care Provider] - 1-2 days
[2023-11-20 20:10] VITALS: TEMP 98.3
--- NOTE | 2023-11-20 20:41 | XR ---
EXAMINATION TYPE: XR tibia fibula RT DATE OF EXAM: 11/20/2023 8:14 PM CLINICAL INDICATION:Female, 73 years old with history of electric chair fell on leg; COMPARISON: None TECHNIQUE: XR tibia fibula RT; tibia/fibula was examined in AP and lateral projections. FINDINGS: No evidence of any acute osseous pathology, joint dislocation, or soft tissue swelling is n oted. Severe degeneration changes with joint space narrowing and osteophyte reformation of the knee. Calcaneal plantar spurring. Calcifications in the subcutaneous tissues anterior to the tibia. IMPRESSION: 1. No evidence of acute fracture. 2. Severe degeneration changes of the knee.
[2023-11-20 21:44] VITALS: RESP 18
[2023-11-20 21:49] LABS: Basophils # (A) 0.1 k/uL (0-0.2); Basophils % (A) 1 %; Eosinophils # (A) 0.4 k/uL (0-0.7); Eosinophils % (A) 5 %; HGB 10.5 gm/dL (11.4-16.0); Lymphocytes # (A) 2.4 k/uL (1.0-4.8); Lymphocytes % (A) 28 %; MCH 27.7 pg (25.0-35.0); MCHC 31.9 g/dL (31.0-37.0); MCV 86.7 fL (80.0-100.0); Mean Platelet Volume 7.7; Monocytes # (A) 0.3 k/uL (0-1.0); Monocytes % (A) 4 %; Neutrophils # (A) 5.1 k/uL (1.3-7.7); Neutrophils % (A) 61 %; Platelet Count 357 k/uL (150-450); RBC 3.81 m/uL (3.80-5.40); RDW 13.8 % (11.5-15.5); WBC 8.4 k/uL (3.8-10.6)
[2023-11-20 22:22] LABS: ALT 13 U/L (4-34); AST 25 U/L (14-36); African American GFR (CKD) 85 (>60 ml/min/1.73 sqM); Albumin 3.4 g/dL (3.5-5.0); Alkaline Phosphatase 87 U/L (38-126); Amylase 60 U/L (30-110); Anion Gap 5 mmol/L; Blood Urea Nitrogen 23 mg/dL (7-17); Carbon Dioxide 27 mmol/L (22-30); Chloride 103 mmol/L (98-107); Glucose 95 mg/dL (74-99); Lipase 85 U/L (23-300); Non-African American GFR(CKD) 74 (>60 ml/min/1.73 sqM); Potassium 4.5 mmol/L (3.5-5.1); Sodium 135 mmol/L (137-145); Total Bilirubin 0.4 mg/dL (0.2-1.3); Total Protein 6.5 g/dL (6.3-8.2)
[2023-11-20] MEDS: SODIUM CHLORIDE 0.9% 1,000 ML IV STA ×2 (22:57→22:58)
[2023-11-20] MEDS: SODIUM CHLORIDE 0.9% 500 ML 500 ML IV STA (22:59)
[2023-11-20] MEDS: MORPHINE SULFATE 4 MG/ML SYRINGE IV STA (23:01)
[2023-11-20 23:04] LABS: Partial Thromboplastin Time 25.5 sec (22.0-30.0); Prothrombin Time 10.5 sec (10.0-12.5)
[2023-11-20 23:18] LABS: Phosphorus 3.8 mg/dL (2.5-4.5)
[2023-11-21 01:14] VITALS: BP 118/97; PULSE 60
== END 2023-11-21 00:45 | disposition home or self-care (01) ==
LOC: EC 18:53
DX: G25.81 Restless legs syndrome (principal); M79.10 Myalgia, unspecified site; Z88.5 Allergy status to narcotic agent; Z88.0 Allergy status to penicillin; Z91.041 Radiographic dye allergy status
CPT/HCPCS: 36415; 93005; 83880; 80053; 82150; 83605; 83690; 83735; 84100; 84484; 85025; 85610; 85730; 87636; 73590; 99284; 96374; 96361 ×2; J2270

== ENCOUNTER 2023-11-27 22:28 | Emergency (ER) | payer MEDICARE, OTHER ==
[2023-11-27 23:01] VITALS: RESP 20
--- NOTE | 2023-11-27 23:28 | ED ---
Recheck HPI - General Chief Complaint: Recheck/Abnormal Lab/Rx Stated Complaint: Sore on butt Time Seen by Provider: 11/27/23 22:40 Source: patient, EMS Mode of arrival: EMS - History of Present Illness Initial Comments: 73-year-old female presenting with chief complaint of soreness to the buttocks. Patient lives alone. She has had a right BKA. She wears a briefs due to incon tinence and places washcloths in her labia for added efficacy. She states that "my butt is sore". She believes that she has a sore to her bottom. No fevers or chills. No nausea or vomiting. - Related Data Home Medications Medication Instructions Recorded Confirmed Oxybutynin ER [Ditropan XL] 15 mg PO DAILY 10/25/18 11/07/23 Sertraline [Zoloft] 100 mg PO DAILY 10/25/18 11/07/23 Atorvastatin [Lipitor] 10 mg PO DAILY 10/19/23 11/07/23 Levocetirizine Dihydrochloride 5 mg PO DAILY 10/19/23 11/07/23 [Xyzal] OLANZapine [ZyPREXA] 10 mg PO HS 10/19/23 11/07/23 Omeprazole [PriLOSEC] 20 mg PO DAILY 10/19/23 11/07/23 lisinopriL [Zestril] 20 mg PO DAILY 10/19/23 11/07/23 Ciprofloxacin HCl [Cipro] 500 mg PO DIRECTED 11/07/23 11/07/23 Sulfamethox-Tmp 800-160Mg [Bactrim 1 tab PO DIRECTED 11/07/23 11/07/23 Ds] Previous Rx's Medication Instructions Recorded Mupirocin 2% Oint [Bactroban 2% 1 applic TOPICAL TID #22 gm 05/06/23 Oint] Folic Acid 1 mg PO DAILY #30 tab 10/27/23 Allergies Allergy/AdvReac Type Severity Reaction Status Date / Time Penicillins Allergy Anaphylaxis Verified 11/27/23 22:38 cephalexin monohydrate AdvReac Nausea & Verified 11/27/23 22:38 [From Keflex] Vomiting codeine AdvReac Nausea & Verified 11/27/23 22:38 Vomiting red food dye Allergy Rash/Hives Uncoded 11/27/23 22:38 Review of Systems ROS Statement: Those systems with pertinent positive or pertinent negative responses have been documented in the HPI. ROS Other: All systems not noted in ROS Statement are negative. 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, "boarderline diabetic",gallstones, kidney stones, leakage of urine, abd hernia, wound rt butocks,carpal tunnel, "loose tooth lt upper front" History of Any Multi-Drug Resistant Organisms: None Reported Past Surgical History: Appendectomy, Section, Hernia Repair, Hysterectomy, Tonsillectomy Additional Past Surgical History / Comment(s): LEFT BELOW THE KNEE AMPUTATION, colostomy, lt thigh benign tumor removed, hemmorhoidectomy,carpal tunnel Past Anesthesia/Blood Transfusion Reactions: Postoperative Nausea & Vomiting (PONV) Additional Past Anesthesia/Blood Transfusion Reaction / Comment(s): "never received any blood transfusion" Past Psychological History: No Psychological Hx Reported Smoking Status: Never smoker Past Alcohol Use History: None Reported Past Drug Use History: None Reported - Past Family History Mother Family Medical History: Dementia Father Family Medical History: Dementia General Exam General appearance: alert, in no apparent distress Head exam: Present: atraumatic, normocephalic Eye exam: Present: normal appearance, EOMI Neck exam: Present: normal inspection Respiratory exam: Absent: respiratory distress Cardiovascular Exam: Present: regular rate Neurological exam: Present: alert, oriented X3 Psychiatric exam: Present: normal affect, normal mood Skin exam: Present: other (Mild redness to the patient's buttocks, no obvious sores or wound) Course Vital Signs 11/27/23 11/28/23 22:29 01:23 Temperature 97.7 F 97.8 F Pulse Rate 70 71 Respiratory 20 20 Rate Blood Pressure 104/56 109/70 O2 Sat by Pulse 100 100 Oximetry Medical Decision Making - Medical Decision Making Was pt. sent in by a medical professional or institution (, PA, APPAREL MANUFACTURE INSTRUCTOR, urgent care, hospital, or [place] health [place] facility...) When possible be specific @ -No Did you speak to anyone other than the patient for history (EMS, parent, family, police, friend...)? What history was obtained from this source @ -No Did you review nursing and triage notes (agree or disagree)? Why? @ -I reviewed and agree with nursing and triage notes Were old charts reviewed (outside hosp., previous admission, EMS record, old EKG, old radiological studies, urgent care reports/EKG's, [place] health [place] facility records)? Report findings @ -No old charts were reviewed Differential Diagnosis (chest pain, altered mental status, abdominal pain women, abdominal pain men, vaginal bleeding, weakness, fever, dyspnea, syncope, headache, dizziness, GI bleed, back pain, seizure, CVA, palpatations, mental health, musculoskeletal)? @ -Not applicable EKG interpreted by me (3pts min.). @ -As above X-rays interpreted by me (1pt min.). @ -None done CT interpreted by me (1pt min.). @ -None done U/S interpreted by me (1pt. min.). @ -None done What testing was considered but not performed or refused? (CT, X-rays, U/S, labs)? Why? @ -None What meds were considered but not given or refused? Why? @ -None Did you discuss the management of the patient with other professionals (professionals i.e. , PA, APPAREL MANUFACTURE INSTRUCTOR, lab, RT, psych nurse, social service director, band sawing machine operator, teacher, field artillery officer, caseworker intake)? Give summary @ -No Was smoking cessation discussed for >3mins.? @ -No Was critical care preformed (if so, how long)? @ -No Were there social determinants of health that impacted care today? How? (Homelessness, low income, unemployed, alcoholism, drug addiction, transportation, low edu. Level, literacy, decrease access to med. care, usp, rehab)? @ -No Was there de-escalation of care discussed even if they declined (Discuss DNR or withdrawal of care, Hospice)? DNR status @ -No What co-morbidities impacted this encounter? (DM, HTN, Smoking, COPD, CAD, Cancer, CVA, ARF, Chemo, Hep., AIDS, mental health diagnosis, sleep apnea, morbid obesity)? @ -None Was patient admitted / discharged? Hospital course, mention meds given and route, prescriptions, significant lab abnormalities, going to OR and other pertinent info. @ -73-year-old female presenting with chief complaint of "my butt is sore". Patient is wearing a soiled briefs and has washcloths on her buttocks and in her labia to help with her incontinence. No obvious wound. Patient is instructed to keep the area clean and dry. Provided with Tylenol for pain. Discharged home. Follow-up with PCP. Report back to ER with any new or worsening symptoms. Discussed return parameters and answered all questions. Patient conveyed verbal understanding and agreed to the plan. I discussed this case in detail with my attending Dr. Wrokman Undiagnosed new problem with uncertain prognosis? @ -No Drug Therapy requiring intensive monitoring for toxicity (Heparin, Nitro, Insulin, Cardizem)? @ -No Were any procedures done? @ -No Diagnosis/symptom? @ -Skin irritation Acute, or Chronic, or Acute on Chronic? @ -Acute Uncomplicated (without systemic symptoms) or Complicated (systemic symptoms)? @ -Uncomplicated Side effects of treatment? @ -No Exacerbation, Progression, or Severe Exacerbation? @ -No Poses a threat to life or bodily function? How? (Chest pain, [place], [place], pneumonia, PE, COPD, DKA, ARF, appy, cholecystitis, CVA, Diverticulitis, Homicidal, Suicidal, threat to staff... and all critical care pts) @ -No Disposition Clinical Impression: Skin irritation Disposition: HOME SELF-CARE Condition: Good Additional Instructions: Follow-up with PCP. Report back to ER with any new or worsening symptoms. Keep your genital and buttock region clean and dry. Is patient prescribed a controlled substance at d/c from ED?: No Referrals: Miguel Sapp MD [Primary Care Provider] - 1-2 days Time of Disposition: 23:27
[2023-11-28] MEDS: ACETAMINOPHEN TAB 500 MG TAB PO STA (00:01)
[2023-11-28 01:45] VITALS: BP 109/70; PULSE 71; TEMP 97.8
== END 2023-11-28 01:24 | disposition home or self-care (01) ==
LOC: EC 22:28
DX: L24.9 Irritant contact dermatitis, unspecified cause (principal); Z88.0 Allergy status to penicillin; Z88.1 Allergy status to other antibiotic agents; Z88.5 Allergy status to narcotic agent; Z91.041 Radiographic dye allergy status
CPT/HCPCS: 99283

== ENCOUNTER 2023-11-28 16:07 | Emergency (ER) | payer MEDICARE, OTHER ==
--- NOTE | 2023-11-28 16:12 | ED ---
General Adult HPI - General Stated complaint: knee pain Time Seen by Provider: 11/28/23 16:12 Source: patient, RN notes reviewed - History of Present Illness Initial comments: This is a 73-year-old female presents the emergency department via EMS for chief complaint of right knee pain. Patient states that the pain has been ongoing for the past week but is worsened over the past 2 days. She denies any recent falls, trauma or injury to the right knee. She denies previous surgeries to the right knee. Patient was seen in the emergency department on 10/27 with similar complaint where x-ray was completed that showed no acute abnormalities. Patient states that she has not taken any medications at home to alleviate symptoms. No other acute complaints at this time. - Related Data Home Medications Medication Instructions Recorded Confirmed Oxybutynin ER [Ditropan XL] 15 mg PO DAILY 10/25/18 11/07/23 Sertraline [Zoloft] 100 mg PO DAILY 10/25/18 11/07/23 Atorvastatin [Lipitor] 10 mg PO DAILY 10/19/23 11/07/23 Levocetirizine Dihydrochloride 5 mg PO DAILY 10/19/23 11/07/23 [Xyzal] OLANZapine [ZyPREXA] 10 mg PO HS 10/19/23 11/07/23 Omeprazole [PriLOSEC] 20 mg PO DAILY 10/19/23 11/07/23 lisinopriL [Zestril] 20 mg PO DAILY 10/19/23 11/07/23 Ciprofloxacin HCl [Cipro] 500 mg PO DIRECTED 11/07/23 11/07/23 Sulfamethox-Tmp 800-160Mg [Bactrim 1 tab PO DIRECTED 11/07/23 11/07/23 Ds] Previous Rx's Medication Instructions Recorded Mupirocin 2% Oint [Bactroban 2% 1 applic TOPICAL TID #22 gm 05/06/23 Oint] Folic Acid 1 mg PO DAILY #30 tab 10/27/23 Allergies Allergy/AdvReac Type Severity Reaction Status Date / Time Penicillins Allergy Anaphylaxis Verified 11/27/23 22:38 cephalexin monohydrate AdvReac Nausea & Verified 11/27/23 22:38 [From Keflex] Vomiting codeine AdvReac Nausea & Verified 11/27/23 22:38 Vomiting red food dye Allergy Rash/Hives Uncoded 11/27/23 22:38 Review of Systems ROS Statement: Those systems with pertinent positive or pertinent negative responses have been documented in the HPI. ROS Other: All systems not noted in ROS Statement are negative. 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, "boarderline diabetic",gallstones, kidney stones, leakage of urine, abd hernia, wound rt butocks,carpal tunnel, "loose tooth lt upper front" History of Any Multi-Drug Resistant Organisms: None Reported Past Surgical History: Appendectomy, Section, Hernia Repair, Hysterectomy, Tonsillectomy Additional Past Surgical History / Comment(s): LEFT BELOW THE KNEE AMPUTATION, colostomy, lt thigh benign tumor removed, hemmorhoidectomy,carpal tunnel Past Anesthesia/Blood Transfusion Reactions: Postoperative Nausea & Vomiting (PONV) Additional Past Anesthesia/Blood Transfusion Reaction / Comment(s): "never received any blood transfusion" Past Psychological History: No Psychological Hx Reported Smoking Status: Never smoker Past Alcohol Use History: None Reported Past Drug Use History: None Reported - Past Family History Mother Family Medical History: Dementia Father Family Medical History: Dementia General Exam General appearance: alert, in no apparent distress Head exam: Present: atraumatic, normocephalic, normal inspection Eye exam: Present: normal appearance, PERRL, EOMI. Absent: scleral icterus, conjunctival injection, periorbital swelling ENT exam: Present: normal exam, mucous membranes moist Neck exam: Present: normal inspection. Absent: tenderness, meningismus, lymphadenopathy Respiratory exam: Present: normal lung sounds bilaterally. Absent: respiratory distress, wheezes, rales, rhonchi, stridor Cardiovascular Exam: Present: regular rate, normal rhythm, normal heart sounds. Absent: systolic murmur, diastolic murmur, rubs, gallop, clicks GI/Abdominal exam: Present: soft, normal bowel sounds. Absent: distended, tenderness, guarding, rebound, rigid Right Knee exam: Present: normal inspection, full ROM, tenderness (Anterior medial and lateral knee with palpation). Absent: swelling, abrasion, ecchymosis, deformity, crepitus Lower Leg exam: Present: normal inspection, full ROM Left Knee exam: Present: deformity (Below the knee amputation) Back exam: Present: normal inspection Neurological exam: Present: alert, oriented X3, CN II-XII intact Psychiatric exam: Present: normal affect, normal mood Skin exam: Present: warm, dry, intact, normal color. Absent: rash Course Vital Signs 11/28/23 11/28/23 16:09 17:11 Temperature 97.7 F 97.6 F Pulse Rate 73 66 Respiratory 18 18 Rate Blood Pressure 105/63 108/51 O2 Sat by Pulse 98 98 Oximetry Medical Decision Making - Medical Decision Making Was pt. sent in by a medical professional or institution (, PA, NEONATOLOGIST, urgent care, hospital, or [place]...) When possible be specific @ -No Did you speak to anyone other than the patient for history (EMS, parent, family, police, friend...)? What history was obtained from this source @ -No Did you review nursing and triage notes (agree or disagree)? Why? @ -I reviewed and agree with nursing and triage notes Reviewed patient's complete right knee x-ray from 10/28/2023 which reveals no acute osseous pathology at the time of pain. Severe tricompartmental osteoarthritic changes. Differential Diagnosis (chest pain, altered mental status, abdominal pain women, abdominal pain men, vaginal bleeding, weakness, fever, dyspnea, syncope, headache, dizziness, GI bleed, back pain, seizure, CVA, palpatations, mental health, musculoskeletal)? @ -Differential Musculoskeletal Muscular strain, contusion, ligament sprain, fracture, arthritis, septic arthritis, bursitis, cellulitis, muscle spasm, nerve compression, DVT, arterial occlusion, herpes zoster, electrolyte abnormality, tumor.... This is not meant to be in all inclusive list EKG interpreted by me (3pts min.). @ -none X-rays interpreted by me (1pt min.). @ -None done CT interpreted by me (1pt min.). @ -None done U/S interpreted by me (1pt. min.). @ -None done What testing was considered but not performed or refused? (CT, X-rays, U/S, labs)? Why? @ -X-ray was considered but deferred due to review of imaging from 10/27 which revealed no acute osseous abnormalities. Since time of last image patient has not had any falls or injuries to the knee therefore minimal clinical suspicion for acute pathology at this time. What meds were considered but not given or refused? Why? @ -None Did you discuss the management of the patient with other professionals (professionals i.e. , PA, NEONATOLOGIST, lab, RT, psych nurse, health and social care teacher, telegraph plant maintainer, teacher, security officer, caser)? Give summary @ -Spoke with Jeanine from case management in regards to discussion for placement. On examination of the patient. She lives at home alone and department. Jeanine also informed that the patient has an at home nurse that comes regularly to help her bathe and with daily activities. Additionally the patient's power of state attorney is working on placement currently. Was smoking cessation discussed for >3mins.? @ -No Was critical care preformed (if so, how long)? @ -No Were there social determinants of health that impacted care today? How? (Homelessness, low income, unemployed, alcoholism, drug addiction, transpor tation, low edu. Level, literacy, decrease access to med. care, intermediate, rehab)? @ -No Was there de-escalation of care discussed even if they declined (Discuss DNR or withdrawal of care, Hospice)? DNR status @ -No What co-morbidities impacted this encounter? (DM, HTN, Smoking, COPD, CAD, Cancer, CVA, ARF, Chemo, Hep., AIDS, mental health diagnosis, sleep apnea, morbid obesity)? @ -None Was patient admitted / discharged? Hospital course, mention meds given and route, prescriptions, significant lab abnormalities, going to OR and other pertinent info. @ -Discharge. 73-year-old female with right knee pain. On examination patient has full range of motion of the right knee. There is no edema, ecchymosis or crepitus of patient. Patient was offered a shot of Toradol and given a heating pack to aid in relief and is in agreement with this plan. Reevaluation, patient states that pain has improved. Recommend the patient continue Tylenol Motrin at home and heat to aid with pain relief. All questions answered at bedside. Patient is stable for discharge. Case discussed with my attending Dr. Curtis Undiagnosed new problem with uncertain prognosis? @ -No Drug Therapy requiring intensive monitoring for toxicity (Heparin, Nitro, Insulin, Cardizem)? @ -No Were any procedures done? @ -No Diagnosis/symptom? @ -Right knee pain Acute, or Chronic, or Acute on Chronic? @ -Acute Uncomplicated (without systemic symptoms) or Complicated (systemic symptoms)? @ -Uncomplicated Side effects of treatment? @ -No Exacerbation, Progression, or Severe Exacerbation? @ -No Poses a threat to life or bodily function? How? (Chest pain, [place], [place], pneumonia, PE, COPD, DKA, ARF, appy, cholecystitis, CVA, Diverticulitis, Homicidal, Suicidal, threat to staff... and all critical care pts) @ -No Disposition Clinical Impression: Right knee pain Disposition: HOME SELF-CARE Condition: Good Instructions (If sedation given, give patient instructions): Knee Pain (ED) Additional Instructions: Return to the emergency department if your symptoms worsen or not improve. C ontinue to take Tylenol and Motrin at home as needed for pain relief. Use warm compresses on the affected area. Is patient prescribed a controlled substance at d/c from ED?: No Referrals: Miguel Sapp MD [Primary Care Provider] - 1-2 days Forms: Who Do I Call?, Adult Foster [facility] List, Assisted Living Facilities, Personal Residential Manager Time of Disposition: 16:59
[2023-11-28] MEDS: KETOROLAC 15 MG/ML 1 ML VIAL IM STA (16:37)
[2023-11-28 17:49] VITALS: RESP 18
[2023-11-28 19:23] VITALS: BP 108/51; PULSE 66; TEMP 97.6
== END 2023-11-28 18:35 | disposition home or self-care (01) ==
LOC: EC 16:07
DX: M25.561 Pain in right knee (principal); Z88.0 Allergy status to penicillin; Z88.1 Allergy status to other antibiotic agents; Z88.5 Allergy status to narcotic agent; Z91.02 Food additives allergy status
CPT/HCPCS: 99284; 96372; J1885

== ENCOUNTER 2023-11-29 20:01 | Emergency (ER) | payer MEDICARE, OTHER ==
[2023-11-29 20:18] VITALS: TEMP 97.7
--- NOTE | 2023-11-29 20:57 | ED ---
Nausea/Vomiting/Diarrhea HPI - General Source: patient, EMS Mode of arrival: EMS Limitations: no limitations <Ras Walters - Last Filed: 11/29/23 20:57> - History of Present Illness MD complaint: vomiting, diarrhea -: hour(s) Description of Vomiting: food contents Description of Diarrhea: water Associated Abdominal Pain: No Improves with: none Worsens with: none Associated Symptoms: denies other symptoms <Zeke Workman - Last Filed: 12/17/23 18:27> - General Chief complaint: Nausea/Vomiting/Diarrhea Stated complaint: Diarrhea Time Seen by Provider: 11/29/23 20:57 - History of Present Illness Initial comments: Quick note: 73-year-old female presenting with chief complaint of nausea vomiting diarrhea. Symptoms started this afternoon. Patient denies abdominal pain. Denies URI-like symptoms. (Ras Walters) This patient is a 73-year-old woman with history of colostomy she states due to diverticulitis. She presents today with complaint that she has had 1 episode of vomiting and she had to stools via the ostomy that were watery. The patient is not having fever or chills. No abdominal pain. She did not note bloody or tarry stool. No hematemesis. (Zeke Workman) - Related Data Home Medications Medication Instructions Recorded Confirmed Oxybutynin ER [Ditropan XL] 15 mg PO DAILY 10/25/18 12/17/23 Sertraline [Zoloft] 100 mg PO DAILY 10/25/18 12/17/23 Atorvastatin [Lipitor] 10 mg PO DAILY 10/19/23 12/17/23 Levocetirizine Dihydrochloride 5 mg PO DAILY 10/19/23 12/17/23 [Xyzal] OLANZapine [ZyPREXA] 10 mg PO HS 10/19/23 12/17/23 Omeprazole [PriLOSEC] 20 mg PO DAILY 10/19/23 12/17/23 lisinopriL 30 mg PO DAILY 12/17/23 12/17/23 Previous Rx's Medication Instructions Recorded Mupirocin 2% Oint [Bactroban 2% 1 applic TOPICAL TID #22 gm 05/06/23 Oint] Folic Acid 1 mg PO DAILY #30 tab 10/27/23 Ondansetron Odt [Zofran ODT] 4 mg PO Q8HR PRN #10 tab 11/30/23 Allergies Allergy/AdvReac Type Severity Reaction Status Date / Time Penicillins Allergy Anaphylaxis Verified 12/17/23 09:25 red dye Allergy Rash/Hives Verified 12/17/23 09:25 cephalexin monohydrate AdvReac Nausea & Verified 12/13/23 13:44 [From Keflex] Vomiting codeine AdvReac Nausea & Verified 12/13/23 13:44 Vomiting Review of Systems ROS Other: All systems not noted in ROS Statement are negative. <Ras Walters - Last Filed: 11/29/23 20:57> ROS Other: All systems not noted in ROS Statement are negative. <Zeke Workman - Last Filed: 12/17/23 18:27> ROS Statement: Those systems with pertinent positive or pertinent negative responses have been documented in the HPI. 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, "boarderline diabetic",gallstones, kidney stones, leakage of urine, abd hernia, wound rt butocks,carpal tunnel, "loose tooth lt up per front" History of Any Multi-Drug Resistant Organisms: None Reported Past Surgical History: Appendectomy, Section, Hernia Repair, Hysterec robert, Tonsillectomy Additional Past Surgical History / Comment(s): LEFT BELOW THE KNEE AMPUTATION, colostomy, lt thigh benign tumor removed, hemmorhoidectomy,carpal tunnel Past Anesthesia/Blood Transfusion Reactions: Postoperative Nausea & Vomiting ( PONV) Additional Past Anesthesia/Blood Transfusion Reaction / Comment(s): "never received any blood transfusion" Past Psychological History: No Psychological Hx Reported Smoking Status: Never smoker Past Alcohol Use History: None Reported Past Drug Use History: None Reported - Past Family History Mother Family Medical History: Dementia Father Family Medical History: Dementia <Ras Walters - Last Filed: 11/29/23 20:57> General Exam Limitations: no limitations <Ras Walters - Last Filed: 11/29/23 20:57> Limitations: no limitations General appearance: alert, in no apparent distress Head exam: Present: atraumatic, normocephalic Eye exam: Present: normal appearance ENT exam: Present: mucous membranes moist. Absent: mucous membranes dry Neck exam: Present: normal inspection Respiratory exam: Present: normal lung sounds bilaterally. Absent: respiratory distress, wheezes, rales, rhonchi, stridor Cardiovascular Exam: Present: regular rate, normal rhythm, normal heart sounds. Absent: systolic murmur, diastolic murmur, rubs, gallop GI/Abdominal exam: Present: soft, other (To be in the right lower quadrant with brown output, no evident blood). Absent: distended, tenderness, guarding, rebound, rigid, mass Extremities exam: Present: normal capillary refill, other (Leg below knee amputation). Absent: pedal edema, calf tenderness Back exam: Present: normal inspection. Absent: CVA tenderness (R), CVA tenderness (L) Neurological exam: Present: alert Skin exam: Present: warm, dry, intact, normal color. Absent: rash <Zeke Workman - Last Filed: 12/17/23 18:27> - General Exam Comments Initial Comments: Visual Physical Exam Vital signs reviewed General: Well-appearing, nontoxic, no acute distress. Head: Normocephalic, atraumatic Eyes: PERRLA, EOMI ENT: Airway patent Chest: Nonlabored breathing Skin: No visual rash, normal skin tone Neuro: Alert and oriented 3 Musculoskeletal: No gross abnormalities (Ras Walters) Course Vital Signs 11/29/23 11/30/23 20:02 01:20 Temperature 97.7 F Pulse Rate 69 72 Respiratory 18 16 Rate Blood Pressure 136/60 114/79 O2 Sat by Pulse 99 100 Oximetry Medical Decision Making <Ras Walters - Last Filed: 11/29/23 20:57> - Lab Data Result diagrams: 11/30/23 00:31 11/30/23 00:31 <Zeke Workman - Last Filed: 12/17/23 18:27> - Medical Decision Making I performed the quick note portion of this visit, electronically signed Ras Walters PA-C (Ras Walters) Was pt. sent in by a medical professional or institution ([facility]da[facility], [employer], urgent care, hospital, or fdc...) When possible be specific @ -[No] Did you speak to anyone other than the patient for history (EMS, parent, family, police, friend...)? What history was obtained from this source @ -[No] Did you review nursing and triage notes (agree or disagree)? Why? @ -[I reviewed and agree with nursing and triage notes] Were old charts reviewed (outside hosp., previous admission, EMS record, old EKG, old radiological studies, urgent care reports/EKG's, fdc records)? Report findings @ -[No old charts were reviewed] Differential Diagnosis (chest pain, altered mental status, abdominal pain women, abdominal pain men, vaginal bleeding, weakness, fever, dyspnea, syncope, headache, dizziness, GI bleed, back pain, seizure, CVA, palpatations, mental health, musculoskeletal)? @ -[Differential Abdominal Pain Women: Appendicitis, Cholecystitis, diverticulosis, ischemic bowel, pancreatitis, hepatitis, UTI, gastroenteritis, AAA, incarcerated hernia, bowel obstruction, constipation, inflammatory bowel, hepatitis, peptic ulcer disease, splenic infarction, perforated viscus, vulvitis, ovarian torsion, PID, kidney stone, placenta abruption, this is not meant to be an all-inclusive list EKG interpreted by me (3pts min.). @ -[As above] X-rays interpreted by me (1pt min.). @ -[None done] CT interpreted by me (1pt min.). @ -[None done] U/S interpreted by me (1pt. min.). @ -[None done] What testing was considered but not performed or refused? (CT, X-rays, U/S, labs)? Why? @ -[None] What meds were considered but not given or refused? Why? @ -[None] Did you discuss the management of the patient with other professionals (professionals i.e. , PA, [employer], lab, RT, psych nurse, public health social worker, appliance service representative, teacher, chairman and chief executive officer, caser)? Give summary @ -[No] Was smoking cessation discussed for >3mins.? @ -[No] Was critical care preformed (if so, how long)? @ -[No] Were there social determinants of health that impacted care today? How? (Homelessness, low income, unemployed, alcoholism, drug addiction, transportation, low edu. Level, literacy, decrease access to med. care, fci, rehab)? @ -[No] Was there de-escalation of care discussed even if they declined (Discuss DNR or withdrawal of care, Hospice)? DNR status @ -[No] What co-morbidities impacted this encounter? (DM, HTN, Smoking, COPD, CAD, Cancer, CVA, ARF, Chemo, Hep., AIDS, mental health diagnosis, sleep apnea, morbid obesity)? @ -[Hypertension and asthma Was patient admitted / discharged? Hospital course, mention meds given and [facility] [facility] [facility] [place], prescriptions, significant lab abnormalities, going to OR and other pertinent info. @ -[Patient is 73-year-old woman here to have evaluation after having episodes of nausea and vomiting. The exam is benign. The patient's workup shows mildest degree of dehydration. The patient did have improvement in symptoms, was feeling better and wanted to go home. Discussed appropriate further care and follow-up as well as return parameters. Undiagnosed new problem with uncertain prognosis? @ -[No] Drug Therapy requiring intensive monitoring for toxicity (Heparin, Nitro, Insulin, Cardizem)? @ -[No] Were any procedures done? @ -[No] Diagnosis/symptom? @ -[Acute nausea and vomiting Acute, or Chronic, or Acute on Chronic? @ -[Acute Uncomplicated (without systemic symptoms) or Complicated (systemic symptoms)? @ -Uncomplicated Side effects of treatment? @ -[No] Exacerbation, Progression, or Severe Exacerbation? @ -[No] Poses a threat to life or bodily function? How? (Chest pain, [place], [place], pneumonia, PE, COPD, DKA, ARF, appy, cholecystitis, CVA, Diverticulitis, Homicidal, Suicidal, threat to staff... and all critical care pts) @ -[No] (Zeke Workman) - Lab Data Lab Results 11/29/23 11/30/23 11/30/23 Range/Units 21:56 00:31 00:31 WBC 9.0 (3.8-10.6) k/uL RBC 3.95 (3.80-5.40) m/uL Hgb 10.7 L (11.4-16.0) gm/dL Hct 34.5 (34.0-46.0) % MCV 87.4 (80.0-100.0) fL MCH 27.0 (25.0-35.0) pg MCHC 30.9 L (31.0-37.0) g/dL RDW 13.8 (11.5-15.5) % Plt Count 448 (150-450) k/uL MPV 7.5 Neutrophils % 63 % Lymphocytes % 26 % Monocytes % 4 % Eosinophils % 6 % Basophils % 1 % Neutrophils # 5.6 (1.3-7.7) k/uL Lymphocytes # 2.4 (1.0-4.8) k/uL Monocytes # 0.3 (0-1.0) k/uL Eosinophils # 0.5 (0-0.7) k/uL Basophils # 0.1 (0-0.2) k/uL Sodium 140 (137-145) mmol/L Potassium 4.2 (3.5-5.1) mmol/L Chloride 105 (98-107) mmol/L Carbon Dioxide 30 (22-30) mmol/L Anion Gap 5 mmol/L BUN 25 H (7-17) mg/dL Creatinine 0.75 (0.52-1.04) mg/dL Est GFR (CKD-EPI)AfAm >90 (>60 ml/min/1.73 sqM) Est GFR (CKD-EPI)NonAf 81 (>60 ml/min/1.73 sqM) Glucose 93 (74-99) mg/dL Plasma Lactic Acid Florencio (0.7-2.0) mmol/L Calcium 9.2 (8.4-10.2) mg/dL Total Bilirubin 0.5 (0.2-1.3) mg/dL AST 20 (14-36) U/L ALT 12 (4-34) U/L Alkaline Phosphatase 84 (38-126) U/L Total Protein 6.7 (6.3-8.2) g/dL Albumin 3.7 (3.5-5.0) g/dL Influenza Type A (PCR) Not Detected (Not Detectd) Influenza Type B (PCR) Not Detected (Not Detectd) RSV (PCR) Not Detected (Not Detectd) SARS-CoV-2 (PCR) Not Detected (Not Detectd) 11/30/23 Range/Units 00:31 WBC (3.8-10.6) k/uL RBC (3.80-5.40) m/uL Hgb (11.4-16.0) gm/dL Hct (34.0-46.0) % MCV (80.0-100.0) fL MCH (25.0-35.0) pg MCHC (31.0-37.0) g/dL RDW (11.5-15.5) % Plt Count (150-450) k/uL MPV Neutrophils % % Lymphocytes % % Monocytes % % Eosinophils % % Basophils % % Neutrophils # (1.3-7.7) k/uL Lymphocytes # (1.0-4.8) k/uL Monocytes # (0-1.0) k/uL Eosinophils # (0-0.7) k/uL Basophils # (0-0.2) k/uL Sodium (137-145) mmol/L Potassium (3.5-5.1) mmol/L Chloride (98-107) mmol/L Carbon Dioxide (22-30) mmol/L Anion Gap mmol/L BUN (7-17) mg/dL Creatinine (0.52-1.04) mg/dL Est GFR (CKD-EPI)AfAm (>60 ml/min/1.73 sqM) Est GFR (CKD-EPI)NonAf (>60 ml/min/1.73 sqM) Glucose (74-99) mg/dL Plasma Lactic Acid Florencio 0.6 L (0.7-2.0) mmol/L Calcium (8.4-10.2) mg/dL Total Bilirubin (0.2-1.3) mg/dL AST (14-36) U/L ALT (4-34) U/L Alkaline Phosphatase (38-126) U/L Total Protein (6.3-8.2) g/dL Albumin (3.5-5.0) g/dL Influenza Type A (PCR) (Not Detectd) Influenza Type B (PCR) (Not Detectd) RSV (PCR) (Not Detectd) SARS-CoV-2 (PCR) (Not Detectd) Disposition <Ras Walters - Last Filed: 11/29/23 20:57> Is patient prescribed a controlled substance at d/c from ED?: No <Zeke Workman - Last Filed: 12/17/23 18:27> Clinical Impression: Vomiting Disposition: HOME SELF-CARE Condition: Good Instructions (If sedation given, give patient instructions): Acute Nausea and Vomiting (ED) Prescriptions: Ondansetron Odt [Zofran ODT] 4 mg PO Q8HR PRN #10 tab PRN Reason: Nausea Referrals: Miguel Sapp MD [Primary Care Provider] - 1-2 days
[2023-11-30] MEDS: ONDANSETRON 4 MG/2 ML VIAL IVP STA (00:34)
[2023-11-30] MEDS: SODIUM CHLORIDE 0.9% 1,000 ML IV STA (00:36)
[2023-11-30 00:40] LABS: Basophils # (A) 0.1 k/uL (0-0.2); Basophils % (A) 1 %; Eosinophils # (A) 0.5 k/uL (0-0.7); Eosinophils % (A) 6 %; HCT 34.5 % (34.0-46.0); HGB 10.7 gm/dL (11.4-16.0); Lymphocytes # (A) 2.4 k/uL (1.0-4.8); Lymphocytes % (A) 26 %; MCHC 30.9 g/dL (31.0-37.0); MCV 87.4 fL (80.0-100.0); Mean Platelet Volume 7.5; Monocytes # (A) 0.3 k/uL (0-1.0); Monocytes % (A) 4 %; Neutrophils # (A) 5.6 k/uL (1.3-7.7); Neutrophils % (A) 63 %; Platelet Count 448 k/uL (150-450); RBC 3.95 m/uL (3.80-5.40); RDW 13.8 % (11.5-15.5)
[2023-11-30 00:51] LABS: ALT 12 U/L (4-34); AST 20 U/L (14-36); African American GFR (CKD) >90 (>60 ml/min/1.73 sqM); Albumin 3.7 g/dL (3.5-5.0); Alkaline Phosphatase 84 U/L (38-126); Anion Gap 5 mmol/L; Blood Urea Nitrogen 25 mg/dL (7-17); Calcium 9.2 mg/dL (8.4-10.2); Carbon Dioxide 30 mmol/L (22-30); Chloride 105 mmol/L (98-107); Glucose 93 mg/dL (74-99); Non-African American GFR(CKD) 81 (>60 ml/min/1.73 sqM); Potassium 4.2 mmol/L (3.5-5.1); Sodium 140 mmol/L (137-145); Total Bilirubin 0.5 mg/dL (0.2-1.3); Total Protein 6.7 g/dL (6.3-8.2)
[2023-11-30 01:59] VITALS: BP 114/79; PULSE 72; RESP 16
== END 2023-11-30 01:20 | disposition home or self-care (01) ==
LOC: EC 20:01
DX: R11.2 Nausea with vomiting, unspecified (principal); E86.0 Dehydration; I10 Essential (primary) hypertension; J45.909 Unspecified asthma, uncomplicated; Z79.899 Other long term (current) drug therapy; Z88.0 Allergy status to penicillin; Z88.1 Allergy status to other antibiotic agents; Z88.5 Allergy status to narcotic agent; Z91.041 Radiographic dye allergy status
CPT/HCPCS: 99284 ×2; 96374 ×2; 96361 ×2; 36415; 80053; 83605; 85025; 87636; J2405

== ENCOUNTER 2023-12-13 13:36 | Emergency (ER) | payer MEDICARE, OTHER ==
--- NOTE | 2023-12-13 14:05 | ED ---
General Adult HPI - General Chief complaint: Abdominal Pain Stated complaint: stool in colostamy bag Time Seen by Provider: 12/13/23 13:50 Source: patient, RN notes reviewed, old records reviewed Mode of arrival: EMS Limitations: no limitations - History of Present Illness Initial comments: This is a 73-year-old female who presents to the emergency department complaining that she had a little bit of bright red blood from her ostomy. Patient states she has had this before. According to home health care she often will play with the site and tape non medical tape around it and causing some irritation as well. Denies any abdominal pain. Patient has any fever or chills. Patient has any back pain. Patient [place] any other symptoms at this time. Patient has nausea vomiting - Related Data Home Medications Medication Instructions Recorded Confirmed Oxybutynin ER [Ditropan XL] 15 mg PO DAILY 10/25/18 11/07/23 Sertraline [Zoloft] 100 mg PO DAILY 10/25/18 11/07/23 Atorvastatin [Lipitor] 10 mg PO DAILY 10/19/23 11/07/23 Levocetirizine Dihydrochloride 5 mg PO DAILY 10/19/23 11/07/23 [Xyzal] OLANZapine [ZyPREXA] 10 mg PO HS 10/19/23 11/07/23 Omeprazole [PriLOSEC] 20 mg PO DAILY 10/19/23 11/07/23 lisinopriL [Zestril] 20 mg PO DAILY 10/19/23 11/07/23 Ciprofloxacin HCl [Cipro] 500 mg PO DIRECTED 11/07/23 11/07/23 Sulfamethox-Tmp 800-160Mg [Bactrim 1 tab PO DIRECTED 11/07/23 11/07/23 Ds] Previous Rx's Medication Instructions Recorded Mupirocin 2% Oint [Bactroban 2% 1 applic TOPICAL TID #22 gm 05/06/23 Oint] Folic Acid 1 mg PO DAILY #30 tab 10/27/23 Ondansetron Odt [Zofran ODT] 4 mg PO Q8HR PRN #10 tab 11/30/23 Allergies Allergy/AdvReac Type Severity Reaction Status Date / Time Penicillins Allergy Anaphylaxis Verified 12/13/23 13:44 cephalexin monohydrate AdvReac Nausea & Verified 12/13/23 13:44 [From Keflex] Vomiting codeine AdvReac Nausea & Verified 12/13/23 13:44 Vomiting red food dye Allergy Rash/Hives Uncoded 11/29/23 20:06 Review of Systems ROS Statement: Those systems with pertinent positive or pertinent negative responses have been documented in the HPI. ROS Other: All systems not noted in ROS Statement are negative. 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, "boarderline diabetic",gallstones, kidney stones, leakage of urine, abd hernia, wound rt butocks,carpal tunnel, "loose tooth lt upper front" History of Any Multi-Drug Resistant Organisms: None Reported Past Surgical History: Appendectomy, Section, Hernia Repair, Hysterectomy, Tonsillectomy Additional Past Surgical History / Comment(s): LEFT BELOW THE KNEE AMPUTATION, colostomy, lt thigh benign tumor removed, hemmorhoidectomy,carpal tunnel Past Anesthesia/Blood Transfusion Reactions: Postoperative Nausea & Vomiting (PONV) Additional Past Anesthesia/Blood Transfusion Reaction / Comment(s): "never received any blood transfusion" Past Psychological History: No Psychological Hx Reported Smoking Status: Never smoker Past Alcohol Use History: None Reported Past Drug Use History: None Reported - Past Family History Mother Family Medical History: Dementia Father Family Medical History: Dementia General Exam - General Exam Comments Initial Comments: GENERAL: Patient is well-developed and well-nourished. Patient is nontoxic and well- hydrated and is in no acute distress. ENT: Neck is soft and supple. No significant lymphadenopathy is noted. Oropharynx is clear. Moist mucous membranes. Neck has full range of motion without eliciting any pain. EYES: The sclera were anicteric and conjunctiva were pink and moist. Extraocular movements were intact and pupils were equal round and reactive to light. Eyelids were unremarkable. PULMONARY: Unlabored respirations. Good breath sounds bilaterally. No audible rales rhonchi or wheezing was noted. CARDIOVASCULAR: There is a regular rate and rhythm without any murmurs gallops or rubs. ABDOMEN: Soft and nontender with normal bowel sounds. Obvious bleeding at this time around the ostomy SKIN: Skin is clear with no lesions or rashes and otherwise unremarkable. NEUROLOGIC: Patient is alert and oriented x3. Cranial nerves II through XII are grossly intact. Motor and sensory are also intact. Normal speech, volume and content. Symmetrical smile. MUSCULOSKELETAL: Has an AKA on the left LYMPHATICS: No significant lymphadenopathy is noted PSYCHIATRIC: Normal psychiatric evaluation. Limitations: no limitations Course Vital Signs 12/13/23 13:41 Temperature 98.0 F Pulse Rate 76 Respiratory 16 Rate Blood Pressure 86/51 O2 Sat by Pulse 100 Oximetry Medical Decision Making - Medical Decision Making Was pt. sent in by a medical professional or institution (, PA, SERVICE ENGINEER, urgent care, hospital, or half-way...) When possible be specific @ -No Did you speak to anyone other than the patient for history (EMS, parent, family, police, friend...)? What history was obtained from this source @ -No Did you review nursing and triage notes (agree or disagree)? Why? @ -I reviewed and agree with nursing and triage notes Were old charts reviewed (outside hosp., previous admission, EMS record, old EKG, old radiological studies, urgent care reports/EKG's, half-way records)? Report findings @ -No old charts were reviewed Differential Diagnosis (chest pain, altered mental status, abdominal pain women, abdominal pain men, vaginal bleeding, weakness, fever, dyspnea, syncope, headache, dizziness, GI bleed, back pain, seizure, CVA, palpatations, mental health, musculoskeletal)? @ -Differential GI Bleed: Esophageal varices, aortoenteric fistula, Loni-Arshad, gastritis, peptic ulcer disease, diverticulosis, inflammatory bowel disease, hemorrhoids, fissure, colitis, malignancy, Meckels diverticulum, this is not meant to be an all- inclusive list. EKG interpreted by me (3pts min.). @ -As above X-rays interpreted by me (1pt min.). @ -None done CT interpreted by me (1pt min.). @ -None done U/S interpreted by me (1pt. min.). @ -None done What testing was considered but not performed or refused? (CT, X-rays, U/S, labs)? Why? @ -None What meds were considered but not given or refused? Why? @ -None Did you discuss the management of the patient with other professionals (professionals i.e. , PA, SERVICE ENGINEER, lab, RT, psych nurse, social services analyst, software program manager, teacher, aoc director combat operations officer, pillowcase maker)? Give summary @ -No Was smoking cessation discussed for >3mins.? @ -No Was critical care preformed (if so, how long)? @ -No Were there social determinants of health that impacted care today? How? (Homelessness, low income, unemployed, alcoholism, drug addiction, transportation, low edu. Level, literacy, decrease access to med. care, fdc, rehab)? @ -No Was there de-escalation of care discussed even if they declined (Discuss DNR or withdrawal of care, Hospice)? DNR status @ -No What co-morbidities impacted this encounter? (DM, HTN, Smoking, COPD, CAD, Cancer, CVA, ARF, Chemo, Hep., AIDS, mental health diagnosis, sleep apnea, morbid obesity)? @ -None Was patient admitted / discharged? Hospital course, mention meds given and route, prescriptions, significant lab abnormalities, going to OR and other pertinent info. @ -Patient's occult stool sample was negative patient's hemoglobin is stable patient has no other acute abnormalities and no other complaints at this time. Patient states he could have come from some of the tape that she puts on herself it causes some irritation to the skin. Undiagnosed new problem with uncertain prognosis? @ -No Drug Therapy requiring intensive monitoring for toxicity (Heparin, Nitro, Insulin, Cardizem)? @ -No Were any procedures done? @ -No Diagnosis/symptom? @ -Ostomy problems Acute, or Chronic, or Acute on Chronic? @ -Acute Uncomplicated (without systemic symptoms) or Complicated (systemic symptoms)? @ -Uncomplicated Side effects of treatment? @ -No Exacerbation, Progression, or Severe Exacerbation? @ -No Poses a threat to life or bodily function? How? (Chest pain, [place], [place], pneumonia, PE, COPD, DKA, ARF, appy, cholecystitis, CVA, Diverticulitis, Homicidal, Suicidal, threat to staff... and all critical care pts) @ -No - Lab Data Result diagrams: 12/13/23 14:28 Lab Results 12/13/23 12/13/23 Range/Units 14:28 14:28 WBC 6.9 (3.8-10.6) k/uL RBC 3.86 (3.80-5.40) m/uL Hgb 10.7 L (11.4-16.0) gm/dL Hct 33.3 L (34.0-46.0) % MCV 86.2 (80.0-100.0) fL MCH 27.7 (25.0-35.0) pg MCHC 32.1 (31.0-37.0) g/dL RDW 13.7 (11.5-15.5) % Plt Count 421 (150-450) k/uL MPV 7.6 Neutrophils % 63 % Lymphocytes % 27 % Monocytes % 4 % Eosinophils % 4 % Basophils % 1 % Neutrophils # 4.3 (1.3-7.7) k/uL Lymphocytes # 1.9 (1.0-4.8) k/uL Monocytes # 0.3 (0-1.0) k/uL Eosinophils # 0.3 (0-0.7) k/uL Basophils # 0.1 (0-0.2) k/uL Stool Occult Blood Negative (Negative) Disposition Clinical Impression: Complication of ostomy Disposition: HOME SELF-CARE Condition: Good Additional Instructions: Should not be playing with her ostomy and or using tape that irritates her skin. Is patient prescribed a controlled substance at d/c from ED?: No Referrals: Miguel Sapp MD [Primary Care Provider] - 1-2 days Time of Disposition: 14:55
[2023-12-13 14:46] LABS: Basophils # (A) 0.1 k/uL (0-0.2); Basophils % (A) 1 %; Eosinophils # (A) 0.3 k/uL (0-0.7); Eosinophils % (A) 4 %; HCT 33.3 % (34.0-46.0); HGB 10.7 gm/dL (11.4-16.0); Lymphocytes # (A) 1.9 k/uL (1.0-4.8); Lymphocytes % (A) 27 %; MCH 27.7 pg (25.0-35.0); MCHC 32.1 g/dL (31.0-37.0); MCV 86.2 fL (80.0-100.0); Mean Platelet Volume 7.6; Monocytes # (A) 0.3 k/uL (0-1.0); Monocytes % (A) 4 %; Neutrophils # (A) 4.3 k/uL (1.3-7.7); Neutrophils % (A) 63 %; Platelet Count 421 k/uL (150-450); RBC 3.86 m/uL (3.80-5.40); RDW 13.7 % (11.5-15.5); WBC 6.9 k/uL (3.8-10.6)
[2023-12-13 14:59] LABS: ALT 12 U/L (4-34); AST 20 U/L (14-36); African American GFR (CKD) 69 (>60 ml/min/1.73 sqM); Albumin 3.4 g/dL (3.5-5.0); Alkaline Phosphatase 90 U/L (38-126); Anion Gap 8 mmol/L; Blood Urea Nitrogen 29 mg/dL (7-17); Carbon Dioxide 25 mmol/L (22-30); Chloride 104 mmol/L (98-107); Glucose 94 mg/dL (74-99); Non-African American GFR(CKD) 60 (>60 ml/min/1.73 sqM); Potassium 4.5 mmol/L (3.5-5.1); Sodium 137 mmol/L (137-145); Total Bilirubin 0.4 mg/dL (0.2-1.3); Total Protein 6.4 g/dL (6.3-8.2)
[2023-12-13 15:38] LABS: Partial Thromboplastin Time 20.2 sec (22.0-30.0)
[2023-12-13 15:51] VITALS: BP 91/62; PULSE 74; RESP 20; TEMP 98.2
== END 2023-12-13 16:25 | disposition home or self-care (01) ==
LOC: EC 13:36
DX: Z43.3 Encounter for attention to colostomy (principal); Z88.5 Allergy status to narcotic agent; Z88.0 Allergy status to penicillin; Z91.041 Radiographic dye allergy status; Z88.1 Allergy status to other antibiotic agents
CPT/HCPCS: 36415; 80053; 82272; 85025; 85610; 85730; 99284

== ENCOUNTER 2023-12-16 18:49 | Inpatient (IN) | payer MEDICARE, OTHER ==
--- NOTE | 2023-12-16 20:36 | ED ---
General Adult HPI - General Chief complaint: Weakness Stated complaint: Weakness Time Seen by Provider: 12/16/23 19:00 Source: patient, EMS, RN notes reviewed, old records reviewed Mode of arrival: EMS Limitations: no limitations, physical limitation - History of Present Illness Initial comments: 73-year-old female presenting from home with weakness. Patient states she has had increased weakness and states that she does not normally ambulate but is a ble to lift herself from the floor where she sleeps to her electric wheelchair. Patient denies headache. Denies central chest pain. Denies abdominal pain. She was found by paramedics on the floor and was covered in urine. She does admit that it is difficult for her to care for herself at home. - Related Data Home Medications Medication Instructions Recorded Confirmed Oxybutynin ER [Ditropan XL] 15 mg PO DAILY 10/25/18 11/07/23 Sertraline [Zoloft] 100 mg PO DAILY 10/25/18 11/07/23 Atorvastatin [Lipitor] 10 mg PO DAILY 10/19/23 11/07/23 Levocetirizine Dihydrochloride 5 mg PO DAILY 10/19/23 11/07/23 [Xyzal] OLANZapine [ZyPREXA] 10 mg PO HS 10/19/23 11/07/23 Omeprazole [PriLOSEC] 20 mg PO DAILY 10/19/23 11/07/23 lisinopriL [Zestril] 20 mg PO DAILY 10/19/23 11/07/23 Ciprofloxacin HCl [Cipro] 500 mg PO DIRECTED 11/07/23 11/07/23 Sulfamethox-Tmp 800-160Mg [Bactrim 1 tab PO DIRECTED 11/07/23 11/07/23 Ds] Previous Rx's Medication Instructions Recorded Mupirocin 2% Oint [Bactroban 2% 1 applic TOPICAL TID #22 gm 05/06/23 Oint] Folic Acid 1 mg PO DAILY #30 tab 10/27/23 Ondansetron Odt [Zofran ODT] 4 mg PO Q8HR PRN #10 tab 11/30/23 Allergies Allergy/AdvReac Type Severity Reaction Status Date / Time Penicillins Allergy Anaphylaxis Verified 12/13/23 13:44 cephalexin monohydrate AdvReac Nausea & Verified 12/13/23 13:44 [From Keflex] Vomiting codeine AdvReac Nausea & Verified 12/13/23 13:44 Vomiting red food dye Allergy Rash/Hives Uncoded 11/29/23 20:06 Review of Systems ROS Statement: Those systems with pertinent positive or pertinent negative responses have been documented in the HPI. ROS Other: All systems not noted in ROS Statement are negative. 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, "boarderline diabetic",gallstones, kidney stones, leakage of urine, abd hernia, wound rt butocks,carpal tunnel, "loose tooth lt up per front" History of Any Multi-Drug Resistant Organisms: None Reported Past Surgical History: Appendectomy, Section, Hernia Repair, Hysterec robert, Tonsillectomy Additional Past Surgical History / Comment(s): LEFT BELOW THE KNEE AMPUTATION, colostomy, lt thigh benign tumor removed, hemmorhoidectomy,carpal tunnel Past Anesthesia/Blood Transfusion Reactions: Postoperative Nausea & Vomiting ( PONV) Additional Past Anesthesia/Blood Transfusion Reaction / Comment(s): "never received any blood transfusion" Past Psychological History: No Psychological Hx Reported Smoking Status: Never smoker Past Alcohol Use History: None Reported Past Drug Use History: None Reported - Past Family History Mother Family Medical History: Dementia Father Family Medical History: Dementia General Exam Limitations: physical limitation General appearance: alert, in no apparent distress Head exam: Present: atraumatic, normocephalic Eye exam: Present: normal appearance, PERRL Respiratory exam: Present: normal lung sounds bilaterally. Absent: respiratory distress, wheezes Cardiovascular Exam: Present: regular rate, normal rhythm GI/Abdominal exam: Present: soft. Absent: distended, tenderness, guarding Neurological exam: Present: alert. Absent: motor sensory deficit Skin exam: Present: warm, dry, intact. Absent: cyanosis, diaphoretic Course Vital Signs 12/16/23 18:52 Temperature 97.9 F Pulse Rate 71 Respiratory 20 Rate Blood Pressure 111/62 O2 Sat by Pulse 100 Oximetry Medical Decision Making - Medical Decision Making Was pt. sent in by a medical professional or institution (, PA, WH[employer]ER, urgent care, hospital, or care home...) When possible be specific @ -No Did you speak to anyone other than the patient for history (EMS, parent, family, police, friend...)? What history was obtained from this source @ -No Did you review nursing and triage notes (agree or disagree)? Why? @ -I reviewed and agree with nursing and triage notes Were old charts reviewed (outside hosp., previous admission, EMS record, old EKG, old radiological studies, urgent care reports/EKG's, care home records)? Report findings @ -No old charts were reviewed Differential Weakness: Hypoglycemia, shock, sepsis, hyponatremia, anemia, infection, CT, ETOH, adverse medicine reaction, overdose, stroke, this is not meant to be an all-inclusive list. EKG interpreted by me (3pts min.). @ -EKG sinus rhythm with first-degree AV block rate of 69 DE interval 214, QRS duration 78, QTc [address] segment elevation. X-rays interpreted by me (1pt min.). @ -[Chest x-ray: No acute cardiopulmonary findings CT interpreted by me (1pt min.). @ -None done U/S interpreted by me (1pt. min.). @ -None done What testing was considered but not performed or refused? (CT, X-rays, U/S, labs)? Why? @ -None What meds were considered but not given or refused? Why? @ -None Did you discuss the management of the patient with other professionals (professionals i.e. , PA, WH[employer]PING M[employer]ER, lab, RT, psych nurse, social welfare clerk, gliding pilot instructor, teacher, plain clothes police officer, heel caser)? Give summary @ Sound covering for Dr. Gandhi Was smoking cessation discussed for >3mins.? @ -No Was critical care preformed (if so, how long)? @ -No Were there social determinants of health that impacted care today? How? (Homelessness, low income, unemployed, alcoholism, drug addiction, t ransportation, low edu. Level, literacy, decrease access to med. care, care home, rehab)? @ -No Was there de-escalation of care discussed even if they declined (Discuss DNR or withdrawal of care, Hospice)? DNR status @ -No What co-morbidities impacted this encounter? (DM, HTN, Smoking, COPD, CAD, Cance r, CVA, ARF, Chemo, Hep., AIDS, mental health diagnosis, sleep apnea, morbid obesity)? @ -None Was patient admitted / discharged? Hospital course, mention meds given and route, prescriptions, significant lab abnormalities, going to OR and other pertinent info. @Will be admitted for failure to thrive, weakness, inability to care for self. consult to social work. Undiagnosed new problem with uncertain prognosis? @ -No Drug Therapy requiring intensive monitoring for toxicity (Heparin, Nitro, In sulin, Cardizem)? @ -No Were any procedures done? @ -No Diagnosis/symptom? @general weakness, failure to thrive, inability to care for self Acute, or Chronic, or Acute on Chronic? @ chronic Uncomplicated (without systemic symptoms) or Complicated (systemic symptoms)? @ complicated Side effects of treatment? @ -No Exacerbation, Progression, or Severe Exacerbation? @ -No Poses a threat to life or bodily function? How? (Chest pain, USA, CT, pneumonia, PE, COPD, DKA, ARF, appy, cholecystitis, CVA, Diverticulitis, Homicidal, Suicidal, threat to staff... and all critical care pts) @ -No - Lab Data Result diagrams: 12/16/23 19:49 Lab Results 12/16/23 12/16/23 12/16/23 Range/Units 19:49 19:49 19:55 Sodium 139 (137-145) mmol/L Potassium 4.9 (3.5-5.1) mmol/L Chloride 105 (98-107) mmol/L Carbon Dioxide 26 (22-30) mmol/L Anion Gap 8 mmol/L BUN 24 H (7-17) mg/dL Creatinine 0.76 (0.52-1.04) mg/dL Est GFR (CKD-EPI)AfAm >90 (>60 ml/min/1.73 sqM) Est GFR (CKD-EPI)NonAf 80 (>60 ml/min/1.73 sqM) Glucose 85 (74-99) mg/dL Calcium 8.7 (8.4-10.2) mg/dL Magnesium 2.0 (1.6-2.3) mg/dL Total Bilirubin 0.5 (0.2-1.3) mg/dL AST 23 (14-36) U/L ALT 12 (4-34) U/L Alkaline Phosphatase 74 (38-126) U/L Troponin I <0.012 (0.000-0.034) ng/mL Total Protein 6.7 (6.3-8.2) g/dL Albumin 3.6 (3.5-5.0) g/dL Urine Color Colorless Urine Appearance Clear (Clear) Urine pH 6.5 (5.0-8.0) Ur Specific [place] 1.007 (1.001-1.035) Urine Protein Negative (Negative) Urine Glucose (UA) Negative (Negative) Urine Ketones Negative (Negative) Urine Blood Negative (Negative) Urine Nitrite Negative (Negative) Urine Bilirubin Negative (Negative) Urine Urobilinogen <2.0 (<2.0) mg/dL Ur Leukocyte Esterase Negative (Negative) Disposition Clinical Impression: Weakness, Failure to thrive in adult Disposition: ADMITTED IP TO THIS [facility] Condition: Stable Is patient prescribed a controlled substance at d/c from ED?: No Referrals: Miguel Sapp MD [Primary Care Provider] - 1-2 days Time of Disposition: 21:30
[2023-12-16 20:38] LABS: ALT 12 U/L (4-34); AST 23 U/L (14-36); African American GFR (CKD) >90 (>60 ml/min/1.73 sqM); Albumin 3.6 g/dL (3.5-5.0); Alkaline Phosphatase 74 U/L (38-126); Anion Gap 8 mmol/L; Blood Urea Nitrogen 24 mg/dL (7-17); Calcium 8.7 mg/dL (8.4-10.2); Carbon Dioxide 26 mmol/L (22-30); Chloride 105 mmol/L (98-107); Glucose 85 mg/dL (74-99); Non-African American GFR(CKD) 80 (>60 ml/min/1.73 sqM); Potassium 4.9 mmol/L (3.5-5.1); Sodium 139 mmol/L (137-145); Total Bilirubin 0.5 mg/dL (0.2-1.3); Total Protein 6.7 g/dL (6.3-8.2)
--- NOTE | 2023-12-16 20:39 | XR ---
EXAMINATION TYPE: XR chest 2V DATE OF EXAM: 12/16/2023 8:01 PM CLINICAL INDICATION:Female, 73 years old with history of Weakness; COMPARISON: Chest radiographs from 10/25/2023 TECHNIQUE: XR chest 2V Frontal and lateral views of the chest. FINDINGS: Lungs/Pleura: There is no evidence of pleural effusion, focal consolidation, or pneumothorax. Pulmonary vascularity: Unremarkable. Heart/mediastinum: Cardiomediastinal silhouette is unremarkable. Musculoskeletal: No acute osseous pathology. IMPRESSION: No acute cardiopulmonary disease/process.
[2023-12-16] MEDS: SODIUM CHLORIDE 0.9% 500 ML 500 ML IV STA (21:19)
[2023-12-16] MEDS: SODIUM CHLORIDE 0.9% 1,000 ML IV SCH ×2 (21:20→23:32)
[2023-12-16 21:45] LABS: Partial Thromboplastin Time 23.8 sec (22.0-30.0)
[2023-12-16 21:46] LABS: Basophils % (A) 1 %; Eosinophils # (A) 0.2 k/uL (0-0.7); Eosinophils % (A) 4 %; HCT 35.3 % (34.0-46.0); HGB 11.4 gm/dL (11.4-16.0); Lymphocytes # (A) 2.1 k/uL (1.0-4.8); Lymphocytes % (A) 34 %; MCH 28.1 pg (25.0-35.0); MCHC 32.4 g/dL (31.0-37.0); MCV 86.8 fL (80.0-100.0); Mean Platelet Volume 8.7; Monocytes # (A) 0.4 k/uL (0-1.0); Monocytes % (A) 7 %; Neutrophils # (A) 3.3 k/uL (1.3-7.7); Neutrophils % (A) 54 %; Platelet Count 319 k/uL (150-450); RBC 4.06 m/uL (3.80-5.40); RDW 13.6 % (11.5-15.5); WBC 6.1 k/uL (3.8-10.6)
[2023-12-16 21:50] LABS: Appearance,Urine Cloudy (Clear); Bacteria,Urine Occasional /hpf; Bilirubin,Urine Negative (Negative); Blood,Urine Negative (Negative); Color,Urine Light Yellow; Glucose,Urine (UA) Negative (Negative); Ketones,Urine Negative (Negative); Leukocyte Esterase,Urine Moderate (Negative); Mucus,Urine Rare /hpf; Nitrite,Urine Positive (Negative); PH, Urine 6.5 (5.0-8.0); Protein,Urine Negative (Negative); RBC,Urine 2 /hpf (0-5); Specific Gravity,Urine 1.018 (1.001-1.035); Squamous Epithelial Cell,Urine <1 /hpf (0-4); Urobilinogen,Urine <2.0 mg/dL (<2.0); WBC,Urine 39 /hpf (0-5)
[2023-12-16] MEDS ORDERED: MAG HYDROX/AL HYDROX/SIMETH 30 ML CUP PO PRN (23:24)
[2023-12-16] MEDS ORDERED: NALOXONE 0.4 MG/ML 1 ML VIAL IV PRN (23:24)
[2023-12-16] MEDS ORDERED: ONDANSETRON ODT 4 MG TAB PO PRN (23:26)
--- NOTE | 2023-12-17 00:25 | P.HPIM ---
History of Present Illness H&P Date: 12/16/23 Chief Complaint: weakness Patient seen 12/16/23 The patient is a 73 y.o female who does not ambulate but uses an electric wheelchair. The patient states this am she was unable to get herself up from her wheelchair. She was found on the floor by EMS and noted to be covered in urine. The patient patient denies chest pain or sob. She denies any dysuria she was hospitalized for further workup and management. Review of Systems Constitutional: Reports weakness 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, "boarderline diabetic",gallstones, kidney stones, leakage of urine, abd hernia, wound rt butocks,carpal tunnel, "loose tooth lt upper front" History of Any Multi-Drug Resistant Organisms: None Reported Past Surgical History: Appendectomy, Section, Hernia Repair, Hysterectomy, Tonsillectomy Additional Past Surgical History / Comment(s): LEFT BELOW THE KNEE AMPUTATION, colostomy, lt thigh benign tumor removed, hemmorhoidectomy,carpal tunnel Past Anesthesia/Blood Transfusion Reactions: Postoperative Nausea & Vomiting (PONV) Additional Past Anesthesia/Blood Transfusion Reaction / Comment(s): "never received any blood transfusion" Past Psychological History: No Psychological Hx Reported Smoking Status: Never smoker Past Alcohol Use History: None Reported Past Drug Use History: None Reported - Past Family History Mother Family Medical History: Dementia Father Family Medical History: Dementia Medications and Allergies Home Medications Medication Instructions Recorded Confirmed Type Oxybutynin ER [Ditropan XL] 15 mg PO DAILY 10/25/18 11/07/23 History Sertraline [Zoloft] 100 mg PO DAILY 10/25/18 11/07/23 History Mupirocin 2% Oint [Bactroban 2% 1 applic TOPICAL TID #22 gm 05/06/23 11/07/23 Rx Oint] Atorvastatin [Lipitor] 10 mg PO DAILY 10/19/23 11/07/23 History Levocetirizine Dihydrochloride 5 mg PO DAILY 10/19/23 11/07/23 History [Xyzal] OLANZapine [ZyPREXA] 10 mg PO HS 10/19/23 11/07/23 History Omeprazole [PriLOSEC] 20 mg PO DAILY 10/19/23 11/07/23 History lisinopriL [Zestril] 20 mg PO DAILY 10/19/23 11/07/23 History Folic Acid 1 mg PO DAILY #30 tab 10/27/23 11/07/23 Rx Ciprofloxacin HCl [Cipro] 500 mg PO DIRECTED 11/07/23 11/07/23 History Sulfamethox-Tmp 800-160Mg [Bactrim 1 tab PO DIRECTED 11/07/23 11/07/23 History Ds] Ondansetron Odt [Zofran ODT] 4 mg PO Q8HR PRN #10 tab 11/30/23 Rx Allergies Allergy/AdvReac Type Severity Reaction Status Date / Time Penicillins Allergy Anaphylaxis Verified 12/13/23 13:44 cephalexin monohydrate AdvReac Nausea & Verified 12/13/23 13:44 [From Keflex] Vomiting codeine AdvReac Nausea & Verified 12/13/23 13:44 Vomiting red food dye Allergy Rash/Hives Uncoded 11/29/23 20:06 Physical Exam Vitals: Vital Signs Temp Pulse Resp BP Pulse Ox 12/16/23 21:26 72 18 106/56 98 12/16/23 18:52 97.9 F 71 20 111/62 100 Intake and Output 12/16/23 12/16/23 12/17/23 14:59 22:59 06:59 Other: Weight 90.718 kg - Constitutional General appearance: obese - EENT Eyes: PERRLA - Respiratory Respiratory: bilateral: CTA - Cardiovascular Rhythm: regular - Gastrointestinal General gastrointestinal: normal bowel sounds (plus ostomy) - Integumentary Integumentary: normal turgor - Neurologic Neurologic: CNII-XII intact - Musculoskeletal Musculoskeletal: generalized weakness (left bKA ) - Psychiatric Psychiatric: appropriate affect Results CBC & Chem 7: 12/16/23 19:49 12/16/23 19:49 Labs: Abnormal Lab Results - Last 24 Hours (Table) 12/16/23 12/16/23 Range/Units 19:49 21:00 BUN 24 H (7-17) mg/dL Urine Appearance Cloudy H (Clear) Urine Nitrite Positive H (Negative) Ur Leukocyte Esterase Moderate H (Negative) Urine WBC 39 H (0-5) /hpf Urine Bacteria Occasional H (None) /hpf Urine Mucus Rare H (None) /hpf Chest x-ray: report reviewed Assessment and Plan (1) Weakness Narrative/Plan: likely secondary to UTI, will get PT/OT, Current Visit: Yes Status: Acute Code(s): R53.1 - WEAKNESS SNOMED Code(s): 42193809 (2) Urinary tract infection Narrative/Plan: await urine culture, treat with Rocephin Current Visit: No Status: Acute Code(s): N39.0 - URINARY TRACT INFECTION, SITE NOT SPECIFIED SNOMED Code(s): 13315746 (3) Acute kidney injury Narrative/Plan: will give IV hydration with NS @ 75 ml Current Visit: No Status: Acute Code(s): N17.9 - ACUTE KIDNEY FAILURE, UNSPECIFIED SNOMED Code(s): 85251303 (4) History of left below knee amputation Narrative/Plan: currently wheel chair bound Current Visit: No Status: Acute Code(s): Z89.512 - ACQUIRED ABSENCE OF LEFT LEG BELOW KNEE SNOMED Code(s): 529647615438429 Plan: Continue IV abx, IV hydration, PT/OT place in observation pending further workup and management
[2023-12-17] MEDS: LEVOFLOXACIN 500MG-D5W PMX 500 MG in DEXTROSE/WATER 1 100ML.BAG IVPB STA (01:35)
[2023-12-17] MEDS: lisinopriL 20 MG TAB PO SCH (09:48)
[2023-12-17] MEDS: ATORVASTATIN 10 MG TAB PO SCH (09:48)
[2023-12-17] MEDS: OXYBUTYNIN 15 MG TAB.ER.24 PO SCH (09:48)
[2023-12-17] MEDS: PANTOPRAZOLE 40 MG TABLET PO SCH (09:48)
[2023-12-17] MEDS: FAMOTIDINE 20 MG TAB PO SCH (09:48)
[2023-12-17] MEDS: FOLIC ACID 1 MG TAB PO SCH (09:48)
[2023-12-17] MEDS: SERTRALINE 100 MG TAB PO SCH (10:56)
--- NOTE | 2023-12-17 12:10 | P.PN ---
Subjective Progress Note Date: 12/17/23 Hospital Course: 73-year-old female with history of hypertension, dyslipidemia, asthma, urinary incontinence presenting with weakness and urinary frequency. Vital signs within normal limits. Laboratory workup unremarkable except for positive urine nitrites and leukocyte esterase. Patient started on IV ceftriaxone. PT/OT ordered. Subjective: Patient seen and examined at bedside. No acute events overnight. Pertinent positives and negatives as discussed above, a complete review of sys tems was performed and all other systems are negative. Vitals Signs Reviewed. General: Nontoxic, no distress, appears at stated age Derm: Warm, dry Head: Atraumatic, normocephalic, symmetric Eyes: EOMI, no lid lag, anicteric sclera Mouth: No lip lesion, mucus membranes moist Cardiovascular: S1S2 reg, no murmur Lungs: CTA bilateral, no rhonchi, no rales, no accessory muscle use Abdominal: Soft, nontender to palpation, no guarding, no appreciable organomegaly Ext: Left BKA Neuro: CN II-XI grossly intact, no focal neuro deficits Psych: Alert, oriented, appropriate affect Data Reviewed Today: Pertinent Labs: No labs Imaging: No new imaging Assessment and Plan: Active: Urinary tract infection Debility Generalized weakness -Continue IV ceftriaxone 1 g every 24 hours -Urine cultures pending -PT evaluation pending Chronic: Hypertension Dyslipidemia Depression Urinary incontinence GERD Status post left BKA, wheelchair-bound DVT ppx: Lovenox Code status: Full code Anticipated discharge place: Pending clinical course Anticipated discharge time: Pending clinical course Objective - Vital Signs Vital signs: Vital Signs Temp 98.0 F 12/17/23 07:46 Pulse 61 12/17/23 07:46 Resp 18 12/17/23 07:46 BP 129/72 12/17/23 07:46 Pulse Ox 100 12/17/23 07:46 FiO2 Intake & Output 12/16/23 12/17/23 12/17/23 18:59 06:59 18:59 Weight 90.718 kg 90.718 kg Other: Voiding Method External Catheter - Labs CBC & Chem 7: 12/16/23 19:49 12/16/23 19:49 Labs: Abnormal Lab Results - Last 24 Hours (Table) 12/16/23 12/16/23 Range/Units 19:49 21:00 BUN 24 H (7-17) mg/dL Urine Appearance Cloudy H (Clear) Urine Nitrite Positive H (Negative) Ur Leukocyte Esterase Moderate H (Negative) Urine WBC 39 H (0-5) /hpf Urine Bacteria Occasional H (None) /hpf Urine Mucus Rare H (None) /hpf
[2023-12-17 17:31] LABS: Glucose,Whole Blood 111 mg/dL (70-110)
[2023-12-17 20:51] LABS: Glucose,Whole Blood 131 mg/dL (70-110)
[2023-12-17] MEDS: OLANZapine 10 MG TAB PO SCH (21:11)
[2023-12-18 06:04] LABS: Glucose,Whole Blood 98 mg/dL (70-110)
[2023-12-18] MEDS: lisinopriL 10 MG TAB PO SCH (10:13)
[2023-12-18] MEDS: ENOXAPARIN 40 MG/0.4 ML SYRINGE SQ SCH (10:13)
--- NOTE | 2023-12-18 11:14 | P.PN ---
Subjective Progress Note Date: 12/18/23 Hospital Course: 73-year-old female with history of hypertension, dyslipidemia, asthma, urinary incontinence presenting with weakness and urinary frequency. Vital signs within normal limits. Laboratory workup unremarkable except for positive urine nitrites and leukocyte esterase. Patient started on IV ceftriaxone. PT/OT ordered. Urine cultures growing gram-negative bacilli. Patient needs subacute rehab. Subjective: Patient seen and examined at bedside. No acute events overnight. Pertinent positives and negatives as discussed above, a complete review of systems was performed and all other systems are negative. Vitals Signs Reviewed. General: Nontoxic, no distress, appears at stated age Derm: Warm, dry Head: Atraumatic, normocephalic, symmetric Eyes: EOMI, no lid lag, anicteric sclera Mouth: No lip lesion, mucus membranes moist Cardiovascular: S1S2 reg, no murmur Lungs: CTA bilateral, no rhonchi, no rales, no accessory muscle use Abdominal: Soft, nontender to palpation, no guarding, no appreciable organomegaly Ext: Left BKA Neuro: CN II-XI grossly intact, no focal neuro deficits Psych: Alert, oriented, appropriate affect Data Reviewed Today: Pertinent Labs: Blood sugars range between 98-1 31 Imaging: No new imaging Assessment and Plan: Active: Urinary tract infection Debility Generalized weakness -Continue IV ceftriaxone 1 g every 24 hours -Urine cultures growing gram-negative bacilli -Subacute rehab at the time of discharge Chronic: Hypertension Dyslipidemia Depression Urinary incontinence GERD Status post left BKA, wheelchair-bound DVT ppx: Lovenox Code status: Full code Anticipated discharge place: [facility] Anticipated discharge time: Tomorrow Objective - Vital Signs Vital signs: Vital Signs Temp 98.7 F 12/18/23 07:27 Pulse 87 12/18/23 10:00 Resp 14 12/18/23 10:00 BP 142/81 12/18/23 10:00 Pulse Ox 98 12/18/23 10:00 FiO2 Intake & Output 12/17/23 12/18/23 12/18/23 18:59 06:59 18:59 Output Total 400 Balance -400 Weight 90.718 kg Output: Urine 400 Other: Voiding Method External Catheter Bedpan # Voids 2 4 - Labs CBC & Chem 7: 12/16/23 19:49 12/16/23 19:49 Labs: Abnormal Lab Results - Last 24 Hours (Table) 12/17/23 12/17/23 Range/Units 17:27 20:50 POC Glucose (mg/dL) 111 H 131 H (70-110) mg/dL Microbiology - Last 24 Hours (Table) 12/16/23 21:00 Urine Culture - Preliminary Urine,Voided Gram Neg Bacilli
[2023-12-18 20:07] LABS: Glucose,Whole Blood 115 mg/dL (70-110)
[2023-12-19 05:47] LABS: Glucose,Whole Blood 102 mg/dL (70-110)
[2023-12-19] MEDS: ERTAPENEM 1 GM in SODIUM CHLORIDE 0.9% 50 ML IVPB SCH (13:31)
--- NOTE | 2023-12-19 15:06 | P.PN ---
Subjective Progress Note Date: 12/19/23 Hospital Course: 73-year-old female with history of hypertension, dyslipidemia, asthma, urinary incontinence presenting with weakness and urinary frequency. Vital signs within normal limits. Laboratory workup unremarkable except for positive urine nitrites and leukocyte esterase. Patient started on IV ceftriaxone. PT/OT ordered. Urine cultures growing ESBL E. coli. Started on ertapenem. ID consulted. Patient needs subacute rehab. Subjective: Patient seen and examined at bedside. No acute events overnight. Still having urinary symptoms Pertinent positives and negatives as discussed above, a complete review of systems was performed and all other systems are negative. Vitals Signs Reviewed. General: Nontoxic, no distress, appears at stated age Derm: Warm, dry, right popliteal fossa erythematous Head: Atraumatic, normocephalic, symmetric Eyes: EOMI, no lid lag, anicteric sclera Mouth: No lip lesion, mucus membranes moist Cardiovascular: S1S2 reg, no murmur Lungs: CTA bilateral, no rhonchi, no rales, no accessory muscle use Abdominal: Soft, nontender to palpation, no guarding, no appreciable organomegaly Ext: Left BKA, Neuro: CN II-XI grossly intact, no focal neuro deficits Psych: Alert, oriented, appropriate affect Data Reviewed Today: Pertinent Labs: Blood sugars range between 98-1 02 Imaging: No new imaging Assessment and Plan: Active: ESBL E. coli urinary tract infection Debility Generalized weakness -Urine cultures growing ESBL E. coli, IV ceftriaxone discontinued, started on IV ertapenem -ID consulted, pending recommendations -Subacute rehab at the time of discharge Intertrigo -Keep area clean, dry -Nystatin powder topical twice daily Hypertension-decreased lisinopril from 30 mg to 20 mg daily Chronic: Dyslipidemia Depression Urinary incontinence GERD Status post left BKA, wheelchair-bound DVT ppx: Lovenox Code status: Full code Anticipated discharge place: [facility] Anticipated discharge time: Pending clinical course Objective - Vital Signs Vital signs: Vital Signs Temp 98.1 F 12/19/23 07:51 Pulse 66 12/19/23 08:00 Resp 16 12/19/23 07:51 BP 138/82 12/19/23 07:51 Pulse Ox 98 12/19/23 07:51 FiO2 Intake & Output 06/18/24 06/19/24 06/19/24 18:59 06:59 18:59 Intake Total 118 718 Balance 118 718 Intake: Oral 118 718 Other: Voiding Method Bedside Commode Bedside Commode Diaper Incontinent # Voids 2 0 - Labs CBC & Chem 7: 12/16/23 19:49 12/16/23 19:49 Labs: Abnormal Lab Results - Last 24 Hours (Table) 12/18/23 Range/Units 20:06 POC Glucose (mg/dL) 115 H (70-110) mg/dL Microbiology - Last 24 Hours (Table) 12/16/23 21:00 Urine Culture - Final Urine,Voided Escherichia coli 12/17/23 22:38 Blood Culture - Preliminary Blood
[2023-12-19] MEDS: NYSTATIN 100,000 UNIT/GM POWD 15 GM TOPICAL SCH (20:26)
--- NOTE | 2023-12-19 21:55 | P.CONS ---
History of Present Illness - Reason for Consult Consult date: 12/19/23 ESBL E. coli UTI Requesting physician: Sukhdeep Barlow - Chief Complaint Weakness x few days - History of Present Illness Patient is a 73-year-old female with a past medical history significant for hyperlipidemia hypertension hypothyroidism and asthma presenting to the hospital 3 days ago for evaluation of weakness symptom has been getting worse for few days before presentation the hospital and the patient was brought able to ambulate patient denies having any headache or any high-grade fever denies having any chest pain shortness of breath or cough some nausea but no vomiting no abdominal pain or any diarrhea, did have symptoms of burning of urine but no suprapubic or flank pain on arrival of the EMS the patient was noticed to be on the floor and covered in the urine and apparently the patient was hard to take care of herself at home on presentation to the hospital the patient was afebrile and no fever has been recorded subsequently patient was not tachycardic hypotensive or hypoxic she did have a white count of 6.1 on admission creatinine 0.76 liver enzymes are normal urine was positive urine cultures came back positive with ESBL E. coli antibiotic were adjusted to Invanz infectious disease was consulted for further management of antibiotic therapy 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, "boarderline diabetic",gallstones, kidney stones, leakage of urine, abd hernia, wound rt butocks,carpal tunnel, "loose tooth lt upper front" History of Any Multi-Drug Resistant Organisms: None Reported Past Surgical History: Appendectomy, Section, Hernia Repair, Hysterectomy, Tonsillectomy Additional Past Surgical History / Comment(s): LEFT BELOW THE KNEE AMPUTATION, colostomy, lt thigh benign tumor removed, hemmorhoidectomy,carpal tunnel Past Anesthesia/Blood Transfusion Reactions: Postoperative Nausea & Vomiting (PONV) Additional Past Anesthesia/Blood Transfusion Reaction / Comm: "never received any blood transfusion" Past Psychological History: No Psychological Hx Reported Additional Psychological History / Comment(s): pt stated went thru special education classes stated has about a 4th grade level. able to read some and w rite. needs things explained to her. pt lives in apt able to drive but has no car,takes the bus. uses a scooter.recieves meals on wheels, home care and colostomy supplies. Pt states she is here to go to a [facility]. Smoking Status: Never smoker Past Alcohol Use History: None Reported Past Drug Use History: None Reported - Past Family History Mother Family Medical History: Dementia Father Family Medical History: Dementia Medications and Allergies Home Medications Medication Instructions Recorded Confirmed Type Oxybutynin ER [Ditropan XL] 15 mg PO DAILY 10/25/18 12/17/23 History Sertraline [Zoloft] 100 mg PO DAILY 10/25/18 12/17/23 History Mupirocin 2% Oint [Bactroban 2% 1 applic TOPICAL TID #22 gm 05/06/23 12/17/23 Rx Oint] Atorvastatin [Lipitor] 10 mg PO DAILY 10/19/23 12/17/23 History Levocetirizine Dihydrochloride 5 mg PO DAILY 10/19/23 12/17/23 History [Xyzal] OLANZapine [ZyPREXA] 10 mg PO HS 10/19/23 12/17/23 History Omeprazole [PriLOSEC] 20 mg PO DAILY 10/19/23 12/17/23 History Folic Acid 1 mg PO DAILY #30 tab 10/27/23 12/17/23 Rx Ondansetron Odt [Zofran ODT] 4 mg PO Q8HR PRN #10 tab 11/30/23 12/17/23 Rx Nystatin 100,000 Unit/gm Powd 1 applic TOPICAL BID each 12/19/23 Rx [Mycostatin Powder] lisinopriL 20 mg PO DAILY #0 12/19/23 12/17/23 Rx Ertapenem [INVanz] 1 gm IVPB Q24H #7 each 12/20/23 Rx Allergies Allergy/AdvReac Type Severity Reaction Status Date / Time Penicillins Allergy Anaphylaxis Verified 12/17/23 09:25 red dye Allergy Rash/Hives Verified 12/17/23 09:25 cephalexin monohydrate AdvReac Nausea & Verified 12/13/23 13:44 [From Keflex] Vomiting codeine AdvReac Nausea & Verified 12/13/23 13:44 Vomiting Physical Exam Vitals: Vital Signs Temp Pulse Resp BP BP Pulse Ox 12/19/23 14:00 98.0 F 73 16 94/61 97 12/19/23 08:00 66 12/19/23 07:51 98.1 F 56 L 16 138/82 98 12/19/23 02:10 97.7 F 57 L 16 94/59 98 12/18/23 20:16 97.8 F 66 16 96/62 99 12/18/23 20:00 66 Intake and Output 12/19/23 12/19/23 12/19/23 06:59 14:59 22:59 Intake Total 718 Balance 718 Intake: Oral 718 Other: Voiding Method Bedside Commode Diaper Incontinent # Voids 0 1 Results CBC & Chem 7: 12/20/23 06:13 12/20/23 06:13 Labs: Abnormal Lab Results - Last 24 Hours (Table) 12/18/23 Range/Units 20:06 POC Glucose (mg/dL) 115 H (70-110) mg/dL Microbiology - Last 24 Hours (Table) 12/16/23 21:00 Urine Culture - Final Urine,Voided Escherichia coli 12/17/23 22:38 Blood Culture - Preliminary Blood Assessment and Plan (1) Allergy to multiple antibiotics Current Visit: Yes Status: Acute Code(s): Z88.1 - ALLERGY STATUS TO OTHER ANTIBIOTIC AGENTS SNOMED Code(s): 860212115 (2) Infection due to ESBL-producing Escherichia coli Current Visit: Yes Status: Acute Code(s): A49.8 - OTHER BACTERIAL INFECTIONS OF UNSPECIFIED SITE; Z16.12 - EXTENDED SPECTRUM BETA LACTAMASE (ESBL) RESISTANCE SNOMED Code(s): 228728481 (3) Urinary tract infection Current Visit: No Status: Acute Code(s): N39.0 - URINARY TRACT INFECTION, SITE NOT SPECIFIED SNOMED Code(s): 97222217 Plan: 1patient presented to the hospital with weakness burning urine positive UA and has been diagnosed with symptomatic UTI urine has been finalized with ESBL E. coli. 2patient with a penicillin and cephalosporin allergy that will limit the number of antibiotics safe to use 3Invanz 1 g daily 4patient will need to midlin and short course of IV antibiotic therapy on discharge We will follow on clinical condition and cultures to further adjust medication if needed Thank you for this consultation we will follow the patient along with you Dictation was produced using [employer] dictation software. please excuse any grammatical, word or spelling errors. Time with Patient: Greater than 30
[2023-12-20] MEDS: lisinopriL 20 MG TAB PO SCH (08:11)
[2023-12-20 08:40] LABS: Blood Urea Nitrogen 17.2 mg/dL (9.0-27.0); Chloride 111 mmol/L (96-109); Glucose 96 mg/dL (70-110); Potassium 4.2 mmol/L (3.5-5.5); Sodium 144 mmol/L (135-145)
[2023-12-20 08:41] LABS: Calcium 8.5 mg/dL (8.7-10.3); Carbon Dioxide 22.1 mmol/L (21.6-31.8)
[2023-12-20 08:44] LABS: Basophils # (A) 0.05 X 10*3/uL (0.00-0.10); Basophils % (A) 0.9 %; Eosinophils % (A) 5.2 %; HCT 31.9 % (37.2-46.3); HGB 9.6 g/dL (12.0-15.0); Lymphocytes # (A) 2.63 X 10*3/uL (0.90-5.00); Lymphocytes % (A) 45.6 %; MCH 26.5 pg (27.0-32.0); MCHC 30.1 g/dL (32.0-37.0); MCV 88.1 FL (80.0-97.0); Mean Platelet Volume 10.6 FL (9.5-12.2); Monocytes # (A) 0.44 X 10*3/uL (0.20-1.00); Monocytes % (A) 7.6 %; NRBC Per 100 WBC 0 X 10*3/uL (0.00-0.01); Neutrophils # (A) 2.34 X 10*3/uL (1.80-7.70); Neutrophils % (A) 40.5 %; Platelet Count 421 X 10*3/uL (140-440); RBC 3.62 X 10*6/uL (4.10-5.20); WBC 5.77 X 10*3/uL (4.50-10.00)
--- NOTE | 2023-12-20 14:02 | P.DS ---
Providers Date of admission: 12/16/23 23:26 Expected date of discharge: 12/20/23 Attending physician: Andrew Gandhi Consults: 12/19/23 12:16 Consult Physician Routine Consulting Provider: Bubba Hamilton Consult Reason/Comments: ESBL Ecoli UTI Do you want consulting provider notified?: Yes Primary care physician: Miguel Sapp MD Hospital Course: Hospital Course: 73-year-old female with history of hypertension, dyslipidemia, asthma, urinary incontinence presenting with weakness and urinary frequency. Vital signs within normal limits. Laboratory workup unremarkable except for positive urine nitrites and leukocyte esterase. Patient started on IV ceftriaxone. PT/OT ordered. Urine cultures growing ESBL E. coli. Started on ertapenem. ID consulted. Patient needs subacute rehab. December 27: Resting in bed. Urinary symptoms better. Urine culture growing ESBL/E. coli. Discussed with ID.Patient will get 7 days of 1 g IV Invanz. Midline placed. Has chronic colostomy-working well Discussion and discharge planning more than 35 minutes On examination: VITAL SIGNS: [98, 757, 16, 145/79, 98% room air] GENERAL APPEARANCE: Reclined in bed, comfortable. Right arm midline HEENT: Normal external appearance of nose and ear. Oral cavity normal EYES: Pupils equal. Conjunctiva normal. NECK: JVD not raised. Mass not palpable. RESPIRATORY: Respiratory effort normal. Lungs clear to auscultation. CARDIOVASCULAR: First and second sounds normal. No edema. ABDOMEN: Soft. Liver and spleen not palpable. No tenderness. No mass palpable. Colostomy bag with stool MUSCULOSKELETAL: Left below-knee amputation PSYCHIATRY: Alert and oriented x3. Mood and affect normal. INVESTIGATIONS, reviewed in the clinical context: December 27: White count 5.7 hemoglobin 9.6 platelets 421 potassium 4.2 creatinine 0.8 Urine culture [December 15] E. coli/ESBL Assessment and Plan: ESBL E. coli urinary tract infection with cystitis Chronic medical debility Acute dysthymia Intertrigo -Keep area clean, dry -Nystatin powder topical twice daily Hypertension-decreased lisinopril from 30 mg to 20 mg daily Dyslipidemia Depression Urinary incontinence GERD Status post left BKA, wheelchair-bound Code status: Full code Disposition: [facility] Plan - Discharge Summary Discharge Rx Participant: No New Discharge Prescriptions: New Nystatin 100,000 Unit/gm Powd [Mycostatin Powder] 1 applic TOPICAL BID each Ertapenem [INVanz] 1 gm IVPB Q24H #7 each Continue Sertraline [Zoloft] 100 mg PO DAILY Oxybutynin ER [Ditropan XL] 15 mg PO DAILY Mupirocin 2% Oint [Bactroban 2% Oint] 1 applic TOPICAL TID #22 gm Atorvastatin [Lipitor] 10 mg PO DAILY Folic Acid 1 mg PO DAILY #30 tab Ondansetron Odt [Zofran ODT] 4 mg PO Q8HR PRN #10 tab PRN Reason: Nausea OLANZapine [ZyPREXA] 10 mg PO HS Levocetirizine Dihydrochloride [Xyzal] 5 mg PO DAILY Omeprazole [PriLOSEC] 20 mg PO DAILY Changed lisinopriL 20 mg PO DAILY #0 Discharge Medication List Oxybutynin ER [Ditropan XL] 15 mg PO DAILY 10/25/18 [History] Sertraline [Zoloft] 100 mg PO DAILY 10/25/18 [History] Mupirocin 2% Oint [Bactroban 2% Oint] 1 applic TOPICAL TID #22 gm 05/06/23 [Rx] Atorvastatin [Lipitor] 10 mg PO DAILY 10/19/23 [History] Levocetirizine Dihydrochloride [Xyzal] 5 mg PO DAILY 10/19/23 [History] OLANZapine [ZyPREXA] 10 mg PO HS 10/19/23 [History] Omeprazole [PriLOSEC] 20 mg PO DAILY 10/19/23 [History] Folic Acid 1 mg PO DAILY #30 tab 10/27/23 [Rx] Ondansetron Odt [Zofran ODT] 4 mg PO Q8HR PRN #10 tab 11/30/23 [Rx] Nystatin 100,000 Unit/gm Powd [Mycostatin Powder] 1 applic TOPICAL BID each 12/19/23 [Rx] lisinopriL 20 mg PO DAILY #0 12/19/23 [Rx] Ertapenem [INVanz] 1 gm IVPB Q24H #7 each 12/20/23 [Rx] Follow up Appointment(s)/Referral(s): Miguel Sapp MD [Primary Care Provider] - 1-2 days [facility], [NON-STAFF] - As Needed Patient Instructions/Handouts: Urinary Tract Infection in Women (DC) Activity/Diet/Wound Care/Special Instructions: Right popliteal fossa intertrigo - keep it dry and clean Discharge Disposition: TRANSFER TO SNF/ECF
[2023-12-20 14:47] VITALS: BP 125/69; PULSE 72; RESP 17; TEMP 98
--- NOTE | 2023-12-20 17:36 | P.PN ---
Subjective Progress Note Date: 12/20/23 Principal diagnosis: Reason for follow-up is ESBL E. coli UTI Patient is a 73-year-old female with a past medical history significant for hyperlipidemia hypertension hypothyroidism and asthma presenting to the hospital for evaluation of weakness urinary symptoms has been diagnosed with a UTI urine culture subsequently finalized with ESBL E. coli prompted this consultation. On today's evaluation that is 12/20/2023, Patient is afebrile this morning and denies any chills, patient mention breathing comfortably and is currently on room air, patient denies any chest pain occasional cough patient denies any abdominal pain no diarrhea no nausea no vomiting, urinary symptoms has improved. Patient white count is 5.77, creatinine 0.8 Objective - Vital Signs Vital signs: Vital Signs Temp 98.0 F 12/20/23 07:39 Pulse 57 L 12/20/23 07:39 Resp 16 12/20/23 07:39 BP 145/79 12/20/23 07:39 Pulse Ox 98 12/20/23 07:39 FiO2 Intake & Output 12/19/23 12/20/23 12/20/23 18:59 06:59 18:59 Intake Total 718 118 Balance 718 118 Intake: Oral 718 118 Other: Voiding Method Bedside Commode Bedside Commode Bedside Commode Diaper Diaper Diaper Incontinent Incontinent Incontinent # Voids 2 0 - Exam GENERAL DESCRIPTION: An elderly female lying in bed in no distress RESPIRATORY SYSTEM: Unlabored breathing , decreased breath sounds at bases HEART: S1 S2 regular rate and rhythm , ABDOMEN: Soft , no tenderness EXTREMITIES: No edema feet - Labs CBC & Chem 7: 12/20/23 06:13 12/20/23 06:13 Labs: Abnormal Lab Results - Last 24 Hours (Table) 12/20/23 12/20/23 Range/Units 06:13 06:13 RBC 3.62 L (4.10-5.20) X 10*6/uL Hgb 9.6 L (12.0-15.0) g/dL Hct 31.9 L (37.2-46.3) % MCH 26.5 L (27.0-32.0) pg MCHC 30.1 L (32.0-37.0) g/dL Chloride 111 H (96-109) mmol/L BUN/Creatinine Ratio 21.50 H (12.00-20.00) Ratio Calcium 8.5 L (8.7-10.3) mg/dL Microbiology - Last 24 Hours (Table) 12/17/23 22:38 Blood Culture - Preliminary Blood 12/16/23 21:00 Urine Culture - Final Urine,Voided Escherichia coli Assessment and Plan (1) Infection due to ESBL-producing Escherichia coli Current Visit: Yes Status: Acute Code(s): A49.8 - OTHER BACTERIAL INFECTIONS OF UNSPECIFIED SITE; Z16.12 - EXTENDED SPECTRUM BETA LACTAMASE (ESBL) RESISTANCE SNOMED Code(s): 155993423 (2) Allergy to multiple antibiotics Current Visit: Yes Status: Acute Code(s): Z88.1 - ALLERGY STATUS TO OTHER ANTIBIOTIC AGENTS SNOMED Code(s): 276685617 (3) Urinary tract infection Current Visit: No Status: Acute Code(s): N39.0 - URINARY TRACT INFECTION, SITE NOT SPECIFIED SNOMED Code(s): 94286571 Plan: 1patient presented to the hospital with weakness burning urine positive UA and has been diagnosed with symptomatic UTI urine has been finalized with ESBL E. coli. 2patient with a penicillin and cephalosporin allergy that will limit the number of antibiotics safe to use 3patient did get a midline plan is for a 7-day course of IV Invanz on discharge discussed with admitting team prescription provided Dictation was produced using [employer] dictation software. please excuse any grammatical, word or spelling errors.
== END 2023-12-20 18:08 | DRG 690 ==
LOC: EC 18:49 → 5NMEDONC 23:26 → 6NMEDSUR 12-17 06:24
PROVIDERS: ADMIT Hospitalist; ATTEND Hospitalist
PROC: 05HB33Z Insertion of Infusion Device into Right Basilic Vein, Percutaneous Approach (ICD-10-PCS; principal; 2023-12-20 11:35)
DX: N30.90 Cystitis, unspecified without hematuria (principal); Z16.12 Extended spectrum beta lactamase (ESBL) resistance; N17.9 Acute kidney failure, unspecified; R62.7 Adult failure to thrive; Z43.3 Encounter for attention to colostomy; Z89.512 Acquired absence of left leg below knee; E03.9 Hypothyroidism, unspecified; I10 Essential (primary) hypertension; J45.909 Unspecified asthma, uncomplicated; F34.1 Dysthymic disorder; R73.03 Prediabetes; K21.9 Gastro-esophageal reflux disease without esophagitis; B96.20 Unspecified Escherichia coli [E. coli] as the cause of diseases classified elsewhere; E78.5 Hyperlipidemia, unspecified; I44.0 Atrioventricular block, first degree; L30.4 Erythema intertrigo; R32 Unspecified urinary incontinence; R35.0 Frequency of micturition; Z79.899 Other long term (current) drug therapy; Z99.3 Dependence on wheelchair; Z88.0 Allergy status to penicillin; Z88.1 Allergy status to other antibiotic agents; Z88.5 Allergy status to narcotic agent
CPT/HCPCS: 36410; 36415; 71046; 76937; 80048; 80053; 81001; 81003; 83735; 84484; 85025; 85610; 85730; 87040; 87077; 87086; 87186; 93005; 94760; 96361; 96365; 96367; 99285